=== PATIENT | male | born 1945 | race Caucasian/White ===

== ENCOUNTER 2022-04-26 09:01 | Outpatient (REF) | payer MEDICARE, SELFPAY ==
[2022-04-26 09:21] VITALS: BP 136/65; PULSE 59; RESP 16; TEMP 36.6; O2SAT 98
[2022-04-26 09:22] VITALS: BMI 25.3
[2022-04-26 09:50] VITALS: BP 117/60; PULSE 60; RESP 16; O2SAT 98
== END 2022-04-26 09:02 | disposition home or self-care (01) ==
LOC: HO.MS 09:01
PROVIDERS: PCP Physician Assistant; Visit Provider Ophthalmology
PROC: (CPT 67840; principal; 2022-04-26 13:10)
DX: D23.112 Other benign neoplasm of skin of right lower eyelid, including canthus (principal); H35.032 Hypertensive retinopathy, left eye; Z96.1 Presence of intraocular lens; I10 Essential (primary) hypertension; E11.9 Type 2 diabetes mellitus without complications; E78.00 Pure hypercholesterolemia, unspecified; Z87.891 Personal history of nicotine dependence; Z88.2 Allergy status to sulfonamides; Z79.84 Long term (current) use of oral hypoglycemic drugs; Z79.899 Other long term (current) drug therapy
CPT/HCPCS: 67840; 88305

== ENCOUNTER 2022-06-15 09:08 | Outpatient (REF) | payer MEDICARE, SELFPAY ==
--- NOTE | ~2022-06-15 | XR_ITS ---
EXAMINATION: XR KNEE, LEFT CLINICAL INFORMATION: Left knee pain COMPARISON: None TECHNIQUE: Four views of the left knee. FINDINGS: No joint space narrowing. Prominent meniscal chondrocalcinosis. Trace joint effusion. Small marginal osteophytes and degenerative cyst of the medial tibia peripherally. Prominent vascular calcifications. XR/XR knee LT 4V IMPRESSION: No acute osseous abnormality. Mild medial compartment osteoarthritis with prominent meniscal chondrocalcinosis.
== END 2022-06-15 09:09 | disposition home or self-care (01) ==
LOC: HO.XRAY 09:08
PROVIDERS: PCP Physician Assistant; Visit Provider Physician Assistant
DX: M25.562 Pain in left knee (principal)
CPT/HCPCS: 73564

== ENCOUNTER 2022-07-30 06:35 | Outpatient (REF) | payer MEDICARE, SELFPAY ==
[2022-07-30 07:39] LABS: Hematocrit 31.1 % (42.0-52.0); Hemoglobin 9.2 g/dl (14.0-18.0); Mean Corpuscular HGB Conc 29.6 g/dl (31.0-36.0); Mean Corpuscular Hemoglobin 23.2 pg (27.0-33.0); Mean Corpuscular Volume 78.3 fL (80.0-98.0); Mean Platelet Volume 9.1 fL (9.4-12.4); Platelet Count 297 X10*3/uL (160-400); Red Blood Count 3.97 X10*6/uL (4.60-5.80); Red Cell Distribution Width 17.6 % (11.0-16.0); White Blood Count 7.3 X10*3/uL (4.8-10.8)
[2022-07-30 08:22] LABS: Alanine Aminotransferase 16 U/L (0-40); Albumin Level 3.9 g/dL (3.5-5.0); Alkaline Phosphatase 88 U/L (39-117); Anion Gap 13 (12-20); Aspartate Amino Transferase 21 U/L (5-37); Bilirubin Total 0.5 mg/dL (0.0-1.0); Blood Urea Nitrogen 23 mg/dL (9-16); Calcium 9.7 mg/dL (8.4-10.2); Carbon Dioxide 25 mmol/L (22-29); Chloride 105 mmol/L (96-108); Cholesterol 123 mg/dL; Estimated Glomerular Filt Rate > 60; Glucose Fasting 99 mg/dL (60-99); HDL Cholesterol 27 mg/dL; LDL Cholesterol Calculated 76 mg/dl; Potassium 4.9 mmol/L (3.3-5.1); Prostate Specific Antigen Scr 0.78 ng/mL (<0.05-4.0); Sodium 138 mmol/L (135-145); TSH reflex Free T4 2.54 uIU/mL (0.32-4.0); Total Protein 7.7 g/dL (6.5-8.0); Triglycerides 100 mg/dL
[2022-07-30 09:47] LABS: Creatinine Urine 94.42 mg/dL; Microalbum/Creatinine Ratio Ur 25.4 ug/mg cr
== END 2022-07-30 06:36 | disposition home or self-care (01) ==
LOC: HO.LAB 06:35
PROVIDERS: PCP Physician Assistant; Visit Provider Physician Assistant
DX: Z12.5 Encounter for screening for malignant neoplasm of prostate (principal); E11.42 Type 2 diabetes mellitus with diabetic polyneuropathy
CPT/HCPCS: 36415; 80053; 80061; 82043; 84153; 84443; 85027

== ENCOUNTER 2022-08-13 06:53 | Outpatient (REF) | payer MEDICARE, SELFPAY ==
[2022-08-13 07:25] LABS: Hematocrit 32.5 % (42.0-52.0); Hemoglobin 9.5 g/dl (14.0-18.0); Mean Corpuscular HGB Conc 29.2 g/dl (31.0-36.0); Mean Corpuscular Hemoglobin 23.2 pg (27.0-33.0); Mean Corpuscular Volume 79.3 fL (80.0-98.0); Mean Platelet Volume 9.3 fL (9.4-12.4); Platelet Count 318 X10*3/uL (160-400); Red Cell Distribution Width 17.6 % (11.0-16.0); White Blood Count 7.4 X10*3/uL (4.8-10.8)
[2022-08-13 07:51] LABS: Estimated Average Glucose 140 mg/dL; Hemoglobin A1c % 6.5 %
[2022-08-13 08:17] LABS: Alanine Aminotransferase 19 U/L (0-40); Alkaline Phosphatase 101 U/L (39-117); Anion Gap 16 (12-20); Aspartate Amino Transferase 24 U/L (5-37); Bilirubin Total 0.4 mg/dL (0.0-1.0); Blood Urea Nitrogen 21 mg/dL (9-16); Calcium 9.6 mg/dL (8.4-10.2); Carbon Dioxide 20 mmol/L (22-29); Chloride 108 mmol/L (96-108); Cholesterol 124 mg/dL; Estimated Glomerular Filt Rate > 60; Ferritin 36 ng/mL (20-250); Glucose Fasting 266 mg/dL (60-99); HDL Cholesterol 25 mg/dL; Iron 42 mcg/dL (45-160); LDL Cholesterol Calculated 74 mg/dl; Percent Iron Saturation 12 % (15-50); Potassium 5.2 mmol/L (3.3-5.1); Prostate Specific Antigen Scr 0.88 ng/mL (<0.05-4.0); Sodium 139 mmol/L (135-145); TSH reflex Free T4 2.17 uIU/mL (0.32-4.0); Total Iron Binding Capacity 359 mcg/dL (228-428); Total Protein 7.9 g/dL (6.5-8.0); Triglycerides 127 mg/dL; Unsaturated Iron Binding 317 ug/dL
[2022-08-13 08:28] LABS: Creatinine Urine 91.93 mg/dL
== END 2022-08-13 06:54 | disposition home or self-care (01) ==
LOC: HO.LAB 06:53
PROVIDERS: PCP Physician Assistant; Visit Provider Physician Assistant
DX: E11.42 Type 2 diabetes mellitus with diabetic polyneuropathy (principal); C67.9 Malignant neoplasm of bladder, unspecified; D50.9 Iron deficiency anemia, unspecified; Z12.5 Encounter for screening for malignant neoplasm of prostate
CPT/HCPCS: 36415; 80053; 80061; 82043; 82728; 83036; 83540; 84153; 84443; 85027

== ENCOUNTER → 2022-09-13 12:49 | Outpatient (BNVA) | payer MEDICARE, SELFPAY | PROVIDERS: PCP Physician Assistant; Visit Provider Orthopaedic Surgery | DX: M17.12 Unilateral primary osteoarthritis, left knee (principal); E11.42 Type 2 diabetes mellitus with diabetic polyneuropathy | CPT/HCPCS: 99202 ==

== ENCOUNTER 2022-09-21 07:38 | Outpatient (REF) | payer MEDICARE, SELFPAY ==
--- NOTE | ~2022-09-21 | US_ITS ---
EXAMINATION: US RETROPERITONEAL LIMITED (AORTA) CLINICAL INFORMATION: Encounter for screening for cardiovascular disorders. COMPARISON: None TECHNIQUE: Bar-scale, color Doppler and spectral Doppler evaluation of the abdominal aorta. FINDINGS: Calcific plaque is present in the abdominal aorta with infrarenal dilatation and maximal transverse diameter of 3.2 cm. The measurements of the aorta in maximum AP and transverse dimensions respectively are as follows: Proximal: 2.5 x 3.0 cm. Mid: 2.6 x 2.3 cm. Distal: 3.1 x 3.2 cm. PSV: 94.6 cm/s. Plaque is present in the iliac vessels. There are elevated velocities seen within the internal iliac arteries bilaterally, but not the common iliac artery. The measurements of the common iliac arteries in maximum AP and TRV dimensions are as follows: Right Common Iliac Artery: 1.1 x 0.9 cm. Left Common Iliac Artery: 0.8 x 1.1 cm. US/US aorta IMPRESSION: Infrarenal abdominal aortic aneurysm with maximal transverse diameter of 3.2 cm. Followup is recommended in 3 years' time.
== END 2022-09-21 07:39 | disposition home or self-care (01) ==
LOC: HO.US 07:38
PROVIDERS: PCP Physician Assistant; Visit Provider Physician Assistant
DX: Z13.6 Encounter for screening for cardiovascular disorders (principal); I10 Essential (primary) hypertension; Z87.891 Personal history of nicotine dependence
CPT/HCPCS: 76775

== ENCOUNTER 2022-10-19 08:00 | Outpatient (RCR) | payer MEDICARE, SELFPAY ==
[2022-09-08 07:10] VITALS: BP 134/61; PULSE 62; O2SAT 97
--- NOTE | 2022-09-08 09:24 | MHC.PT.EP ---
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 OF IMPORTANCE, Pt IS RECENTLY REF FROM GOVERNMENT RELATIONS DIRECTOR TO VASCULAR SURGEON TO ASSESS CLAUDICATION IN LEs- Pt ALSO HAS AN ORTHO CONSULT FOR Lt KNEE NEXT WEEK. OBJECTIVE FINDINGS: ANURAG KNEE EXTEN DEFICITS, DECR ANURAG HIP/ HS FLEXIBILITY, NEUROPATHY SXS IN ANURAG FEET AT NIGHT (DUE TO DIABETES), STRENGTH DEFICITS IN ANURAG PROX LEs, (+) GENU VARUS ANURAG; AND (+) LEFT POPLITEAL TENDERNESS (NO SIGNIF LEFT KNEE Jt LINE OR PF PAIN). FUNCTIONALLY, Pt IS LIMITED W DEEP SQUATS, STAIR MGMT, INCR WALKING, AND PROLONGED ACTIVITY. Pt IS VERY MOTIVATED FOR PT AND HE WOULD BENEFIT FROM PT TO ADDRESS THE ABOVE FINDINGS AND DEV A HEP/ SX MGMT TECHN W CLOSE MONITORING OF Pt'S RESPONSE AND IF ANY VASCULAR SXS. 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 Manual therapy to restore motion and function. Therapeutic exercise to improve strength and flexibility. Neuromuscular re-education for posture and balance. Therapeutic activities to return to functional activities of daily living. Electronically signed by: LUISITO VASQUEZ,PT Please sign and return to therapist. Thank you for your referral.
--- NOTE | 2022-10-19 09:04 | MHC.PT.DC ---
[facility] [place] Office [place] Office [place] Office [address] Yue Sanchez [address] [phone] F: [phone] F: [phone] F: [phone] F: [phone] Physical Therapy Discharge Report Diagnosis: CHRONIC INSTABILITY OF LEFT KNEE Date of Surgery: Date of Evaluation: 09/08/22 Date of Discharge: 10/19/22 Treatments to Date: 11 Cancellations to Date: 1 No Shows to Date: 0 Discharge Status: Achieved Goals Improved Function Independent with HEP Discharge Summary: Pt MET HIS PT GOALS AT THIS TIME- HE DEMON EFFICIENT GAIT MECH, SQUAT TECHN/ STAIR MGMT- HE STATED HIS LEs FEEL STRONGER OVERALL AND HE IS COMPLIANT AND INDEP W HIS HEP- Pt FEELS READY TO CONT ON HIS OWN AT THIS TIME; HE DEMON EFFICIENT GAIT MECH ON LEVEL GROUND AND STAIRS, WFL FUNCTIONAL SQUAT, HE IS MOTIVATED AND INDEP W HEP AND HE PLAYED GOLF LAST WEEK AND FELT GREAT. HIS LEFI SCAORE TODAY AT D/C IS 75/80 AND AT EVAL 55/80. Electronically signed by: LUISITO VASQUEZ,PT Please sign and return to therapist. Thank you for your referral.
== END 2022-10-19 09:04 | disposition home or self-care (01) ==
LOC: HO.PT 08:00
PROVIDERS: PCP Physician Assistant; Visit Provider Physician Assistant
DX: M23.52 Chronic instability of knee, left knee (principal)
CPT/HCPCS: 97110; 97162; 97530

== ENCOUNTER 2023-02-16 07:05 | Outpatient (REF) | payer MEDICARE, SELFPAY ==
[2023-02-16 11:27] LABS: Hematocrit 32.7 % (42.0-52.0); Mean Corpuscular HGB Conc 30.6 g/dl (31.0-36.0); Mean Corpuscular Hemoglobin 25.6 pg (27.0-33.0); Mean Corpuscular Volume 83.8 fL (80.0-98.0); Mean Platelet Volume 9.5 fL (9.4-12.4); Platelet Count 281 X10*3/uL (160-400); Red Cell Distribution Width 16.9 % (11.0-16.0); White Blood Count 5.9 X10*3/uL (4.8-10.8)
[2023-02-16 12:00] LABS: Alanine Aminotransferase 17 U/L (0-40); Albumin Level 3.9 g/dL (3.5-5.0); Alkaline Phosphatase 93 U/L (39-117); Anion Gap 14 (12-20); Aspartate Amino Transferase 24 U/L (5-37); Bilirubin Total 0.6 mg/dL (0.0-1.0); Blood Urea Nitrogen 22 mg/dL (9-16); Calcium 9.6 mg/dL (8.4-10.2); Carbon Dioxide 24 mmol/L (22-29); Chloride 108 mmol/L (96-108); Cholesterol 120 mg/dL; Estimated Glomerular Filt Rate > 60; Glucose Fasting 120 mg/dL (60-99); HDL Cholesterol 27 mg/dL; Iron 45 mcg/dL (45-160); LDL Cholesterol Calculated 72 mg/dl; Percent Iron Saturation 13 % (15-50); Potassium 4.5 mmol/L (3.3-5.1); Sodium 141 mmol/L (135-145); Total Iron Binding Capacity 345 mcg/dL (228-428); Triglycerides 108 mg/dL; Unsaturated Iron Binding 300 ug/dL
[2023-02-16 12:20] LABS: Prostate Specific Antigen Scr 0.83 ng/mL (<0.05-4.0)
== END 2023-02-16 07:06 | disposition home or self-care (01) ==
LOC: HO.WFDLDS 07:05
PROVIDERS: Visit Provider Physician Assistant
DX: Z12.5 Encounter for screening for malignant neoplasm of prostate (principal); D50.0 Iron deficiency anemia secondary to blood loss (chronic); I10 Essential (primary) hypertension; I25.10 Atherosclerotic heart disease of native coronary artery without angina pectoris
CPT/HCPCS: 36415; 80053; 80061; 83540; 84153; 85027

== ENCOUNTER → 2023-03-02 15:08 | Outpatient (BNVA) | payer MEDICARE, SELFPAY | PROVIDERS: PCP Physician Assistant; Visit Provider Nurse Practitioner Family | DX: Z12.11 Encounter for screening for malignant neoplasm of colon (principal); R19.7 Diarrhea, unspecified | CPT/HCPCS: 99202 ==

== ENCOUNTER 2023-03-18 07:23 | Outpatient (REF) | payer MEDICARE, SELFPAY ==
[2023-03-18 14:20] LABS: Hematocrit 32.1 % (42.0-52.0); Hemoglobin 9.5 g/dl (14.0-18.0); Mean Corpuscular HGB Conc 29.6 g/dl (31.0-36.0); Mean Corpuscular Hemoglobin 25.5 pg (27.0-33.0); Mean Corpuscular Volume 86.1 fL (80.0-98.0); Mean Platelet Volume 9.9 fL (9.4-12.4); Platelet Count 272 X10*3/uL (160-400); Red Blood Count 3.73 X10*6/uL (4.60-5.80); Red Cell Distribution Width 16.7 % (11.0-16.0); White Blood Count 5.2 X10*3/uL (4.8-10.8)
[2023-03-18 14:34] LABS: C Reactive Protein 0.49 mg/dL (< or = 0.50); Iron 42 mcg/dL (45-160); Percent Iron Saturation 13 % (15-50); Total Iron Binding Capacity 323 mcg/dL (228-428); Unsaturated Iron Binding 281 ug/dL
[2023-03-18 15:59] LABS: Folate 7.2 ng/mL (> or = 4.0); Vitamin B12 280 pg/mL (200-900)
[2023-03-23 15:44] LABS: Vitamin D 25-OH, D2 <4 ng/mL; Vitamin D 25-OH, D3 28 ng/mL; Vitamin D 25-OH, Total 28 ng/mL (30-100)
== END 2023-03-18 07:24 | disposition home or self-care (01) ==
LOC: HO.WFDLDS 07:23
PROVIDERS: Nurse Practitioner Family; Visit Provider Physician Assistant
DX: D50.0 Iron deficiency anemia secondary to blood loss (chronic) (principal); K58.9 Irritable bowel syndrome, unspecified; R19.7 Diarrhea, unspecified; E55.9 Vitamin D deficiency, unspecified
CPT/HCPCS: 36415; 82306; 82607; 82746; 83540; 85027; 86140

== ENCOUNTER → 2023-04-28 13:51 | Outpatient (BNV) | payer MEDICARE, SELFPAY | PROVIDERS: PCP Physician Assistant; Visit Provider Internal Medicine | DX: D64.9 Anemia, unspecified (principal) | CPT/HCPCS: 38222; 99204; 99212; 99213; 99214; G2211 ==

== ENCOUNTER 2023-05-16 13:05 | Outpatient (REF) | payer MEDICARE, SELFPAY | END 2023-05-16 13:06 | disposition home or self-care (01) | LOC: HO.MDS 13:05 | PROVIDERS: Visit Provider Internal Medicine | DX: D50.8 Other iron deficiency anemias (principal) | CPT/HCPCS: 96365; J1756 ==

== ENCOUNTER 2023-05-23 12:54 | Outpatient (REF) | payer MEDICARE, SELFPAY | END 2023-05-23 12:55 | disposition home or self-care (01) | LOC: HO.MDS 12:54 | PROVIDERS: Visit Provider Internal Medicine | DX: D50.8 Other iron deficiency anemias (principal) | CPT/HCPCS: 96365; J1756 ==

== ENCOUNTER 2023-05-30 12:57 | Outpatient (REF) | payer MEDICARE, SELFPAY | END 2023-05-30 12:58 | disposition home or self-care (01) | LOC: HO.MDS 12:57 | PROVIDERS: Visit Provider Internal Medicine | DX: D50.8 Other iron deficiency anemias (principal) | CPT/HCPCS: 96365; J1756 ==

== ENCOUNTER 2023-06-01 06:00 | Outpatient (REF) | payer MEDICARE, SELFPAY ==
[2023-06-01] MEDS: iohexoL 350 MG/ML 100 ML INFUS..BTL IV (08:35)
[2023-06-01] MEDS: Barium Sulfate Oral (Mocha) 450 ML ORAL.SUSP 900 ML PO (08:35)
[2023-06-01 10:03] LABS: Creatinine POC 0.6 mg/dL (0.5-1.4); GFR POC > 60
== END 2023-06-01 06:01 | disposition home or self-care (01) ==
LOC: HO.CT 06:00
PROVIDERS: PCP Physician Assistant; Visit Provider Internal Medicine
DX: R10.9 Unspecified abdominal pain (principal); R63.4 Abnormal weight loss; D64.9 Anemia, unspecified
CPT/HCPCS: 74177; 82565; Q9967

== ENCOUNTER 2023-06-07 13:30 | Outpatient (REF) | payer MEDICARE, SELFPAY | END 2023-06-07 13:31 | disposition home or self-care (01) | LOC: HO.MDS 13:30 | PROVIDERS: Visit Provider Internal Medicine | DX: D50.8 Other iron deficiency anemias (principal) | CPT/HCPCS: 96365; J1756 ==

== ENCOUNTER 2023-06-13 08:03 | Outpatient (AMB) | payer MEDICARE, SELFPAY ==
--- NOTE | 2023-06-13 08:15 | MHC.OFFWIV ---
Intake Vital Signs 06/13/23 08:17 Height 6 ft Weight 191 lb 8 oz BMI 26.0 BP 122/58 L Blood Pressure Location Lt brachial Position Sitting Respiration 14 Pulse 68 Pulse Source Pulse Oximeter Temp 97.5 F Temp Source Oral Pulse Oximetry (%) 99 Oxygen Delivery Method Room Air Intake Visit Reasons: cough Intake Note: Patient reports a cold x14 days with a persistent, productive cough. Patient reports his had a similar cold and his son as well and they are both better and he is experiencing coughing to the point of sleeping in a reclined position. Patient is currently taking Mucinex and HBP approved cold medicine, corididin. Patient reports the Mucinex is working better than coricidin. Patient notes he has taken an at home covid test and it has come back negative. 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 Patient reports a cold x14 days with a persistent, productive cough. Patient reports his had a similar cold and his son as well and they are both better and he is experiencing coughing to the point of sleeping in a reclined position. Patient is currently taking Mucinex and HBP approved cold medicine, corididin. Patient reports the Mucinex is working better than coricidin. Patient notes he has taken an at home covid test and it has come back negative. He denies a fever and reports cold has been doing better. 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) Cognitive needs: No Hearing needs: No Vision needs: Yes Review of Systems Const Denies chills, Denies fatigue, Denies fever(s), Denies headache(s) and Denies weakness ENT Denies dizziness and Denies headache(s) Card Denies chest pain, Denies lightheadedness, Denies dyspnea and Denies other (Palpitations) Resp Reports cough, Denies dyspnea and Denies wheezing Musc Denies numbness and Denies tingling Neuro Denies dizziness, Denies headache(s), Denies numbness, Denies tingling, Denies paresthesias and Denies weakness Psych Denies anxiety and Denies depression Endo Denies fatigue Aller/Immun Denies wheezing Physical Exam Vital Signs: Last Vital Signs Temp 97.5 F 06/13/23 08:17 Pulse 68 06/13/23 08:17 Resp 14 06/13/23 08:17 BP 122/58 L 06/13/23 08:17 Pulse Ox 99 06/13/23 08:17 Oxygen Delivery Method Room Air 06/13/23 08:17 BMI result Body Mass Index 26.0 Const General: no acute distress and well developed Nutritional Appearance: well nourished Orientation/consciousness: patient oriented x3 HEENT Head: Yes normocephalic and Yes atraumatic Eyes General: appearance normal, both eyes and all related structures Pupils: Equal, round and reactive pupils present EOM: EOMs intact bilaterally Resp Other: Upper airway secretion sounds but lungs themselves sound clear Effort & Inspection: normal respiratory effort Auscultation: clear to auscultation bilaterally Cardio Rate: regular rate Rhythm: regular rhythm Heart sounds: S1 normal heart sound present, S2 normal heart sound present, no gallops, no murmurs and no rubs Neuro General: patient oriented x3 and gait normal Cranial nerves: Yes Equal, round and reactive pupils present Psych Affect: normal affect Assessment & Plan Assessment & Plan (1) Cough: Code(s): R05.9 - Cough, unspecified Plan: Nasal?congestion?and?rhinitis?with?clear?lungs?on?auscultation?except?for?upper?airway?secretions?sounds. Family?members?had?upper?respiratory?in?nasal?symptoms?but?minimal?cough. Likely?has?cold?which?is?developing?into?bronchitis Will?give?him?a?script?for Z-Marvel?and?short?course?of?prednisone Also?advised?plenty?of?fluids?and?rest Checking?COVID/flu/RSV?to?rule?these?out. Can?also?use?cough?drops?and?can?use?Delsym?sparingly;?blood?pressure?is?well?controlled?but?check?blood?pressure?at?home. Orders: Orders SARS-CoV2/FLU/RSV Today R05.9 - Cough, unspecified, Z20.822 - Contact with and (suspected) exposure to COVID-19 Medications: New azithromycin (Zithromax Z-Marvel) take 500 mg today (day 1), then 250 mg for 4 days (days 2-5) PO 6 tabs 0RF 5 days prednisone 40 mg (2 x 20 mg) PO DAILY 10 tabs 0RF 5 days Coding Level of Care Code Est Pt Level 3 (33314) Diagnoses Cough R05.9
[2023-06-13 08:17] VITALS: BP 122/58; PULSE 68; RESP 14; TEMP 36.4; O2SAT 99; BMI 26.0
== END 2023-06-13 09:25 | disposition home or self-care (01) ==
PROVIDERS: PCP Physician Assistant; Visit Provider Family Medicine
DX: R05.9 Cough, unspecified (principal)
CPT/HCPCS: 99213

== ENCOUNTER 2023-06-13 12:55 | Outpatient (REF) | payer MEDICARE, SELFPAY ==
[2023-06-13 12:16] LABS: Influenza A PCR NEGATIVE (Negative); Influenza B PCR NEGATIVE (Negative); Resp Syncy Virus RNA Qual PCR NEGATIVE (Negative); SARS COV2 PCR INHOUSE NEGATIVE (Negative)
== END 2023-06-13 12:56 | disposition home or self-care (01) ==
LOC: HO.MDS 12:55
PROVIDERS: Family Medicine; Visit Provider Internal Medicine
DX: D50.8 Other iron deficiency anemias (principal); Z20.822 Contact with and (suspected) exposure to COVID-19; R05.9 Cough, unspecified
CPT/HCPCS: 0241U; 96374; J1756

== ENCOUNTER 2023-06-15 07:35 | Day surgery (SDC) | payer MEDICARE, SELFPAY ==
--- NOTE | 2023-06-14 08:33 | P.CONAN_ITS ---
HPI - Anesthesia Eval Consult details Narrative: 77yo M for Colonoscopy Zpak started 06/13/23 - cough is improving, no fevers Plavix last dose Tuesday Follows Dr Daniel ([facility]) for cardiology yearly around July. No concerning symptoms. [facility] Active Problems Active Problems: All Active Problems (Updated 06/14/23 @ 07:51 by Alyssia Bocanegra, RN) Cough (Acute) PAD (peripheral artery disease) (Acute) Trigger finger, left middle finger (Acute) Diarrhea (Acute) Adv eff medicinal NOS (Acute) Abdominal aortic aneurysm (Acute) Osteoarthritis of left knee (Acute) Screening for AAA (abdominal aortic aneurysm) (Acute) Recurrent left knee instability (Acute) Anemia (Acute) Knee pain, left (Acute) Anxiety (Acute) HUI (obstructive sleep apnea) (Acute) CAD (coronary artery disease) (Acute) Bladder cancer (Acute) DMII (diabetes mellitus, type 2) (Acute) HTN, goal to be determined (Acute) Past Medical History Medical History (Updated 06/14/23 @ 07:51 by Alyssia Bocanegra RN) Sleep apnea Hyperlipemia HTN, goal to be determined Type II diabetes mellitus Family History Family History Mother Pancreatic cancer Surgical History Surgical History (Updated 06/14/23 @ 07:49 by Alyssia Bocanegra, RN) History of coronary artery stent placement History of squamous cell carcinoma excision History of surgery on arm Social History Social History Household Members: Spouse Housing: House Alcohol intake: current Alcohol intake frequency: holidays/special occasions only Patient Tobacco Use Status: Former Tobacco user Tobacco use type: Cigarette e-Cigarette/Vaping Use: Former Use Second Hand Smoke Exposure: No service: No 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) Cognitive needs: No Hearing needs: No Vision needs: Yes Meds Allergies Allergy/AdvReac Type Severity Reaction Status Date / Time Sulfa (Sulfonamide Allergy Severe SKIN Verified 06/13/23 08:30 Antibiotics) SLOUGHING, [SULFA (SULFONAMIDE genital ANTIBIOTICS)] rash Home Medications Medication Instructions Recorded Confirmed Last Taken Type atorvastatin 40 mg tablet 40 mg PO BEDTIME 04/12/22 06/14/23 Unknown History blood sugar diagnostic (OneTouch 04/12/22 06/10/23 Unknown History Ultra Test strips) blood sugar diagnostic (OneTouch #10 ea 04/12/22 06/10/23 Unknown History Ultra Test strips) isosorbide mononitrate 30 mg 30 mg PO DAILY 04/12/22 06/14/23 Unknown History tablet,extended release 24 hr gabapentin 300 mg capsule 300 mg PO BEDTIME 06/14/23 06/14/23 Unknown History Exam Exam Date and Time: June 14, 2023 0833 Pertinent Lab Results Pertinent Lab Results: Laboratory Tests 06/10/23 10:28 WBC 6.6 Hgb 10.2 L Hct 33.3 L Plt Count 239 Sodium 141 Potassium 5.0 Chloride 108 Carbon Dioxide 23 BUN 19 H Creatinine 1.00 Assessment and Plan Assessment Anesthesia Assessment: Chart Reviewed
[2023-06-15 08:01] VITALS: BP 141/78; PULSE 54; RESP 18; TEMP 36.1; O2SAT 97
[2023-06-15 08:09] VITALS: BMI 25.1
[2023-06-15] MEDS: Lactated Ringers 1,000 ML 100 ML IVCONT (08:27)
--- NOTE | 2023-06-15 08:34 | HO.ANESPROP2 ---
[facility] Active Problems Active Problems: All Active Problems (Updated 06/14/23 @ 07:51 by Alyssia Bocanegra RN) Cough (Acute) PAD (peripheral artery disease) (Acute) Trigger finger, left middle finger (Acute) Diarrhea (Acute) Adv eff medicinal NOS (Acute) Abdominal aortic aneurysm (Acute) Osteoarthritis of left knee (Acute) Screening for AAA (abdominal aortic aneurysm) (Acute) Recurrent left knee instability (Acute) Anemia (Acute) Knee pain, left (Acute) Anxiety (Acute) HUI (obstructive sleep apnea) (Acute) CAD (coronary artery disease) (Acute) Bladder cancer (Acute) DMII (diabetes mellitus, type 2) (Acute) HTN, goal to be determined (Acute) Past Medical History Medical History Sleep apnea Hyperlipemia HTN, goal to be determined Type II diabetes mellitus Family History Family History Mother Pancreatic cancer Family history of problems with anesthesia: No Surgical History Surgical History Hx of transurethral resection of prostate Hx of colonoscopy History of coronary artery stent placement History of squamous cell carcinoma excision History of surgery on arm Social History Social History Household Members: Spouse Housing: House Alcohol intake: current Alcohol intake frequency: holidays/special occasions only Patient Tobacco Use Status: Former Tobacco user Tobacco use type: Cigarette e-Cigarette/Vaping Use: Former Use Second Hand Smoke Exposure: No Are you DNR?: No Advance Directives: No Advance Directives Information Provided: Yes Nutrition Risks: No Nutritional Risk service: No 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) Cognitive needs: No Hearing needs: No Vision needs: Yes Meds Allergies Allergy/AdvReac Type Severity Reaction Status Date / Time Sulfa (Sulfonamide Allergy Severe SKIN Verified 06/13/23 08:30 Antibiotics) SLOUGHING, [SULFA (SULFONAMIDE genital ANTIBIOTICS)] rash Active Medications: Current Medications Lactated Ringer's (Lr) 1,000 mls @ 100 mls/hr IVCONT .Q10H JASON Last Admin: 06/15/23 08:27 Dose: 100 mls/hr Home Medications Medication Instructions Recorded Confirmed Last Taken Type atorvastatin 40 mg tablet 40 mg PO BEDTIME 04/12/22 06/14/23 Unknown History blood sugar diagnostic (OneTouch 04/12/22 06/10/23 Unknown History Ultra Test strips) blood sugar diagnostic (OneTouch #10 ea 04/12/22 06/10/23 Unknown History Ultra Test strips) isosorbide mononitrate 30 mg 30 mg PO DAILY 04/12/22 06/14/23 Unknown History tablet,extended release 24 hr gabapentin 300 mg capsule 300 mg PO BEDTIME 06/14/23 06/14/23 Unknown History Exam Exam Date and Time: June 15, 2023 0834 Height,Weight and Vital Signs: Height 6 ft Weight 83.915 kg Last Vital Signs Temp 97 F 06/15/23 08:01 Pulse 54 06/15/23 08:01 Resp 18 06/15/23 08:01 BP 141/78 H 06/15/23 08:01 Pulse Ox 97 06/15/23 08:01 O2 Del Method Room Air 06/15/23 08:01 Airway Mallampati Class: III TM Dist: >3cm Neck ROM: Full Heart: RRR Lungs: CTA Assessment and Plan Assessment Anesthesia Assessment: Anesthesia Plan Discussed Final Anesthetic Review Family History of Problems with Anesthesia: No ASA Class: III Final Preanesthetic Review: Meds/Allgs Chart Reviewed, Consent Obtained/Reviewed and Anes Risks/Benef Reviewed Patient Risk: Low Procedure Risk: Low Anesthetic Plan Anesthetic Plan: MAC: Disposition: Standard PACU
--- NOTE | 2023-06-15 08:45 | MHC.SHP ---
Pre-Procedural Eval Section A Date of Service: 06/15/23 Section B Chief Complaint: Anemia, unspecified, Screening Relevant Family History (Specify if Yes): No Relevant Social History: None Present Medications: see Short Stay Collaborative assessment Medical History: Significant History (HTN, goal to be determined Hyperlipemia Sleep apnea Type II diabetes mellitus, bladder ca,possible myeloma) History of Previous Operations: Relevant previous surgery/procedure and date(s) (coronary stent) Allergies: Allergies Allergy/AdvReac Type Severity Reaction Status Date / Time Sulfa (Sulfonamide Allergy Severe SKIN Verified 06/13/23 08:30 Antibiotics) SLOUGHING, [SULFA (SULFONAMIDE genital ANTIBIOTICS)] rash Review of Systems Sugical H&P ROS: Negative: Constitution, Cardiovascular, Respiratory, Neurological, Psychiatric, Hem-Onc, Allergic/Immunologic, Gastrointestinal, Genitourinary, Musculoskeletal, Integumentary, Endocrine and Eyes/Ears/Nose/Throat Exam Surgical H&P Exam: Normal: HEENT, Normal: Heart, Normal: Lungs, Normal: Extremities, Normal: Abdomen, Normal: Skin and Normal: Neurological Plan Diagnosis/Plan: Unchanged I have reviewed the history and physical and performed a pertinent physical examination on my patient. No changes have occurred unless specified. Time Spent With Patient Time: Total time managing care of this patient today ____ minutes.
--- NOTE | 2023-06-15 08:48 | P.OP_ITS ---
Operative Note Operative Note Date of Service: 06/15/23 Narrative: Operative Information Procedure Description: Colonoscopy Indication: anemia, diarrhea Anesthesia: MAC COLONOSCOPY Instrument: Olympus variable stiffness pediatric scope 190L Colonoscopy Monitoring: Vital signs and clinical assessment, continuous EKG monitoring, Pulse oximetry, Carbon Dioxide monitoring and blood pressure monitoring were done throughout the procedure. Colon withdrawal time was 9 minutes. Procedure: The patient was placed in the left lateral decubitis position and pre-procedure medications were administered. After a digital rectal examination of the ano-rectum, the video colonoscope was inserted into the rectum and advanced through the colon to the cecum/TI. The colonoscope was slowly withdrawn in a retrograde panoramic fashion and the colon mucosa was carefully examined including a retroflexed view of the rectum. Findings and interventions are described below. Procedure Difficulty: moderate due to poor prep Findings: Terminal Ileum-not intubated random bx taken to r/o microscopic colitis Cecum:normal Ascending Colon: x 3 sessile polyps 7-9 mm removed with cold snare Transverse Colon -normal Descending Colon:normal Sigmoid Colon: few tics seen Rectum: Retroflexion not done due to poor prep, forward view with internal hemorrhoids seen Anorectum - normal Colon preparation: [place] Bowel Preparation Scale Right colon; 1-2 Transverse colon: 1 Left colon; 1 (0 = Unprepared colon segment with mucosa not seen due to solid stool that cannot be cleared. 1 = Portion of mucosa of the colon segment seen, but other areas of the colon segment not well seen due to staining, residual stool and/or opaque liquid. 2 = Minor amount of residual staining, small fragments of stool and/or opaque liquid, but mucosa of colon segment seen well. 3 = Entire mucosa of colon segment seen well with no residual staining, small fragments of stool or opaque liquid) Impression and Post Procedure Diagnosis: poor prep colon polyps Plan: High fiber diet leaflet Avoid straining at stool, epsom salts and sitz bath, anusol supps or cream Repeat Colonoscopy in 3-4 months with review of prep Above findings were reviewed with the patient and relevant handouts were provided if indicated.
[2023-06-15 09:03] LABS: Glucose, Whole Blood 129 mg/dL (60-115)
[2023-06-15 09:25] VITALS: BP 88/41; PULSE 57; RESP 16; TEMP 36.4; O2SAT 95
[2023-06-15 09:40] VITALS: BP 115/52; PULSE 55; RESP 16; O2SAT 96
--- NOTE | 2023-06-15 09:51 | HO.POSTANES ---
Post Anesthesia Evaluation Post Anesthesia Evaluation Date of Service: 06/15/23 Vital Signs: Vital Signs Temp Pulse Resp BP Pulse Ox O2 Del Method 06/15/23 09:40 55 16 115/52 L 96 Room Air 06/15/23 09:25 97.6 F 57 16 88/41 L 95 Room Air 06/15/23 08:01 97 F 54 18 141/78 H 97 Room Air Anesthesia: Monitored Mental Status: Awake Pain Control: Satisfactory Nausea/Vomiting: None Hydration: Adequate Anesthesia-Related Issues: No Anes. Related Issues
[2023-06-15 09:52] VITALS: BP 129/57; PULSE 51; RESP 16; TEMP 36.3; O2SAT 97
== END 2023-06-15 10:30 | disposition home or self-care (01) ==
PROVIDERS: PCP Physician Assistant; Visit Provider Internal Medicine Gastroenterology
PROC: 0DJD8ZZ Inspection of Lower Intestinal Tract, Via Natural or Artificial Opening Endoscopic (ICD-10-PCS; CPT 45378; principal; 2023-06-15 09:20)
DX: Z12.11 Encounter for screening for malignant neoplasm of colon (principal); D64.9 Anemia, unspecified; K52.9 Noninfective gastroenteritis and colitis, unspecified; D12.2 Benign neoplasm of ascending colon; K57.30 Diverticulosis of large intestine without perforation or abscess without bleeding; K64.8 Other hemorrhoids; Z85.51 Personal history of malignant neoplasm of bladder; I10 Essential (primary) hypertension; E78.5 Hyperlipidemia, unspecified; I25.10 Atherosclerotic heart disease of native coronary artery without angina pectoris; Z95.5 Presence of coronary angioplasty implant and graft; E11.9 Type 2 diabetes mellitus without complications; E55.9 Vitamin D deficiency, unspecified; G47.30 Sleep apnea, unspecified; Z99.89 Dependence on other enabling machines and devices; Z79.01 Long term (current) use of anticoagulants; Z79.82 Long term (current) use of aspirin; Z79.84 Long term (current) use of oral hypoglycemic drugs; Z79.899 Other long term (current) drug therapy; Z88.2 Allergy status to sulfonamides; Z87.891 Personal history of nicotine dependence
CPT/HCPCS: 45385; 45380; 82947; 88305

== ENCOUNTER → 2023-06-15 07:35 | Outpatient (BNV) | payer MEDICARE, SELFPAY | PROVIDERS: PCP Physician Assistant; Visit Provider Internal Medicine Gastroenterology | DX: D64.9 Anemia, unspecified (principal); R19.7 Diarrhea, unspecified; D12.2 Benign neoplasm of ascending colon; K57.90 Diverticulosis of intestine, part unspecified, without perforation or abscess without bleeding | CPT/HCPCS: 45380; 45385 ==

== ENCOUNTER 2023-06-29 09:13 | Outpatient (AMB) | payer MEDICARE, SELFPAY ==
[2023-06-29 09:16] VITALS: BP 125/57; PULSE 63; O2SAT 99; BMI 26.2
--- NOTE | 2023-06-29 09:16 | A.OFFVIS_ITS ---
Intake Vital Signs 06/29/23 09:16 Height 6 ft Weight 193 lb 1.999 oz BMI 26.2 BP 125/57 L Blood Pressure Location Lt brachial Position Sitting Pulse 63 Pulse Source Pulse Oximeter Pulse Oximetry (%) 99 Oxygen Delivery Method Room Air Intake Visit Reasons: S/P [place] screening; Dr. Valentino Intake Note: Pt presents to the office today for s/p colo screening. Pt states he is feeling well and denies any GI concerns at this time. Allergies Sulfa (Sulfonamide Antibiotics) [SULFA (SULFONAMIDE ANTIBIOTICS)] Allergy ( Severe, Verified 06/29/23 09:19) SKIN SLOUGHING, genital rash HPI S/P [place] screening; Dr. Valentino HPI Details LAST VISIT Diarrhea Occasional diarrhea. Patient reports that he gets diarrhea no matter if he eats or not. Will check CRP to rule out inflammatory bowel disease. Will check vitamin B12, folate and vitamin-D levels. Patient denies any abdominal pain or cramping. Will start him on Citrucel daily Screen for colon cancer Patient denies any cardiac or respiratory symptoms.? Patient reports diarrhea. Uses Pepto-Bismol and that usually helps some for couple days. Denies any issues with anesthesia in the past.? History of sleep apnea using CPAP at night. No history infectious diseases in the past or present.? Patient is on low-dose aspirin and Plavix. Patient will need to stop Plavix 5 days before the procedure. Patient denies any cardiac symptoms. If patient has any cardiac symptom will need cardiology clearance otherwise can proceed with the procedure. Patient had no trouble with anesthesia. No family or personal history of colon cancer or polyps.? Patient denies melena, hematochezia, unintentional weight loss or ribbon like stools.? Discussed at length the pre-procedure,? prep, diet & medications as well as what to expect prior, during and after the procedure.?? Stressed the importance of good bowel prep. ?Recommended the use of Vaseline or Calmoseptine OTC & baby wipes with bowel movements to promote comfort.? ?Patient verbalizes understanding and agrees to plan of care.? He was given the opportunity to ask questions and all questions answered.? We will see him after the procedure.? Orders C Reactive Protein Today K58.9 - Irritable bowel syndrome without diarrhea Vitamin B12 and Folate Today R19.7 - Diarrhea, unspecified Vitamin D 25-OH (D2 and D3) Today E55.9 - Vitamin D deficiency, unspecified Medications New bisacodyl (Dulcolax (bisacodyl)) take 2 tabs at noon the day before your colonoscopy 10 mg (2 x 5 mg) PO ONCE 1 day 2 tabs 0RF Z12.11 - Encounter for screening for malignant neoplasm of colon polyethylene glycol 3350 (Miralax) As directed by gastroenterology department at [facility] 238 grams PO ONCE 238 grams 0RF Z12.11 - Encounter for screening for malignant neoplasm of colon methylcellulose (laxative) (Citrucel) take it with full glass of water 500 mg PO DAILY 90 tabs 2RF K59.00 - Constipation, unspecified COLONOSCOPY Findings: Terminal Ileum-not intubated random bx taken to r/o microscopic colitis Cecum:normal Ascending Colon: x 3 sessile polyps 7-9 mm removed with cold snare Transverse Colon -normal Descending Colon:normal Sigmoid Colon: few tics seen Rectum: Retroflexion not done due to poor prep, forward view with internal hemorrhoids seen Anorectum - normal Colon preparation: Shanks Bowel Preparation Scale Right colon; 1-2 Transverse colon: 1 Left colon; 1 (0 = Unprepared colon segment with mucos a not seen due to solid stool that cannot be cleared. 1 = Portion of mucosa of the colon segme nt seen, but other areas of the colon segment not well seen due to staining, residual stool and/or opaque liquid. 2 = Minor amount of residual staining, s mall fragments of stool and/or opaque liquid, but mucosa of colon segment seen well. 3 = Entire mucosa of colon segment seen well with no residual staining, small fragments of stool or opaque liquid) Impression and Post Procedure Diagnosis: poor prep colon polyps Plan: High fiber diet leaflet Avoid straining at stool, epsom salts and sitz bath, anusol supps or cream Repeat Colonoscopy in 3-4 months with review of prep PATHOLOGY RESULTS Diagnosis A. Colon, ascending, 3 polyps: Tubular adenomas, three; negative for high-grade dysplasia and carcinoma. B. Colon, random, biopsy: Focal minimal-mild active colitis; no granulomas, chronic regenerative changes, microscopic colitis or dysplasia (see comment). Comment: (B): These mild findings may be due to b owel prep, drugs, infection, or diverticular disease and clinical correlation is necessary TODAY'S VISIT Patient is here today for follow-up and to discuss colonoscopy results. Tubular adenoma found in ascending colon. Negative for high-grade dysplasia or carcinoma. Patient had suboptimal prep and will need to repeat colonoscopy in 3-4 months. Patient does report that he feels like he moves his bowels normally. Does not feel like he is constipated. Patient reports that he did the prep as it was prescribed. Patient denies melena, hematochezia, unintentional weight loss or ribbon like stools. Denies any ill effects from the prep, anesthesia or procedure itself. Patient denies any other GI concerning symptoms. [facility] Medical History Tubular adenoma Sleep apnea Hyperlipemia HTN, goal to be determined Type II diabetes mellitus Surgical History Hx of transurethral resection of prostate Hx of colonoscopy History of coronary artery stent placement History of squamous cell carcinoma excision History of surgery on arm Family History Mother Pancreatic cancer Social History Household Members: Spouse Housing: House Alcohol intake: current Alcohol intake frequency: holidays/special occasions only Patient Tobacco Use Status: Former Tobacco user Tobacco use type: Cigarette e-Cigarette/Vaping Use: Former Use Second Hand Smoke Exposure: No Use of substances other than those prescribed or required for medical reasons: No Have you been hit, kicked, punched, or otherwise hurt by someone within the past year? 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) Cognitive needs: No Hearing needs: No Vision needs: Yes Physical Exam Vital Signs: Last Vital Signs Pulse 63 06/29/23 09:16 BP 125/57 L 06/29/23 09:16 Pulse Ox 99 06/29/23 09:16 Oxygen Delivery Method Room Air 06/29/23 09:16 BMI result Body Mass Index 26.2 Const General: healthy appearing, no acute distress and well developed Nutritional Appearance: well nourished Orientation/consciousness: patient oriented x3 HEENT Head: Yes normal to inspection, Yes normocephalic and Yes atraumatic Face and sinus: Yes normal facial exam Mouth: Normal oral and palatal mucosa present Throat: Yes posterior oropharynx normal, Yes tonsils normal and Yes uvula midline Eyes General: appearance normal, both eyes and all related structures Neck Neck: Yes normal visual inspection, Yes full ROM and Yes trachea midline Thyroid: Thyroid normal Resp Effort & Inspection: normal respiratory effort, able to speak in complete sentences, no tracheal deviation and symmetric chest movement Auscultation: clear to auscultation bilaterally Cardio Rate: regular rate Heart sounds: S1 normal heart sound present and S2 normal heart sound present GI Inspection: Yes normal to inspection and No distended Palpation (GI): Soft to palpation, not firm, nontender and No hepatosplenomegaly present Auscultation: normal bowel sounds General: Yes no CVA tenderness Back/Spine/Pelvis Back: no CVA tenderness Skin General skin exam: elasticity normal, turgor normal and dry skin Neuro General: patient oriented x3 Psych Appearance: grossly normal Mental Status: mental status grossly normal Assessment & Plan Assessment & Plan (1) Diarrhea: Code(s): R19.7 - Diarrhea, unspecified Qualifiers: Diarrhea type: unspecified type Qualified Code(s): R19.7 - Diarrhea, unspecified (2) Tubular adenoma: Code(s): D36.9 - Benign neoplasm, unspecified site (3) Status post colonoscopy: Code(s): Z98.890 - Other specified postprocedural states Plan Due to suboptimal prep patient will return for colorectal screening in 3-4 months. We will book the appointment today. Discussed with patient that way he needs to prep. He will take Dulcolax tabs every night starting 1 week before the procedure and day before the procedure he can take 4 tablets at noon time f ollowed by split MiraLax prep. 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 Patient was encouraged to drink plenty fluids to make sure that he does not become dehydrated. I will see patient after the procedure, sooner on as needed basis. Patient is agreeable to the plan and verbalizes understanding of instructions. He was given the opportunity to ask questions and all questions answered. Thank you for allowing me to participate in his care Medications: New bisacodyl (Dulcolax (bisacodyl)) Start taking 2 tablet every night 7 days before the procedure and 1 day before procedure take 4 tablets at noon time followed by MiraLax prep 10 mg (2 x 5 mg) PO BEDTIME 16 tabs 0RF Z12.11 - Encounter for screening for malignant neoplasm of colon polyethylene glycol 3350 (Miralax) As directed by gastroenterology department at [facility] 238 grams PO ONCE 238 grams 0RF Z12.11 - Encounter for screening for malignant neoplasm of colon Coding Level of Care Code Est Pt Level 4 (03090) Diagnoses Diarrhea, unspecified type R19.7 Diarrhea type: unspecified type Tubular adenoma D36.9 Status post colonoscopy Z98.890 Time Spent (min) 35 Comment 25 minutes spent with patient and additional 15 minutes spent reviewing his records
== END 2023-06-29 10:01 | disposition home or self-care (01) ==
PROVIDERS: PCP Physician Assistant; Visit Provider Nurse Practitioner Family
DX: R19.7 Diarrhea, unspecified (principal); D36.9 Benign neoplasm, unspecified site; Z98.890 Other specified postprocedural states
CPT/HCPCS: 99214

== ENCOUNTER → 2023-06-29 09:13 | Outpatient (BNVA) | payer MEDICARE, SELFPAY | PROVIDERS: PCP Physician Assistant; Visit Provider Nurse Practitioner Family | DX: D12.2 Benign neoplasm of ascending colon (principal); Z98.890 Other specified postprocedural states | CPT/HCPCS: 99212 ==

== ENCOUNTER 2023-08-15 08:18 | Outpatient (AMB) | payer MEDICARE, SELFPAY ==
[2023-08-15 08:40] VITALS: BP 116/56; PULSE 60; O2SAT 95; BMI 25.3
--- NOTE | 2023-08-15 08:40 | MHC.PC.OV ---
Vital Signs 08/15/23 08:40 Height 6 ft Weight 186 lb 4 oz BMI 25.3 BP 116/56 L Blood Pressure Location Lt brachial Position Sitting Pulse 60 Pulse Source Pulse Oximeter Pulse Oximetry (%) 95 Oxygen Delivery Method Room Air Intake Visit Reasons: f/u CAD/ HTN Traffic Incident Management Manager Required: No Accompanied by: Self / Same As Patient Allergies Sulfa (Sulfonamide Antibiotics) [SULFA (SULFONAMIDE ANTIBIOTICS)] Allergy (Severe, Verified 08/15/23 08:47) SKIN SLOUGHING, genital rash Medication List - Last Reconciled 08/15/23 by Helio Ferguson PA-C atorvastatin 40 mg PO BEDTIME bisacodyl (Dulcolax (bisacodyl)) 10 mg (2 x 5 mg) PO BEDTIME blood sugar diagnostic (OneTouch Ultra Test strips) As directed blood sugar diagnostic (OneTouch Ultra Test strips) As directed clopidogrel 75 mg PO DAILY 90 days gabapentin 300 mg PO BEDTIME glipizide ER 10 mg PO DAILY 90 days isosorbide mononitrate ER 30 mg PO DAILY lancets ([employer] UltraSoft Lancets) As directed metformin 500 mg PO TIDWMEAL 90 days metoprolol tartrate 25 mg PO BID 30 days oxycodone 5 mg PO Q8H PRN polyethylene glycol 3350 (Miralax) 238 grams PO ONCE sertraline 50 mg PO DAILY Tobacco use date assessed: 02/10/23 Fall risk assessment: No Falls in past year Last assessed Fall Risk: 08/15/23 Dental Screening Dental Screen Date: 08/15/23 Did you have a dental visit in the last 12 months?: Yes Did you have a dental problem in the last 6 months where you did not have access to dental care?: No Was dental information given to patient?: Patient has dentist HPI f/u CAD/ HTN HPI Details Patient is a 78-year-old male here today for a follow-up visit.? Patient has a past medical history significant for type 2 diabetes with neuropathy, coronary artery disease, h/o bladder cancer, squamous cell carcinoma right thumb nail. Anemia: Was recently found have low hemoglobin though was unable to tolerate iron supplementation due to diarrhea. Has underwent colonoscopy, CT of abdomen showed splenomegaly. Did undergo a bone marrow biopsy that did show evidence of non-Hodgkin's. At this time does not need treatment though will continue to follow hematology .. Coronary artery disease:? Followed by Dr. Daniel technician anatomic pathology. Has 2 stents.? Denies any chest discomfort, palpitations, shortness of breath on exertion.? No overt signs of Congestive heart failure. ?Continues on moderate dose statin and anti-platelet therapy.? Peripheral arterial disease: Of note patient has been complaining of with seems to be claudication symptoms in his lower extremities.? Will send for ultrasounds and does in fact have arterial stenosis. . Type 2 diabetes:? Has been fairly well controlled with p.o. medication.?most recent A1c 6.8.? He continues to report intermittent burning sensation in his feet.? He reports checking his blood sugars from time to time at home reports normal readings. Will discontinue glipizide due to fears of pancreatic burnout. Will continue metformin 1500 mg daily. .. BLadder Cancer: See Urology ( Dr Lau), get Cystoscopy q 4 months. Vaccine : needs PCV-20 PFSH Medical History (Updated 08/15/23 @ 09:05 by Helio Ferguson PA-C) Tubular adenoma Sleep apnea Hyperlipemia HTN, goal to be determined Type II diabetes mellitus Surgical History Hx of transurethral resection of prostate Hx of colonoscopy History of coronary artery stent placement History of squamous cell carcinoma excision History of surgery on arm Family History Mother Pancreatic cancer Social History Household Members: Spouse Housing: House Alcohol intake: current Alcohol intake frequency: holidays/special occasions only Patient Tobacco Use Status: Former Tobacco user Tobacco use type: Cigarette e-Cigarette/Vaping Use: Former Use Second Hand Smoke Exposure: No service: No 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 Zheng Rodriguez, Quin Maynard, Mukesh Caputo and colleagues, with an educational sheela from [employer]. Review of Systems Const Denies headache(s) Eyes Denies loss of vision ENT Denies vertigo, Denies dizziness, Denies headache(s) and Denies sore throat Card Denies chest pain, Denies leg edema and Denies lightheadedness Resp Denies cough, Denies hemoptysis and Denies wheezing GI Denies abdominal pain, Denies melena, Denies constipation, Denies diarrhea and Denies vomiting Denies dysuria, Denies urinary frequency and Denies urinary urgency Musc Denies arthralgias, Denies joint swelling, Denies numbness and Denies tingling Neuro Denies Abnormal speech present, Denies behavioral changes, Denies vertigo, Denies dizziness, Denies headache(s), Denies loss of vision, Denies memory loss, Denies numbness and Denies tingling Psych Denies anxiety, Denies behavioral changes, Denies depression, Denies memory loss and Denies panic attacks Hans/Lymph Denies easy bleeding and Denies easy bruising Aller/Immun Denies wheezing Physical exam (Primary Care) Vital Signs: Last Vital Signs Pulse 60 08/15/23 08:40 BP 116/56 L 08/15/23 08:40 Pulse Ox 95 08/15/23 08:40 Oxygen Delivery Method Room Air 08/15/23 08:40 BMI result Body Mass Index 25.3 Tobacco/Smoking Status: Tobacco use Status Tobacco use date assessed 02/10/23 08/15/23 08:42 Patient Tobacco Use Status Former Tobacco user 08/15/23 08:42 Tobacco use type Cigarette 08/15/23 08:42 e-Cigarette/Vaping Use Former Use 08/15/23 08:42 Thrive Assessment: Date of Thrive Assessment Date Thrive assessed 02/10/23 08/15/23 08:42 Const General: healthy appearing, no acute distress, alert and awake Nutritional Appearance: well nourished Orientation/consciousness: oriented to person, oriented to place and oriented to time HENMT Ears: TM's normal bilaterally General nose exam: Normal nasal mucous membranes and turbinates present Eyes Conjunctivae: conjunctivae normal Sclerae: sclerae normal Pupils: Equal, round and reactive pupils present Neck Neck: Yes no lymphadenopathy and Yes no JVD Thyroid: Thyroid normal Carotids: no bruits Resp Effort & Inspection: normal respiratory effort and not tachypneic Auscultation: no crackles, no rales, no rhonchi and no wheezes Cardio Rate: regular rate Rhythm: regular rhythm Heart sounds: no murmurs and normal S1 and S2 GI Palpation (GI): Soft to palpation, nontender, no hepatomegaly and no splenomegaly Auscultation: normal bowel sounds Skin General skin exam: no rashes or lesions noted and dry skin Neuro General: oriented to person, oriented to place and oriented to time Cranial nerves: Yes Equal, round and reactive pupils present Speech: No Abnormal speech present Gait exam (Neuro): Normal gait present Motor exam (neuro): no tremor noted Extrem Right upper extremity: full ROM Left upper extremity: full ROM Right lower extremity: full ROM; no edema Left lower extremity: full ROM; no edema Psych Mental Status: mental status grossly normal Speech and movement: Normal speech and movement present Affect: normal affect Attitude: cooperative Thought process: Normal thought process present Immunizations pneumoc 20-piedad conj-dip cr(PF) 0.5 mL IM syringe Performing Provider: Helio Ferguson PA-C Performing Location: [facility] Administered by: NANCY Dunham on 08/15/23 09:08 Dose Route Admin Location Dispensed Lot Number Expiration Date NDC Rn Procedures 0.5 mL IM Right Deltoid 0.5 mL [id number] 09/29/24 [employer] VIS Given Date VIS Provided VIS Publication Date 08/15/23 Single Vaccine 21 Eligibility Eligibility Date Funding Source Not [facility] [employer] Eligible 08/15/23 Private Assessment and Plan Assessment & Plan (1) HTN, goal to be determined: Code(s): I10 - Essential (primary) hypertension Plan: Patient's blood pressure acceptable today in office, will continue his current dose of antihypertensive medication with goal blood pressure be below 140/90 (2) DMII (diabetes mellitus, type 2): Code(s): E11.9 - Type 2 diabetes mellitus without complications Qualifiers: Diabetes mellitus jail insulin use: without terminal operations manager use Diabetes mellitus complication status: with neurologic complications Diabetes mellitus complication detail: with polyneuropathy Qualified Code(s): E11.42 - Type 2 diabetes mellitus with diabetic polyneuropathy Plan: Patient's type 2 diabetes has been well controlled. He reports blood sugars at home have been fairly stable. Will check an A1c. Will discontinue glipizide due to fears of pancreatic burnout.. Goal A1c is to remain below 7.0 (3) HUI (obstructive sleep apnea): Code(s): G47.33 - Obstructive sleep apnea (adult) (pediatric) Plan: Continues with nightly use of CPAP machine. (4) CAD (coronary artery disease): Code(s): I25.10 - Atherosclerotic heart disease of [place] coronary artery without angina pectoris Qualifiers: Associated angina: without angina Coronary Disease-Associated Artery/Lesion type: [place] artery [place] vs. transplanted heart: [place] heart Qualified Code(s): I25.10 - Atherosclerotic heart disease of [place] coronary artery without angina pectoris Plan: Patient continues to follow technician anatomic pathology on annual basis. Continues to have excellent control over his fasting lipid panel. Goal LDL to remind below 70 (5) Abdominal aortic aneurysm: Comment: August 2022 Infrarenal abdominal aortic aneurysm with maximal transverse diameter of 3.2 cm. Followup is recommended in 3 years' time. Code(s): I71.40 - Abdominal aortic aneurysm, without rupture, unspecified Qualifiers: Abdominal aorta location: infrarenal aorta Presence of rupture: without rupture Qualified Code(s): I71.43 - Infrarenal abdominal aortic aneurysm, without rupture Plan: Does have 3.2 cm aortic aneurysm infrarenal- will be followed up 3 years (6) PAD (peripheral artery disease): Code(s): I73.9 - Peripheral vascular disease, unspecified Plan: Has seen vascular and got arterial ultrasounds of lower extremities showing severe stenosis. Has tried oral med for treatment though has not been able to tolerate this med. Does report having lower extremity cramping upon walking long distance. (7) Waldenstrom's macroglobulinemia: Code(s): C88.0 - [place] macroglobulinemia Plan: Patient now followed by Hematology. Had bone marrow biopsy showing positive evidence of non-Hodgkin's lymphoma. CT abdomen showing splenomegaly. Most recent hemoglobin stable at 10.5. (8) Bladder cancer: Code(s): C67.9 - Malignant neoplasm of bladder, unspecified Qualifiers: Bladder location: unspecified site Qualified Code(s): C67.9 - Malignant neoplasm of bladder, unspecified Plan: Continues to follow Urology and gets cystoscopies for surveillance per Orders: Orders Microalbumin, Random (w Creat) Today I10 - Essential (primary) hypertension Prostate Specific Antigen Scr Today I10 - Essential (primary) hypertension, Z12.5 - Encounter for screening for malignant neoplasm of prostate Hemoglobin A1c Today E11.42 - Type 2 diabetes mellitus with diabetic polyneuropathy Pneumococcal 20 Immunization Today E11.42 - Type 2 diabetes mellitus with diabetic polyneuropathy, Z23 - Encounter for immunization Lipid Panel Today I25.10 - Atherosclerotic heart disease of [place] coronary artery without angina pectoris Comprehensive [place]. Panel Fast Today E11.42 - Type 2 diabetes mellitus with diabetic polyneuropathy Complete Blood Count no Diff Today E11.42 - Type 2 diabetes mellitus with diabetic polyneuropathy Medications: Discontinued glipizide ER Discontinued Reason: Doctor's Order 10 mg PO DAILY 90 days 90 tabs 1RF E11.42 - Type 2 diabetes mellitus with diabetic polyneuropathy Coding Level of Care Code Est Pt Level 4 (71110) Diagnoses HTN, goal to be determined I10 Type 2 diabetes mellitus with diabetic polyneuropathy, without long-term current use of insulin E11.42 Diabetes mellitus terminal operations manager insulin use: without terminal operations manager use Diabetes mellitus complication status: with neurologic complications Diabetes mellitus complication detail: with polyneuropathy HUI (obstructive sleep apnea) G47.33 Coronary artery disease involving [place] coronary artery of [place] heart without angina pectoris I25.10 Associated angina: without angina Coronary Disease-Associated Artery/Lesion type: [place] artery [place] vs. transplanted heart: [place] heart Infrarenal abdominal aortic aneurysm (AAA) without rupture I71.43 Abdominal aorta location: infrarenal aorta Presence of rupture: without rupture PAD (peripheral artery disease) I73.9 Waldenstrom's macroglobulinemia C88.0 Malignant neoplasm of urinary bladder, unspecified site C67.9 Bladder location: unspecified site
== END 2023-08-15 09:10 | disposition home or self-care (01) ==
PROVIDERS: PCP Physician Assistant; Visit Provider Physician Assistant
DX: I71.43 Infrarenal abdominal aortic aneurysm, without rupture (principal); E11.42 Type 2 diabetes mellitus with diabetic polyneuropathy; I73.9 Peripheral vascular disease, unspecified; Z23 Encounter for immunization; C88.0 Waldenstrom macroglobulinemia; C67.9 Malignant neoplasm of bladder, unspecified; I10 Essential (primary) hypertension; G47.33 Obstructive sleep apnea (adult) (pediatric); I25.10 Atherosclerotic heart disease of native coronary artery without angina pectoris
CPT/HCPCS: 90471; 90677; 99214

== ENCOUNTER 2023-11-01 06:07 | Day surgery (SDC) | payer MEDICARE, SELFPAY ==
[2023-10-28 14:28] VITALS: BMI 25.2
--- NOTE | 2023-10-31 08:55 | HO.ANESPROP2 ---
Documented by User: Terra Hardwick NP 10/31/23 10:31 HPI - Anesthesia Eval Consult details Narrative: 78yo F for Colonoscopy Follows [facility]. For CAD and PAD. Last office visit 08/2023 CAD stable. PAD with claudication, on ? plavix vs cilostazol. [facility] Active Problems Active Problems: All Active Problems (Updated 10/28/23 @ 14:28 by Mikayla Sparks, [place]) Waldenstrom's macroglobulinemia (Acute) Cough (Acute) PAD (peripheral artery disease) (Acute) Trigger finger, left middle finger (Acute) Diarrhea (Acute) Adv eff medicinal NOS (Acute) Abdominal aortic aneurysm (Acute) Osteoarthritis of left knee (Acute) Screening for AAA (abdominal aortic aneurysm) (Acute) Recurrent left knee instability (Acute) Anemia (Chronic) Knee pain, left (Acute) Anxiety (Acute) HUI (obstructive sleep apnea) (Acute) CAD (coronary artery disease) (Acute) Bladder cancer (Acute) DMII (diabetes mellitus, type 2) (Acute) Tubular adenoma (Acute) HTN, goal to be determined (Acute) Past Medical History Medical History Bladder cancer Thoracic aortic aneurysm CAD (coronary artery disease) PAD (peripheral artery disease) Tubular adenoma Sleep apnea Hyperlipemia HTN, goal to be determined Type II diabetes mellitus Family History Family History Mother Pancreatic cancer Family history of problems with anesthesia: No Surgical History Surgical History Hx of transurethral resection of prostate Hx of colonoscopy History of coronary artery stent placement History of squamous cell carcinoma excision History of surgery on arm Social History Social History Household Members: Spouse Housing: House Alcohol intake: current Alcohol intake frequency: holidays/special occasions only Patient Tobacco Use Status: Former Tobacco user Tobacco use type: Cigarette e-Cigarette/Vaping Use: Former Use Second Hand Smoke Exposure: No Are you DNR?: No Advance Directives: No Advance Directives Information Provided: Yes Nutrition Risks: No Nutritional Risk service: No 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) Cognitive needs: No Hearing needs: No Vision needs: Yes Meds Allergies Allergy/AdvReac Type Severity Reaction Status Date / Time Sulfa (Sulfonamide Allergy Severe SKIN Verified 11/01/23 06:39 Antibiotics) SLOUGHING, [SULFA (SULFONAMIDE genital ANTIBIOTICS)] rash Home Medications Medication Instructions Recorded Confirmed Last Taken Type atorvastatin 40 mg tablet 40 mg PO BEDTIME 04/12/22 10/28/23 Unknown History blood sugar diagnostic (OneTouch 04/12/22 08/15/23 Unknown History Ultra Test strips) blood sugar diagnostic (OneTouch #10 ea 04/12/22 08/15/23 Unknown History Ultra Test strips) isosorbide mononitrate 30 mg 30 mg PO DAILY 04/12/22 10/28/23 Unknown History tablet,extended release 24 hr glipizide 10 mg tablet, extended 10 mg PO DAILY 10/28/23 10/28/23 Unknown History release 24 hr Exam Height,Weight and Vital Signs: Height 6 ft Weight 84.368 kg Pertinent Lab Results Pertinent Lab Results: Laboratory Tests 09/14/23 10:20 WBC 6.0 Hgb 11.1 L Hct 33.6 L Plt Count 229 Sodium 140 Potassium 5.2 H Chloride 105 Carbon Dioxide 27 BUN 20 H Creatinine 1.15 Narrative Narrative: EKG 06/2023 SB @ 56 LAD RBBB Carotid US 07/2023 No significant stenosis in bilat carotids Per 08/2023 cardiac office visit note, Nml LV function with EF 60-65% Assessment and Plan Assessment Anesthesia Assessment: Chart Reviewed Final Anesthetic Review Family History of Problems with Anesthesia: No Documented by User: Ira Aguero MD 11/01/23 07:39 [facility] Past Medical History Medical History Bladder cancer Thoracic aortic aneurysm CAD (coronary artery disease) PAD (peripheral artery disease) Tubular adenoma Sleep apnea Hyperlipemia HTN, goal to be determined Type II diabetes mellitus Family History Family History Mother Pancreatic cancer Surgical History Surgical History Hx of transurethral resection of prostate Hx of colonoscopy History of coronary artery stent placement History of squamous cell carcinoma excision History of surgery on arm History of Problems with Anesthesia: No Social History Social History Household Members: Spouse Housing: House Alcohol intake: current Alcohol intake frequency: holidays/special occasions only Patient Tobacco Use Status: Former Tobacco user Tobacco use type: Cigarette e-Cigarette/Vaping Use: Former Use Second Hand Smoke Exposure: No Are you DNR?: No Advance Directives: No Advance Directives Information Provided: Yes Nutrition Risks: No Nutritional Risk service: No 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) Cognitive needs: No Hearing needs: No Vision needs: Yes Meds Allergies Allergy/AdvReac Type Severity Reaction Status Date / Time Sulfa (Sulfonamide Allergy Severe SKIN Verified 11/01/23 06:39 Antibiotics) SLOUGHING, [SULFA (SULFONAMIDE genital ANTIBIOTICS)] rash Home Medications Medication Instructions Recorded Confirmed Last Taken Type atorvastatin 40 mg tablet 40 mg PO BEDTIME 04/12/22 10/28/23 Unknown History blood sugar diagnostic (OneTouch 04/12/22 08/15/23 Unknown History Ultra Test strips) blood sugar diagnostic (OneTouch #10 ea 04/12/22 08/15/23 Unknown History Ultra Test strips) isosorbide mononitrate 30 mg 30 mg PO DAILY 04/12/22 10/28/23 Unknown History tablet,extended release 24 hr glipizide 10 mg tablet, extended 10 mg PO DAILY 10/28/23 10/28/23 Unknown History release 24 hr Exam Airway Mallampati Class: II TM Dist: >3cm Neck ROM: Full Loose/Missing/Broken Teeth: No Heart: RRR Lungs: CTA Assessment and Plan Assessment Anesthesia Assessment: Anesthesia Plan Discussed Final Anesthetic Review History of Problems with Anesthesia: No NPO: Yes ASA Class: III Final Preanesthetic Review: Meds/Allgs Chart Reviewed, Consent Obtained/Reviewed and Anes Risks/Benef Reviewed Patient Risk: Intermediate Procedure Risk: Low Anesthetic Plan Anesthetic Plan: MAC: Disposition: Standard PACU
[2023-11-01 06:21] VITALS: BMI 24.0
[2023-11-01] MEDS: Lactated Ringers 1,000 ML 100 ML IVCONT (06:32)
--- NOTE | 2023-11-01 06:38 | P.HPSUR_ITS ---
Pre-Procedural Eval Section A - 24 Hr Update-Section A only Date of Service: 11/01/23 Section B - Complete if H&P > 30 days Chief Complaint: Benign neoplasm, unspecified site Relevant Family History (Specify if Yes): No Relevant Social History: None Present Medications: see Short Stay Collaborative assessment Medical History: Significant History ( Bladder cancer Thoracic aortic aneurysm CAD (coronary artery disease) PAD (peripheral artery disease) Tubular adenoma Sleep apnea Hyperlipemia HTN, goal to be determined Type II diabetes mellitus) History of Previous Operations: Relevant previous surgery/procedure and date(s) ( Hx of transurethral resection of prostate Hx of colonoscopy History of coronary artery stent placement History of squamous cell carcinoma excision History of surgery on arm) Allergies: Allergies Allergy/AdvReac Type Severity Reaction Status Date / Time Sulfa (Sulfonamide Allergy Severe SKIN Verified 09/14/23 10:14 Antibiotics) SLOUGHING, [SULFA (SULFONAMIDE genital ANTIBIOTICS)] rash Review of Systems Sugical H&P ROS: Negative: Constitution, Cardiovascular, Respiratory, Neurological, Psychiatric, Hem-Onc, Allergic/Immunologic, Gastrointestinal, Genitourinary, Musculoskeletal, Integumentary, Endocrine and Eyes/ Ears/Nose/Throat Exam Surgical H&P Exam: Normal: HEENT, Normal: Heart, Normal: Lungs, Normal: Extremities, Normal: Abdomen, Normal: Skin and Normal: Neurological Plan Diagnosis/Plan: Unchanged I have reviewed the history and physical and performed a pertinent physical examination on my patient. No changes have occurred unless specified. Time Spent With Patient Time: Total time managing care of this patient today ____ minutes.
[2023-11-01 06:41] VITALS: BP 133/59; PULSE 63; RESP 18; TEMP 36.8; O2SAT 100
[2023-11-01 06:41] LABS: Glucose, Whole Blood 172 mg/dL (60-115)
--- NOTE | 2023-11-01 07:40 | P.OP_ITS ---
Operative Note Operative Note Date of Service: 11/01/23 Narrative: Operative Information Procedure Description: Colonoscopy Indication: hx of polyps Anesthesia: MAC COLONOSCOPY Instrument: Olympus variable stiffness pediatric scope 190L Colonoscopy Monitoring: Vital signs and clinical assessment, continuous EKG monitoring, Pulse oximetry, Carbon Dioxide monitoring and blood pressure monitoring were done throughout the procedure. Colon withdrawal time was 15 minutes. Procedure: The patient was placed in the left lateral decubitis position and pre-procedure medications were administered. After a digital rectal examination of the ano-rectum, the video colonoscope was inserted into the rectum and advanced through the colon to the cecum/TI. The colonoscope was slowly withdrawn in a retrograde panoramic fashion and the colon mucosa was carefully examined including a retroflexed view of the rectum. Findings and interventions are described below. Procedure Difficulty: easy Findings: Terminal Ileum-normal Cecum:normal right sided retroflexion- normal Ascending Colon: 8-9 mm sessile polyp removed with cold snare Transverse Colon -normal Descending Colon: 8-9 mm sessile polyp removed with cold snare Sigmoid Colon: moderate diverticulosis Rectum: Retroflexion with small internal hemorrhoids seen, grade I Anorectum - normal Colon preparation: Jenkins Bowel Preparation Scale Right colon; 2 Transverse colon: 2 Left colon; 1-2 (0 = Unprepared colon segment with mucosa not seen due to solid stool that cannot be cleared. 1 = Portion of mucosa of the colon segment seen, but other areas of the colon segment not well seen due to staining, residual stool and/or opaque liquid. 2 = Minor amount of residual staining, small fragments of stool and/or opaque liquid, but mucosa of colon segment seen well. 3 = Entire mucosa of colon segment seen well with no residual staining, small fragments of stool or opaque liquid) Impression and Post Procedure Diagnosis: internal hemorrhoids polyps diverticulosis Plan: High fiber diet leaflet Avoid straining at stool, epsom salts and sitz bath, anusol supps or cream Repeat Colonoscopy in 2-3 years due to hx of polyps and fair left colon prep or earlier if clinically indicated Above findings were reviewed with the patient and relevant handouts were provided if indicated.
[2023-11-01 08:15] VITALS: BP 96/45; PULSE 56; RESP 18; TEMP 36.2; O2SAT 100
[2023-11-01 08:30] VITALS: BP 112/49; PULSE 56; RESP 16; TEMP 36.2; O2SAT 99
== END 2023-11-01 09:06 | disposition home or self-care (01) ==
PROVIDERS: PCP Physician Assistant; Visit Provider Internal Medicine Gastroenterology
PROC: 0DJD8ZZ Inspection of Lower Intestinal Tract, Via Natural or Artificial Opening Endoscopic (ICD-10-PCS; CPT 45378; principal; 2023-11-01 07:30)
DX: Z12.11 Encounter for screening for malignant neoplasm of colon (principal); D12.2 Benign neoplasm of ascending colon; D12.4 Benign neoplasm of descending colon; K57.30 Diverticulosis of large intestine without perforation or abscess without bleeding; K64.0 First degree hemorrhoids; Z86.010 Personal history of colon polyps; E11.9 Type 2 diabetes mellitus without complications; I10 Essential (primary) hypertension; E78.5 Hyperlipidemia, unspecified; R19.7 Diarrhea, unspecified; E55.9 Vitamin D deficiency, unspecified; K58.9 Irritable bowel syndrome, unspecified; G47.33 Obstructive sleep apnea (adult) (pediatric); Z99.89 Dependence on other enabling machines and devices; Z79.82 Long term (current) use of aspirin
CPT/HCPCS: 45385; 82947; 88305; J2704

== ENCOUNTER → 2023-11-01 06:07 | Outpatient (BNV) | payer MEDICARE, SELFPAY | PROVIDERS: PCP Physician Assistant; Visit Provider Internal Medicine Gastroenterology | DX: Z12.11 Encounter for screening for malignant neoplasm of colon (principal); K63.5 Polyp of colon; K57.90 Diverticulosis of intestine, part unspecified, without perforation or abscess without bleeding; Z86.010 Personal history of colon polyps; K64.8 Other hemorrhoids | CPT/HCPCS: 45385 ==

== ENCOUNTER 2023-11-16 13:28 | Outpatient (AMB) | payer MEDICARE, SELFPAY ==
--- NOTE | 2023-11-16 13:29 | A.OFFVIS_ITS ---
Intake Vital Signs 11/16/23 13:30 Height 6 ft Weight 185 lb 10.067 oz BMI 25.2 BP 137/63 Blood Pressure Location Rt brachial Position Sitting Pulse 66 Pulse Source Pulse Oximeter Intake Visit Reasons: s/P [place]; Dr. Valentino Intake Note: Pt presents to the office today for a s/p colo. Pt states he is feeling well and denies any GI concerns at this time. Allergies Sulfa (Sulfonamide Antibiotics) [SULFA (SULFONAMIDE ANTIBIOTICS)] Allergy (Severe, Verified 11/16/23 13:31) SKIN SLOUGHING, genital rash HPI s/P [place]; Dr. Valentino HPI Details LAST VISIT Diarrhea Tubular adenoma Status post colonoscopy Plan Due to suboptimal prep patient will return for colorectal screening in 3-4 months. We will book the appointment today. Discussed with patient that way he needs to prep. He will take Dulcolax tabs every night starting 1 week before the procedure and day before the procedure he can take 4 tablets at noon time followed by split MiraLax prep. 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 Patient was encouraged to drink plenty fluids to make sure that he does not become dehydrated. I will see patient after the procedure, sooner on as needed basis. Patient is agreeable to the plan and verbalizes understanding of instructions. He was given the opportunity to ask questions and all questions answered. ? Thank you for allowing me to participate in his care Medications New bisacodyl (Dulcolax (bisacodyl)) Start taking 2 tablet every night 7 days before the procedure and 1 day before procedure take 4 tablets at noon time followed by MiraLax prep 10 mg (2 x 5 mg) PO BEDTIME 16 tabs 0RF Z12.11 polyethylene glycol 3350 (Miralax) As directed by gastroenterology department at [facility] 238 grams PO ONCE 238 grams 0RF Z12.11 COLONOSCOPY Findings: Terminal Ileum-normal Cecum:normal right sided retroflexion- normal Ascending Colon: 8-9 mm sessile polyp removed with cold snare Transverse Colon -normal Descending Colon: 8-9 mm sessile polyp removed with cold snare Sigmoid Colon: moderate diverticulosis Rectum: Retroflexion with small internal hemorrhoids seen, grade I Anorectum - normal Colon preparation: [place] Bowel Preparation Scale Right colon; 2 Transverse colon: 2 Left colon; 1-2 (0 = Unprepared colon segment with mucos a not seen due to solid stool that cannot be cleared. 1 = Portion of mucosa of the colon segme nt seen, but other areas of the colon segment not well seen due to staining, residual stool and/or opaque liquid. 2 = Minor amount of residual staining, s mall fragments of stool and/or opaque liquid, but mucosa of colon segment seen well. 3 = Entire mucosa of colon segment seen well with no residual staining, small fragments of stool or opaque liquid) Impression and Post Procedure Diagnosis: internal hemorrhoids polyps diverticulosis Plan: High fiber diet leaflet Avoid straining at stool, epsom salts and sitz bath, anusol supps or cream Repeat Colonoscopy in 2-3 years due to hx of polyps and fair left colon prep or earlier if clinically indicated PATHOLOGY RESULTS Diagnosis Colon, ascending & descending, polypectomy x2: Tubular adenoma (2); negative for high-grade dysplasia. TODAY'S VISIT Patient is here today for follow-up and to discuss colonoscopy results. Patient denies any ill effects from the prep, anesthesia or procedure itself. Patient reports that he has been feeling well. Reports that he is moving his bowels without any issues. Ascending and descending colon 2 tubular adenomas without high-grade dysplasia or carcinoma. Patient had suboptimal prep to left side of his colon and recommendation was made for patient to return in 2-3 years. Patient reports that he is moving his bowels well denies any constipation. Feels like he empties his bowels completely. Patient denies any other GI concerning symptoms. Denies any dyspepsia, dysphagia or odynophagia. Denies melena, hematochezia, unintentional weight loss or ribbon like stools. Internal hemorrhoids found as well as moderate sigmoid colon diverticulosis. Patient denies any abdominal pain or discomfort. [facility] Medical History (Updated 11/25/23 @ 21:24 by Tran Maier, [facility]-) Hemorrhoids without complication Diverticulosis Bladder cancer Thoracic aortic aneurysm CAD (coronary artery disease) PAD (peripheral artery disease) Tubular adenoma Sleep apnea Hyperlipemia HTN, goal to be determined Type II diabetes mellitus Surgical History (Updated 11/16/23 @ 13:34 by Leatha Garcia CMA) Hx of transurethral resection of prostate Hx of colonoscopy (11/01/23) History of coronary artery stent placement History of squamous cell carcinoma excision History of surgery on arm Family History Mother Pancreatic cancer Social History Household Members: Spouse Housing: House Alcohol intake: current Alcohol intake frequency: holidays/special occasions only Patient Tobacco Use Status: Former Tobacco user Tobacco use type: Cigarette e-Cigarette/Vaping Use: Former Use Second Hand Smoke Exposure: No service: No 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) Cognitive needs: No Hearing needs: No Vision needs: Yes Review of Systems Const Denies weight gain and Denies weight loss ENT Reports no additional complaints, Denies dysphagia and Denies odynophagia Card Reports no additional complaints Resp Reports no additional complaints GI Denies abdominal pain, Denies belching, Denies melena, Denies bloating, Denies change in bowel habits, Denies dysphagia, Denies excessive flatus, Denies dyspepsia, Denies heartburn, Denies diarrhea, Denies loose stools, Denies nausea, Denies odynophagia and Denies vomiting Reports no additional complaints Musc Reports no additional complaints Neuro Reports no additional complaints Psych Reports no additional complaints Endo Reports no additional complaints Physical Exam Vital Signs: Last Vital Signs Pulse 66 11/16/23 13:30 BP 137/63 11/16/23 13:30 BMI result Body Mass Index 25.2 Const General: healthy appearing, no acute distress and well developed Nutritional Appearance: well nourished Orientation/consciousness: patient oriented x3 Resp Effort & Inspection: normal respiratory effort, able to speak in complete sentences, no tracheal deviation and symmetric chest movement Auscultation: clear to auscultation bilaterally Cardio Rate: regular rate GI Inspection: Yes normal to inspection and No distended Palpation (GI): Soft to palpation, not firm, nontender and No hepatosplenomegaly present Auscultation: normal bowel sounds General: Yes no CVA tenderness Back/Spine/Pelvis Back: no CVA tenderness Skin General skin exam: elasticity normal, turgor normal and dry skin Neuro General: patient oriented x3 Psych Appearance: grossly normal Mental Status: mental status grossly normal Thought content: Normal thought content present Assessment & Plan Assessment & Plan (1) Diarrhea: Code(s): R19.7 - Diarrhea, unspecified Qualifiers: Diarrhea type: unspecified type Qualified Code(s): R19.7 - Diarrhea, unspecified (2) Tubular adenoma: Code(s): D36.9 - Benign neoplasm, unspecified site (3) Status post colonoscopy: Code(s): Z98.890 - Other specified postprocedural states (4) Diverticulosis: Code(s): K57.90 - Diverticulosis of intestine, part unspecified, without perforation or abscess without bleeding (5) Hemorrhoids without complication: Code(s): K64.9 - Unspecified hemorrhoids Plan Tubular adenoma without high-grade dysplasia or carcinoma found. Patient will need to repeat colonoscopy due to 3 years due to suboptimal prep to the left side. Patient was found to have diverticulosis to sigmoid colon. High-fiber diet discussed with patient. Patient went increase fiber in his diet. List of food high in fiber given to patient. Patient will follow-up in our office on as needed basis. He is agreeable to this plan and verbalizes understanding of instructions. He was given the opportunity to ask questions and all questions answered. Thank you for allowing me to participate in his care Coding Level of Care Code Est Pt Level 3 (65814) Diagnoses Diarrhea, unspecified type R19.7 Diarrhea type: unspecified type Tubular adenoma D36.9 Status post colonoscopy Z98.890 Diverticulosis K57.90 Hemorrhoids without complication K64.9 Time Spent (min) 30 Comment 20 minutes spent with patient and additional 10 minutes spent reviewing his records
[2023-11-16 13:30] VITALS: BP 137/63; PULSE 66; BMI 25.2
== END 2023-11-16 14:22 | disposition home or self-care (01) ==
PROVIDERS: PCP Physician Assistant; Visit Provider Nurse Practitioner Family
DX: R19.7 Diarrhea, unspecified (principal); D36.9 Benign neoplasm, unspecified site; Z98.890 Other specified postprocedural states; K57.90 Diverticulosis of intestine, part unspecified, without perforation or abscess without bleeding; K64.9 Unspecified hemorrhoids
CPT/HCPCS: 99213

== ENCOUNTER → 2023-11-16 13:28 | Outpatient (BNVA) | payer MEDICARE, SELFPAY | PROVIDERS: PCP Physician Assistant; Visit Provider Nurse Practitioner Family | DX: K57.90 Diverticulosis of intestine, part unspecified, without perforation or abscess without bleeding (principal); K64.9 Unspecified hemorrhoids; D36.9 Benign neoplasm, unspecified site; R19.7 Diarrhea, unspecified; Z98.890 Other specified postprocedural states | CPT/HCPCS: 99212 ==

== ENCOUNTER 2024-02-08 06:46 | Outpatient (REF) | payer MEDICARE, SELFPAY ==
[2024-02-08 07:45] LABS: Hematocrit 31.5 % (42.0-52.0); Hemoglobin 10.2 g/dl (14.0-18.0); Mean Corpuscular HGB Conc 32.4 g/dl (31.0-36.0); Mean Corpuscular Hemoglobin 29.7 pg (27.0-33.0); Mean Corpuscular Volume 91.8 fL (80.0-98.0); Mean Platelet Volume 9.2 fL (9.4-12.4); Platelet Count 253 X10*3/uL (160-400); Red Blood Count 3.43 X10*6/uL (4.60-5.80); Red Cell Distribution Width 13.8 % (11.0-16.0); White Blood Count 5.3 X10*3/uL (4.8-10.8)
[2024-02-08 07:55] LABS: Estimated Average Glucose 206 mg/dL; Hemoglobin A1c % 8.8 % (<6.0)
[2024-02-08 08:20] LABS: Alanine Aminotransferase 14 U/L (0-40); Albumin Level 3.9 g/dL (3.5-5.0); Alkaline Phosphatase 113 U/L (39-117); Anion Gap 12 (12-20); Aspartate Amino Transferase 22 U/L (5-37); Bilirubin Total 0.6 mg/dL (0.0-1.0); Blood Urea Nitrogen 19 mg/dL (9-16); Carbon Dioxide 27 mmol/L (22-29); Chloride 107 mmol/L (96-108); Cholesterol 113 mg/dL (<200); Estimated Glomerular Filt Rate > 60; Glucose Fasting 202 mg/dL (60-99); HDL Cholesterol 29 mg/dL (>40); LDL Cholesterol Calculated 68 mg/dL (<100); Potassium 4.5 mmol/L (3.3-5.1); Sodium 141 mmol/L (135-145); Total Protein 8.3 g/dL (6.5-8.0); Triglycerides 83 mg/dL (<150)
[2024-02-08 08:30] LABS: Creatinine Urine 61.19 mg/dL; Microalbum/Creatinine Ratio Ur 44.1 ug/mg cr (<30)
[2024-02-08 08:41] LABS: Prostate Specific Antigen Scr 0.99 ng/mL (<0.05-4.0)
== END 2024-02-08 06:47 | disposition home or self-care (01) ==
LOC: HO.LAB 06:46
PROVIDERS: PCP Physician Assistant; Visit Provider Physician Assistant
DX: I10 Essential (primary) hypertension (principal); E11.42 Type 2 diabetes mellitus with diabetic polyneuropathy; I25.10 Atherosclerotic heart disease of native coronary artery without angina pectoris; Z12.5 Encounter for screening for malignant neoplasm of prostate
CPT/HCPCS: 36415; 80053; 80061; 82043; 82570; 83036; 84153; 85027

== ENCOUNTER 2024-02-16 08:09 | Outpatient (AMB) | payer MEDICARE, SELFPAY ==
[2024-02-16 08:46] VITALS: BP 100/60; PULSE 53; O2SAT 97; BMI 24.0
--- NOTE | 2024-02-16 08:46 | MHC.PC.OV ---
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: No Tech Ed Teacher: Not Required per policy Accompanied by: Self / Same As Patient Allergies Sulfa (Sulfonamide Antibiotics) [SULFA (SULFONAMIDE ANTIBIOTICS)] Allergy (Severe, Verified 02/16/24 09:01) SKIN SLOUGHING, genital rash Medication List - Last Reconciled 02/16/24 by Helio Ferguson PA-C atorvastatin 40 mg PO BEDTIME blood sugar diagnostic (OneTouch Ultra Test strips) As directed blood sugar diagnostic (OneTouch Ultra Test strips) As directed clopidogrel 75 mg PO DAILY 90 days gabapentin 300 mg PO BEDTIME 90 days glipizide ER 10 mg PO DAILY 90 days isosorbide mononitrate ER 30 mg PO DAILY lancets ([place] UltraSoft Lancets) As directed metformin 500 mg PO QID 90 days metoprolol tartrate 25 mg PO BID 30 days sertraline 50 mg PO DAILY Tobacco use date assessed: 02/16/24 Fall risk assessment: 1 Fall in past year Last assessed Fall Risk: 02/16/24 Dental Screening Dental Screen Date: 02/16/24 Did you have a dental visit in the last 12 months?: Yes Did you have a dental problem in the last 6 months where you did not have access to dental care?: No Was dental information given to patient?: Patient has dentist HPI f/u DMII HPI Details Patient is a 78-year-old male here today for a follow-up visit.? Patient has a past medical history significant for type 2 diabetes with neuropathy, coronary artery disease, h/o bladder cancer, former smoker, squamous cell carcinoma right thumb nail. Non-Hodgkin's lymphoma: Followed by Hematology. Most recent CBC stable. . Has underwent colonoscopy, CT of abdomen showed splenomegaly. Did undergo a bone marrow biopsy that did show evidence of non-Hodgkin's. At this time does not need treatment though will continue to follow hematology. .. Former smoker: Patient is followed by lung cancer screening program at [facility], most recent CT (11/2023) chest showing benign-appearing nodules, repeat CT in 1 year. .. Coronary artery disease:? Followed by Dr. Daniel sack keeper. Has 2 coronary artery stents.? Denies any chest discomfort, palpitations, shortness of breath on exertion.? No overt signs of Congestive heart failure. ?Continues on moderate dose statin and anti-platelet therapy.? Peripheral arterial disease: Of note patient has been complaining of with seems to be claudication symptoms in his lower extremities.? . Type 2 diabetes:? Most recent A1c at 8.8 from 6.8. We did discontinue glipizide. Blood sugars have been a bit higher as of late.? He continues to report intermittent burning sensation in his feet.? He reports checking his blood sugars from time to time at home reports normal readings. .. BLadder Cancer: See Urology ( Dr Lau), gets Cystoscopy q 4 months. Laboratory Tests 08/13/22 02/16/23 03/18/23 07:07 07:10 07:28 Hgb Creatinine POC Glucose Fasting Glucose 120 H Hemoglobin A1c % 6.5 Crub-5-Gpeiawgeklw in Cholesterol LDL Cholesterol, C alc PSA Screen 25-OH Vitamin D To nakia 28 L Urine Microalbumin IgM Free [place] LC, Tito nt 06/10/23 06/15/23 07/05/23 10:28 08:06 12:46 Hgb 10.2 L 10.2 L Creatinine POC Glucose 129 H Fasting Glucose Hemoglobin A1c % Nlbs-8-Hrojtnmmdeg in 4.29 H Cholesterol LDL Cholesterol, C alc PSA Screen 25-OH Vitamin D To nakia Urine Microalbumin IgM Free [place] LC, Tito nt 09/14/23 12/06/23 02/08/24 10:20 13:35 06:15 Hgb 9.9 L Creatinine POC Glucose Fasting Glucose Hemoglobin A1c % Qrzo-0-Aketysqgupk in Cholesterol LDL Cholesterol, C alc PSA Screen 25-OH Vitamin D To nakia Urine Microalbumin 27.0 IgM 2724 H 2630 H Free [place] LC, Tito nt 228.4 H 02/08/24 07:00 Hgb 10.2 L Creatinine 1.10 POC Glucose Fasting Glucose 202 H Hemoglobin A1c % 8.8 H Htvn-4-Nnyltapvkoz in Cholesterol 113 LDL Cholesterol, C alc 68 PSA Screen 0.99 25-OH Vitamin D To nakia Urine Microalbumin IgM Free [place] [facility], Tito nt [facility] Medical History Hemorrhoids without complication Diverticulosis Bladder cancer Thoracic aortic aneurysm CAD (coronary artery disease) PAD (peripheral artery disease) Tubular adenoma Sleep apnea Hyperlipemia HTN, goal to be determined Type II diabetes mellitus Surgical History Hx of transurethral resection of prostate Hx of colonoscopy (11/01/23) History of coronary artery stent placement History of squamous cell carcinoma excision History of surgery on arm Family History Mother Pancreatic cancer Social History Household Members: Spouse Housing: House Alcohol intake: current Alcohol intake frequency: holidays/special occasions only Patient Tobacco Use Status: Former Tobacco user Tobacco use type: Cigarette e-Cigarette/Vaping Use: Former Use Second Hand Smoke Exposure: No service: No 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 1. Little interest or pleasure in doing things: not at all 2. Feeling down, depressed, or hopeless: not at all 3. Trouble falling or staying asleep, or sleeping too much: not at all 4. Feeling tired or having little energy: not at all 5. Poor appetite or overeating: not at all 6. Feeling bad about yourself - or that you are a failure or have let yourself or your family down: not at all 7. Trouble concentrating on things, such as reading the newspaper or watching television: not at all 8. Moving or speaking so slowly that other people could have noticed. Or the opposite - being so fidgety or restless that you have been moving around a lot more than usual: not at all 9. Thoughts that you would be better off or of hurting yourself in some way: not at all Total score: 0 Depression Screening Interpretation: Negative Depression Screening Done: Yes 71491 - PHQ-9 Billing: Yes Source: Developed by Drs. Zheng Rodriguez, Quin MaynardMukesh and colleagues, with an educational sheela from [employer]. Thrive Questionnaire Date Thrive assessed: 02/16/24 I am a: Patient What is your living situation today?: I have a steady place to live Within the past 12 months, did the food you bought not last and you didn't have the money to get more?: Never true Within the past 12 months, did you worry whether your food would run out before you got money to buy more?: Never true Do you have trouble paying for medicines?: No Do you have trouble getting transportation to medical appointments?: No Do you have trouble paying your heating and electricity bill?: No Do you have trouble taking care of your child, family member or friend?: No Do you have trouble with day-to-day activities such as bathing, preparing meals, shopping, managing finances, etc.?: No Are you currently unemployed and looking for a job?: No Are you interested in more education?: No Please select the resources that you would like help with: None THRIVE Score: 0 AUDIT C Alcohol Use Questionnaire (AUDIT-C) 1. How often do you have a drink containing alcohol?: Monthly or less 2. How many drinks containing alcohol do you have on a typical day when you are drinking?: 1 or 2 Total Score: 1 ANN-7 AMB Questionnaire ANN-7 Date ANN - 7 assessed: 02/16/24 Feeling nervous, anxious, or on edge: 0 = Not at all Not being able to stop or control worryin = Not at all Worrying too much about different things: 0 = Not at all Trouble relaxin = Not at all Being so restless that it is hard to sit still: 0 = Not at all Becoming easily annoyed or irritable: 0 = Not at all Feeling afraid as if something awful might happen: 0 = Not at all Total ANN-7 score (0-4 normal; 5-9 mild; 10-14 moderate; 15-21 severe): 0 Source: Developed by Drs. Zheng Rodriguez, Quin Maynard, Mukesh Caputo and colleagues, with an educational sheela from [employer]. ANN-7 Assessment Billing ANN-7 Assessment Tool: ANN-7 Assessment 87107 Review of Systems Const Denies headache(s) Eyes Denies loss of vision ENT Denies vertigo, Denies dizziness, Denies headache(s) and Denies sore throat Card Denies chest pain, Denies leg edema and Denies lightheadedness Resp Denies cough, Denies hemoptysis and Denies wheezing GI Denies abdominal pain, Denies melena, Denies constipation, Denies diarrhea and Denies vomiting Denies dysuria, Denies urinary frequency and Denies urinary urgency Musc Denies arthralgias, Denies joint swelling, Denies numbness and Denies tingling Neuro Denies Abnormal speech present, Denies behavioral changes, Denies vertigo, Denies dizziness, Denies headache(s), Denies loss of vision, Denies memory loss, Denies numbness and Denies tingling Psych Denies anxiety, Denies behavioral changes, Denies depression, Denies memory loss and Denies panic attacks Hans/Lymph Denies easy bleeding and Denies easy bruising Aller/Immun Denies wheezing Physical exam (Primary Care) Vital Signs: Last Vital Signs Pulse 53 02/16/24 08:46 BP 100/60 02/16/24 08:46 Pulse Ox 97 02/16/24 08:46 Oxygen Delivery Method Room Air 02/16/24 08:46 BMI result Body Mass Index 24.0 Tobacco/Smoking Status: Tobacco use Status Tobacco use date assessed 02/16/24 02/16/24 08:48 Patient Tobacco Use Status Former Tobacco user 02/16/24 08:48 Tobacco use type Cigarette 02/16/24 08:48 e-Cigarette/Vaping Use Former Use 02/16/24 08:48 PHQ-9: PHQ-9 Score PHQ-9: Total score 0 02/16/24 08:51 Depression Screening Interpretation: Negative Thrive Assessment: Date of Thrive Assessment Date Thrive assessed 02/16/24 02/16/24 08:48 Const General: healthy appearing, no acute distress, alert and awake Nutritional Appearance: well nourished Orientation/consciousness: oriented to person, oriented to place and oriented to time HENMT Ears: TM's normal bilaterally General nose exam: Normal nasal mucous membranes and turbinates present Eyes Conjunctivae: conjunctivae normal Sclerae: sclerae normal Pupils: Equal, round and reactive pupils present Neck Neck: Yes no lymphadenopathy and Yes no JVD Thyroid: Thyroid normal Carotids: no bruits Resp Effort & Inspection: normal respiratory effort and not tachypneic Auscultation: no crackles, no rales, no rhonchi and no wheezes Cardio Rate: regular rate Rhythm: regular rhythm Heart sounds: no murmurs and normal S1 and S2 GI Palpation (GI): Soft to palpation, nontender, no hepatomegaly and no splenomegaly Auscultation: normal bowel sounds Skin General skin exam: no rashes or lesions noted and dry skin Neuro General: oriented to person, oriented to place and oriented to time Cranial nerves: Yes Equal, round and reactive pupils present Speech: No Abnormal speech present Gait exam (Neuro): Normal gait present Motor exam (neuro): no tremor noted Extrem Right upper extremity: full ROM Left upper extremity: full ROM Right lower extremity: full ROM; no edema Left lower extremity: full ROM; no edema Psych Mental Status: mental status grossly normal Speech and movement: Normal speech and movement present Affect: normal affect Attitude: cooperative Thought process: Normal thought process present Assessment and Plan Assessment & Plan (1) HTN, goal to be determined: Code(s): I10 - Essential (primary) hypertension Plan: Patient's blood pressure acceptable today in office, will continue his current dose of antihypertensive medication with goal blood pressure be below 140/90 (2) DMII (diabetes mellitus, type 2): Code(s): E11.9 - Type 2 diabetes mellitus without complications Qualifiers: Diabetes mellitus complication detail: with polyneuropathy Diabetes mellitus complication status: with neurologic complications Diabetes mellitus rodent exterminator insulin use: without detention use Qualified Code(s): E11.42 - Type 2 diabetes mellitus with diabetic polyneuropathy Plan: Patient's type 2 diabetes suboptimally controlled with most recent A1c at 8.8. We did discontinue glipizide last office visit. Will restart glipizide 10 mg extended release 2 better optimize his diabetes control. Will check an A1c. Goal A1c is to remain below 7.0 (3) HUI (obstructive sleep apnea): Code(s): G47.33 - Obstructive sleep apnea (adult) (pediatric) Plan: Continues with nightly use of CPAP machine. (4) CAD (coronary artery disease): Code(s): I25.10 - Atherosclerotic heart disease of [place] coronary artery without angina pectoris Qualifiers: Associated angina: without angina Coronary Disease-Associated Artery/Lesion type: [place] artery [place] vs. transplanted heart: [place] heart Qualified Code(s): I25.10 - Atherosclerotic heart disease of [place] coronary artery without angina pectoris Plan: Patient continues to follow sack keeper on annual basis. Continues to have excellent control over his fasting lipid panel. Goal LDL to remind below 70 (5) Abdominal aortic aneurysm: Comment: August 2022 Infrarenal abdominal aortic aneurysm with maximal transverse diameter of 3.2 cm. Followup is recommended in 3 years' time. Code(s): I71.40 - Abdominal aortic aneurysm, without rupture, unspecified Qualifiers: Abdominal aorta location: infrarenal aorta Presence of rupture: without rupture Qualified Code(s): I71.43 - Infrarenal abdominal aortic aneurysm, without rupture Plan: Does have 3.2 cm aortic aneurysm infrarenal- will be followed up 3 years (6) PAD (peripheral artery disease): Code(s): I73.9 - Peripheral vascular disease, unspecified Plan: Has seen vascular and got arterial ultrasounds of lower extremities showing severe stenosis. Has tried oral med for treatment though has not been able to tolerate this med. Does report having lower extremity cramping upon walking long distance. (7) Waldenstrom's macroglobulinemia: Code(s): C88.0 - Waldenstrom macroglobulinemia Plan: Patient now followed by Hematology. Had bone marrow biopsy showing positive evidence of non-Hodgkin's lymphoma. CT abdomen showing splenomegaly. Most recent hemoglobin stable at 10.5. (8) Bladder cancer: Code(s): C67.9 - Malignant neoplasm of bladder, unspecified Qualifiers: Bladder location: unspecified site Qualified Code(s): C67.9 - Malignant neoplasm of bladder, unspecified Plan: Has been in remission, continues to follow urology Orders: Orders Hemoglobin A1c 02/16/24 E11.42 - Type 2 diabetes mellitus with diabetic polyneuropathy Comprehensive [place]. Panel Fast 02/16/24 E11.42 - Type 2 diabetes mellitus with diabetic polyneuropathy Complete Blood Count no Diff 02/16/24 C88.0 - Waldenstrom macroglobulinemia Lipid Panel 02/16/24 I25.10 - Atherosclerotic heart disease of [place] coronary artery without angina pectoris Referrals Orthopedics Referral M65.332 - Trigger finger, left middle finger Cardiology Referral I25.10 - Atherosclerotic heart disease of [place] coronary artery without angina pectoris Medications: New glipizide ER 10 mg PO DAILY 90 tabs 0RF 90 days E11.42 - Type 2 diabetes mellitus with diabetic polyneuropathy Patient Instructions: Goal: A1c to be below 7.0, blood pressure to remain below 140/90 Barrier: Adherence to physical activity and healthy eating habits Coding Level of Care Code Est Pt Level 4 (99129) Complex EM visit Add On G2211 Diagnoses HTN, goal to be determined I10 Type 2 diabetes mellitus with diabetic polyneuropathy, without long-term current use of insulin E11.42 Diabetes mellitus complication detail: with polyneuropathy Diabetes mellitus complication status: with neurologic complications Diabetes mellitus rodent exterminator insulin use: without detention use HUI (obstructive sleep apnea) G47.33 Coronary artery disease involving [place] coronary artery of [place] heart without angina pectoris I25.10 Associated angina: without angina Coronary Disease-Associated Artery/Lesion type: [place] artery [place] vs. transplanted heart: [place] heart Infrarenal abdominal aortic aneurysm (AAA) without rupture I71.43 Abdominal aorta location: infrarenal aorta Presence of rupture: without rupture PAD (peripheral artery disease) I73.9 Waldenstrom's macroglobulinemia C88.0 Malignant neoplasm of urinary bladder, unspecified site C67.9 Bladder location: unspecified site Additional Codes ANN-7 Assessment Billing - ANN-7 Assessment Tool: ANN-7 Assessment 12525 ([id number])
== END 2024-02-16 09:09 | disposition home or self-care (01) ==
PROVIDERS: PCP Physician Assistant; Visit Provider Physician Assistant
DX: E11.42 Type 2 diabetes mellitus with diabetic polyneuropathy (principal); I71.43 Infrarenal abdominal aortic aneurysm, without rupture; I73.9 Peripheral vascular disease, unspecified; C88.0 Waldenstrom macroglobulinemia; C67.9 Malignant neoplasm of bladder, unspecified; I10 Essential (primary) hypertension; G47.33 Obstructive sleep apnea (adult) (pediatric); I25.10 Atherosclerotic heart disease of native coronary artery without angina pectoris
CPT/HCPCS: 99214; G2211

== ENCOUNTER 2024-05-28 08:12 | Outpatient (AMB) | payer MEDICARE, SELFPAY ==
--- NOTE | 2024-05-28 08:28 | MHC.OFFVIS ---
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 Required: No Accompanied by: Self / Same As Patient Allergies Sulfa (Sulfonamide Antibiotics) [SULFA (SULFONAMIDE ANTIBIOTICS)] Allergy (Severe, Verified 02/16/24 09:01) SKIN SLOUGHING, genital rash Medication List - Last Reconciled 05/28/24 by Ricky Sharma MD atorvastatin 40 mg PO BEDTIME blood sugar diagnostic (OneTouch Ultra Test strips) As directed blood sugar diagnostic (OneTouch Ultra Test strips) As directed clopidogrel 75 mg PO DAILY 90 days gabapentin 300 mg PO BEDTIME 90 days glipizide ER 10 mg PO DAILY 90 days isosorbide mononitrate ER 30 mg PO DAILY lancets (OneTouch UltraSoft Lancets) As directed metformin 500 mg PO QID 90 days metoprolol tartrate 25 mg PO BID 30 days sertraline 50 mg PO DAILY HPI Comments Details: Colin is here for consultation regarding coronary vascular disease. Currently seen at [facility] but would like to switch. With regard to coronary disease, history of LAD stent from 2005. From the vascular standpoint, history of severe right SFA stenosis based on ultrasound from 2021. His main issues claudication pains more so on the right lower extremity. Today, he states he got pain just walking [place]. However, no angina or cardiac specific symptoms. [facility] Medical History (Updated 05/28/24 @ 08:48 by Ricky Sharma MD) Hemorrhoids without complication Diverticulosis Bladder cancer Thoracic aortic aneurysm CAD (coronary artery disease) PAD (peripheral artery disease) Tubular adenoma Sleep apnea Hyperlipemia HTN, goal to be determined Type II diabetes mellitus Surgical History (Updated 05/28/24 @ 08:32 by Yareli Baxter CMA) Trigger finger of left hand (~03/2024) Hx of transurethral resection of prostate Hx of colonoscopy (11/01/23) History of coronary artery stent placement History of squamous cell carcinoma excision History of surgery on arm Family History Mother Pancreatic cancer Social History Household Members: Spouse Housing: House Alcohol intake: current Alcohol intake frequency: holidays/special occasions only Patient Tobacco Use Status: Former Tobacco user Tobacco use type: Cigarette e-Cigarette/Vaping Use: Former Use Second Hand Smoke Exposure: No service: No 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) Cognitive needs: No Hearing needs: No Vision needs: Yes (glasses) Review of Systems Const Denies chills, Denies fatigue, Denies fever(s), Denies weight gain and Denies weight loss Eyes Denies loss of vision ENT Denies dizziness Card Denies chest pain, Denies leg edema, Denies lightheadedness, Denies palpitations, Denies dyspnea on exertion, Denies orthopnea and Denies other Resp Denies cough, Denies dyspnea on exertion and Denies wheezing GI Denies hematochezia and Denies change in stool character Denies dysuria and Denies urinary frequency Musc Denies abnormal gait, Denies muscle weakness, Denies numbness, Denies radiating pain into limb and Denies tingling Skin/Breast Denies nail changes and Denies rash Neuro Denies Abnormal speech present, Denies abnormal gait, Denies dizziness, Denies loss of vision, Denies memory loss, Denies numbness and Denies tingling Psych Denies depression and Denies memory loss Endo Denies fatigue and Denies palpitations Hans/Lymph Denies easy bruising Aller/Immun Denies wheezing Physical Exam Vital Signs: Last Vital Signs Pulse 55 05/28/24 08:29 BP 118/50 L 05/28/24 08:29 BMI result Body Mass Index 24.6 Const General: comfortable and no acute distress Orientation/consciousness: patient oriented x3 HEENT Other: Unremarkable Head: Yes normal to inspection Neck Neck: Yes normal visual inspection Chest Chest palpation & inspection: normal inspection of the chest Resp Auscultation: clear to auscultation bilaterally Cardio Palpation: normal PMI Heart sounds: S1 normal heart sound present, S2 normal heart sound present, no gallops, no murmurs and no rubs GI Palpation (GI): Soft to palpation Back/Spine/Pelvis Other: unremarkable Skin General skin exam: no rashes or lesions noted Neuro General: patient oriented x3 Speech: No Abnormal speech present Extrem General: Yes normal to inspection Psych Mental Status: mental status grossly normal Office Procedures EKG Details: EKG with underlying sinus bradycardia at 55/Min; DE prolongation to 242 millisecond; right bundle-branch block pattern. [id number], Complete Assessment & Plan Assessment & Plan (1) Atherosclerotic cardiovascular disease: Code(s): I25.10 - Atherosclerotic heart disease of [place] coronary artery without angina pectoris Category: Medical Plan: Per records, cardiac catheterization 2005-normal left main; lad occluded after D1; circumflex no obstructive disease; RCA mild diffuse disease. Status post MARY CARMEN to LAD. Clinically, no angina. Continue aggressive risk factor modification. Remains on long-acting nitrates and statins. He is on Plavix and not on aspirin. No changes. (2) PAD (peripheral artery disease): Code(s): I73.9 - Peripheral vascular disease, unspecified Category: Medical Plan: Per documentation, arterial duplex from 2021 had shown severe stenosis of the right SFA. We will get a CTA for further clarification. Likely will need vascular referral once that is reviewed. Orders: Orders CT angio LE BI Today I73.9 - Peripheral vascular disease, unspecified CA echo transthoracic complete Today I25.10 - Atherosclerotic heart disease of [place] coronary artery without angina pectoris Basic Metabolic Panel Today I25.10 - Atherosclerotic heart disease of [place] coronary artery without angina pectoris Coding Level of Care Code New Pt Level 4 (66671) Diagnoses Atherosclerotic cardiovascular disease I25.10 PAD (peripheral artery disease) I73.9 CPT Codes EKG - CPT: 54089-[id number], Complete ([id number])
[2024-05-28 08:29] VITALS: BP 118/50; PULSE 55; BMI 24.6
== END 2024-05-28 08:58 | disposition home or self-care (01) ==
PROVIDERS: PCP Physician Assistant; Visit Provider Internal Medicine
DX: I25.10 Atherosclerotic heart disease of native coronary artery without angina pectoris (principal); I73.9 Peripheral vascular disease, unspecified
CPT/HCPCS: 93010; 99204

== ENCOUNTER → 2024-05-28 08:12 | Outpatient (BNVA) | payer MEDICARE, SELFPAY | PROVIDERS: PCP Physician Assistant; Visit Provider Internal Medicine | DX: I25.10 Atherosclerotic heart disease of native coronary artery without angina pectoris (principal); I73.9 Peripheral vascular disease, unspecified; I44.0 Atrioventricular block, first degree; I45.10 Unspecified right bundle-branch block; R94.31 Abnormal electrocardiogram [ECG] [EKG] | CPT/HCPCS: 93005; 99202 ==

== ENCOUNTER → 2024-07-03 09:52 | Outpatient (REF) | payer MEDICARE, SELFPAY ==
--- NOTE | 2024-07-03 09:55 | CA_ITS ---
Transthoracic Echocardiogram Patient (Last, First, Middle): Colin Garcia F Gender: Male Date of : 1945 Age: 78 Procedure Date: 07/03/2024 Procedure Type: Transthoracic Echocardiogram Location: OP Height: 182.88 cm Weight: 80.29 kg BSA: 2.02 m2 Heart Rate: bpm BP: 122 / 60 mmHg Roadway Technician: TO Referring MD: Ricky Sharma MD Roving Department Supervisor: Norman Vaca MD Symptoms: I25.10 - Atherosclerotic heart disease of [place] coronary artery without... Study Quality: Adequate ECG Rhythm: Sinus Conclusions: - 1. Normal LV ejection fraction 55-60% with underlying regional wall motion abnormality 2. Calcific aortic valve changes noted with mild aortic regurgitation 3. Normal RV systolic pressure with mildly elevated right atrial pressures 4. Mildly dilated ascending aorta at 3.9 cm 5. No pericardial effusion Findings Left Ventricle Normal left ventricular size, thickness, and systolic function. The visually estimated ejection fraction is between 55-60%. Spectral Doppler is indicative of an impaired relaxation filling pattern. Wall Motion Rest Echo Findings The mid inferior and mid inferoseptal segments are hypokinetic. The basal inferior and basal inferoseptal segments are akinetic. All other scored wall segments showed normal motion. Right Ventricle Moderately increased right ventricular cavity size. There is normal right ventricular systolic function. Atria The left atrium is likely dilated. There is no evidence of interatrial shunt. The right atrium is mildly dilated. Aortic Valve There is mild calcification of the aortic valve. There is mild thickening of the aortic valve. The peak aortic gradient is 12 mmHg.The mean gradient is 7 mmHg. There is mild aortic valve regurgitation. Mitral Valve There is mild anterior and posterior mitral leaflet thickening. There is trace mitral valve regurgitation. There is no mitral valve stenosis. Pulmonic Valve The pulmonic valve is likely normal. There is trace pulmonic valve regurgitation. Tricuspid Valve Normal tricuspid valve structure. There is mild tricuspid valve regurgitation. Mildly elevated right atrial pressure. There is no evidence of pulmonary hypertension. Great Vessels The pulmonary artery was not well visualized. There is mild dilatation of the ascending aorta measuring 3.90 cm. Small plaque is seen in the sino tubular ridge. Venous The inferior vena cava is moderately dilated and collapses less than 50% with inspiration. Pericardium/Pleural There is no evidence of pericardial effusion. Prior Study Comparison no previous study in the last 5 years for compar Measurements 2D Linear Measurements IVSd: 1.15 0.6-0.9/0.6-1.0 cm LVIDd: 5.68 3.9-5.3/4.2-5.9 cm LVIDd Index: 2.81 2.4-3.2/2.2-3.1 cm/m2 LVIDs: 3.84 2.0-3.6 cm LVPWd: 0.96 0.7-1.1 cm LA Diam: 4.90 2.7-3.8/3.0-4.0 cm LAIDs Index: 2.43 1.5-2.3 cm/m2 LV Mass: 300.11 67-162/88-224 g LV Mass Index: 148.57 43-95/49-115 g/m2 LVOT Diam: 2.20 3.0+(-)1.3 cm 2D Systolic Function EF 4C: 58.20 >55% EF 2C: 57.50 >55% EF BiP: 56.70 >55% Mitral Valve MV Pk E: 0.63 MV PK A: 0.50 MV Decel Time: 266.00 E/A: 1.30 E'Lateral: 9.90 E'Medial: 6.74 E/E' Med: 9.30 E/E' Lat: 6.30 PHT: 78.00 MVA PHT: 2.82 Decel [place]: 2.35 Aortic Valve AoV Pk Seth: 1.76 AoV Mn Seth: 1.31 AoV VTI: 0.41 AoV Pk Grad: 12.00 Aov Mn Grad: 7.00 SARANYA Cont.VTI: 2.35 LVOT LVOT Pk Seth: 1.21 LVOT Mn Seth: 0.75 LVOT VTI: 0.25 LVOT Pk Grad: 6.00 LVOT Mn Grad: 3.00 LVOT Diam: 2.20 LVOT Area: 3.80 Diastolic Function MV Pk E: 0.63 MV Pk A: 0.50 E/A: 1.30 E'Medial: 6.74 E/E' Med: 9.30 E' Laterial: 9.90 E/E' Lat: 6.30 Right Ventricle TAPSE (mm): 28.70 TVS' Seth: 12.80 Tricuspid Valve TR Pk Seth: 2.43 TR Pk Grad: 24.00 RA Press: 8.00 RVSP: 32.00 Great Vessels Aorta Sinus of Valsalva: 4.02 2.0-3.[address] [place]: 3.21 1.7-3.4 cm Ao Asc: 3.90 2.1-3.4 cm Updated in Other Vendor System with Status of Final Norman Vaca MD electronically signed on 07/04/2024 1:13:18 PM with status of Final
== END ==
LOC: HO.CARD 09:52
PROVIDERS: Visit Provider Internal Medicine
DX: I25.10 Atherosclerotic heart disease of native coronary artery without angina pectoris (principal)
CPT/HCPCS: 93306

== ENCOUNTER → 2024-07-03 09:55 | Outpatient (BNV) | payer MEDICARE, SELFPAY | PROVIDERS: Visit Provider Internal Medicine Cardiovascular Disease | DX: I35.1 Nonrheumatic aortic (valve) insufficiency (principal); I35.8 Other nonrheumatic aortic valve disorders; I36.1 Nonrheumatic tricuspid (valve) insufficiency | CPT/HCPCS: 93306 ==

== ENCOUNTER 2024-07-24 10:48 | Outpatient (REF) | payer MEDICARE, SELFPAY ==
--- NOTE | ~2024-07-24 | CT_ITS ---
EXAMINATION: CT ANGIOGRAM AORTA, ILIAC AND LOWER EXTREMITY RUNOFF CLINICAL INFORMATION: Peripheral vascular disease, unspecified. COMPARISON: None available. Correlated to CT abdomen and pelvis dated June 01, 2023. TECHNIQUE: Contiguous axial images from the iliac crests/distal abdominal aorta to the feet using 2.0 mm collimation following the IV contrast during the arterial phase. Total of 100 cc Omnipaque 350 strength given without reported immediate complications. Maximum intensity projections in the coronal and sagittal. Soft tissue and bone algorithm. This CT examination was performed using dose optimization techniques as appropriate, variously including the following: *Automated exposure control *Adjustment of mA and/or kV according to patient size (this includes techniques or standardized protocols for targeted exams where dose is matched to indication/reason for exam; i.e. extremities or head) *Use of iterative reconstruction technique DLP: 1278 mGy-cm FINDINGS: DISTAL ABDOMINAL AORTA: 3.4 cm maximum diameter. Irregularly-shaped mixed plaques. No intimal flap. No IV contrast extravasation. No periaortic edema pattern. RIGHT ILIAC ARTERY: Common iliac artery: 1.2 cm in maximal diameter. Calcified plaque. No intimal flap. 40% stenosis. Internal iliac artery: 0.6 cm in maximal diameter. Calcified plaque. No flow limiting stenosis. No intimal flap. External iliac artery: 0.9 cm in maximum diameter. Calcified plaque. No flow limiting stenosis. No intimal flap. LEFT ILIAC ARTERY: Common iliac artery: 1.0 cm in maximum diameter. Calcified plaque. 80-90% stenosis. Flow limiting stenosis. No intimal flap. Internal iliac artery: 0.7 cm in maximum diameter. Calcified plaque. 80% stenosis. Flow-limiting stenosis. No intimal flap. External iliac artery: 0.7 cm in maximal diameter. Calcified plaque. 50% stenosis. No flow limiting stenosis. No intimal flap. RIGHT LOWER EXTREMITY: Common femoral artery: 0.8 cm in diameter. Irregularly-shaped mixed plaque. 80-90% stenosis. Flow limiting stenosis. Profunda femoral artery: 0.7 cm in diameter. Calcified plaque. 70% stenosis. Flow limiting stenosis. Superficial femoral artery: 0.5 cm in diameter. Calcified plaque. 50% stenosis. No flow limiting stenosis. Popliteal artery: 0.6 cm in diameter. Mixed plaques. More than 90% stenosis. Flow limiting stenosis. Tibial peroneal trunk: 0.4 cm in diameter. Calcified plaque. 70 % stenosis. Flow limiting stenosis LEFT LOWER EXTREMITY: Common femoral artery: 1.6 cm in diameter. Calcified plaque. 70% stenosis. Flow limiting stenosis. Profunda femoral artery: 0.5 cm in diameter. Mixed plaque. 80% stenosis. Flow limiting stenosis. Superficial femoral artery: 0.6 cm in diameter. Calcified plaque. 70% stenosis. Flow limiting stenosis. Popliteal artery: 0.6 cm in diameter. Calcified plaque. 60-70% stenosis. Flow-limiting stenosis. Tibial peroneal trunk: 0.4 cm in diameter. Calcified plaque. 60-70% stenosis. Flow limiting stenosis. Ancillary findings: Multilevel lower lumbar spondylosis. Degenerative changes in the sacroiliac joints. Medial compartment osteoarthrosis both knees. Chondrocalcinosis both menisci. Bilateral popliteal cysts with the complexity on the left greater than the right side. Suprapatellar bursa joint effusion, mild to moderate bilaterally. Diastases abdominal rectus muscles in the periumbilical region. CT/CT angio LE BI IMPRESSION: Peripheral atherosclerosis disease, both lower extremities with the multisegmental areas of flow-limiting stenosis. Electronically signed by: Vik Trejo MD 07/31/2024 08:20 AM EST
[2024-07-24] MEDS: iohexoL 350 MG/ML 100 ML INFUS..BTL IV (11:59)
== END 2024-07-24 10:49 | disposition home or self-care (01) ==
LOC: HO.CT 10:48
PROVIDERS: PCP Physician Assistant; Visit Provider Internal Medicine
DX: I73.9 Peripheral vascular disease, unspecified (principal)
CPT/HCPCS: 73706; Q9967

== ENCOUNTER → 2024-07-24 10:50 | Outpatient (BNV) | payer MEDICARE, SELFPAY | PROVIDERS: PCP Physician Assistant; Visit Provider Radiology Diagnostic Radiology | DX: I73.9 Peripheral vascular disease, unspecified (principal) | CPT/HCPCS: 75635 ==

== ENCOUNTER → 2024-07-31 14:00 | Outpatient (BNV) | payer MEDICARE, SELFPAY | PROVIDERS: PCP Physician Assistant; Visit Provider Internal Medicine Cardiovascular Disease | DX: I25.10 Atherosclerotic heart disease of native coronary artery without angina pectoris (principal) | CPT/HCPCS: 93010 ==

== ENCOUNTER 2024-08-08 06:27 | Outpatient (REF) | payer MEDICARE, SELFPAY ==
[2024-08-08 07:39] LABS: Hematocrit 30.6 % (42.0-52.0); Hemoglobin 9.8 g/dl (14.0-18.0); Mean Corpuscular Volume 90.5 fL (80.0-98.0); Mean Platelet Volume 10.1 fL (9.4-12.4); Platelet Count 199 X10*3/uL (160-400); Red Blood Count 3.38 X10*6/uL (4.60-5.80); Red Cell Distribution Width 15.5 % (11.0-16.0); White Blood Count 7.1 X10*3/uL (4.8-10.8)
[2024-08-08 07:53] LABS: Estimated Average Glucose 128 mg/dL; Hemoglobin A1C 102.9291 umol/L; Hemoglobin A1c % 6.1 % (<6.0); Total Hemoglobin (HGBA1C) 2400.6919 umol/L
[2024-08-08 08:05] LABS: Alanine Aminotransferase 17 U/L (0-40); Albumin Level 3.9 g/dL (3.5-5.0); Alkaline Phosphatase 78 U/L (39-117); Anion Gap 14 (12-20); Aspartate Amino Transferase 24 U/L (5-37); Bilirubin Total 0.4 mg/dL (0.0-1.0); Blood Urea Nitrogen 22 mg/dL (9-16); Calcium 10.1 mg/dL (8.4-10.2); Carbon Dioxide 24 mmol/L (22-29); Chloride 110 mmol/L (96-108); Cholesterol 114 mg/dL (<200); Estimated Glomerular Filt Rate > 60; Glucose Fasting 88 mg/dL (60-99); HDL Cholesterol 33 mg/dL (>40); LDL Cholesterol Calculated 70 mg/dL (<100); Potassium 4.7 mmol/L (3.3-5.1); Sodium 143 mmol/L (135-145); Triglycerides 56 mg/dL (<150)
== END 2024-08-08 06:28 | disposition home or self-care (01) ==
LOC: HO.LAB 06:27
PROVIDERS: Absent Provider Internal Medicine; PCP Physician Assistant; Visit Provider Physician Assistant
DX: E11.42 Type 2 diabetes mellitus with diabetic polyneuropathy (principal); I25.10 Atherosclerotic heart disease of native coronary artery without angina pectoris; C88.00 Waldenstrom macroglobulinemia not having achieved remission
CPT/HCPCS: 36415; 80053; 80061; 83036; 85027

== ENCOUNTER 2024-08-20 08:20 | Outpatient (AMB) | payer MEDICARE, SELFPAY ==
[2024-08-20 08:30] VITALS: BP 130/60; BMI 24.7
--- NOTE | 2024-08-20 08:30 | A.OFFPC_ITS ---
Vital Signs 08/20/24 08:30 Height 6 ft Weight 182 lb 2 oz BMI 24.7 BP 130/60 Blood Pressure Location Lt brachial Position Sitting Intake Visit Reasons: f/u DMII/ CAD- see comments Intake Note: Patient is here to follow up on DM, CAD. Flight Technician Required: No Vision Therapist: Present Accompanied by: Spouse Allergies Sulfa (Sulfonamide Antibiotics) [SULFA (SULFONAMIDE ANTIBIOTICS)] Allergy (Severe, Verified 08/20/24 08:41) SKIN SLOUGHING, genital rash Medication List - Last Reconciled 08/20/24 by Helio Ferguson PA-C atorvastatin 40 mg PO BEDTIME blood sugar diagnostic (OneTouch Ultra Test strips) As directed blood sugar diagnostic (OneTouch Ultra Test strips) As directed clopidogrel 75 mg PO DAILY 90 days gabapentin 300 mg PO BEDTIME 90 days glipizide ER 10 mg PO DAILY 90 days isosorbide mononitrate ER 30 mg PO DAILY lancets ([employer] UltraSoft Lancets) As directed loperamide (Imodium A-D) 2 mg PO Q6H PRN metformin 500 mg PO QID 90 days metoprolol tartrate 25 mg PO BID 30 days ondansetron 4 mg PO Q6H PRN sertraline 50 mg PO DAILY zanubrutinib (Brukinsa) 160 mg (2 x 80 mg) PO BID Tobacco use date assessed: 08/20/24 Fall risk assessment: No Falls in past year Last assessed Fall Risk: 08/20/24 Dental Screening Dental Screen Date: 02/16/24 HPI f/u DMII/ CAD- see comments HPI Details Patient is a 79-year-old male here today for a follow-up visit.? Patient has a past medical history significant for type 2 diabetes with neuropathy, coronary artery disease, h/o bladder cancer, former smoker, squamous cell carcinoma right thumb nail. Concern--> family is concerned about patient's hearing. He is often having the TV on very loud. Also Colin has been noted to choke quite often while eating meals. His voice is noted to be a bit hoarse and lower as of lately. Non-Hodgkin's lymphoma: Followed by Hematology. Most recent CBC stable. . Has underwent colonoscopy, CT of abdomen showed splenomegaly. He began treatment with the medication Brukinsa approximately five weeks ago. The patient reports a slight improvement in energy levels but mentions experiencing some memory fogginess since starting the medication .. Former smoker: Patient is followed by lung cancer screening program at [facility], most recent CT (11/2023) chest showing benign-appearing nodules, repeat CT in 1 year. .. Coronary artery disease:? Now seeing a new extras casting director here in [place].. Has 2 coronary artery stents.? Denies any chest discomfort, palpitations, shortness of breath on exertion.? No overt signs of Congestive heart failure. ?Continues on moderate dose statin and anti-platelet therapy.? Most recent lipid panel showing excellent control of his total cholesterol and LDL Peripheral arterial disease: Of note patient has been complaining of with seems to be claudication symptoms in his lower extremities.? He has upcoming appointment with vascular surgeon due to his moderate to severe atherosclerosis in his lower extremities. . Type 2 diabetes:?being managed with glipizide and metformin, leading to an improvement in blood sugar control with a recent fasting blood sugar of 88 mg/dL and an HbA1c reduction from 8.8% to 6.1%. Blood sugars have been a bit higher as of late.? He continues to report intermittent burning sensation in his feet.? He reports checking his blood sugars from time to time at home reports normal readings. .. BLadder Cancer: See Urology ( Dr Lau), gets Cystoscopy q 4 months. Laboratory Tests 02/08/24 04/05/24 07/06/24 07:00 13:21 13:23 RBC Hgb Creatinine Hemoglobin A1c % 8.8 H LDL Cholesterol, C alc Free [place]/Lambda Ratio 23.99 H 24.96 H 08/08/24 06:36 RBC 3.38 L Hgb 9.8 L Creatinine 1.17 Hemoglobin A1c % 6.1 H LDL Cholesterol, C alc 70 Free [place]/Lambda Ratio [facility] Medical History (Updated 08/21/24 @ 07:33 by Helio Ferguson PA-C) Hemorrhoids without complication Diverticulosis Bladder cancer Thoracic aortic aneurysm CAD (coronary artery disease) PAD (peripheral artery disease) Tubular adenoma Sleep apnea Hyperlipemia HTN, goal to be determined Type II diabetes mellitus Surgical History Trigger finger of left hand (~03/2024) Hx of transurethral resection of prostate Hx of colonoscopy (11/01/23) History of coronary artery stent placement History of squamous cell carcinoma excision History of surgery on arm Family History Mother Pancreatic cancer Social History Household Members: Spouse Housing: House Alcohol intake: current Alcohol intake frequency: holidays/special occasions only Patient Tobacco Use Status: Former Tobacco user Tobacco use type: Cigarette e-Cigarette/Vaping Use: Former Use Second Hand Smoke Exposure: Yes service: No 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 How many drinks containing alcohol do you have on a typical day when you are drinking?: 1 or 2 3. How often do you have six or more drinks on one occasion?: Never Total Score: 0 ANN-7 AMB Questionnaire ANN-7 Date ANN - 7 assessed: 02/16/24 Source: Developed by Drs. Zheng Rodriguez, Quin Maynard, Mukesh Caputo and colleagues, with an educational sheela from [employer]. Review of Systems Const Denies headache(s) Eyes Denies loss of vision ENT Denies vertigo, Denies dizziness, Denies headache(s) and Denies sore throat Card Denies chest pain, Denies leg edema and Denies lightheadedness Resp Denies cough, Denies hemoptysis and Denies wheezing GI Denies abdominal pain, Denies melena, Denies constipation, Denies diarrhea and Denies vomiting Denies dysuria, Denies urinary frequency and Denies urinary urgency Musc Denies arthralgias, Denies joint swelling, Denies numbness and Denies tingling Neuro Denies Abnormal speech present, Denies behavioral changes, Denies vertigo, Denies dizziness, Denies headache(s), Denies loss of vision, Denies memory loss, Denies numbness and Denies tingling Psych Denies anxiety, Denies behavioral changes, Denies depression, Denies memory loss and Denies panic attacks Hans/Lymph Denies easy bleeding and Denies easy bruising Aller/Immun Denies wheezing Physical exam (Primary Care) Vital Signs: Last Vital Signs BP 130/60 08/20/24 08:30 BMI result Body Mass Index 24.7 Tobacco/Smoking Status: Tobacco use Status Tobacco use date assessed 08/20/24 08/20/24 08:31 Patient Tobacco Use Status Former Tobacco user 08/20/24 08:30 Tobacco use type Cigarette 08/20/24 08:30 e-Cigarette/Vaping Use Former Use 08/20/24 08:30 Thrive Assessment: Date of Thrive Assessment Date Thrive assessed 02/16/24 08/20/24 08:30 Const General: healthy appearing, no acute distress, alert and awake Nutritional Appearance: well nourished Orientation/consciousness: oriented to person, oriented to place and oriented to time HENMT Ears: TM's normal bilaterally General nose exam: Normal nasal mucous membranes and turbinates present Eyes Conjunctivae: conjunctivae normal Sclerae: sclerae normal Pupils: Equal, round and reactive pupils present Neck Neck: Yes no lymphadenopathy and Yes no JVD Thyroid: Thyroid normal Carotids: no bruits Resp Effort & Inspection: normal respiratory effort and not tachypneic Auscultation: no crackles, no rales, no rhonchi and no wheezes Cardio Rate: regular rate Rhythm: regular rhythm Heart sounds: no murmurs and normal S1 and S2 GI Palpation (GI): Soft to palpation, nontender, no hepatomegaly and no splenomegaly Auscultation: normal bowel sounds Skin General skin exam: no rashes or lesions noted and dry skin Neuro General: oriented to person, oriented to place and oriented to time Cranial nerves: Yes Equal, round and reactive pupils present Speech: No Abnormal speech present Gait exam (Neuro): Normal gait present Motor exam (neuro): no tremor noted Extrem Right upper extremity: full ROM Left upper extremity: full ROM Right lower extremity: full ROM; no edema Left lower extremity: full ROM; no edema Psych Mental Status: mental status grossly normal Speech and movement: Normal speech and movement present Affect: normal affect Attitude: cooperative Thought process: Normal thought process present Coding Level of Care Code Est Pt Level 4 (88845) Diagnoses Type 2 diabetes mellitus with diabetic polyneuropathy, without long-term current use of insulin E11.42 Diabetes mellitus complication detail: with polyneuropathy Diabetes mellitus complication status: with neurologic complications Diabetes mellitus termite technician insulin use: without termite technician use Oropharyngeal dysphagia R13.12 Dysphagia type: oropharyngeal phase Globus sensation R09.A2 Coronary artery disease involving [place] coronary artery of [place] heart without angina pectoris I25.10 Associated angina: without angina Coronary Disease-Associated Artery/Lesion type: [place] artery [place] vs. transplanted heart: [place] heart Sensorineural hearing loss (SNHL) of both ears H90.3 Laterality: bilateral Assessment & Plan Assessment & Plan (1) DMII (diabetes mellitus, type 2): Code(s): E11.9 - Type 2 diabetes mellitus without complications Category: Medical Qualifiers: Diabetes mellitus complication detail: with polyneuropathy Diabetes mellitus complication status: with neurologic complications Diabetes mellitus termite technician insulin use: without long-term use Qualified Code(s): E11.42 - Type 2 diabetes mellitus with diabetic polyneuropathy Plan: Patient's type 2 diabetes now well controlled with the addition of glipizide. Will continue current antihyperglycemic medication with goal A1c to remain below 7.0 (2) Dysphagia: Code(s): R13.10 - Dysphagia, unspecified Category: Medical Qualifiers: Dysphagia type: oropharyngeal phase Qualified Code(s): R13.12 - Dysphagia, oropharyngeal phase Plan: Family has been concerned about patient's difficulty with swallowing quite often. He has been noted to have a lower tone of voice and often unclear as throat. Will send for barium swallow to evaluate for any esophageal rings or strictures. (3) Globus sensation: Code(s): R09.A2 - Foreign body sensation, throat Category: Medical Plan: As above (4) CAD (coronary artery disease): Code(s): I25.10 - Atherosclerotic heart disease of [place] coronary artery without angina pectoris Category: Medical Qualifiers: Associated angina: without angina Coronary Disease-Associated Artery/Lesion type: [place] artery [place] vs. transplanted heart: [place] heart Qualified Code(s): I25.10 - Atherosclerotic heart disease of [place] coronary artery without angina pectoris Plan: Patient now followed by [facility]. Continues on moderate dose statin therapy with goal LDL to be optimally below 70. (5) SNHL (sensorineural hearing loss): Code(s): H90.5 - Unspecified sensorineural hearing loss Category: Medical Qualifiers: Laterality: bilateral Qualified Code(s): H90.3 - Sensorineural hearing loss, bilateral Plan: Patient's family concerned about patient's hearing. Often having the volume on TV very loud. No cerumen impaction on physical exam. Will send for hearing exam to evaluate for sensorineural hearing loss bilaterally. Orders: Orders Lipid Panel 08/20/24 I25.10 - Atherosclerotic heart disease of [place] coronary artery without angina pectoris Comprehensive [place]. Panel Fast 08/20/24 E11.42 - Type 2 diabetes mellitus with diabetic polyneuropathy Prostate Specific Antigen Scr 08/20/24 E11.42 - Type 2 diabetes mellitus with diabetic polyneuropathy, Z12.5 - Encounter for screening for malignant neoplasm of prostate [place] barium swallow 08/20/24 R13.10 - Dysphagia, unspecified Hemoglobin A1c 08/20/24 E11.42 - Type 2 diabetes mellitus with diabetic polyneuropathy Complete Blood Count no Diff 08/20/24 E11.42 - Type 2 diabetes mellitus with diabetic polyneuropathy Referrals Speech and Hearing Referral H90.3 - Sensorineural hearing loss, bilateral Medications: Changed From atorvastatin 40 mg PO BEDTIME I25.10 - Atherosclerotic heart disease of [place] coronary artery without angina pectoris To atorvastatin 40 mg PO BEDTIME 90 days 90 tabs 2RF I25.10 - Atherosclerotic heart disease of [place] coronary artery without angina pectoris
== END 2024-08-20 09:03 | disposition home or self-care (01) ==
PROVIDERS: PCP Physician Assistant; Visit Provider Physician Assistant
DX: E11.42 Type 2 diabetes mellitus with diabetic polyneuropathy (principal); R13.12 Dysphagia, oropharyngeal phase; R09.A2 Foreign body sensation, throat; I25.10 Atherosclerotic heart disease of native coronary artery without angina pectoris; H90.3 Sensorineural hearing loss, bilateral

== ENCOUNTER → 2024-08-20 08:20 | Outpatient (BNVA) | payer MEDICARE, SELFPAY | PROVIDERS: PCP Physician Assistant; Visit Provider Physician Assistant | DX: E11.42 Type 2 diabetes mellitus with diabetic polyneuropathy (principal); R13.12 Dysphagia, oropharyngeal phase; R09.A2 Foreign body sensation, throat; I25.10 Atherosclerotic heart disease of native coronary artery without angina pectoris; H90.3 Sensorineural hearing loss, bilateral | CPT/HCPCS: 99212 ==

== ENCOUNTER 2024-08-23 07:56 | Outpatient (AMB) | payer MEDICARE, SELFPAY ==
[2024-08-23 08:27] VITALS: BP 110/52; PULSE 59; BMI 25.3
--- NOTE | 2024-08-23 08:27 | MHC.OFFVIS ---
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 Accompanied by: Self / Same As Patient Allergies Sulfa (Sulfonamide Antibiotics) [SULFA (SULFONAMIDE ANTIBIOTICS)] Allergy (Severe, Verified 08/20/24 08:41) SKIN SLOUGHING, genital rash Medication List - Last Reconciled 08/23/24 by Ricky Sharma MD atorvastatin 40 mg PO BEDTIME 90 days blood sugar diagnostic (OneTouch Ultra Test strips) As directed blood sugar diagnostic (OneTouch Ultra Test strips) As directed clopidogrel 75 mg PO DAILY 90 days gabapentin 300 mg PO BEDTIME 90 days glipizide ER 10 mg PO DAILY 90 days isosorbide mononitrate ER 30 mg PO DAILY lancets (Continental CoalTouch UltraSoft Lancets) As directed loperamide (Imodium A-D) 2 mg PO Q6H PRN metformin 500 mg PO QID 90 days metoprolol tartrate 25 mg PO BID 30 days ondansetron 4 mg PO Q6H PRN sertraline 50 mg PO DAILY zanubrutinib (Brukinsa) 160 mg (2 x 80 mg) PO BID HPI Comments Details: Colin returns for follow-up. Recently seen in consultation regarding coronary and vascular disease. Currently seen at [facility] but would like to switch. With regard to coronary disease, history of LAD stent from 2005. From the vascular standpoint, history of severe right SFA stenosis based on ultrasound from 2021. His main issue is rather claudication pain, more so on the right lower extremity. From cardiac itself, no specific complaints. No angina. [facility] Medical History (Updated 08/23/24 @ 08:33 by Ricky Sharma MD) Hemorrhoids without complication Diverticulosis Bladder cancer Thoracic aortic aneurysm CAD (coronary artery disease) PAD (peripheral artery disease) Tubular adenoma Sleep apnea Hyperlipemia HTN, goal to be determined Type II diabetes mellitus Surgical History Trigger finger of left hand (~03/2024) Hx of transurethral resection of prostate Hx of colonoscopy (11/01/23) History of coronary artery stent placement History of squamous cell carcinoma excision History of surgery on arm Family History Mother Pancreatic cancer Social History Household Members: Spouse Housing: House Alcohol intake: current Alcohol intake frequency: holidays/special occasions only Patient Tobacco Use Status: Former Tobacco user Tobacco use type: Cigarette e-Cigarette/Vaping Use: Former Use Second Hand Smoke Exposure: Yes service: No 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) Cognitive needs: No Hearing needs: No Vision needs: Yes (glasses) Review of Systems Const Denies chills, Denies fatigue, Denies fever(s), Denies frequent falls, Denies weakness, Denies weight gain and Denies weight loss ENT Denies dizziness Card Denies chest pain, Denies leg edema, Denies lightheadedness, Denies palpitations, Denies dyspnea and Denies dyspnea on exertion Resp Denies cough, Denies dyspnea and Denies dyspnea on exertion GI Denies hematochezia Musc Denies abnormal gait, Denies muscle weakness, Denies numbness, Denies radiating pain into limb and Denies tingling Neuro Denies abnormal gait, Denies dizziness, Denies frequent falls, Denies numbness, Denies tingling and Denies weakness Endo Denies fatigue and Denies palpitations Physical Exam Vital Signs: Last Vital Signs Pulse 59 08/23/24 08:27 BP 110/52 L 08/23/24 08:27 BMI result Body Mass Index 25.3 Const General: comfortable and no acute distress Orientation/consciousness: patient oriented x3 HEENT Other: Unremarkable Head: Yes normal to inspection Neck Neck: Yes normal visual inspection Chest Chest palpation & inspection: normal inspection of the chest Resp Auscultation: clear to auscultation bilaterally Cardio Palpation: normal PMI Heart sounds: S1 normal heart sound present, S2 normal heart sound present, no gallops, no murmurs and no rubs GI Palpation (GI): Soft to palpation Back/Spine/Pelvis Other: unremarkable Skin General skin exam: no rashes or lesions noted Neuro General: patient oriented x3 Extrem General: Yes normal to inspection Psych Mental Status: mental status grossly normal Assessment & Plan Assessment & Plan (1) Atherosclerotic cardiovascular disease: Code(s): I25.10 - Atherosclerotic heart disease of [place] coronary artery without angina pectoris Category: Medical Plan: Per records, cardiac catheterization 2005-normal left main; LAD occluded after D1; circumflex no obstructive disease; RCA mild diffuse disease. Status post MARY CARMEN to LAD. In the echocardiogram, LVEF 55-60%, inferior and inferoseptal wall motion abnormality. Clinically, no angina. Continue aggressive risk factor modification. Remains on long-acting nitrates and statins. He is on Plavix and not on aspirin. No changes. Last LDL 70 mg/dL. We will obtain the last echocardiogram and stress test from [facility]. (2) PAD (peripheral artery disease): Code(s): I73.9 - Peripheral vascular disease, unspecified Category: Medical Plan: Per documentation, arterial duplex from 2021 had shown severe stenosis of the right SFA. In the CTA, peripheral vascular disease in both lower extremities with multiple areas of flow-limiting stenosis. We have referred him to vascular surgery for evaluation. We will await last stress test report from [facility]. If none recently, would need this completed before vascular surgery. (3) Type 2 diabetes mellitus with unspecified complications: Code(s): E11.8 - Type 2 diabetes mellitus with unspecified complications Category: Medical Plan: On glipizide, metformin. Hemoglobin A1c is 6.1%. Seems controlled. Coding Level of Care Code Est Pt Level 4 (74430) Diagnoses Atherosclerotic cardiovascular disease I25.10 PAD (peripheral artery disease) I73.9 Type 2 diabetes mellitus with unspecified complications E11.8
== END 2024-08-23 08:43 | disposition home or self-care (01) ==
PROVIDERS: PCP Physician Assistant; Visit Provider Internal Medicine
DX: I25.10 Atherosclerotic heart disease of native coronary artery without angina pectoris (principal); I73.9 Peripheral vascular disease, unspecified; E11.8 Type 2 diabetes mellitus with unspecified complications
CPT/HCPCS: 99214

== ENCOUNTER → 2024-08-23 07:56 | Outpatient (BNVA) | payer MEDICARE, SELFPAY | PROVIDERS: PCP Physician Assistant; Visit Provider Internal Medicine | DX: I25.10 Atherosclerotic heart disease of native coronary artery without angina pectoris (principal); I73.9 Peripheral vascular disease, unspecified; E11.8 Type 2 diabetes mellitus with unspecified complications | CPT/HCPCS: 99212 ==

== ENCOUNTER → 2024-08-24 14:16 | Outpatient (BNV) | payer MEDICARE, SELFPAY | PROVIDERS: PCP Physician Assistant; Visit Provider Internal Medicine Cardiovascular Disease | DX: R94.31 Abnormal electrocardiogram [ECG] [EKG] (principal) | CPT/HCPCS: 93010 ==

== ENCOUNTER 2024-08-30 15:00 | Outpatient (AMB) | payer MEDICARE, SELFPAY ==
--- NOTE | 2024-08-30 15:08 | A.OFFVIS_ITS ---
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 Patient has no complaints. 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 He was subsequently worked up for peripheral vascular disease and underwent a CT angiogram. Upon discussion with him he quit smoking about 15 years ago and prior to that he was smoking about a pack a day and he has been a diabetic for over 10 years. Also of note the patient has a history of Waldenstrom's macroglobulinemia. He is easily able to walk about 2 blocks without any significant difficulty. [facility] Medical History Hemorrhoids without complication Diverticulosis Bladder cancer Thoracic aortic aneurysm CAD (coronary artery disease) PAD (peripheral artery disease) Tubular adenoma Sleep apnea Hyperlipemia HTN, goal to be determined Type II diabetes mellitus Surgical History Trigger finger of left hand (~03/2024) Hx of transurethral resection of prostate Hx of colonoscopy (11/01/23) History of coronary artery stent placement History of squamous cell carcinoma excision History of surgery on arm Family History Mother Pancreatic cancer Social History Household Members: Spouse Housing: House Alcohol intake: current Alcohol intake frequency: holidays/special occasions only Patient Tobacco Use Status: Former Tobacco user Tobacco use type: Cigarette e-Cigarette/Vaping Use: Former Use Second Hand Smoke Exposure: Yes service: No 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) Cognitive needs: No Hearing needs: No Vision needs: Yes (glasses) Review of Systems Const All systems reviewed & are unremarkable except as noted in HPI and below Reports no additional complaints ENT Reports Normal hearing present Card Denies chest pain, Denies chest pain at rest, Denies chest pain with activity and Denies pedal edema Resp Denies cough GI Denies abdominal pain Musc Denies abnormal gait, Denies muscle cramps and Denies radiating pain into limb Skin/Breast Denies skin ulcer and Denies wounds Neuro Reports Normal hearing present and Denies abnormal gait Psych Reports no additional complaints Physical Exam Const General: cooperative, healthy appearing and comfortable Orientation/consciousness: oriented to person, oriented to place and oriented to time HEENT Head: Yes normal to inspection Neck Neck: Yes normal visual inspection Carotids: no bruits Chest Chest palpation & inspection: normal inspection of the chest Resp Effort & Inspection: normal respiratory effort and able to speak in complete sentences Auscultation: clear to auscultation bilaterally, no crackles, no rales, no rhonchi and no wheezes Cardio Rate: regular rate Rhythm: regular rhythm Heart sounds: S1 normal heart sound present and S2 normal heart sound present Bruits: no carotid bruits Peripheral pulses: Peripheral pulses 2+ throughout GI Inspection: Yes normal to inspection Skin Wounds: no wounds Hair: normal Neuro General: oriented to person, oriented to place and oriented to time Cranial nerves: Yes CN's II-XII intact bilaterally and Yes Normal hearing present Cognition (Neuro): normal cognition Motor exam (neuro): 5/5 motor strength present throughout Extrem Other: venous exam: No significant superficial varicosities or spider telangiectasias , minimal edema General: No clubbing, No cyanosis and No edema Psych Appearance: grossly normal Mental Status: mental status grossly normal Speech and movement: Normal speech and movement present Results Reviewed Results Reviewed: CT angiogram dated 07/24/2024 demonstrates an aortic aneurysm of 3.4 cm along with right common femoral and popliteal stenosis and left SFA disease. Written report and images were reviewed. Assessment & Plan Assessment & Plan (1) PAD (peripheral artery disease): Code(s): I73.9 - Peripheral vascular disease, unspecified Category: Medical Plan: In short patient has stable claudication. We did review the findings of the CT scan. At the current time it does not appear to be clinical significant as he is able to walk 2 blocks. I did review the pathophysiology of peripheral vascular disease with the patient. In addition we did discuss routine conservative measures including a healthy diet and the importance of exercise and ambulation. We did discuss risk factor modification. The patient will continue to to follow-up with surveillance follow-up in approximately 6 months. Thank you for allowing us to participate in this patient's care. If there are any questions or concerns please do not hesitate to contact us. Please note a longitudinal relationship has been created with the patient and we have been following and surveillance this chronic condition. (2) Abdominal aortic aneurysm: Comment: August 2022 Infrarenal abdominal aortic aneurysm with maximal transverse diameter of 3.2 cm. Followup is recommended in 3 years' time. Code(s): I71.40 - Abdominal aortic aneurysm, without rupture, unspecified Category: Medical Qualifiers: Abdominal aorta location: infrarenal aorta Presence of rupture: without rupture Qualified Code(s): I71.43 - Infrarenal abdominal aortic aneurysm, without rupture Plan: Most recent CT scan finding demonstrates a 3.4 cm aortic aneurysm. At the current time would recommend conservative management and follow-up in 3-5 years' time. This is similar findings to the 09/17/2022 ultrasound as this was 2 different modalities of assessment. Findings were discussed with patient. They demonstrated clear understanding. Orders: Orders US arterial duplex LE BI 6 Months I73.9 - Peripheral vascular disease, unspecified Coding Level of Care Code New Pt Level 4 (77160) Complex EM visit Add On G2211 Diagnoses PAD (peripheral artery disease) I73.9 Infrarenal abdominal aortic aneurysm (AAA) without rupture I71.43 Abdominal aorta location: infrarenal aorta Presence of rupture: without rupture
== END 2024-08-30 15:37 | disposition home or self-care (01) ==
PROVIDERS: PCP Physician Assistant; Visit Provider Surgery Vascular Surgery
DX: I73.9 Peripheral vascular disease, unspecified (principal); I71.43 Infrarenal abdominal aortic aneurysm, without rupture
CPT/HCPCS: 99204; G2211

== ENCOUNTER → 2024-08-30 15:00 | Outpatient (BNVA) | payer MEDICARE, SELFPAY | PROVIDERS: PCP Physician Assistant; Visit Provider Surgery Vascular Surgery | DX: I73.9 Peripheral vascular disease, unspecified (principal); I71.43 Infrarenal abdominal aortic aneurysm, without rupture | CPT/HCPCS: 99202 ==

== ENCOUNTER 2024-09-10 12:48 | Outpatient (REF) | payer MEDICARE, SELFPAY | END 2024-09-10 12:49 | disposition home or self-care (01) | LOC: HO.SH 12:48 | PROVIDERS: Visit Provider Physician Assistant | DX: Z01.118 Encounter for examination of ears and hearing with other abnormal findings (principal); H90.3 Sensorineural hearing loss, bilateral | CPT/HCPCS: 92557; 92567 ==

== ENCOUNTER → 2024-10-10 07:52 | Outpatient (REF) | payer MEDICARE, SELFPAY ==
--- NOTE | ~2024-10-10 | NM_ITS ---
Lexiscan Myocardial perfusion study Indication: Precordial chest pain Technique: The patient was brought in for a Lexiscan perfusion study on 10/10/2024 and was injected 0.4 mg of Lexiscan intravenously. Within a minute of this injection 30 mCi of sestamibi was given intravenously. Images were obtained using the SPECT gamma camera interlaced with the gating device. Images were obtained in supine position. Resting perfusion study was performed on 10/11/2024. Patient was administered 30 mCi of sestamibi intravenously at rest. Images were then obtained in supine position. Images obtained without without CT attenuation. Total DLP 97 mGy-cm. Images were processed with the software and compared side to side in short axis, horizontal long axis and vertical long axis views. Findings: The stress perfusion study showed nonattenuated as well as attenuated corrected images show mildly to moderately reduced uptake in a large area of inferoseptal, inferolateral and inferior wall of the LV myocardium. Remainder of the LV myocardium is normally perfused. The gated study shows low normal LV systolic function with calculated LVEF of 50%. LV cavity is mildly dilated in size. The gated study shows reduced wall thickening and contraction of the basal inferior segments. Resting study shows both attenuated as well as noncannulated recommendation uptake in the inferior, inferoseptal as well as the inferolateral wall of the LV myocardium. Gating at rest reveals normal systolic wall motion with ejection fraction at 6060%. The findings are consistent with large area of mild to moderate intensity reversible defect, inferoseptal, inferior and inferolateral wall suggestive of ischemia in RCA/circumflex distribution. NM/NM cardiolite stress test Impression: 1. Myocardial perfusion imaging study shows large area of ischemia in RCA/circumflex distribution 2. Gated LVEF is 50% with stress and 65% with rest 3. Transient ischemic dilatation present Nondiagnostic changes on EKG. Electronically signed by: Norman Vaca MD 10/11/2024 04:02 PM [facility] [place]
--- OUTSIDE RECORDS SUMMARY | 2024-10-10 07:54 | XMS_ITS | Encounter Summary ---
Author Organization [facility] Address [address] [place] [address] Care Team Providers Care Neck Pinner Name Role Phone Unavailable Primary Care Provider Unavailabl e Reason for Visit * Reason Onset Date Comments Appointment 10/09/2024 1st notification Encounter Details Date Type Department Care Team ([facility] st Contact Info) Description 10/09/2024 Telephone Lung Screening Program - [address] [place] [id number] Britney Maynard MA Appointment (1st notification) Social History Tobacco Use Types Packs/Day Years Used Date Smoking Tobacco: Former Cigarettes Q uit: 10/24/2012 Smokeless Tobacco: Never Alcohol Use Standard Drinks/Week Comments Yes 0 (1 standard drink = 0.6 oz pur e alcohol) Sex and Gender Information Value Date Recorded Sex Assigned at Not on file Legal Sex Male 8:05 AM EST Gender Identity Not on file Sexual Orientation Not on file documented as of this encounter Progress Notes * Britney Maynard MA - 10/09/2024 2:12 PM EST Colin Garcia was contacted by the Lung Cancer Screening Program today to confirm the appointment of their Lung Cancer Screening. The patient is currently scheduled to have their screening on September at 945 AM, at [facility]. No Answer left message. For all screenings scheduled during the week, the patient will check in at Patient Registration on the first floor of the main hospital. For screenings that take place on the weekend or after 5pm, check-in directly in Radiology. The patient was given the Lung Cancer Screening Program phone number, , to contact if they have any additional questions, concerns or need to reschedule. Patients are encouraged to call our office and reschedule if they are exhibiting any cold-like symptoms, have recently been treated for Pneumonia or Influenza (the flu) or have had another CT of their Chest since their last screening. documented in this encounter Plan of Treatment Upcoming Encounters Date Type Department Care Team (Late st Contact Info) Description 10/25/2024 9:45 AM EST Appointment [facility] CT Scan [address] [place] [phone] documented as of this encounter Visit Diagnoses Not on filedocumented in this encounter
--- NOTE | 2024-10-10 07:55 | CA_ITS ---
Acquisition Time: 2024-10-10 08:07:00 Total Exercise Time: 00:02:00 Test Indications: CP CAD Medications: SEE H&P Protocol: LEXISCAN Max HR: 93 BPM 65% of Pred: 143 BPM Max BP: 160/70 mmHG Max Work Load: 1.6 METS Pharmacologic stress test with Lexiscan while pt walks on the treadmill at 1mph, with reports of SOB and flushing, with isolated PVCs, with normotensive response to injection. Nondiagnostic EKG for ischemia. In recovery, pt feeling back to baseline. Nuclear images pending. Test reviewed with Dr. Vaca. Referred By: Ricky Sharma Electronically Signed By: Nigel Lassiter
--- OUTSIDE RECORDS SUMMARY | 2024-10-10 07:55 | XMS_ITS | Clinical Summary ---
Author Organization [address] Address [address] [place] [phone] Phone Care Team Providers Care Automobile Lights Assembler Name Role Phone Unavailable Primary Care Provider Unavailabl e Encounters Date Type Department Care Team Description 10/09/2024 Telephone Lung Screening Program - [address] [place] [address] Britney Maynard MA Appointment (1st notification) 09/24/2024 Lab Requisition [facility] - Main Lab [address] [facility] [place] [phone] Harry Lau MD Personal history of malignant neoplasm of bladder 08/23/2024 Telephone [facility] [address] [place] [address] Helio Ferguson PA Medical Records from Last 3 Months Surgical History Surgery Date Site/Laterality Comments OTHER SURGICAL HISTORY 2003 TO PRESENT PROCEDURE: ID CYSTOTOMY EXCISION BLADDER TUMOR; COMMENT: NUMEROUS OTHER SURGICAL HISTORY 08/29/1963 PROCEDURE: ID EXCISION MAL LESION TRUNK/ARM/LEG 0.6-1.0 CM OTHER SURGICAL HISTORY 08/29/2006 PROCEDURE: STENT,CORONARY, S660 ; COMMENT: x2 CATARACT EXTRACTION 08/29/2015 Bilateral PROCEDURE: HISTORICAL CATARACT REMOVAL HAND SURGERY 08/15/2019 Right PROCEDURE: HISTORICAL HAND SURGERY; COMMENT: Long Finger Trigger/A1 Ruby Release, Dr. Morrison Medical History Medical History Date Comments Bladder cancer (CMS/HCC) DX:Blad marco cancer (HCC) Carcinoma (CMS/HCC) DX:Carcinoma (HCC); COMMENT: left arm Heart disease DX:Heart disease DM (diabetes mellitus) (CMS/HCC) DX:DM (diabetes mellitus) ([facility]) Depression with anxiety DX:Depre ssion with anxiety Hyperlipidemia DX:Hyperlipidemi a Bladder cancer ([facility]) DX:Blad marco cancer ([facility]); COMMENT: Dr. Greco Chronic diastolic CHF (conge stive heart failure) ([facility]) 09/19/2015 DX:Chronic diastolic CHF (congestive heart failure) ([facility]) Type 2 diabetes, uncontrolle d, with renal manifestation 09/19/2015 DX:Type 2 diabetes, uncontro lled, with renal manifestation Squamous cell cancer of skin of thumb [id number] DX:Squamous cell cancer of skin of thumb; COMMENT: Dr Baker Microalbuminuria 12/31/2016 DX:Microalbumin uria DM (diabetes mellitus), type 2 with peripheral vascular complications ([facility]) 12/31/2016 DX:DM (diabetes mellitus), t ype 2 with peripheral vascular complications ([facility]) Type 2 diabetes mellitus wit h cataract ([facility]) 12/31/2016 DX:Type 2 diabetes mellitus with cataract ([facility]) SCC (squamous cell carcinoma) 01/20/2017 DX :SCC (squamous cell carcinoma) Family History Medical History Relation Name Comments Heart attack Father Relation Name Status Comments Father Social History Tobacco Use Types Packs/Day Years [...] on file Sexual Orientation Not on file Obstetrics History Last Filed Vital Signs Vital Sign Reading Time Taken Comments Blood Pressure 128/58 02/09/2024 2:42 PM EDT Pulse 60 02/09/2024 2:42 PM EDT Temperature - - Respiratory Rate - - Oxygen Saturation - - Inhaled Oxygen Concentration - - Weight 82.6 kg (182 lb) 05/30/2024 1:04 PM EDT Height 182.9 cm (6') 05/30/2024 1:04 PM EDT Body Mass Index 24.68 05/30/2024 1:04 PM EDT Plan of Treatment Upcoming Encounters Date Type Department Care Team (Late st Contact Info) Description 10/25/2024 9:45 AM EST Appointment [facility] CT Scan [address] [place] [address] Health Maintenance Due Date Last Done Comments Diabetes: Annual GFR (Glomerular Filtration Rate) 1945 Diabetes: Annual Foot Exam 1957 Diabetes: Annual Retina Eye Exam 1955 DTaP,Tdap,and Td Vaccines (3 - Td or Tdap) 04/21/2017 10/22/2016, 08/29/2006 Zoster Vaccines (1 of 2) 06/11/2020 04/16/2020, 03/2013 RSV Immunization Patients 60+ Years Old (1 - 1-dose 75+ series) 2022 Cholesterol Screening (Lipid Panel) 08/07/2022 Depression Screening 08/07/2022 Diabetes: Annual Urine Albumin-Creatinine Ratio (uACR) 08/07/2022 Diabetes: Blood Sugar Control Test (HGBA1C) 08/07/2022 Falls Risk Assessment 08/07/2022 Hepatitis C Screening 08/07/2022 Hypertension/CHF/CAD Annual BMP Blood Test 08/07/2022 Medicare Annual Wellness Visit 08/07/2022 Social Influencers of Health Screening 08/07/2022 COVID-19 Vaccine ( season) 2024 12/03/2021, 12/01/2020, 11/03/2020 Influenza Vaccine (#1) 2024 , 04/16/2020, 04/23/2019, Additional history exists Lung Cancer Screening (Low Dose CT) 10/24/2024 10/24/2023, 10/26/2022, 10/20/2021, Additional history exists Pneumococcal Vaccine: 50+ Years Completed 12/10/2014, 03/14/2013 HIB Vaccines Aged Out No longer eligi ble based on patient's age to complete this topic HPV Vaccines Aged Out No longer eligi ble based on patient's age to complete this topic Hepatitis A Vaccines Aged Out No long er eligible based on patient's age to complete this topic Hepatitis B Vaccines Aged Out No long er eligible based on patient's age to complete this topic IPV Vaccines Aged Out No longer eligi ble based on patient's age to complete this topic MMR Vaccines Aged Out No longer eligi ble based on patient's age to complete this topic Meningococcal ACWY Vaccine Aged Out N o longer eligible based on patient's age to complete this topic Meningococcal B Vacine Aged Out No lo nger eligible based on patient's age to complete this topic RSV Immunization Patients Under 20 months Aged Out No longer eligible based on patient's age to complete this topic Varicella Vaccines Aged Out No longer eligible based on patient's age to complete this topic Procedures Procedure Name Priority Date/Time Associated Diagnosis Comments AP OUTSIDE CONSULT Routine 09/18/2024 12 :00 AM EST Personal history of malignant neoplasm of bladder CT LUNG SCREENING LOW DOSE Routine 10/24/2023 1:15 PM EST Encounter for screening for malignant neoplasm of respiratory organs from Last 3 Months or Most Recently Relevant to Health Maintenance Results * Anatomic pathology outside consult (09/18/2024 12:00 AM EST) Final Diagnosis A. Urine, Voided, ([id number]): FEW ATYPICAL UROTHELIAL CELLS. Results of UroVysion fluorescence in situ hybridization (FISH) testing: CEP3: Normal CEP7: Normal CEP17: Normal LSI 9p21: Normal Interpretation: Normal profile Controls stained appropriately. Note: The results are intended as a screening device and should be interpreted in association with other clinical and pathological findings. 10/04/2024 6:00 PM [facility] Clinical Information History of bladder neoplasm (malignant) Z85.51 Urine Cytology/FISH (now) 10/04/2024 6:00 PM [facility] Gross Description A. Urine, Voided, ([id number]): Received one ThinPrep slide for cytology screen and one ThinPrep slide for UroVysion FISH 10/04/2024 6:00 PM [facility] Disclaimer Unless otherwise specified, all tissue is 10% NB formalin fixed and paraffin embedded. Technical pathology services provided by [facility] at [address] [place] [address] [address], [place] [address] (CLIA #[id number]/Ankita Howell MD, Condominium Property Manager) 10/04/2024 6:00 PM EST KAJALChelle DELGADOSLIME [place] ([facility] Tissue Urine specimen from urethra / Unknown 09/18/2024 09/24/2024 10:12 AM EST Harry aLu MD LAB PATHOLOGY ORDERABLES Final Result [facility] [address] [place] [address], * CT LUNG SCREENING LOW DOSE (10/24/2023 1:15 PM EST) Anatomical Region Laterality Modality Computed Tomogra phy 10/23/2023 8:51 AM EST Narrative 10/24/2023 1:15 PM EST [facility] Diagnostic Imaging Department [address] [place] [address] Patient: ??JESS GARCIA ?/Age/Sex: 1945 - 78 - M Unit#: ??[id number] ? Location/Status: ??SPDICATLS/REG CLI ? Mnemonic/Ordering Site: ??CTLUNGLD/SPCT Ordering Physician: ??RUTH HOOVER MD CT Lung Screening Low Dose - 10/23/23854 Report Status:Signed PROCEDURE: CT chest lung cancer screening low dose examination. INDICATION: CT lung screening. ??Tobacco abuse. ??Former smoker TECHNIQUE: Chest CT without intravenous contrast was performed. ??Low-dose examination was performed. ??Reformatted images were evaluated. COMPARISON: CT of the chest September 2022. FINDINGS: NODULES: A new 2 mm nodules noted in the posterior right lower lobe (series 3 image 187). ??Similar adjacent nodule in the periphery of the right lower lobe (image 180). LUNGS: Minimal emphysematous changes. ??Linear atelectasis at the right lung base. OTHER: Limited views of the upper abdomen appear normal. ??Small, nonspecific mediastinal lymph nodes. ??Coronary atherosclerotic disease. ??Mild atherosclerotic disease of the aorta. IMPRESSION: Small nodules are noted at the right lung base. ??Mild emphysematous disease. Lung-RADS 2. ??Follow up examination is advised in one year. Dictating Physician: ??GAURAV COUGHLIN MD Electronically Signed by: ??GAURAV COUGHLIN MD Dic Date/Time: ??10/24/23 1309 Sign date/Time: ??10/24/23 1315 Procedure Note Gaurav Coughlin MD - 04/16/2024 [facility] Diagnostic Imaging Department [address] [place] [address] Patient: JESS GARCIA /Age/Sex: 1945 - 78 - M Unit#: [id number] Location/Status: SPDICATLS/REG CLI Mnemonic/Ordering Site: [facility] Ordering Physician: RUTH HOOVER MD CT Lung Screening Low Dose - 10/23/23 - 0855 Report Status:Signed PROCEDURE: CT chest lung cancer screening low dose examination. INDICATION: CT lung screening. Tobacco abuse. Former smoker TECHNIQUE: Chest CT without intravenous contrast was performed.Low-dose examination was performed. Reformatted images were evaluated. COMPARISON: CT of the chest September 2022. FINDINGS: NODULES: A new 2 mm nodules noted in the posterior right lower lobe(series 3 image 187). Similar adjacent nodule in the periphery of the right lowerlobe (image 180). LUNGS: Minimal emphysematous changes. Linear atelectasis at the rightlung base. OTHER: Limited views of the upper abdomen appear normal. Small,nonspecific mediastinal lymph nodes. Coronary atherosclerotic disease. Mild atherosclerotic disease of the aorta. IMPRESSION: Small nodules are noted at the right lung base. Mild emphysematousdisease. Lung-RADS 2. Follow up examination is advised in one year. Dictating Physician: GAURAV COUGHLIN MD Electronically Signed by: GAURAV COUGHLIN MD Dic Date/Time: 10/24/23 1309 Sign date/Time: 10/24/23 1315 Ruth Hoover MD IMG CT PROCEDURES Final Result from Last 3 Months or Most Recently Relevant to Health Maintenance Insurance [facility] [employer] [facility]
--- OUTSIDE RECORDS SUMMARY | 2024-10-10 07:55 | XMS_ITS | Encounter Summary ---
Author Organization [facility] Address [address] [place] [address] Care Team Providers Care Shingler Name Role Phone Helio Ferguson Primary Care Provider Reason for Visit * Reason Onset Date Comments Medical Records 08/23/2024 Encounter Details Date Type Department Care Team ([facility] st Contact Info) Description 08/23/2024 Telephone [facility] [address] [place] [address] [address] [place] [address] Helio Ferguson PA [address] [place] [phone] Medical Records Social History Tobacco Use Types Packs/Day Years [...] as of this encounter Progress Notes * Dulce Thibodeaux - 09/28/2024 9:27 AM EST Faxed 02/09/2024 Office Note, 10/17/2022 Carotid Report and 08/12/2022 Arterial LUPE Report to Naz Att: Yareli at [phone] on 08/23/2024 documented in this encounter Plan of Treatment Upcoming Encounters Date Type Department Care Team (Late st Contact Info) Description 10/25/2024 9:45 AM EST Appointment [facility] CT Scan [address] [place] [address] documented as of this encounter Visit Diagnoses Not on filedocumented in this encounter Care Teams Shingler Relationship Specialty Start Date End Date Helio Ferguson PA PCP - General Internal Medicine 04/21/22 10/03/24 documented as of this encounter
== END ==
LOC: HO.CARD 07:52
PROVIDERS: PCP Physician Assistant; Visit Provider Internal Medicine
DX: R07.2 Precordial pain (principal); I25.119 Atherosclerotic heart disease of native coronary artery with unspecified angina pectoris
CPT/HCPCS: 78452; 93017; A9500; J0280; J2785

== ENCOUNTER → 2024-10-10 07:55 | Outpatient (BNV) | payer MEDICARE, SELFPAY | PROVIDERS: PCP Physician Assistant | DX: R06.02 Shortness of breath (principal); I49.3 Ventricular premature depolarization | CPT/HCPCS: 78452; 93016; 93018 ==

== ENCOUNTER 2024-10-19 13:49 | Outpatient (AMB) | payer MEDICARE, SELFPAY ==
--- NOTE | 2024-10-19 13:53 | MHC.OFFVIS ---
Vital Signs 10/19/24 13:54 Height 6 ft Weight 191 lb 12.835 oz BMI 26.0 BP 130/50 L Blood Pressure Location Lt brachial Position Sitting Pulse 60 Pulse Source Pulse Oximeter Intake Visit Reasons: F/U stress test Dean Of Instruction Required: No Accompanied by: Spouse Allergies Sulfa (Sulfonamide Antibiotics) [SULFA (SULFONAMIDE ANTIBIOTICS)] Allergy (Severe, Verified 08/30/24 15:09) SKIN SLOUGHING, genital rash Medication List - Last Reconciled 10/19/24 by Ricky Sharma MD atorvastatin 40 mg PO BEDTIME 90 days blood sugar diagnostic (OneTouch Ultra Test strips) As directed blood sugar diagnostic (OneTouch Ultra Test strips) As directed clopidogrel 75 mg PO DAILY 90 days gabapentin 300 mg PO BEDTIME 90 days glipizide ER 10 mg PO DAILY 90 days isosorbide mononitrate ER 30 mg PO DAILY lancets (VyconTouch UltraSoft Lancets) As directed loperamide (Imodium A-D) 2 mg PO Q6H PRN metformin 500 mg PO QID 90 days metoprolol tartrate 25 mg PO BID 30 days ondansetron 4 mg PO Q6H PRN sertraline 50 mg PO DAILY zanubrutinib (Brukinsa) 160 mg (2 x 80 mg) PO BID HPI Comments Details: Colin returns for follow-up. Recently seen in consultation regarding coronary and vascular disease. Former patient of [facility]. With regard to coronary disease, history of LAD stent from 2005. He also has lower extremity vascular disease. His main issue is rather claudication pain, more so on the right lower extremity. Within limits of his activity, he denies any clear-cut anginal-type symptoms. [facility] Medical History Hemorrhoids without complication Diverticulosis Bladder cancer Thoracic aortic aneurysm CAD (coronary artery disease) PAD (peripheral artery disease) Tubular adenoma Sleep apnea Hyperlipemia HTN, goal to be determined Type II diabetes mellitus Surgical History Trigger finger of left hand (~03/2024) Hx of transurethral resection of prostate Hx of colonoscopy (11/01/23) History of coronary artery stent placement History of squamous cell carcinoma excision History of surgery on arm Family History Mother Pancreatic cancer Social History Household Members: Spouse Housing: House Alcohol intake: current Alcohol intake frequency: holidays/special occasions only Patient Tobacco Use Status: Former Tobacco user Tobacco use type: Cigarette e-Cigarette/Vaping Use: Former Use Second Hand Smoke Exposure: Yes service: No 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) Cognitive needs: No Hearing needs: No Vision needs: Yes (glasses) Review of Systems Const Denies chills, Denies fatigue, Denies fever(s), Denies weight gain and Denies weight loss ENT Denies dizziness Card Denies chest pain, Denies leg edema, Denies lightheadedness, Denies palpitations, Denies dyspnea on exertion, Denies orthopnea and Denies other Resp Denies cough and Denies dyspnea on exertion GI Denies hematochezia and Denies change in stool character Musc Denies abnormal gait, Denies muscle weakness, Denies numbness, Denies radiating pain into limb and Denies tingling Neuro Denies abnormal gait, Denies dizziness, Denies numbness and Denies tingling Endo Denies fatigue and Denies palpitations Physical Exam Vital Signs: Last Vital Signs Pulse 60 10/19/24 13:54 BP 130/50 L 10/19/24 13:54 BMI result Body Mass Index 26.0 Const General: comfortable and no acute distress Orientation/consciousness: patient oriented x3 HEENT Other: Unremarkable Head: Yes normal to inspection Neck Neck: Yes normal visual inspection Chest Chest palpation & inspection: normal inspection of the chest Resp Auscultation: clear to auscultation bilaterally Cardio Palpation: normal PMI Heart sounds: S1 normal heart sound present, S2 normal heart sound present, no gallops, no murmurs and no rubs GI Palpation (GI): Soft to palpation Back/Spine/Pelvis Other: unremarkable Skin General skin exam: no rashes or lesions noted Neuro General: patient oriented x3 Extrem General: Yes normal to inspection Psych Mental Status: mental status grossly normal Assessment & Plan Assessment & Plan (1) Atherosclerotic cardiovascular disease: Code(s): I25.10 - Atherosclerotic heart disease of [place] coronary artery without angina pectoris Category: Medical Plan: Per records, cardiac catheterization 2005-normal left main; LAD occluded after D1; circumflex no obstructive disease; RCA mild diffuse disease. Status post MARY CARMEN to LAD. In the echocardiogram, LVEF 55-60%, inferior and inferoseptal wall motion abnormality. In the perfusion imaging, large area of ischemia in the RCA/circumflex distribution. Clinically, no angina. Continue aggressive risk factor modification. Remains on long-acting nitrates and statins. He is on Plavix and not on aspirin. No changes. Last LDL 70 mg/dL. (2) PAD (peripheral artery disease): Code(s): I73.9 - Peripheral vascular disease, unspecified Category: Medical Plan: Per documentation, arterial duplex from 2021 had shown severe stenosis of the right SFA. In the CTA, peripheral vascular disease in both lower extremities with multiple areas of flow-limiting stenosis. Follow-up with vascular surgery. Per patient, no surgery is planned at this time. (3) Type 2 diabetes mellitus with unspecified complications: Code(s): E11.8 - Type 2 diabetes mellitus with unspecified complications Category: Medical Plan: On glipizide, metformin. Hemoglobin A1c is 6.1%. Seems controlled. (4) Waldenstrom's macroglobulinemia: Code(s): C88.0 - Waldenstrom macroglobulinemia Category: Medical Plan: Followed by hematology. On Zanbrutinib. Advised by Hematology to hold this medication for about a week before catheterization. Informed patient of the same. We will do adequate hydration to avoid contrast induced nephropathy. Orders: Orders Cardiac Cath LT Diagnostic Today I25.10 - Atherosclerotic heart disease of [place] coronary artery without angina pectoris Prothrombin Time INR Today I25.10 - Atherosclerotic heart disease of [place] coronary artery without angina pectoris Coding Level of Care Code Est Pt Level 5 (04950) Complex EM visit Add On G2211 Diagnoses Atherosclerotic cardiovascular disease I25.10 PAD (peripheral artery disease) I73.9 Type 2 diabetes mellitus with unspecified complications E11.8 Waldenstrom's macroglobulinemia C88.0
[2024-10-19 13:54] VITALS: BP 130/50; PULSE 60; BMI 26.0
--- OUTSIDE RECORDS SUMMARY | 2024-10-19 14:14 | XMS_ITS | Encounter Summary ---
Author Organization [facility] Address [address] [place] [address] Care Team Providers Care Cone Former Name Role Phone Jonatan Daniel MD Unavailable [phone] Elbert Florian MD Primary Care Provider [phone] Bharati Mcgowan DNP Unavailable [phone] Helio Ferguson Primary Care Provider Unavailab Radha Davis NP Unavailable [phone] Kiara Anderson MD Unavailable [phone] Duglas Diaz PIECE DYER Unavailable [phone] Encounter Details Date Type Department Care Team Description 04/13/2021 [facility]LY [facility], [facility] Medical Records [address] [place] [address] Abstract, Provider Social History Tobacco Use Types Packs/Day Years Used Date Smoking Tobacco: Former Cigarettes 1 40 Q uit: 10/24/2012 Smokeless Tobacco: Never Alcohol Use Standard Drinks/Week Comments Yes 0 (1 standard drink = 0.6 oz pur e alcohol) occasional Physical Activity Answer Date Recorded On average, how many days pe r week do you engage in moderate to strenuous exercise (like walking fast, running, jogging, dancing, swimming, biking, or other activities that cause a light or heavy sweat)? 0 days 09/03/2020 On average, how many minutes do you engage in exercise at this level? Not asked Sex Assigned at Date Recorded Not on file Job Start Date Occupation Industry Not on file Not on file Not on file COVID-19 Exposure Response Date Recorded In the last month, have you been in contact with someone who was confirmed or suspected to have Coronavirus / COVID-19? No / Unsure 04/06/2021 8:10 AM EDT documented as of this encounter Plan of Treatment Not on file documented as of this encounter Procedures Procedure Name Priority Date/Time Associated Diagnosis Comments OUTSIDE LAB Routine 04/13/2021 documented in this encounter Results * OUTSIDE LAB (04/13/2021) Provider Abstract LAB documented in this encounter Visit Diagnoses Not on filedocumented in this encounter Care Teams Cone Former Relationship Specialty Start Date End Date Elbert Florian MD [address] [place] [address] PCP - General Internal Medicine 11/28/20 04/20/22 Helio Ferguson [address] [place] [address] 74973 PCP - General Internal Medicine 04/21/22 Jonatan Daniel MD 300 [facility] [address] [place] [address] Specialist Cardiovascular Disease 10/17/20 Bharati Mcgowan DNP [address] [place] [address] 30428 Specialist Cardiology 01/27/21 Radha Mcclellan NP [address] [place] [address] 41856 Cardiology 04/23/24 Kiara Anderson MD [address] [place] [address] 09195 Specialist Cardiology 04/23/24 Duglas Diaz NP [address] [place] [address]52 Specialist Cardiology 04/23/24 documented as of this encounter
--- OUTSIDE RECORDS SUMMARY | 2024-10-19 14:14 | XMS_ITS | Encounter Summary ---
Author Organization [facility] Address [address] [place] [address] Care Team Providers Care Machinist Brake Name Role Phone Elisabet Marin MD Primary Care Provider Unavaila Jonatan Carl MD Unavailable [phone] Elbert Florian MD Primary Care Provider [phone] Bharati Mcgowan DNP Unavailable [phone] Helio Ferguson Primary Care Provider Unavailab Radha Davis NP Unavailable [phone] Kiara Anderson MD Unavailable [phone] Duglas Diaz DIE CUTTER DIAMOND Unavailable [phone] Encounter Details Date Type Department Care Team Description 01/25/2019 Pt. Non Urgent Medical Question Medicine/Pediatrics - [address] [phone] Elisabet Marin MD Dysuria (Primary Dx) Social History Tobacco Use Types Packs/Day Years [...] file Not on file Not on file documented as of this encounter Progress Notes * Debbie Garcia RN - 01/25/2019 10:17 AM EDTFrom: Colin Garcia To: Elisabet Marin MD Sent: 01/25/2019 10:16 AM EDT Subject: UTI Hi Dr. Marin I think I'm getting another UTI. Can I come in for a urine test? Thanks Lamar Garcia documented in this encounter Plan of Treatment Not on file documented as of this encounter Results * URINE, CULTURE (01/25/2019 2:25 PM EDT) URINE CULTURE ENTEROBACTER AEROGENES 01/27/2019 10:12 AM EDT [email or web address] Comment: COLONY COUNT >100,000 Urine (Urine) 01/25/2019 2:2 5 PM EDT 01/25/2019 2:26 PM EDT Organism Antibiotic Method Susceptibility Enterobacter aerogenes TRIMETHOPRIM/SULFAMETHOXAZOLE <=20: Susceptible Enterobacter aerogenes Amoxicillin/Clavulanic Acid >=32: Resistant Enterobacter aerogenes Cefazolin >=64: Resistant Enterobacter aerogenes Ceftazidime <=1: Susceptible Enterobacter aerogenes Ceftriaxone <=1: Susceptible Enterobacter aerogenes CEFEPIME <=1: Susceptible Enterobacter aerogenes Ciprofloxacin <=0.25: Susceptible Enterobacter aerogenes ERTAPENEM <=0.5: Susceptible Enterobacter aerogenes Gentamicin <=1: Susceptible Enterobacter aerogenes LEVOFLOXACIN <=0.12: Susceptible Enterobacter aerogenes Imipenem 1: Susceptible Enterobacter aerogenes Nitrofurantoin 64: Indeterminate Enterobacter aerogenes Tobramycin <=1: Susceptible Elisabet Marin MD LAB [facility] * (ABNORMAL) URINALYSIS, ROUTINE (01/25/2019 2:25 PM EDT) GLUCOSE, URINE (UA) NEGATIVE NEGATIVE mg/dL 01/25/2019 8:12 PM EDT [facility] BILIRUBIN URINE NEGATIVE NEGATIVE 01/25/2019 8:12 PM EDT [facility] KETONE, URINE NEGATIVE NEGATIVE mg/dL 01/25/2019 8:12 PM EDT [facility] SPECIFIC GRAVITY, URINE 1.018 1.003 - 1.030 01/25/2019 8:12 PM EDT [facility] BLOOD, URINE SMALL(A) NEGATIVE 01/25/2019 8:12 PM EDT [facility] PH, URINE 5.5 5.0 - 8.0 01/25/2019 8:12 PM EDT [facility] PROTEIN, URINE TRACE <= TRACE mg/dl 01/25/2019 8:12 PM EDT [facility] UROBILINOGEN, URINE 1.0 0.2 - 1.0 E.U./dL 01/25/2019 8:12 PM EDT [facility] NITRITE,URINE NEGATIVE NEGATIVE 01/25/2019 8:12 PM EDT [facility] LEUKOCYTE ESTERASE, URINE LARGE(A) NEGATIVE 01/25/2019 8:12 PM EDT [facility] RBC-Urine 11(H) 0 - 4 /HPF 01/25/2019 8:12 PM EDT [facility] WBC-Urine 940(H) 0 - 4 /HPF 01/25/2019 8:12 PM EDT [facility] EPITH CELLS, URINE 6 0 - 60 /LPF 01/25/2019 8:12 PM EDT [facility] BACTERIA, URINE MODERATE(A) NEGATIVE 01/25/2019 8:12 PM EDT [facility] HYALINE CAST, URINE 2 0 - 3 /LPF 01/25/2019 8:12 PM EDT [facility] 01/25/2019 2:25 PM EDT 01/25/2019 2:26 PM EDT Elisabet Marin MD LAB [facility] documented in this encounter Visit Diagnoses Diagnosis Dysuria- Primary documented in this encounter Care Teams Machinist Brake Relationship Specialty Start Date End Date Elisabet Marin MD PCP - General Internal Medicine 06/27/15 11/27/20 Elbert Florian MD [address] [place] [address]23 PCP - General Internal Medicine 11/28/20 04/20/22 Helio Ferguson [address] [place] [address] 13485 PCP - General Internal Medicine 04/21/22 Jonatan Daniel MD 300 [facility] [address] [place] [address] Specialist Cardiovascular Disease 10/17/20 Bharati Mcgowan DNP [address] [place] [address] 30424 Specialist Cardiology 01/27/21 Radha Mcclellan NP [address] [place] [address] 57917 Cardiology 04/23/24 Kiara Anderson MD [address] [place] [address] 15952 Specialist Cardiology 04/23/24 Duglas Diaz NP [address] [place] [address]80 Specialist Cardiology 04/23/24 documented as of this encounter
--- OUTSIDE RECORDS SUMMARY | 2024-10-19 14:14 | XMS_ITS | Encounter Summary ---
Author Organization [facility] Address [address] [place] [address] Care Team Providers Care Supervisor Glycerin Name Role Phone Jonatan Daniel MD Unavailable Elbert Florian MD Primary Care Provider [phone] Bharati Mcgowan DNP Unavailable [phone] Helio Ferguson Primary Care Provider Unavailab Radha Davis PRIOR AUTHORIZATION TECHNICIAN Unavailable Kiara Anderson MD Unavailable [phone] Duglas Diaz PRIOR AUTHORIZATION TECHNICIAN Unavailable Encounter Details Date Type Department Care Team Description 09/22/2021 Orders Only [facility] Thoracic Surgery [place] [address] [facility] [address] [place] [address] [phone] Ivon Dudley MD 299 [facility] [place] [address] [place] [address] [phone] History of tobacco use, presenting hazards to health (Primary Dx) Social History Tobacco Use Types [...] have Coronavirus / COVID-19? No / Unsure 09/10/2021 9:12 AM EST documented as of this encounter Plan of Treatment Not on file documented as of this encounter Visit Diagnoses Diagnosis History of tobacco use, presenting hazards to health- Primary Personal history of tobacco use, presenting hazards to health documented in this encounter Care Teams Supervisor Glycerin Relationship Specialty Start Date End Date Elbert Florian MD [address] [place] [address]557 PCP - General Internal Medicine 11/28/20 04/20/22 Helio Ferguson [address] [place] [address] 30518 PCP - General Internal Medicine 04/21/22 Jonatan Daniel MD [address] [place] [address] 39875 Specialist Cardiovascular Disease 10/17/20 Bharati Mcgowan DNP [address] [place] [address] 81958 Specialist Cardiology 01/27/21 Radha Mcclellan NP [address] [place] [address] 69967 Cardiology 04/23/24 Kiara Anderson MD [address] [place] [address] 67027 Specialist Cardiology 04/23/24 Duglas Diaz NP [address] [place] [address] 95626 Specialist Cardiology 04/23/24 documented as of this encounter
--- OUTSIDE RECORDS SUMMARY | 2024-10-19 14:14 | XMS_ITS | Encounter Summary ---
Author Organization [facility] Address [address] [place] [address] Care Team Providers Care Tow Car Driver Name Role Phone Elisabet Marin MD Primary Care Provider Unavaila Jonatan Carl MD Unavailable [phone] Elbert Florian MD Primary Care Provider [phone] Bharati Mcgowan DNP Unavailable [phone] Helio Ferguson Primary Care Provider Unavailab Radha Davis JACQUARD PLATE MAKER Unavailable [phone] Kiara Anderson MD Unavailable [phone] Duglas Diaz JACQUARD PLATE MAKER Unavailable [phone] Encounter Details Date Type Department Care Team Description 07/13/2019 Russian Rubber Report Medical Records [address] [place] [address] Darrius Condon PA [address] [place] [address] [phone] Social History Tobacco Use Types Packs/Day Years [...] on file documented as of this encounter Plan of Treatment Not on file documented as of this encounter Visit Diagnoses Not on filedocumented in this encounter Care Teams Tow Car Driver Relationship Specialty Start Date End Date Elisabet Marin MD PCP - General Internal Medicine 06/27/15 11/27/20 Elbert Florian MD [address] [place] [address] 24041 PCP - General Internal Medicine 11/28/20 04/20/22 Helio Ferguson [address] [place] [address] 26726 PCP - General Internal Medicine 04/21/22 Jonatan Daniel MD 300 [facility] 154 [place] [address] Specialist Cardiovascular Disease 10/17/20 Bharati Mcgowan DNP [address] [place] [address] 97455 Specialist Cardiology 01/27/21 Radha Mcclellan NP [address] [place] [address] 28763 Cardiology 04/23/24 Kiara Anderson MD [address] [place] [address] 44768 Specialist Cardiology 04/23/24 Duglas Diaz NP [address] [place] [address] 98773 Specialist Cardiology 04/23/24 documented as of this encounter
--- OUTSIDE RECORDS SUMMARY | 2024-10-19 14:14 | XMS_ITS | Encounter Summary ---
Author Organization [facility] Address [address] [place] [address] Care Team Providers Care Food And Beverage Assistant Name Role Phone Jonatan Daniel MD Unavailable [phone] Elbert Florian MD Primary Care Provider [phone] Bharati Mcgowan DNP Unavailable [phone] Helio Ferguson Primary Care Provider Unavailab Radha Davis NP Unavailable [phone] Kiara Anderson MD Unavailable [phone] Duglas Diaz IMAGING ADMINISTRATOR Unavailable [phone] Reason for Visit * Reason Onset Date Comments Faxed Refill 11/28/2020 Encounter Details Date Type Department Care Team Description 11/28/2020 Telephone Adult [address] [address] Elbert Florian MD [address] [place] [address] [phone] Faxed Refill Social History Tobacco Use Types Packs/Day Years [...] have Coronavirus / COVID-19? No / Unsure 12/01/2020 9:50 AM EDT documented as of this encounter Miscellaneous Notes * Telephone Encounter - Michaelle Clay C.M.A - 11/28/2020 10:59 AM EDT Lab Results Component Value Date NA 137 09/15/2020 K 4.5 09/15/2020 CO2 25 09/15/2020 CL 105 09/15/2020 BUN 24 09/15/2020 CREAT 1.09 09/15/2020 GLU 113 09/15/2020 CA 9.6 09/15/2020 GFR > 60 09/15/2020 * Telephone Encounter - Ramila Whitlock - 11/28/2020 9:28 AM EDT Patient would like script to be: E-PRESCRIBED/FAXED TO PHARMACY WHEN WAS THE PATIENT'S LAST APPOINTMENT IN ADULT MEDICINE? 09/15/20 WHEN WAS THE LAST TIME THE PATIENT SAW THEIR PCP? N/A - new to PCP transfer from Dr. Puente Does patient have an upcoming appointment? Yes 12/03/20 (THE MEDICATION REQUESTED IS ON THE MED LIST ABOVE) All of the medications requested were on the CURRENT MEDS list Did you check the Pharmacy information above?: YES Patient wants: 90 -day supply Is this a mail order prescription request ? NO If the refill is from a FAXED refill request what is the RX # listed on the fax? N/A Patients current insurance carrier is: Payor: JEANNETTE SENIOR / Plan: JEANNETTE SENIOR $10/ GRACY / Product Type: OTHER documented in this encounter Plan of Treatment Not on file documented as of this encounter Visit Diagnoses Not on filedocumented in this encounter Care Teams Food And Beverage Assistant Relationship Specialty Start Date End Date Elbert Florian MD [address] [place] [address] 23052 PCP - General Internal Medicine 11/28/20 04/20/22 Helio Ferguson [address] [place] [address] 68028 PCP - General Internal Medicine 04/21/22 Jonatan Daniel MD [address] [place] [address] 15879 Specialist Cardiovascular Disease 10/17/20 Bharati Mcgowan DNP [address] [place] [address] 69645 Specialist Cardiology 01/27/21 Radha Mcclellan NP [address] [place] [address] 55256 Cardiology 04/23/24 Kiara Anderson MD [address] [place] [address] 62663 Specialist Cardiology 04/23/24 Duglas Diaz NP [address] [place] [address] 32783 Specialist Cardiology 04/23/24 documented as of this encounter
--- OUTSIDE RECORDS SUMMARY | 2024-10-19 14:14 | XMS_ITS | Encounter Summary ---
Author Organization [facility] Address [address] [place] [address] Care Team Providers Care Director Instructional Material Name Role Phone Jonatan Daniel MD Unavailable [phone] Elbert Florian MD Primary Care Provider [phone] Bharati Mcgowan DNP Unavailable [phone] Helio Ferguson Primary Care Provider Unavailab Radha Davis NP Unavailable [phone] Kiara Anderson MD Unavailable [phone] Duglas Diaz DECKER OPERATOR Unavailable [phone] Encounter Details Date Type Department Care Team Description 08/18/2021 Wheel Buffer Report Medical Records [address] [place] [address] 56749 Harry Lau MD Social History Tobacco Use Types Packs/Day Years [...] have Coronavirus / COVID-19? No / Unsure 08/19/2021 2:28 PM EST documented as of this encounter Plan of Treatment Not on file documented as of this encounter Visit Diagnoses Not on filedocumented in this encounter Care Teams Director Instructional Material Relationship Specialty Start Date End Date Elbert Florian MD [address] [place] [address] 76423 PCP - General Internal Medicine 11/28/20 04/20/22 Helio Ferguson [address] [place] [address] 08269 PCP - General Internal Medicine 04/21/22 Jonatan Daniel MD 300 [facility] 154 [place] [address] Specialist Cardiovascular Disease 10/17/20 Bharati Mcgowan DNP [address] [place] [address] 50675 Specialist Cardiology 01/27/21 Radha Mcclellan NP [address] [place] [address] 46399 Cardiology 04/23/24 Kiara Anderson MD [address] [place] [address] 70804 Specialist Cardiology 04/23/24 Duglas Diaz NP [address] [place] [address] 49415 Specialist Cardiology 04/23/24 documented as of this encounter
--- OUTSIDE RECORDS SUMMARY | 2024-10-19 14:14 | XMS_ITS | Encounter Summary ---
Author Organization [facility] Address [address] [place] [address] Care Team Providers Care Damascener Name Role Phone Jonatan Daniel MD Unavailable [phone] Elbert Florian MD Primary Care Provider [phone] Bharati Mcgowan DNP Unavailable [phone] Helio Ferguson Primary Care Provider Unavailab Radha Davis NP Unavailable [phone] Kiara Anderson MD Unavailable [phone] Duglas Diaz NP Unavailable Reason for Visit * Reason Onset Date Comments Provider Call Back 04/08/2021 Encounter Details Date Type Department Care Team Description 04/08/2021 Telephone Cardio PVC [address] 300 [facility] [address] [place] [address] Bharati Mcgowan, CLAY [address] [place] [address] [phone] Provider Call Back Social History Tobacco Use Types Packs/Day Years [...] encounter Miscellaneous Notes * Telephone Encounter - Elisabet Rose C.M.A. - 04/10/2021 10:58 AM EDT Spoke with Eboni, message given. * Telephone Encounter - Debbie Joshi - 04/09/2021 3:40 PM EDT 04/09/2021 Eboni from [facility] Called Back Her direct number is [phone] HILDA * Telephone Encounter - Elisabet Rose C.M.A. - 04/09/2021 3:02 PM EDT LVM asking office to return call. * Telephone Encounter - Bharati Mcgowan DNP, FNP - 04/08/2021 4:17 PM EDT The patient may interrupt his ASA and plavix at the discretion of the neurology team and resume post procedure when deemed safe Can you pls call the neurology office? Thank you * Telephone Encounter - Amira Ford - 04/08/2021 2:07 PM EDT Eboni Gan from [facility] is calling because the patient is scheduled to have upcoming surgery , but is currently taking Plavix and Aspirin. Eboni wants to no can he hold taking the medication one week before his surgery? Eboni can be reached at [phone]. documented in this encounter Plan of Treatment Not on file documented as of this encounter Visit Diagnoses Not on filedocumented in this encounter Care Teams Damascener Relationship Specialty Start Date End Date Elbert Florian MD [address] [place] [address] 56844 PCP - General Internal Medicine 11/28/20 04/20/22 Helio Ferguson [address] [place] [address] 45696 PCP - General Internal Medicine 04/21/22 Jonatan Daniel MD 300 [facility] 154 [place] [address] Specialist Cardiovascular Disease 10/17/20 Bharati Mcgowan DNP [address] [place] [address] 11375 Specialist Cardiology 01/27/21 Radha Mcclellan NP [address] [place] [address] 27360 Cardiology 04/23/24 Kiara Anderson MD [address] [place] [address] 30600 Specialist Cardiology 04/23/24 Duglas Diaz NP [address] [place] [address] 62261 Specialist Cardiology 04/23/24 documented as of this encounter
--- OUTSIDE RECORDS SUMMARY | 2024-10-19 14:14 | XMS_ITS | Encounter Summary ---
Author Organization [facility] Address [address] [place] [address] Care Team Providers Care Leaf Sucker Operator Name Role Phone Elisabet Marin MD Primary Care Provider Unavaila Jonatan Carl MD Unavailable [phone] Elbert Florian MD Primary Care Provider [phone] Bharati Mcgowan DNP Unavailable [phone] Helio Ferguson Primary Care Provider Unavailab Radha Davis NP Unavailable [phone] Kiara Anderson MD Unavailable [phone] Duglas Diaz VICE PRESIDENT QUALITY ASSURANCE Unavailable [phone] Encounter Details Date Type Department Care Team Description 04/24/2019 Console Manager Report Medical Records [address] [place] [address] Harry Lau MD Social History Tobacco Use [...] on filedocumented in this encounter Care Teams Leaf Sucker Operator Relationship Specialty Start Date End Date Elisabet Marin MD PCP - General Internal Medicine 06/27/15 11/27/20 Elbert Florian MD [address] [place] [address] 77903 PCP - General Internal Medicine 11/28/20 04/20/22 Helio Ferguson [address] [place] [address] 78059 PCP - General Internal Medicine 04/21/22 Jonatan Daniel MD 300 [facility] [address] [place] [address] Specialist Cardiovascular Disease 10/17/20 Bharati Mcgowan DNP [address] [place] [address] 52881 Specialist Cardiology 01/27/21 Radha Mcclellan NP [address] [place] [address] 45631 Cardiology 04/23/24 Kiara Anderson MD [address] [place] [address] 98016 Specialist Cardiology 04/23/24 Duglas Diaz NP [address] [place] [address] 58732 Specialist Cardiology 04/23/24 documented as of this encounter
--- OUTSIDE RECORDS SUMMARY | 2024-10-19 14:14 | XMS_ITS | Encounter Summary ---
Author Organization [facility] Address [address] [place] [address] Care Team Providers Care Renewable Energy Broker Name Role Phone Jonatan Daniel MD Unavailable [phone] Elbert Florian MD Primary Care Provider Bharati Mcgowan DNP Unavailable [phone] Helio Ferguson Primary Care Provider Unavailab Radha Davis SLEEVE SETTER LOCKSTITCH Unavailable [phone] Kiara Anderson MD Unavailable [phone] Duglas Diaz SLEEVE SETTER LOCKSTITCH Unavailable Reason for Visit * Reason Onset Date Comments Faxed Refill 06/08/2021 Encounter Details Date Type Department Care Team Description 06/08/2021 Refill Adult Medicine [address] [phone] Elbert Florian MD [address] [place] [address] [phone] Faxed Refill Social History Tobacco Use Types [...] on file documented as of this encounter Miscellaneous Notes * Telephone Encounter - Chiquita Nevarez M.A. - 06/08/2021 10:29 AM EDT Last office visit 04/06/21 Next office visit 07/13/21 Lab Results Component Value Date ALB 3.9 03/20/2021 SGOT 19 03/20/2021 SGPT 26 03/20/2021 TBILI 0.6 03/20/2021 ALKPHOS 76 03/20/2021 TP 7.9 03/20/2021 * Telephone Encounter - Consuelo Matias - 06/08/2021 8:33 AM EDT Patient would like script to be: E-PRESCRIBED/FAXED TO PHARMACY WHEN WAS THE PATIENT'S LAST APPOINTMENT IN ADULT MEDICINE? 04/06/21 WHEN WAS THE LAST TIME THE PATIENT SAW THEIR PCP? Same as above Does patient have an upcoming appointment? Yes 07/13/21 (THE MEDICATION REQUESTED IS ON THE MED [...] N/A Patients current insurance carrier is: Payor: eMar / Plan: eMar $10/ GRACY / Product Type: OTHER documented in this encounter Plan of Treatment Not on file documented as of this encounter Visit Diagnoses Not on filedocumented in this encounter Care Teams Renewable Energy Broker Relationship Specialty Start Date End Date Elbert Florian MD [address] [place] [address] PCP - General Internal Medicine 11/28/20 04/20/22 Helio Ferguson [address] [place] [address] 19908 PCP - General Internal Medicine 04/21/22 Jonatan aDniel MD 300 [facility] [address] [place] [address] Specialist Cardiovascular Disease 10/17/20 Bharati Mcgowan DNP [address] [place] [address] 00403 Specialist Cardiology 01/27/21 Radha Mcclellan NP [address] [place] [address] 87350 Cardiology 04/23/24 Kiara Anderson MD [address] [place] [address] 49427 Specialist Cardiology 04/23/24 Duglas Diaz NP [address] [place] [address] 76869 Specialist Cardiology 04/23/24 documented as of this encounter
--- OUTSIDE RECORDS SUMMARY | 2024-10-19 14:14 | XMS_ITS | Encounter Summary ---
Author Organization [facility] Address [address] [place] [address] Care Team Providers Care Ditch Inspector Name Role Phone Elisabet Marin MD Primary Care Provider Unavaila Jonatan Carl MD Unavailable [phone] Elbert Florian MD Primary Care Provider [phone] Bharati Mcgowan DNP Unavailable [phone] Helio Ferguson Primary Care Provider Unavailab Radha Davis NP Unavailable [phone] Kiara Anderson MD Unavailable [phone] Duglas Diaz STILL CLEANER TUBE Unavailable [phone] Encounter Details Date Type Department Care Team Description 12/12/2017 Hard Candy Spinner Report Medical Records [address] [place] [address] Harry Lau MD Social History Tobacco Use Types Packs/Day Years Used Date Smoking Tobacco: Former Cigarettes 1 Q uit: 10/24/2012 Comments:electronic cigarett e Alcohol Use Standard Drinks/Week Comments Yes 0 [...] on filedocumented in this encounter Care Teams Ditch Inspector Relationship Specialty Start Date End Date Elisabet Marin MD PCP - General Internal Medicine 06/27/15 11/27/20 Elbert Florian MD [address] [place] [address] PCP - General Internal Medicine 11/28/20 04/20/22 Helio Ferguson [address] [place] [address] PCP - General Internal Medicine 04/21/22 Jonatan Daniel MD 300 [facility] 154 [place] [address] Specialist Cardiovascular Disease 10/17/20 Bharati Mcgowan DNP [address] [place] [address] Specialist Cardiology 01/27/21 Radha Mcclellan NP [address] [place] [address]73 Cardiology 04/23/24 Kiara Anderson MD [address] [place] [address] Specialist Cardiology 04/23/24 Duglas Diaz NP [address] [place] [address] Specialist Cardiology 04/23/24 documented as of this encounter
--- OUTSIDE RECORDS SUMMARY | 2024-10-19 14:14 | XMS_ITS | Encounter Summary ---
Author Organization [facility] Address [address] [place] [address] Care Team Providers Care Shank Breaker Name Role Phone Jonatan Daniel MD Unavailable [phone] Elbert Florian MD Primary Care Provider [phone] Bharati Mcgowan DNP Unavailable [phone] Helio Ferguson Primary Care Provider Unavailab Radha Davis NP Unavailable [phone] Kiara Anderson MD Unavailable [phone] Duglas Diaz COMPREHENSIVE OPHTHALMOLOGIST Unavailable [phone] Encounter Details Date Type Department Care Team Description 10/20/2021 Reporting Coordinator Report Medical Records [address] [place] [address] [facility] [address] [place] [address] Social History Tobacco Use Types Packs/Day Years [...] on filedocumented in this encounter Care Teams Shank Breaker Relationship Specialty Start Date End Date Elbert Florian MD [address] [place] [address] PCP - General Internal Medicine 11/28/20 04/20/22 Helio Ferguson [address] [place] [address] PCP - General Internal Medicine 04/21/22 Jonatan Daniel MD [address] [address] Specialist Cardiovascular Disease 10/17/20 Bharati Mcgowan DNP [address] [place] [address] Specialist Cardiology 01/27/21 Radha Mcclellan NP [address] [place] [address] 13578 Cardiology 04/23/24 Kiara Anderson MD [address] [place] [address] Specialist Cardiology 04/23/24 Duglas Diaz NP [address] [place] [address] Specialist Cardiology 04/23/24 documented as of this encounter
--- OUTSIDE RECORDS SUMMARY | 2024-10-19 14:14 | XMS_ITS | Encounter Summary ---
Author Organization [facility] Address [address] [place] [address] Care Team Providers Care Development System Efficiency Manager Name Role Phone Jonatan Daniel MD Unavailable Bharati Mcgowan DNP Unavailable [phone] Helio Ferguson Primary Care Provider Unavailab Radha Davis NP Unavailable [phone] Kiara Anderson MD Unavailable [phone] Duglas Diaz NP Unavailable [phone] Encounter Details Date Type Department Care Team Description 11/04/2023 Pt. Non Urgent Medical Question Cardio PVC POC 154 300 [facility] 154 [place], [place] [id number] Jonatan Daniel MD 300 [facility] 154 [place], [place] [phone] Social History Tobacco Use Types Packs/Day Years [...] encounter Miscellaneous Notes * Telephone Encounter - Felicitas Ayala - 11/04/2023 8:48 AM ESTFrom: Colin Garcia To: Josias Daniel Sent: 11/04/2023 8:48 AM EST Subject: Appointment Good morning Schedule was not available at last visit, need an appointment sometime in December, mid to late afternoon would be ideal. Johnathon Newton documented in this encounter Plan of Treatment Not on file documented as of this encounter Visit Diagnoses Not on filedocumented in this encounter Care Teams Development System Efficiency Manager Relationship Specialty Start Date End Date Helio Ferguson [address] [address] PCP - General Internal Medicine 04/21/22 Jonatan Daniel MD [address] [address] Specialist Cardiovascular Disease 10/17/20 Bharati Mcgowan DNP [address] [address] Specialist Cardiology 01/27/21 Radha Mcclellan NP [address] [address] Cardiology 04/23/24 Kiara Anderson MD [address] [address] Specialist Cardiology 04/23/24 Duglas Diaz NP [address] [address] Specialist Cardiology 04/23/24 documented as of this encounter
--- OUTSIDE RECORDS SUMMARY | 2024-10-19 14:14 | XMS_ITS | Encounter Summary ---
Author Organization [facility] Address [address] [place] [address] Care Team Providers Care Project Controls Specialist Name Role Phone Elisabet Marin MD Primary Care Provider Unavaila Jonatan Carl MD Unavailable [phone] Elbert Florian MD Primary Care Provider [phone] Bharati Mcgowan DNP Unavailable [phone] Helio Ferguson Primary Care Provider Unavailab Radha Davis NP Unavailable [phone] Kiara Anderson MD Unavailable [phone] Duglas Diaz MEDICAL STAFF ASSISTANT Unavailable [phone] Encounter Details Date Type Department Care Team Description 05/18/2018 Data Warehouse Administrator Report Medical Records [address] [place] [address] Harry Lau MD Social History Tobacco Use Types Packs/Day Years Used Date Smoking Tobacco: Former Cigarettes 1 Q uit: 10/24/2012 Smokeless Tobacco: Never Comments:electronic cigarett e Alcohol Use Standard Drinks/Week [...] on filedocumented in this encounter Care Teams Project Controls Specialist Relationship Specialty Start Date End Date Elisabet Marin MD PCP - General Internal Medicine 06/27/15 11/27/20 Elbert Florian MD [address] [place] [address] PCP - General Internal Medicine 11/28/20 04/20/22 Helio Ferguson [address] [place] [address] PCP - General Internal Medicine 04/21/22 Jonatan Daniel MD 300 [facility] 154 [place] [address] Specialist Cardiovascular Disease 10/17/20 Bharati Mcgowan DNP [address] [place] [address] Specialist Cardiology 01/27/21 Radha Mcclellan NP [address] [place] [address] Cardiology 04/23/24 Kiara Anderson MD [address] [place] [address] Specialist Cardiology 04/23/24 Duglas Diaz NP [address] [place] [address] Specialist Cardiology 04/23/24 documented as of this encounter
--- OUTSIDE RECORDS SUMMARY | 2024-10-19 14:14 | XMS_ITS | Encounter Summary ---
Author Organization [facility] Address [address] [place] [address] Care Team Providers Care Family Dentist Name Role Phone Jonatan Daniel MD Unavailable [phone] Bharati Mcgowan DNP Unavailable [phone] Helio Ferguson Primary Care Provider Unavailab Radha Davis NP Unavailable [phone] Kiara Anderson MD Unavailable [phone] Duglas Diaz NP Unavailable [phone] Encounter Details Date Type Department Care Team Description 10/23/2023 Media Clerk Report Medical Records [address] [place] [address] [facility] [address] [place] [address] Social History Tobacco Use Types Packs/Day Years [...] on filedocumented in this encounter Care Teams Family Dentist Relationship Specialty Start Date End Date Katt Fergusons [address] [place] [address] PCP - General Internal Medicine 04/21/22 Jonatan Daniel MD [address] [place] [address] Specialist Cardiovascular Disease 10/17/20 Bharati Mcgowan DNP [address] [address] Specialist Cardiology 01/27/21 Radha Mcclellan NP [address] [place] [address] Cardiology 04/23/24 Kiara Anderson MD [address] [place] [address] Specialist Cardiology 04/23/24 Duglas Diaz NP [address] [address] Specialist Cardiology 04/23/24 documented as of this encounter
--- OUTSIDE RECORDS SUMMARY | 2024-10-19 14:15 | XMS_ITS | Encounter Summary ---
Author Organization [facility] Address [address] [place] [address] Care Team Providers Care Web Feeder Name Role Phone Yuan Oneill MD Primary Care Provider Unavail able Elisabet Marin MD Primary Care Provider Unavaila Jonatan Carl MD Unavailable [phone] Elbert Florian MD Primary Care Provider [phone] Bharati Mcgowan DNP Unavailable [phone] Helio Ferguson Primary Care Provider Unavailab Radha Davis NP Unavailable [phone] Kiara Anderson MD Unavailable [phone] Duglas Diaz NP Unavailable [phone] Encounter Details Date Type Department Care Team Description 01/21/2015 Fisher Eel Spear Report Medical Records [address] [place] [address] Socrates Vaughn Social History Tobacco Use Types Packs/Day Years [...] on filedocumented in this encounter Care Teams Web Feeder Relationship Specialty Start Date End Date Yuan Oneill MD PCP - General Internal Medicine 07/04/14 06/26/15 Elisabet Marin MD PCP - General Internal Medicine 06/27/15 11/27/20 Elbert Florian MD [address] [place] [address] PCP - General Internal Medicine 11/28/20 04/20/22 Helio Ferguson [address] [place] [address] PCP - General Internal Medicine 04/21/22 Jonatan Daniel MD [address] [place] [address] Specialist Cardiovascular Disease 10/17/20 Bharati Mcgowan DNP [address] [place] [address] Specialist Cardiology 01/27/21 Radha Mcclellan NP [address] [place] [address] Cardiology 04/23/24 Kiara Anderson MD [address] [place] [address] Specialist Cardiology 04/23/24 Duglas Diaz NP [address] [place] [address] Specialist Cardiology 04/23/24 documented as of this encounter
--- OUTSIDE RECORDS SUMMARY | 2024-10-19 14:15 | XMS_ITS | Encounter Summary ---
Author Organization [facility] Address [address] [place] [address] Care Team Providers Care House Superintendent Name Role Phone Elisabet Marin MD Primary Care Provider Unavaila Jonatan Carl MD Unavailable [phone] Elbert Florian MD Primary Care Provider [phone] Bharati Mcgowan DNP Unavailable [phone] Helio Ferguson Primary Care Provider Unavailab Radha Davis PERSONAL PROPERTY APPRAISER Unavailable [phone] Kiara Anderson MD Unavailable [phone] Duglas Diaz PERSONAL PROPERTY APPRAISER Unavailable [phone] Encounter Details Date Type Department Care Team Description 09/08/2016 Railroad Supervisor Of Engines Report Medical Records [address] [place] [address] Rosy Pacheco, PAAlinaC Social History Tobacco Use Types Packs/Day Years [...] on filedocumented in this encounter Care Teams House Superintendent Relationship Specialty Start Date End Date Elisabet Marin MD PCP - General Internal Medicine 06/27/15 11/27/20 Elbert Florian MD [address] [place] [address] PCP - General Internal Medicine 11/28/20 04/20/22 Helio Ferguson [address] [place] [address] PCP - General Internal Medicine 04/21/22 Jonatan Daniel MD 300 [facility] 154 [place] [address] Specialist Cardiovascular Disease 10/17/20 Bharati Mcgowan DNP [address] [place] [address] Specialist Cardiology 01/27/21 Radha Mcclellan NP [address] [place] [address] Cardiology 04/23/24 Kiara Anderson MD [address] [place] [address] Specialist Cardiology 04/23/24 Duglas Diaz NP [address] [place] [address] Specialist Cardiology 04/23/24 documented as of this encounter
--- OUTSIDE RECORDS SUMMARY | 2024-10-19 14:15 | XMS_ITS | Encounter Summary ---
Author Organization [facility] Address [address] [place] [address] Care Team Providers Care Security Program Manager Name Role Phone Physician, Pcp Unknown Primary Care Provider Kika vailable Encounter Details Date Type Department Care Team (Late Contact Info) Description 09/24/2024 Lab Requisition [facility] - Main Lab 299 [facility] [place] [address] Harry Lau MD [address] [facility] [address] [place] [address] Personal history of malignant neoplasm of bladder Social History Tobacco Use Types Packs/Day Years [...] as of this encounter Plan of Treatment Upcoming Encounters Date Type Department Care Team (Late Contact Info) Description 10/25/2024 9:45 AM EST Appointment [facility] Scan [address] [place] [address] documented as of this encounter Procedures Procedure Name Priority Date/Time Associated Diagnosis Comments AP OUTSIDE CONSULT Routine 09/18/2024 12 :00 AM EST Personal history of malignant neoplasm of bladder documented in this encounter Results * Anatomic pathology outside consult (09/18/2024 12:00 AM EST) Final Diagnosis A. Urine, Voided, ([id number]): FEW ATYPICAL UROTHELIAL CELLS. Results of UroVysion fluorescence in situ hybridization (FISH) testing: CEP3: Normal CEP7: Normal CEP17: Normal LSI 9p21: Normal Interpretation: Normal profile Controls stained appropriately. Note: The results are intended as a screening device and should be interpreted in association with other clinical and pathological findings. 10/04/2024 6:00 PM [facility] Clinical Information History of bladder neoplasm (malignant) Z85.51 Urine Cytology/FISH (now) 10/04/2024 6:00 PM [facility] Gross Description A. Urine, Voided, ([id number]): Received one ThinPrep slide for cytology screen and one ThinPrep slide for UroVysion FISH 10/04/2024 6:00 PM [facility] Disclaimer Unless otherwise specified, all tissue is 10% NB formalin fixed and paraffin embedded. Technical pathology services provided by [facility] at [address] [facility] [address], [place] [address] (CLIA #[id number]/Ankita Howell MD, Physician Practice Administrator) 10/04/2024 6:00 PM [facility] Tissue Urine specimen from urethra / Unknown 09/18/2024 09/24/2024 10:12 AM EST us Harry aLu MD LAB PATHOLOGY ORDERABLES Final Result [facility] [address] [place] [address], documented in this encounter Visit Diagnoses Diagnosis Personal history of malignant neoplasm of bladder documented in this encounter Care Teams Security Program Manager Relationship Specialty Start Date End Date Physician, Pcp Unknown PCP - General 10/04/24 10/04/24 documented as of this encounter
--- OUTSIDE RECORDS SUMMARY | 2024-10-19 14:15 | XMS_ITS | Encounter Summary ---
Author Organization [facility] Address [address] [place] [address] Care Team Providers Care Soap Tender Name Role Phone Shabbir Oneill MD Primary Care Provider Unavailab Yuan Solis MD Primary Care Provider Unavail able Elisabet Marin MD Primary Care Provider Unavaila Jonatan Carl MD Unavailable [phone] Elbert Florian MD Primary Care Provider [phone] Bharati Mcgowan DNP Unavailable [phone] Helio Ferguson Primary Care Provider Unavailab Radha Davis CONSUMER AFFAIRS MANAGER Unavailable [phone] Kiara Anderson MD Unavailable [phone] Duglas Diaz CONSUMER AFFAIRS MANAGER Unavailable [phone] Encounter Details Date Type Department Care Team Description 04/05/2013 Business Doc Medical Records [address] [place] [address] Abstract, Provider Social History Tobacco Use Types [...] on filedocumented in this encounter Care Teams Soap Tender Relationship Specialty Start Date End Date Shabbir Oneill MD PCP - General Internal Medicine 10/03/12 07/03/14 Yuan Oneill MD PCP - General Internal Medicine 07/04/14 06/26/15 Elisabet Marin MD PCP - General Internal Medicine 06/27/15 11/27/20 Elbert Florian MD [address] [place] [address] PCP - General Internal Medicine 11/28/20 04/20/22 Helio Ferguson [address] [place] [address] PCP - General Internal Medicine 04/21/22 Jonatan Daniel MD [address] [address] Specialist Cardiovascular Disease 10/17/20 Bharati Mcgowan DNP [address] [place] [address] Specialist Cardiology 01/27/21 Radha Mcclellan NP [address] [place] [address] Cardiology 04/23/24 Kiara Anderson MD [address] [place] [address] Specialist Cardiology 04/23/24 Duglas Diaz NP [address] [place] [address] Specialist Cardiology 04/23/24 documented as of this encounter
--- OUTSIDE RECORDS SUMMARY | 2024-10-19 14:15 | XMS_ITS | Encounter Summary ---
Author Organization [facility] Address [address] [place] [address] Care Team Providers Care Timber Hand Name Role Phone Elisabet Marin MD Primary Care Provider Unavaila Jonatan Carl MD Unavailable [phone] Elbert Florian MD Primary Care Provider [phone] Bharati Mcgowan DNP Unavailable [phone] Helio Ferguson Primary Care Provider Unavailab Radha Davis PHARMACY CLINICAL SPECIALIST Unavailable [phone] Kiara Anderson MD Unavailable [phone] Duglas Diaz PHARMACY CLINICAL SPECIALIST Unavailable [phone] Encounter Details Date Type Department Care Team Description 10/11/2019 Orders Only Medical Records [address] [place] [address] Willie Hannon MD [address] [place] [address] Social History Tobacco Use Types Packs/Day Years [...] Date/Time Associated Diagnosis Comments OUTSIDE LAB Routine 10/11/2019 documented in this encounter Results * OUTSIDE LAB (10/11/2019) Willie Hannon MD LAB documented in this encounter Visit Diagnoses Not on filedocumented in this encounter Care Teams Timber Hand Relationship Specialty Start Date End Date Elisabet Marin MD PCP - General Internal Medicine 06/27/15 11/27/20 Elbert Florian MD [address] [place] [address] PCP - General Internal Medicine 11/28/20 04/20/22 Helio Ferguson [address] [place] [address] PCP - General Internal Medicine 04/21/22 Jonatan Daniel MD [address] [place] [address] [address] [place] [address] Specialist Cardiovascular Disease 10/17/20 Bharati Mcgowan DNP [address] [place] [address] Specialist Cardiology 01/27/21 Radha Mcclellan NP [address] [place] [address] Cardiology 04/23/24 Kiara Anderson MD [address] [place] [address] Specialist Cardiology 04/23/24 Duglas Diaz NP [address] [place] [address] Specialist Cardiology 04/23/24 documented as of this encounter
--- OUTSIDE RECORDS SUMMARY | 2024-10-19 14:15 | XMS_ITS | Encounter Summary ---
Author Organization [facility] Address [address] [place] [address] Care Team Providers Care Ocean Export Account Manager Name Role Phone Elisabet Marin MD Primary Care Provider Unavaila Jonatan Carl MD Unavailable [phone] Elbert Florian MD Primary Care Provider [phone] Bharati Mcgowan DNP Unavailable [phone] Helio Ferguson Primary Care Provider Unavailab Radha Davis DIRECTOR CLOUD TRANSFORMATION Unavailable [phone] Kiara Anderson MD Unavailable [phone] Duglas Diaz DIRECTOR CLOUD TRANSFORMATION Unavailable [phone] Encounter Details Date Type Department Care Team Description 10/19/2019 Gold Tooler Report Medical Records [address] [place] [address] Rosy Pacheco, ALESIAC Social History Tobacco Use Types Packs/Day Years [...] on filedocumented in this encounter Care Teams Ocean Export Account Manager Relationship Specialty Start Date End Date Elisabet Marin MD PCP - General Internal Medicine 06/27/15 11/27/20 Elbert Florian MD [address] [place] [address] PCP - General Internal Medicine 11/28/20 04/20/22 Helio Ferguson [address] [place] [address] PCP - General Internal Medicine 04/21/22 Jonatan Daniel MD 300 [facility] [address] [place] [address] Specialist Cardiovascular Disease 10/17/20 Bharati Mcgowan DNP [address] [place] [address] Specialist Cardiology 01/27/21 Radha Mcclellan NP [address] [place] [address] Cardiology 04/23/24 Kiara Anderson MD [address] [place] [address] Specialist Cardiology 04/23/24 Duglas Diaz NP [address] [place] [address] Specialist Cardiology 04/23/24 documented as of this encounter
--- OUTSIDE RECORDS SUMMARY | 2024-10-19 14:15 | XMS_ITS | Encounter Summary ---
Author Organization [facility] Address [address] [place] [address] Care Team Providers Care Sped Teacher Name Role Phone Elisabet Marin MD Primary Care Provider Unavaila Jonatan Carl MD Unavailable [phone] Elbert Florian MD Primary Care Provider Bharati Mcgowan DNP Unavailable [phone] Helio Ferguson Primary Care Provider Unavailab Radha Davis NURSES SUPERINTENDENT Unavailable [phone] Kiara Anderson MD Unavailable [phone] Duglas Diaz NURSES SUPERINTENDENT Unavailable [phone] Encounter Details Date Type Department Care Team Description 10/06/2016 Physiotherapist'S Assistant Report Medical Records [address] [place] [id number] [place] [address] Social History Tobacco Use Types Packs/Day Years [...] on filedocumented in this encounter Care Teams Sped Teacher Relationship Specialty Start Date End Date Elisabet Marin MD PCP - General Internal Medicine 06/27/15 11/27/20 Elbert Florian MD [address] [place] [address] PCP - General Internal Medicine 11/28/20 04/20/22 Helio Ferguson [address] [place] [address] PCP - General Internal Medicine 04/21/22 Jonatan Daniel MD 300 [facility] 154 [place] [address] Specialist Cardiovascular Disease 10/17/20 Bharati Mcgowan DNP [address] [place] [address] Specialist Cardiology 01/27/21 Radha Mcclellan NP [address] [place] [address] Cardiology 04/23/24 Kiara Anderson MD [address] [place] [address] Specialist Cardiology 04/23/24 Duglas Diaz NP [address] [place] [address] Specialist Cardiology 04/23/24 documented as of this encounter
--- OUTSIDE RECORDS SUMMARY | 2024-10-19 14:15 | XMS_ITS | Encounter Summary ---
Author Organization [facility] Address [address] [place] [address] Care Team Providers Care Coordinate Measuring Machine Technician Name Role Phone Elisabet Marin MD Primary Care Provider Unavaila Jonatan Carl MD Unavailable [phone] Elbert Florian MD Primary Care Provider [phone] Bharati Mcgowan DNP Unavailable [phone] Helio Ferguson Primary Care Provider Unavailab Radha Davis NP Unavailable [phone] Kiara Anderson MD Unavailable [phone] Duglas Diaz NUT STEAMER Unavailable [phone] Encounter Details Date Type Department Care Team Description 01/13/2017 Cooky Packer Report Medical Records [address] [place] [address] 38834 Abstract, Provider Social History Tobacco Use Types [...] on filedocumented in this encounter Care Teams Coordinate Measuring Machine Technician Relationship Specialty Start Date End Date Elisabet Marin MD PCP - General Internal Medicine 06/27/15 11/27/20 Elbert Florian MD [address] [place] [address] 88742 PCP - General Internal Medicine 11/28/20 04/20/22 Helio Ferguson [address] [place] [address] 95331 PCP - General Internal Medicine 04/21/22 Jonatan Daniel MD 300 [facility] [address] [place] [address] Specialist Cardiovascular Disease 10/17/20 Bharati Mcgowan DNP [address] [place] [address] 95783 Specialist Cardiology 01/27/21 Radha Mcclellan NP [address] [place] [address] 46647 Cardiology 04/23/24 Kiara Anderson MD [address] [place] [address] 17200 Specialist Cardiology 04/23/24 Duglas Diaz NP [address] [place] [address] 41221 Specialist Cardiology 04/23/24 documented as of this encounter
--- OUTSIDE RECORDS SUMMARY | 2024-10-19 14:15 | XMS_ITS | Encounter Summary ---
Author Organization [facility] Address [address] [place] [address] Care Team Providers Care Planer Operator Name Role Phone Yuan Oneill MD Primary Care Provider Unavail able Elisabet Marin MD Primary Care Provider Unavaila Jonatan Carl MD Unavailable [phone] Elbert Florian MD Primary Care Provider [phone] Bharati Mcgowan DNP Unavailable [phone] Helio Ferguson Primary Care Provider Unavailab Radha Davis NP Unavailable [phone] Kiara Anderson MD Unavailable [phone] Duglas Diaz NP Unavailable [phone] Encounter Details Date Type Department Care Team Description 12/20/2014 Business Doc Medical Records [address] [place] [address] 14957 Abstract, Provider Social History Tobacco Use Types [...] on filedocumented in this encounter Care Teams Planer Operator Relationship Specialty Start Date End Date Yuan Oneill MD PCP - General Internal Medicine 07/04/14 06/26/15 Elisabet Marin MD PCP - General Internal Medicine 06/27/15 11/27/20 Elbert Florian MD [address] [place] [address] 01526 PCP - General Internal Medicine 11/28/20 04/20/22 Helio Ferguson [address] [place] [address] 11726 PCP - General Internal Medicine 04/21/22 Jonatan Daniel MD [address] [place] [address] 98001 Specialist Cardiovascular Disease 10/17/20 Bharati Mcgowan DNP [address] [place] [address] 27234 Specialist Cardiology 01/27/21 Radha Mcclellan NP [address] [place] [address] 22292 Cardiology 04/23/24 Kiara Anderson MD [address] [place] [address] 08480 Specialist Cardiology 04/23/24 Duglas Diaz NP [address] [place] [address] 87022 Specialist Cardiology 04/23/24 documented as of this encounter
--- OUTSIDE RECORDS SUMMARY | 2024-10-19 14:15 | XMS_ITS | Encounter Summary ---
Author Organization [facility] Address [address] [place] [address] Care Team Providers Care Die Maker Name Role Phone Yuan Oneill MD Primary Care Provider Unavail able Elisabet Marin MD Primary Care Provider Unavaila Jonatan Carl MD Unavailable [phone] Elbert Florian MD Primary Care Provider [phone] Bharati Mcgowan DNP Unavailable [phone] Helio Ferguson Primary Care Provider Unavailab Radha Davis NP Unavailable [phone] Kiara Anderson MD Unavailable [phone] Duglas Diaz NP Unavailable [phone] Encounter Details Date Type Department Care Team Description 12/30/2014 Electric Clock Mechanic Report Medical Records [address] [place] [address] Paco Collins Social History Tobacco Use Types Packs/Day Years [...] on filedocumented in this encounter Care Teams Die Maker Relationship Specialty Start Date End Date Yuan Oneill MD PCP - General Internal Medicine 07/04/14 06/26/15 Elisabet Marin MD PCP - General Internal Medicine 06/27/15 11/27/20 Elbert Florian MD [address] [place] [address] 21025 PCP - General Internal Medicine 11/28/20 04/20/22 Helio Ferguson [address] [place] [address] 87072 PCP - General Internal Medicine 04/21/22 Jonatan Daniel MD [address] [place] [address] 14900 Specialist Cardiovascular Disease 10/17/20 Bharati Mcgowan DNP [address] [place] [address] 51472 Specialist Cardiology 01/27/21 Radha Mcclellan NP [address] [place] [address] 73266 Cardiology 04/23/24 Kiara Anderson MD [address] [place] [address] 10622 Specialist Cardiology 04/23/24 Duglas Diaz NP [address] [place] [address] 06063 Specialist Cardiology 04/23/24 documented as of this encounter
--- OUTSIDE RECORDS SUMMARY | 2024-10-19 14:15 | XMS_ITS | Encounter Summary ---
Author Organization [facility] Address [address] [place] [address] Care Team Providers Care Surface Supervisor Name Role Phone Elisabet Marin MD Primary Care Provider Unavaila Jonatan Carl MD Unavailable [phone] Elbert Florian MD Primary Care Provider [phone] Bharati Mcgowan DNP Unavailable [phone] Helio Ferguson Primary Care Provider Unavailab Radha Davis NP Unavailable [phone] Kiara Anedrson MD Unavailable [phone] Duglas Diaz EXPERIMENTAL WELDER Unavailable [phone] Encounter Details Date Type Department Care Team Description 10/20/2020 Handle Machine Operator Report Medical Records [address] [place] [address] [facility] [address] [place] [address] Social History Tobacco Use Types Packs/Day Years [...] have Coronavirus / COVID-19? No / Unsure 10/20/2020 8:58 AM EST documented as of this encounter Plan of Treatment Not on file documented as of this encounter Visit Diagnoses Not on filedocumented in this encounter Care Teams Surface Supervisor Relationship Specialty Start Date End Date Elisabet Marin MD PCP - General Internal Medicine 06/27/15 11/27/20 Elbert Florian MD [address] [place] [address] 28052 PCP - General Internal Medicine 11/28/20 04/20/22 Helio Ferguson [address] [place] [address] 77428 PCP - General Internal Medicine 04/21/22 Jonatan Daniel MD [address] [address] Specialist Cardiovascular Disease 10/17/20 Bharati Mcgowan DNP [address] [place] [address] 58656 Specialist Cardiology 01/27/21 Radha Mcclellan NP [address] [place] [address] 48687 Cardiology 04/23/24 Kiara Anderson MD [address] [place] [address] 51740 Specialist Cardiology 04/23/24 Duglas Diaz NP [address] [place] [address] 35033 Specialist Cardiology 04/23/24 documented as of this encounter
--- OUTSIDE RECORDS SUMMARY | 2024-10-19 14:15 | XMS_ITS | Encounter Summary ---
Author Organization [facility] Address [address] [place] [address] Care Team Providers Care Director Workforce Management Name Role Phone Elisabet Marin MD Primary Care Provider Unavaila Jonatan Carl MD Unavailable [phone] Elbert Florian MD Primary Care Provider [phone] Bharati Mgcowan DNP Unavailable [phone] Helio Ferguson Primary Care Provider Unavailab Radha Davis NP Unavailable [phone] Kiara Anderson MD Unavailable [phone] Duglas Diaz SEXUAL HEALTH PHYSICIAN Unavailable [phone] Reason for Visit * Reason Onset Date Comments Pre-visit Diabetes Lab Adult Medicine 09/22/201509/29 Encounter Details Date Type Department Care Team Description 09/22/2015 Telephone Medicine/Pediatrics - [address] [phone] Elisabet Marin MD Pre-visit Diabetes Lab Adult Medicine (09/29) Social History Tobacco Use Types Packs/Day Years [...] encounter Miscellaneous Notes * Telephone Encounter - Rosey Maldnoado - 09/22/2015 8:29 AM EST Sent patient an email advising them to complete diabetic lab work at least three days prior to their upcoming appointment. documented in this encounter Plan of Treatment Not on file documented as of this encounter Visit Diagnoses Not on filedocumented in this encounter Care Teams Director Workforce Management Relationship Specialty Start Date End Date Elisabet Marin MD PCP - General Internal Medicine 06/27/15 11/27/20 Elbert Florian MD [address] [place] [address] 57091 PCP - General Internal Medicine 11/28/20 04/20/22 Heilo Ferguson [address] [place] [address] 77490 PCP - General Internal Medicine 04/21/22 Jonatan Daniel MD 300 [facility] 154 [place] [address] Specialist Cardiovascular Disease 10/17/20 Bharati Mcgowan DNP [address] [place] [address] 35663 Specialist Cardiology 01/27/21 Radha Mcclellan NP [address] [place] [address] 14163 Cardiology 04/23/24 Kiara Anderson MD [address] [place] [address] 80168 Specialist Cardiology 04/23/24 Duglas Diaz NP [address] [place] [address] 70687 Specialist Cardiology 04/23/24 documented as of this encounter
--- OUTSIDE RECORDS SUMMARY | 2024-10-19 14:15 | XMS_ITS | Encounter Summary ---
Author Organization [facility] Address [address] [place] [address] Care Team Providers Care Multicultural Internship Name Role Phone Unavailable Primary Care Provider Unavailabl e Reason for Visit * Reason Onset Date Comments Appointment 10/09/2024 1st notification Encounter Details Date Type Department Care Team ([facility] st Contact Info) Description 10/09/2024 Telephone Lung Screening Program - [address] [place] [id number] Britney Maynard [place] Appointment (1st notification) Social [...] screening on September at 945 AM, at [facility]. No Answer left message. For all screenings [...] Info) Description 10/25/2024 9:[address] [facility] CT Scan [address] [place] [address] documented as of this encounter Visit Diagnoses Not on filedocumented in this encounter
--- OUTSIDE RECORDS SUMMARY | 2024-10-19 14:15 | XMS_ITS | Encounter Summary ---
Author Organization [facility] Address [address] [place] [address] Care Team Providers Care Kiln Feeder Name Role Phone Elisabet Marin MD Primary Care Provider Unavaila Jonatan Carl MD Unavailable [phone] Elbert Florian MD Primary Care Provider [phone] Bharati Mcgowan DNP Unavailable [phone] Helio Ferguson Primary Care Provider Unavailab Radha Davis NP Unavailable [phone] Kiara Anderson MD Unavailable [phone] Duglas Diaz OPERATIONS FORESTER Unavailable [phone] Encounter Details Date Type Department Care Team Description 01/06/2017 Dye Room Helper Report Medical Records [address] [place] [address] 44568 Jessi Barahona MD Social History Tobacco Use Types Packs/Day [...] on filedocumented in this encounter Care Teams Kiln Feeder Relationship Specialty Start Date End Date Elisabet Marin MD PCP - General Internal Medicine 06/27/15 11/27/20 Elbert Florian MD [address] [place] [address] 34448 PCP - General Internal Medicine 11/28/20 04/20/22 Helio Ferguson [address] [place] [address] 45714 PCP - General Internal Medicine 04/21/22 Jonatan Daniel MD 300 [facility] [address] [place] [address] Specialist Cardiovascular Disease 10/17/20 Bharati Mcgowan DNP [address] [place] [address] 23814 Specialist Cardiology 01/27/21 Radha Mcclellan NP [address] [place] [address] 88180 Cardiology 04/23/24 Kiara Anderson MD [address] [place] [address] 68445 Specialist Cardiology 04/23/24 Duglas Diaz NP [address] [place] [address] 26035 Specialist Cardiology 04/23/24 documented as of this encounter
--- OUTSIDE RECORDS SUMMARY | 2024-10-19 14:15 | XMS_ITS | Encounter Summary ---
Author Organization [facility] Address [address] [place] [address] Care Team Providers Care Director Private Music Therapy Agency Name Role Phone Shabbir Oneill MD Primary Care Provider Unavailab Yuan Solis MD Primary Care Provider Unavail able Elisabet Marin MD Primary Care Provider Unavaila Jonatan Carl MD Unavailable [phone] Elbert Florian MD Primary Care Provider [phone] Bharati Mcgowan DNP Unavailable [phone] Helio Ferguson Primary Care Provider Unavailab Radha Davis PITCH GATHERER Unavailable [phone] Kiara Anderson MD Unavailable [phone] Duglas Diaz PITCH GATHERER Unavailable [phone] Encounter Details Date Type Department Care Team Description 06/02/2014 Travel Accommodation Inspector Report Medical Records [address] [place] [address] 66444 Carlos Chow MD Social History Tobacco Use Types Packs/Day [...] filedocumented in this encounter Care Teams Director Private Music Therapy Agency Relationship Specialty Start Date End Date Shabbir Oneill MD PCP - General Internal Medicine 10/03/12 07/03/14 Yuan Oneill MD PCP - General Internal Medicine 07/04/14 06/26/15 Elisabet Marin MD PCP - General Internal Medicine 06/27/15 11/27/20 Elbert Florian MD [address] [place] [address] 41884 PCP - General Internal Medicine 11/28/20 04/20/22 Helio Ferguson [address] [place] [address] 26345 PCP - General Internal Medicine 04/21/22 Jonatan Daniel MD [address] [place] [address] 51255 Specialist Cardiovascular Disease 10/17/20 Bharati Mcgowan DNP [address] [place] [address] 64347 Specialist Cardiology 01/27/21 Radha Mcclellan NP [address] [place] [address] 49384 Cardiology 04/23/24 Kiara Anderson MD [address] [place] [address] 53493 Specialist Cardiology 04/23/24 Duglas Diaz NP [address] [place] [address] 57462 Specialist Cardiology 04/23/24 documented as of this encounter
--- OUTSIDE RECORDS SUMMARY | 2024-10-19 14:15 | XMS_ITS | Encounter Summary ---
Author Organization [facility] Address [address] [place] [address] Care Team Providers Care Assistant Corporation Counsel Name Role Phone Elisabet Marin MD Primary Care Provider Unavaila Jonatan Carl MD Unavailable [phone] Elbert Florian MD Primary Care Provider [phone] Bharati Mcgowan DNP Unavailable [phone] Helio Ferguson Primary Care Provider Unavailab Radha Davis LOSS CONTROL TECHNICIAN Unavailable [phone] Kiara Anderson MD Unavailable [phone] Duglas Diaz LOSS CONTROL TECHNICIAN Unavailable [phone] Encounter Details Date Type Department Care Team Description 02/01/2020 Refill Medicine/Pediatrics - [address] [address] Dimas Hart PA-C Social History Tobacco Use Types Packs/Day Years [...] encounter Miscellaneous Notes * Telephone Encounter - Maria Del Carmen Sabillon R.N. - 02/01/2020 9:40 AM EDT See other refill TE from today, metoprolol refill request sent to PCP documented in this encounter Plan of Treatment Not on file documented as of this encounter Visit Diagnoses Not on filedocumented in this encounter Care Teams Assistant Corporation Counsel Relationship Specialty Start Date End Date Elisabet Marin MD PCP - General Internal Medicine 06/27/15 11/27/20 Elbert Florian MD [address] [place] [address] 38069 PCP - General Internal Medicine 11/28/20 04/20/22 Helio Ferguson [address] [place] [address] 05575 PCP - General Internal Medicine 04/21/22 Jonatan Daniel MD [address] [place] [address] 154 [place] [address] Specialist Cardiovascular Disease 10/17/20 Bharati Mcgowan DNP [address] [place] [address] 50299 Specialist Cardiology 01/27/21 Radha Mcclellan NP [address] [place] [address] 51946 Cardiology 04/23/24 Kiara Anderson MD [address] [place] [address] 54484 Specialist Cardiology 04/23/24 Duglas Diaz NP [address] [place] [address] 26842 Specialist Cardiology 04/23/24 documented as of this encounter
--- OUTSIDE RECORDS SUMMARY | 2024-10-19 14:15 | XMS_ITS | Encounter Summary ---
Author Organization [facility] Address [address] [place] [address] Care Team Providers Care Property Claims Adjuster Name Role Phone Shabbir Oneill MD Primary Care Provider Unavailab Yuan Solis MD Primary Care Provider Unavail able Elisabet Marin MD Primary Care Provider Unavaila Jonatan Carl MD Unavailable [phone] Elbert Florian MD Primary Care Provider [phone] Bharati Mcgowan DNP Unavailable [phone] Helio Ferguson Primary Care Provider Unavailab Radha Davis PHILOSOPHY LECTURER Unavailable Kiara Anderson MD Unavailable [phone] Duglas Diaz PHILOSOPHY LECTURER Unavailable [phone] Encounter Details Date Type Department Care Team Description 02/06/2014 Orders Only Medicine/Pediatrics - [address] [address] Shabbir Oneill MD Social History Tobacco Use Types Packs/Day [...] on filedocumented in this encounter Care Teams Property Claims Adjuster Relationship Specialty Start Date End Date Shabbir Oneill MD PCP - General Internal Medicine 10/03/12 07/03/14 Yuan Oneill MD PCP - General Internal Medicine 07/04/14 06/26/15 Elisabet Marin MD PCP - General Internal Medicine 06/27/15 11/27/20 Elbert Florian MD [address] [place] [address] 88469 PCP - General Internal Medicine 11/28/20 04/20/22 Helio Ferguson [address] [place] [address] 83052 PCP - General Internal Medicine 04/21/22 Jonatan Daniel MD [address] [place] [address] 15652 Specialist Cardiovascular Disease 10/17/20 Bharati Mcgowan DNP [address] [place] [address] 04719 Specialist Cardiology 01/27/21 Radha Mcclellan NP [address] [place] [address] 93575 Cardiology 04/23/24 Kiara Anderson MD [address] [place] [address] 61790 Specialist Cardiology 04/23/24 Duglas Diaz NP [address] [place] [address] 18131 Specialist Cardiology 04/23/24 documented as of this encounter
--- OUTSIDE RECORDS SUMMARY | 2024-10-19 14:15 | XMS_ITS | Encounter Summary ---
Author Organization [facility] Address [address] [place] [address] Care Team Providers Care Superintendent Overhead Distribution Name Role Phone Elisabet Marin MD Primary Care Provider Unavaila Jonatan Carl MD Unavailable Elbert Florian MD Primary Care Provider [phone] Bharati Mcgowan DNP Unavailable [phone] Helio Ferguson Primary Care Provider Unavailab Radha Davis NP Unavailable [phone] Kiara Anderson MD Unavailable [phone] Duglas Diaz GROMMET MACHINE OPERATOR Unavailable [phone] Encounter Details Date Type Department Care Team Description 10/22/2016 Business Doc Medical Records [address] [place] [address] Abstract, Provider Social History Tobacco Use Types [...] on filedocumented in this encounter Care Teams Superintendent Overhead Distribution Relationship Specialty Start Date End Date Elisabet Marin MD PCP - General Internal Medicine 06/27/15 11/27/20 Elbert Florian MD [address] [place] [address] 89357 PCP - General Internal Medicine 11/28/20 04/20/22 Helio Ferguson [address] [place] [address] 33727 PCP - General Internal Medicine 04/21/22 Jonatan Daniel MD 300 [facility] [address] [place] [address] Specialist Cardiovascular Disease 10/17/20 Bharati Mcgowan DNP [address] [place] [address] 59667 Specialist Cardiology 01/27/21 Radha Mcclellan NP [address] [place] [address] 89287 Cardiology 04/23/24 Kiara Anderson MD [address] [place] [address] 65457 Specialist Cardiology 04/23/24 Duglas Diaz NP [address] [place] [address] 69002 Specialist Cardiology 04/23/24 documented as of this encounter
--- OUTSIDE RECORDS SUMMARY | 2024-10-19 14:15 | XMS_ITS | Encounter Summary ---
Author Organization [facility] Address [address] [place] [address] Care Team Providers Care Application Development Liaison Name Role Phone Elisabet Marin MD Primary Care Provider Unavaila Jonatan Carl MD Unavailable [phone] Elbert Florian MD Primary Care Provider [phone] Bharati Mcgowan DNP Unavailable [phone] Helio Ferguson Primary Care Provider Unavailab Radha Davis NP Unavailable [phone] Kiara Anderson MD Unavailable [phone] Duglas Diaz CYCLE ANALYST Unavailable [phone] Encounter Details Date Type Department Care Team Description 03/17/2017 Cable Rigger Report Medical Records [address] [place] [address] 58575 Mikhail Baker MD Social History Tobacco Use Types Packs/Day [...] on filedocumented in this encounter Care Teams Application Development Liaison Relationship Specialty Start Date End Date Elisabet Marin MD PCP - General Internal Medicine 06/27/15 11/27/20 Elbert Florian MD [address] [place] [address] 60193 PCP - General Internal Medicine 11/28/20 04/20/22 Helio Ferguson [address] [place] [address] 53404 PCP - General Internal Medicine 04/21/22 Jonatan Daniel MD 300 [facility] [address] [place] [address] Specialist Cardiovascular Disease 10/17/20 Bharati Mcgowan DNP [address] [place] [address] 64816 Specialist Cardiology 01/27/21 Radha Mcclellan NP [address] [place] [address] 30339 Cardiology 04/23/24 Kiara Anderson MD [address] [place] [address] 17123 Specialist Cardiology 04/23/24 Duglas Diaz NP [address] [place] [address] 67151 Specialist Cardiology 04/23/24 documented as of this encounter
--- OUTSIDE RECORDS SUMMARY | 2024-10-19 14:15 | XMS_ITS | Encounter Summary ---
Author Organization [facility] Address [address] [place] [address] Care Team Providers Care Crop Duster Name Role Phone Elisabet Marin MD Primary Care Provider Unavaila Jonatan Carl MD Unavailable [phone] Elbert Florian MD Primary Care Provider [phone] Bharati Mcgowan DNP Unavailable [phone] Helio Ferguson Primary Care Provider Unavailab Radha Davis NP Unavailable [phone] Kiara Anderson MD Unavailable [phone] Duglas Diaz GOAT DRIVER Unavailable [phone] Encounter Details Date Type Department Care Team Description 07/27/2016 Language Tutor Report Medical Records [address] [place] [address] 14118 Harvinder Bey, PA-C Social History Tobacco Use Types Packs/Day [...] on filedocumented in this encounter Care Teams Crop Duster Relationship Specialty Start Date End Date Elisabet Marin MD PCP - General Internal Medicine 06/27/15 11/27/20 Elbert Florian MD [address] [place] [address] 95170 PCP - General Internal Medicine 11/28/20 04/20/22 Helio Ferguson [address] [place] [address] 96676 PCP - General Internal Medicine 04/21/22 Jonatan Daniel MD 300 [facility] [address] [place] [address] Specialist Cardiovascular Disease 10/17/20 Bharati Mcgowan DNP [address] [place] [address] 36472 Specialist Cardiology 01/27/21 Radha Mcclellan NP [address] [place] [address] 34086 Cardiology 04/23/24 Kiara Anderson MD [address] [place] [address] 84735 Specialist Cardiology 04/23/24 Duglas Diaz NP [address] [place] [address] 91307 Specialist Cardiology 04/23/24 documented as of this encounter
--- OUTSIDE RECORDS SUMMARY | 2024-10-19 14:15 | XMS_ITS | Encounter Summary ---
Author Organization [facility] Address [address] [place] [address] Care Team Providers Care Buckler And Lacer Name Role Phone Jonatan Daniel MD Unavailable [phone] Bharati Mcgowan DNP Unavailable [phone] Helio Ferguson Primary Care Provider Unavailab Radha Davis NP Unavailable [phone] Kiara Anderson MD Unavailable [phone] Duglas Diaz NP Unavailable [phone] Encounter Details Date Type Department Care Team Description 10/26/2022 Orders Only [facility] Lung Screening Program [place] 299 [facility] [address] [place] [phone] Ivon Dudley MD 299 [facility] [place] [address] [place] [address] [id number] History of tobacco abuse Social History Tobacco Use Types Packs/Day Years [...] Procedure Name Priority Date/Time Associated Diagnosis Comments CT LOW DOSE LUNG SCREEN ANNUAL Routine 10/21/2022 History of tobacco abuse documented in this encounter Results * CT LOW DOSE LUNG SCREEN ANNUAL (10/21/2022) Ivon Dudley MD CT SCANS documented in this encounter Visit Diagnoses Diagnosis History of tobacco abuse Personal history of tobacco use, presenting hazards to health documented in this encounter Care Teams Buckler And Lacer Relationship Specialty Start Date End Date Helio Ferguson [address] [place] [address] PCP - General Internal Medicine 04/21/22 Jonatan Daniel MD [address] [address] Specialist Cardiovascular Disease 10/17/20 Bharati Mcgowan DNP [address] [address] Specialist Cardiology 01/27/21 Radha Mcclellan NP [address] [address] Cardiology 04/23/24 Kiara Anderson MD [address] [facility] 154 [place] [address] Specialist Cardiology 04/23/24 Duglas Diaz NP [address] [address] Specialist Cardiology 04/23/24 documented as of this encounter
--- OUTSIDE RECORDS SUMMARY | 2024-10-19 14:15 | XMS_ITS | Encounter Summary ---
Author Organization [facility] Address [address] [place] [address] Care Team Providers Care Digital Marketing Project Manager Name Role Phone Jonatan Daniel MD Unavailable [phone] Bharati Mcgowan DNP Unavailable [phone] Helio Ferguson Primary Care Provider Unavailab Radha Davis NP Unavailable [phone] Kiara Anderson MD Unavailable [phone] Duglas Diaz NP Unavailable [phone] Encounter Details Date Type Department Care Team Description 12/20/2022 Pt. Non Urgent Medical Question Cardio PVC POC 154 300 [facility] 154 [place], [place] [id number] Jonatan Daniel MD 300 [facility] 154 [place], [place] [phone] Social History Tobacco Use Types Packs/Day Years [...] Exposure Response Date Recorded In the last 10 days, have tato u been in contact with someone who was confirmed or suspected to have Coronavirus/COVID-19? No / Unsure 12/23/2022 8:12 AM EDT documented as of this encounter Miscellaneous Notes * Telephone Encounter - Jackie Ferro C.M.A. - 12/20/2022 8:39 AM EDTFrom: Colin Garcia To: Josias Daniel Sent: 12/20/2022 7:42 AM EDT Subject: Lab Orders Received a letter about getting a blood test for cholesterol and to take the enclosed orders to anylab of my choice. There were no lab orders included in the letter. Thanks Lamar Garcia documented in this encounter Plan of Treatment Not on file documented as of this encounter Visit Diagnoses Not on filedocumented in this encounter Care Teams Digital Marketing Project Manager Relationship Specialty Start Date End Date Helio Ferguson [address] [address] PCP - General Internal Medicine 04/21/22 Jonatan Daniel MD [address] [address] Specialist Cardiovascular Disease 10/17/20 Bharati Mcgowan DNP [address] [address] Specialist Cardiology 01/27/21 Radha Mcclellan NP [address] [address] Cardiology 04/23/24 Kiara Anderson MD [address] [facility] [address] [place] [address] Specialist Cardiology 04/23/24 Duglas Diaz NP [address] [address] Specialist Cardiology 04/23/24 documented as of this encounter
--- OUTSIDE RECORDS SUMMARY | 2024-10-19 14:15 | XMS_ITS | Encounter Summary ---
Author Organization [facility] Address [address] [place] [address] Care Team Providers Care Welding Machine Operator Gas Metal Arc Name Role Phone Elisabet Marin MD Primary Care Provider Unavaila Jonatan Carl MD Unavailable [phone] Elbert Florian MD Primary Care Provider [phone] Bharati Mcgowan DNP Unavailable [phone] Helio Ferguson Primary Care Provider Unavailab Radha Davis NP Unavailable [phone] Kiara Anderson MD Unavailable [phone] Duglas Diaz LEARNING AND DEVELOPMENT MANAGER Unavailable [phone] Encounter Details Date Type Department Care Team Description 10/19/2019 Orthodontist Small Business Owner Report Medical Records [address] [place] [address] [facility] [address] [place] [address] Social History Tobacco Use Types Packs/Day Years [...] on filedocumented in this encounter Care Teams Welding Machine Operator Gas Metal Arc Relationship Specialty Start Date End Date Elisabet Marin MD PCP - General Internal Medicine 06/27/15 11/27/20 Elbert Florian MD [address] [place] [address] PCP - General Internal Medicine 11/28/20 04/20/22 Helio Ferguson [address] [place] [address] PCP - General Internal Medicine 04/21/22 Jonatan Daniel MD 300 [facility] 154 [place] [address] Specialist Cardiovascular Disease 10/17/20 Bharati Mcgowan DNP [address] [place] [address] Specialist Cardiology 01/27/21 Radha Mcclellan NP [address] [place] [address] Cardiology 04/23/24 Kiaar Anderson MD [address] [place] [address] Specialist Cardiology 04/23/24 Duglas Diaz NP [address] [place] [address] Specialist Cardiology 04/23/24 documented as of this encounter
--- OUTSIDE RECORDS SUMMARY | 2024-10-19 14:15 | XMS_ITS | Encounter Summary ---
Author Organization [facility] Address [address] [place] [address] Care Team Providers Care Stemmer Machine Name Role Phone Elisabet Marin MD Primary Care Provider Unavaila Jonatan Carl MD Unavailable [phone] Elbert Florian MD Primary Care Provider [phone] Bharati Mcgowan DNP Unavailable [phone] Helio Ferguson Primary Care Provider Unavailab Radha Davis NP Unavailable [phone] Kiara Anderson MD Unavailable [phone] Duglas Diaz AUTO PARTS HANDLER Unavailable [phone] Encounter Details Date Type Department Care Team Description 07/26/2016 Pt. Non Urgent Medical Question Medicine/Pediatrics - [address] [address] Elisabet Marin MD Social History Tobacco Use Types Packs/Day [...] as of this encounter Progress Notes * Angelica Leija RN - 07/26/2016 9:58 AM ESTFrom: Colin Garcia To: Elisabet Puente MD Sent: 07/26/2016 9:54 AM EST Subject: Blood Work Do I need blood work for my 07/29/16 appointment? documented in this encounter Plan of Treatment Not on file documented as of this encounter Visit Diagnoses Not on filedocumented in this encounter Care Teams Stemmer Machine Relationship Specialty Start Date End Date Elisabet Marin MD PCP - General Internal Medicine 06/27/15 11/27/20 Elbert Florian MD [address] [place] [address] PCP - General Internal Medicine 11/28/20 04/20/22 Helio Ferguson [address] [place] [address] PCP - General Internal Medicine 04/21/22 Jonatan Daniel MD 300 [facility] 154 [place] [address] Specialist Cardiovascular Disease 10/17/20 Bharati Mcgowan DNP [address] [place] [address] Specialist Cardiology 01/27/21 Radha Mcclellan NP [address] [place] [address] Cardiology 04/23/24 Kiara Anderson MD [address] [place] [address] Specialist Cardiology 04/23/24 Duglas Diaz NP [address] [place] [address] Specialist Cardiology 04/23/24 documented as of this encounter
--- OUTSIDE RECORDS SUMMARY | 2024-10-19 14:15 | XMS_ITS | Encounter Summary ---
Author Organization [facility] Address [address] [place] [address] Care Team Providers Care Children'S Lunchroom Supervisor Name Role Phone Shabbir Oneill MD Primary Care Provider Unavailab Yuan Solis MD Primary Care Provider Unavail able Elisabet Marin MD Primary Care Provider Unavaila Jonatan Carl MD Unavailable [phone] Elbert Florian MD Primary Care Provider [phone] Bharati Mcgowan DNP Unavailable [phone] Helio Ferguson Primary Care Provider Unavailab Radha Davis STRETCH BOX TENDER Unavailable [phone] Kiara Anderson MD Unavailable [phone] Duglas Diaz STRETCH BOX TENDER Unavailable [phone] Encounter Details Date Type Department Care Team Description 06/18/2013 Webbing Supervisor Report Medical Records [address] [place] [address] Carlos Chow MD Social History Tobacco Use [...] on filedocumented in this encounter Care Teams Children'S Lunchroom Supervisor Relationship Specialty Start Date End Date Shabbir Oneill MD PCP - General Internal Medicine 10/03/12 07/03/14 Yuan Oneill MD PCP - General Internal Medicine 07/04/14 06/26/15 Elisabet Marin MD PCP - General Internal Medicine 06/27/15 11/27/20 Elbert Florian MD [address] [place] [address] PCP - General Internal Medicine 11/28/20 04/20/22 Helio Ferguson [address] [place] [address] PCP - General Internal Medicine 04/21/22 Jonatan Daniel MD [address] [place] [address] Specialist Cardiovascular Disease 10/17/20 Bharati Mcgowan DNP [address] [place] [address] Specialist Cardiology 01/27/21 Radha Mcclellan NP [address] [place] [address] Cardiology 04/23/24 Kiara Anderson MD [address] [place] [address] Specialist Cardiology 04/23/24 Duglas Diaz NP [address] [place] [address] Specialist Cardiology 04/23/24 documented as of this encounter
--- OUTSIDE RECORDS SUMMARY | 2024-10-19 14:15 | XMS_ITS | Encounter Summary ---
Author Organization [facility] Address [address] [place] [address] Care Team Providers Care Glass Furnace Tender Name Role Phone Yuan Oneill MD Primary Care Provider Unavail able Elisabet Marin MD Primary Care Provider Unavaila Jonatan Carl MD Unavailable [phone] Elbert Florian MD Primary Care Provider [phone] Bharati Mcgowan DNP Unavailable [phone] Helio Ferguson Primary Care Provider Unavailab Radha Davis NP Unavailable [phone] Kiara Anderson MD Unavailable [phone] Duglas Diaz HEALTHCARE ADMINISTRATION INTERN Unavailable [phone] Encounter Details Date Type Department Care Team Description 03/31/2015 Mental Hygienist Report Medical Records [address] [place] [address] Carlos Chow MD Social History Tobacco Use [...] on filedocumented in this encounter Care Teams Glass Furnace Tender Relationship Specialty Start Date End Date Yuan Oneill MD PCP - General Internal Medicine 07/04/14 06/26/15 Elisabet Marin MD PCP - General Internal Medicine 06/27/15 11/27/20 Elbert Florian MD [address] [place] [address] PCP - General Internal Medicine 11/28/20 04/20/22 Helio Ferguson [address] [place] [address] PCP - General Internal Medicine 04/21/22 Jonatan Daniel MD [address] [place] [address] Specialist Cardiovascular Disease 10/17/20 Bharati Mcgowan DNP [address] [place] [address] Specialist Cardiology 01/27/21 Radha Mcclellan NP [address] [place] [address] Cardiology 04/23/24 Kiara Anderson MD [address] [place] [address] Specialist Cardiology 04/23/24 Duglas Diaz NP [address] [place] [address] Specialist Cardiology 04/23/24 documented as of this encounter
--- OUTSIDE RECORDS SUMMARY | 2024-10-19 14:15 | XMS_ITS | Encounter Summary ---
Author Organization [facility] Address [address] [place] [address] Care Team Providers Care Teacher Of The Emotionally Disturbed Name Role Phone Elisabet Marin MD Primary Care Provider Unavaila Jonatan Carl MD Unavailable [phone] Elbert Florian MD Primary Care Provider [phone] Bharati Mcgowan DNP Unavailable Helio Ferguson Primary Care Provider Unavailab Radha Davis NP Unavailable [phone] Kiara Anderson MD Unavailable [phone] Duglas Diaz ARCHEOLOGY FACULTY MEMBER Unavailable [phone] Encounter Details Date Type Department Care Team Description 03/09/2016 Parking Meter Attendant Report Medical Records [address] [place] [address] Carlos Chow MD Social History Tobacco Use [...] on filedocumented in this encounter Care Teams Teacher Of The Emotionally Disturbed Relationship Specialty Start Date End Date Elisabet Marin MD PCP - General Internal Medicine 06/27/15 11/27/20 Elbert Florian MD [address] [place] [address] PCP - General Internal Medicine 11/28/20 04/20/22 Helio Ferguson [address] [place] [address] PCP - General Internal Medicine 04/21/22 Jonatan Daniel MD [address] [facility] [address] [place] [address] Specialist Cardiovascular Disease 10/17/20 Bharati Mcgowan DNP [address] [place] [address] Specialist Cardiology 01/27/21 Radha Mcclellan NP [address] [place] [address] Cardiology 04/23/24 Kiara Anderson MD [address] [place] [address] Specialist Cardiology 04/23/24 Duglas Diaz NP [address] [place] [address] Specialist Cardiology 04/23/24 documented as of this encounter
--- OUTSIDE RECORDS SUMMARY | 2024-10-19 14:15 | XMS_ITS | Encounter Summary ---
Author Organization [place] [address] Care Team Providers Care Chief Digital Media Officer Name Role Phone Unavailable Primary Care Provider Unavailabl e Reason for Visit * Reason Onset Date Comments scheduling recall 10/19/2024 Encounter Details Date Type Department Care Team (Late Contact Info) Description 10/19/[address] [facility] [address] [facility] [address] [place] [phone] Jonatan Daniel MD 300 [facility] [address] [place] [address] scheduling recall Social History Tobacco Use Types Packs/Day Years [...] as of this encounter Progress Notes * Laura Moon - 10/19/2024 11:50 AM EST I called the patient to schedule a follow up office visit and no answer. I left a message on the machine with details and the number to call back and schedule at their earliest convenience. documented in this encounter Plan of Treatment Upcoming Encounters Date Type Department Care Team (Late Contact Info) Description 10/25/2024 9:45 AM EST Appointment [facility] CT Scan [address] [place] [phone] documented as of this encounter Visit Diagnoses Not on filedocumented in this encounter
--- OUTSIDE RECORDS SUMMARY | 2024-10-19 14:15 | XMS_ITS | Encounter Summary ---
Author Organization [facility] Address [address] [place] [address] Care Team Providers Care Animal Husbandman Name Role Phone Elisabet Marin MD Primary Care Provider Unavaila Jonatan Carl MD Unavailable [phone] Elbert Florian MD Primary Care Provider Bharati Mcgowan DNP Unavailable [phone] Helio Ferguson Primary Care Provider Unavailab Radha Davis NP Unavailable [phone] Kiara Anderson MD Unavailable [phone] Duglas Diaz INVESTIGATION LIEUTENANT Unavailable [phone] Encounter Details Date Type Department Care Team Description 11/15/2016 Senior Cisco Network Engineer Report Medical Records [address] [place] [address] Mikhail Baker MD Social History Tobacco Use [...] on filedocumented in this encounter Care Teams Animal Husbandman Relationship Specialty Start Date End Date Elisabet Marin MD PCP - General Internal Medicine 06/27/15 11/27/20 Elbert Florian MD [address] [place] [address] PCP - General Internal Medicine 11/28/20 04/20/22 Helio Ferguson [address] [place] [address] PCP - General Internal Medicine 04/21/22 Jonatan Daniel MD 300 [facility] 154 [place] [address] Specialist Cardiovascular Disease 10/17/20 Bharati Mcgowan DNP [address] [place] [address] Specialist Cardiology 01/27/21 Radha Mcclellan NP [address] [place] [address] Cardiology 04/23/24 Kiara Anderson MD [address] [place] [address] Specialist Cardiology 04/23/24 Duglas Diaz NP [address] [place] [address] Specialist Cardiology 04/23/24 documented as of this encounter
--- OUTSIDE RECORDS SUMMARY | 2024-10-19 14:15 | XMS_ITS | Encounter Summary ---
Author Organization [facility] Address [address] [place] [address] Care Team Providers Care Hand Laminator Name Role Phone Shabbir Oneill MD Primary Care Provider Unavailab Yuan Solis MD Primary Care Provider Unavail able Elisabet Marin MD Primary Care Provider Unavaila Jonatan Carl MD Unavailable [phone] Elbert Florian MD Primary Care Provider [phone] Bharati Mcgowan DNP Unavailable [phone] Helio Ferguson Primary Care Provider Unavailab Radha Davis BEVERAGE STEWARD Unavailable [phone] Kiara Anderson MD Unavailable [phone] Duglas Diaz BEVERAGE STEWARD Unavailable [phone] Encounter Details Date Type Department Care Team Description 12/07/2012 Certified Mortician Report Medical Records [address] [place] [address] Carlos Chow MD Social History Tobacco Use [...] on filedocumented in this encounter Care Teams Hand Laminator Relationship Specialty Start Date End Date Shabbir Oneill MD PCP - General Internal Medicine 10/03/12 07/03/14 Yuan Oneill MD PCP - General Internal Medicine 07/04/14 06/26/15 Elisabet Marin MD PCP - General Internal Medicine 06/27/15 11/27/20 Elbert Florian MD [address] [place] [address] PCP - General Internal Medicine 11/28/20 04/20/22 Helio Ferguson [address] [place] [address] PCP - General Internal Medicine 04/21/22 Jonatan Daniel MD [address] [place] [address] Specialist Cardiovascular Disease 10/17/20 Bharati Mcgowan DNP [address] [place] [address] Specialist Cardiology 01/27/21 Radha Mcclellan NP [address] [place] [address] Cardiology 04/23/24 Kiara Anderson MD [address] [place] [address] Specialist Cardiology 04/23/24 Duglas Diaz NP [address] [place] [address] Specialist Cardiology 04/23/24 documented as of this encounter
--- OUTSIDE RECORDS SUMMARY | 2024-10-19 14:16 | XMS_ITS | Clinical Summary ---
Author Organization [facility] Address [address] [place] [address] Phone Care Team Providers Care Manufacturing Assistant Name Role Phone Unavailable Primary Care Provider Unavailabl e Encounters Date Type Department Care Team Description 10/19/2024 Telephone [facility] Cardiology [facility] 154 300 [facility] 154 [place] [phone] Jonatan Daniel MD scheduling recall 10/09/2024 Telephone Lung Screening Program - [address] [place] [phone] Britney Maynard [place] Appointment (1st notification) 09/24/2024 Lab Requisition [facility] - Main Lab 299 [facility] [place] [phone] Harry Lau MD Personal history of malignant neoplasm of bladder 08/23/2024 Telephone [facility] [address] [place] [address] Dr [address] [place] [phone] Helio Ferguson PA Medical Records from Last 3 Months Surgical History Surgery Date Site/Laterality Comments OTHER SURGICAL HISTORY 2003 TO PRESENT PROCEDURE: UT CYSTOTOMY EXCISION BLADDER TUMOR; COMMENT: NUMEROUS OTHER SURGICAL HISTORY 08/29/1963 PROCEDURE: UT EXCISION MAL LESION TRUNK/ARM/LEG 0.6-1.0 CM OTHER SURGICAL HISTORY 08/29/2006 PROCEDURE: STENT,CORONARY, S660 ; COMMENT: x2 CATARACT EXTRACTION 08/29/2015 Bilateral PROCEDURE: HISTORICAL CATARACT REMOVAL HAND SURGERY 08/15/2019 Right PROCEDURE: HISTORICAL HAND SURGERY; COMMENT: Long Finger Trigger/A1 Ruby Release, Dr. Morrison Medical History Medical History Date Comments Bladder cancer ([facility]/HCC) DX:Blad marco cancer (HCC) Carcinoma ([facility]/HCC) DX:Carcinoma (HCC); COMMENT: left arm Heart disease DX:Heart disease DM (diabetes mellitus) ([facility]/HCC) DX:DM (diabetes mellitus) (HCC) Depression with anxiety DX:Depre ssion with anxiety Hyperlipidemia DX:Hyperlipidemi a Bladder cancer ([facility]/HCC) DX:Blad marco cancer (HCC); COMMENT: Dr. 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; COMMENT: Dr Baker Microalbuminuria 12/31/2016 DX:Microalbumin uria DM (diabetes mellitus), type 2 with peripheral vascular complications ([facility]) 12/31/2016 DX:DM (diabetes mellitus), t ype 2 with peripheral vascular complications (HCC) Type 2 diabetes mellitus wit h cataract ([facility]) 12/31/2016 DX:Type 2 diabetes mellitus with cataract ([facility]) SCC (squamous cell carcinoma) 01/20/2017 DX :SCC [...] Info) Description 10/25/2024 9:45 AM EST Appointment [facility] CT Scan [address] [place] [address] Health Maintenance Due Date Last Done Comments Diabetes: Annual GFR (Glomerular Filtration Rate) 1945 Diabetes: Annual Foot Exam 1957 Diabetes: Annual Retina Eye Exam 1955 Zoster Vaccines (1 of 2) 06/11/2020 04/16/2020, 08/03/2013 RSV Immunization Patients 60+ Years Old (1 [...] 10/24/2024 10/24/2023, 10/26/2022, 10/20/2021, Additional history exists DTaP,Tdap,and Td Vaccines (3 - Td or Tdap) 10/22/2026 10/22/2016, 08/29/2006 Pneumococcal Vaccine: 50+ Years Completed 12/10/2014, 03/14/2013 [...] AM EST) Final Diagnosis A. Urine, Voided, ([id number]): FEW ATYPICAL UROTHELIAL CELLS. Results of UroVysion fluorescence in situ hybridization (FISH) testing: CEP3: Normal CEP7: Normal CEP17: Normal LSI 9p21: Normal Interpretation: Normal profile Controls stained appropriately. Note: The results are intended as a screening device and should be interpreted in association with other clinical and pathological findings. 10/04/2024 6:00 PM EST [facility] Clinical Information History of bladder neoplasm (malignant) Z85.51 Urine Cytology/FISH (now) 10/04/2024 6:[address] [facility] Gross Description A. Urine, Voided, ([id number]): Received one ThinPrep slide for cytology screen and one ThinPrep slide for UroVysion FISH 10/04/2024 6:[address] [facility] Disclaimer Unless otherwise specified, all tissue is 10% NB formalin fixed and paraffin embedded. Technical pathology services provided by [facility] Urology at [address], [place] [address] (CLIA #[id number]/Ankita Howell MD, Corrections Counselor) 10/04/2024 6:00 PM EST [facility] Tissue Urine specimen from urethra / Unknown 09/18/2024 09/24/2024 10:12 AM EST us Harry Lau MD LAB PATHOLOGY ORDERABLES Final Result [facility] [address] [place] [address], * CT LUNG SCREENING LOW DOSE (10/24/2023 1:15 PM EST) Anatomical Region Laterality Modality Computed Tomogra phy 10/23/2023 8:51 AM EST Narrative 10/24/2023 1:15 PM EST [facility] Diagnostic Imaging Department [address] [place] [address] Patient: ??JESS GARCIA ?/Age/Sex: 1945 - 78 - M Unit#: ??[id number] ? Location/Status: ??SPDICATLS/REG CLI ? Mnemonic/Ordering Site: ??CTLUNGLD/SPCT Ordering Physician: ??IVON HOOVER MD CT Lung Screening Low Dose - 10/23/23 - 854 Report Status:Signed PROCEDURE: CT chest lung cancer [...] is advised in one year. Dictating Physician: ??JONATAN COUGHLIN MD Electronically Signed by: ??JONATAN COUGHLIN MD Dic Date/Time: ??10/24/23 1309 Sign date/Time: ??10/24/23 1315 Procedure Note Jonatan Coughlin MD - 04/16/2024 [facility] Diagnostic Imaging Department [address] [place] [address] Patient: JESS GARCIA /Age/Sex: 1945 - 78 - M Unit#: [id number] Location/Status: SPDICATLS/REG CLI Mnemonic/Ordering Site: [facility] Ordering Physician: IVON HOOVER MD CT Lung Screening Low Dose [...] is advised in one year. Dictating Physician: JONATAN COUGHLIN MD Electronically Signed by: JONATAN COUGHLIN MD Dic Date/Time: 10/24/23 1309 Sign date/Time: 10/24/23 1315 Ivon Hoover MD [facility] PROCEDURES Final Result from Last 3 Months or Most Recently Relevant to Health Maintenance Insurance [facility] [employer] [facility]
--- OUTSIDE RECORDS SUMMARY | 2024-10-19 14:16 | XMS_ITS | Encounter Summary ---
Author Organization [facility] Address [address] [place] [address] Care Team Providers Care Communication Equipment Repairer Name Role Phone Jonatan Daniel MD Unavailable [phone] Bharati Mcgowan DNP Unavailable [phone] Helio Ferguson Primary Care Provider Unavailab Radha Davis NP Unavailable [phone] Kiara [place] MD Unavailable [phone] Duglas Diaz NP Unavailable [phone] Encounter Details Date Type Department Care Team Description 08/24/2022 Pt. Non Urgent Medical Question Cardio PVC POC 154 300 [facility] 154 [place], [place] [phone] Jonatan Daniel MD 300 [facility] 154 [place], [place] [phone] Social History Tobacco Use Types Packs/Day Years [...] suspected to have Coronavirus/COVID-19? No / Unsure 08/12/2022 1:51 PM EST documented as of this encounter Miscellaneous Notes * Telephone Encounter - Jackie Ferro C.M.A. - 08/24/2022 11:10 AM ESTFrom: Colin Garcia To: Josias Daniel Sent: 08/24/2022 11:02 AM EST Subject: 08/12 Ultra Sound Good Morning I've not yet received the results of my recent ultra sound. Please advise. Lamar Garcia 1945 Thanks You documented in this encounter Plan of Treatment Not on file documented as of this encounter Visit Diagnoses Not on filedocumented in this encounter Care Teams Communication Equipment Repairer Relationship Specialty Start Date End Date Helio Ferguson [address] [address] PCP - General Internal Medicine 04/21/22 Jonatan Daniel MD [address] [address] Specialist Cardiovascular Disease 10/17/20 Bharati Mcgowan DNP [address] [address] Specialist Cardiology 01/27/21 Radha Mcclellan NP [address] [address] Cardiology 04/23/24 Kiara [place] MD [address] [facility] 154 [place] [address] Specialist Cardiology 04/23/24 Duglas Diaz NP [address] [address] Specialist Cardiology 04/23/24 documented as of this encounter
--- OUTSIDE RECORDS SUMMARY | 2024-10-19 14:16 | XMS_ITS | Encounter Summary ---
Author Organization [facility] Address [address] [place] [address] Care Team Providers Care Gristmiller Name Role Phone Jonatan Daniel MD Unavailable [phone] Elbert Florian MD Primary Care Provider [phone] Bharati Mcgowan DNP Unavailable [phone] Helio Ferguson Primary Care Provider Unavailab Radha Davis SWEATBAND CUTTING MACHINE OPERATOR Unavailable [phone] Kiara [place] MD Unavailable [phone] Duglas Diaz SWEATBAND CUTTING MACHINE OPERATOR Unavailable Reason for Visit * Reason Onset Date Comments DME Request 12/16/2021 Encounter Details Date Type Department Care Team Description 12/16/2021 Telephone Pulmonology [facility] 175 [facility] [address] [place] [address] Carmen Rodriguez FNP [address] [place], [place] [phone] DME Request Social History Tobacco Use Types Packs/Day Years [...] encounter Miscellaneous Notes * Telephone Encounter - Argenis Cao - 12/16/2021 9:09 AM EDT Done faxed order to [facility] documented in this encounter Plan of Treatment Not on file documented as of this encounter Visit Diagnoses Not on filedocumented in this encounter Care Teams Gristmiller Relationship Specialty Start Date End Date Elbert Florian MD [address] [place] [address] PCP - General Internal Medicine 11/28/20 04/20/22 Helio Ferguson [address] [place] [address] PCP - General Internal Medicine 04/21/22 Jonatan Daniel MD [address] [place] [address] 154 [place] [address] Specialist Cardiovascular Disease 10/17/20 Bharati Mcgowan DNP [address] [place] [address] Specialist Cardiology 01/27/21 Radha Mcclellan NP [address] [place] [address] Cardiology 04/23/24 Kiara [place] MD [address] [place] [address] Specialist Cardiology 04/23/24 Duglas Diaz NP [address] [place] [address] Specialist Cardiology 04/23/24 documented as of this encounter
--- OUTSIDE RECORDS SUMMARY | 2024-10-19 14:16 | XMS_ITS | Encounter Summary ---
Author Organization [facility] Address [address] [place] [address] Care Team Providers Care Communications Writer Name Role Phone Elisabet Marin MD Primary Care Provider Unavaila Jonatan Carl MD Unavailable [phone] Elbert Florian MD Primary Care Provider [phone] Bharati Mcgowan DNP Unavailable [phone] Helio Ferguson Primary Care Provider Unavailab Radha Davis NP Unavailable [phone] Kiara [place] MD Unavailable Duglas Diaz CAN INTAKE WORKER Unavailable [phone] Encounter Details Date Type Department Care Team Description 01/18/2020 Reconciliation Clerk Report Medical Records [address] [place] [address] Jonatan Daniel MD [address] [address] Social History Tobacco Use Types Packs/Day Years [...] on filedocumented in this encounter Care Teams Communications Writer Relationship Specialty Start Date End Date Elisabet Marin MD PCP - General Internal Medicine 06/27/15 11/27/20 Elbert Florian MD [address] [place] [address] PCP - General Internal Medicine 11/28/20 04/20/22 Helio Ferguson [address] [place] [address] PCP - General Internal Medicine 04/21/22 Jonatan Daniel MD [address] [place] [address] Specialist Cardiovascular Disease 10/17/20 Bharati Mcgowan DNP [address] [place] [address] Specialist Cardiology 01/27/21 Radha Mcclellan NP [address] [place] [address] Cardiology 04/23/24 Kiara [place] MD [address] [place] [address] Specialist Cardiology 04/23/24 Duglas Diaz NP [address] [place] [address] Specialist Cardiology 04/23/24 documented as of this encounter
--- OUTSIDE RECORDS SUMMARY | 2024-10-19 14:16 | XMS_ITS | Encounter Summary ---
Author Organization [facility] Address [address] [place] [address] Care Team Providers Care Supervisor Plate Pasting Name Role Phone Jonatan Daniel MD Unavailable Elbert Florian MD Primary Care Provider Bharati Mcgowan DNP Unavailable [phone] Helio Ferguson Primary Care Provider Unavailab Radha Davis NP Unavailable [phone] Kiara [place] MD Unavailable [phone] Duglas Diaz KETTLE LOADER Unavailable [phone] Reason for Visit * Reason Comments E-prescribe Rx Request Encounter Details Date Type Department Care Team Description 01/25/2022 Refill Adult Medicine [address] [phone] Elbert Florian MD [address] [place] [phone] E-prescribe Rx Request Social History Tobacco Use Types Packs/Day [...] encounter Miscellaneous Notes * Telephone Encounter - Lorri Petersen M.A. - 01/27/2022 2:45 PM EDT Lab Results Component Value Date NA 137 03/20/2021 K 4.7 03/20/2021 CO2 24 03/20/2021 CL 106 03/20/2021 BUN 21 03/20/2021 CREAT 1.00 03/20/2021 GLU 145 07/13/2021 CA 9.6 03/20/2021 GFR > 60 03/20/2021 Last appt with pcp 11/13/21 Pending appt with Mr. Roper 02/2022 * Telephone Encounter - Consuelo Florencio - 01/27/2022 2:40 PM EDT Patient would like script to be: E-PRESCRIBED/FAXED TO PHARMACY WHEN WAS THE PATIENT'S LAST APPOINTMENT IN ADULT MEDICINE? 11/13/21 WHEN WAS THE LAST TIME THE PATIENT SAW THEIR PCP? Same as above Does patient have an upcoming appointment? Yes 03/15/22 pt's will tell him to call back make future appt with Elbert Florian (THE MEDICATION REQUESTED IS ON THE MED [...] Payor: JEANNETTE SENIOR / Plan: JEANNETTE SENIOR $10/20 GRACY / Product Type: OTHER documented in this encounter Plan of Treatment Not on file documented as of this encounter Visit Diagnoses Not on filedocumented in this encounter Care Teams Supervisor Plate Pasting Relationship Specialty Start Date End Date Elbert Florian MD [address] [place] [address] PCP - General Internal Medicine 11/28/20 04/20/22 Helio Ferguson [address] [place] [address] PCP - General Internal Medicine 04/21/22 Jonatan Daniel MD [address] [place] [address] Specialist Cardiovascular Disease 10/17/20 Bharati Mcgowan DNP [address] [place] [address] Specialist Cardiology 01/27/21 Radha Mcclellan NP [address] [place] [address] Cardiology 04/23/24 Kiara [place] MD [address] [place] [address] Specialist Cardiology 04/23/24 Duglas Diaz NP [address] [place] [address] Specialist Cardiology 04/23/24 documented as of this encounter
--- OUTSIDE RECORDS SUMMARY | 2024-10-19 14:16 | XMS_ITS | Encounter Summary ---
Author Organization [facility] Address [address] [place] [address] Care Team Providers Care Storeperson Name Role Phone Helio Ferguson Primary Care Provider [phone] Reason for Visit * Reason Onset Date Comments Medical Records 08/23/2024 Encounter Details Date Type Department Care Team ([facility] st Contact Info) Description 08/23/2024 Telephone [facility] [address] [place] [address] Center [address] [place] [address] Helio Ferguson PA [address] [place] [phone] Medical Records Social History Tobacco Use Types [...] LUPE Report to Naz Att: Yareli at [phone] on 08/23/2024 documented in this encounter Plan of Treatment Upcoming Encounters Date Type Department Care Team (Late st Contact Info) Description 10/25/2024 9:45 AM EST Appointment [facility] CT Scan [address] [place] [address] documented as of this encounter Visit Diagnoses Not on filedocumented in this encounter Care Teams Storeperson Relationship Specialty Start Date End Date Helio Ferguson PA PCP - General Internal Medicine 04/21/22 10/03/24 documented as of this encounter
--- OUTSIDE RECORDS SUMMARY | 2024-10-19 14:16 | XMS_ITS | Encounter Summary ---
Author Organization [facility] Address [address] [place] [address] Care Team Providers Care Risk Developer Name Role Phone Elisabet Marin MD Primary Care Provider Unavaila Jonatan Carl MD Unavailable [phone] Elbert Florian MD Primary Care Provider Bharati Mcgowan DNP Unavailable [phone] Helio Ferguson Primary Care Provider Unavailab Radha Davis POCKET SECRETARY ASSEMBLER Unavailable Kiara [place] MD Unavailable [phone] Duglas Diaz POCKET SECRETARY ASSEMBLER Unavailable Reason for Referral * EXTERNAL (Routine) - Authorized/Booked Specialty Diagnoses / Procedures Referred By Contac t Referred To Contact Urology Procedures REFERRAL TO UROLOGY Elisabet [place] MD [address] [place] [address] Harry Lau MD 100 [facility] [address] [place] [address] Referral ID Status Reason Start Date Expiration Date V isits Requested Visits Authorized SEE NOTE Authorized/B ooked 11/06/2019 02/07/2020 1 1 Encounter Details Date Type Department Care Team Description 11/06/2019 Telephone Medicine/Pediatrics - [address] [phone] Elisabet Marin MD Social History Tobacco Use [...] encounter Miscellaneous Notes * Telephone Encounter - Marilou Chaudhary PA-C - 11/06/2019 9:26 PM EDT signed * Telephone Encounter - Misty Castañeda - 11/06/2019 3:26 PM EDT Elisabet Puente [facility] called in a referral request. I have placed an order with [place] referral onit, please review and sign Thank you Misty Referrals Dept [facility] documented in this encounter Plan of Treatment Not on file documented as of this encounter Visit Diagnoses Not on filedocumented in this encounter Care Teams Risk Developer Relationship Specialty Start Date End Date Elisabet Marin MD PCP - General Internal Medicine 06/27/15 11/27/20 Elbert Florian MD [address] [place] [address] PCP - General Internal Medicine 11/28/20 04/20/22 Helio Ferguson [address] [place] [address] PCP - General Internal Medicine 04/21/22 Jonatan Daniel MD [address] [place] [address] Specialist Cardiovascular Disease 10/17/20 Bharati Mcgowan DNP [address] [place] [address] Specialist Cardiology 01/27/21 Radha Mcclellan NP [address] [place], [place] [phone] Cardiology 04/23/24 Kiara [place] MD [address] [place], [place] [phone] Specialist Cardiology 04/23/24 Duglas Diaz NP [address] [place] [address] Specialist Cardiology 04/23/24 documented as of this encounter
== END 2024-10-19 14:38 | disposition home or self-care (01) ==
PROVIDERS: PCP Physician Assistant; Visit Provider Internal Medicine
DX: I25.10 Atherosclerotic heart disease of native coronary artery without angina pectoris (principal); I70.213 Atherosclerosis of native arteries of extremities with intermittent claudication, bilateral legs; E11.8 Type 2 diabetes mellitus with unspecified complications; C88.00 Waldenstrom macroglobulinemia not having achieved remission
CPT/HCPCS: 99215; G2211

== ENCOUNTER 2024-10-19 13:49 | Outpatient (REF) | payer MEDICARE, SELFPAY ==
--- OUTSIDE RECORDS SUMMARY | 2024-10-19 14:51 | XMS_ITS | Encounter Summary ---
Author Organization [facility] Address [address] [place] [address] Care Team Providers Care Social Group Worker Name Role Phone Jonatan Daniel MD Unavailable [phone] Elbert Florian MD Primary Care Provider [phone] Bharati Mcgowan DNP Unavailable [phone] Helio Ferguson Primary Care Provider Unavailab Radha Davis NP Unavailable [phone] Kiara [place] MD Unavailable [phone] Duglas Diaz NP Unavailable [phone] Reason for Visit * Reason Onset Date Comments Provider Call Back 04/08/2021 Encounter Details Date Type Department Care Team Description 04/08/2021 Telephone Cardio PVC [address] 300 [facility] [address] [place] [address] Bharati Mcgowan, CLAY [address] [place] [phone] Provider Call Back Social History Tobacco Use [...] 04/09/2021 3:40 PM EDT 04/09/2021 Eboni from [facility] Called Back Her direct number is [phone] HILDA * Telephone Encounter - Elisabet Rose [...] 04/08/2021 2:07 PM EDT Eboni Gan from [facility] Neurology is calling because the patient is scheduled to have upcoming surgery , but is currently taking Plavix and Aspirin. Eboni wants to no can he hold taking the medication one week before his surgery? Eboni can be reached at [phone]. documented in this encounter Plan of Treatment Not on file documented as of this encounter Visit Diagnoses Not on filedocumented in this encounter Care Teams Social Group Worker Relationship Specialty Start Date End Date Elbert Florian MD [address] [place] [address] PCP - General Internal Medicine 11/28/20 04/20/22 Helio Ferguson [address] [place] [address] PCP - General Internal Medicine 04/21/22 Jonatan Daniel MD 300 [facility] [address] [place] [address] Specialist Cardiovascular Disease 10/17/20 Bharati Mcgowan DNP [address] [place] [address] Specialist Cardiology 01/27/21 Radha Mcclellan NP [address] [place] [address] Cardiology 04/23/24 Kiara [place] MD [address] [place] [address] Specialist Cardiology 04/23/24 Duglas Diaz NP [address] [place] [address] Specialist Cardiology 04/23/24 documented as of this encounter
--- OUTSIDE RECORDS SUMMARY | 2024-10-19 14:51 | XMS_ITS | Encounter Summary ---
Author Organization [facility] Address [address] [place] [address] Care Team Providers Care Senior Process Engineer Name Role Phone Jonatan Daniel MD Unavailable Elbert Florian MD Primary Care Provider Bharati Mcgowan DNP Unavailable [phone] Helio Ferguson Primary Care Provider Unavailab Radha Davis SHOEMAKING FINISHER Unavailable Kiara [place] MD Unavailable [phone] Duglas Diaz SHOEMAKING FINISHER Unavailable Encounter Details Date Type Department Care Team Description 09/22/2021 Orders Only [facility] Thoracic Surgery [place] 299 [facility] [address] [place] [phone] Ivon Dudley MD 299 [facility] [place] [address] [place] [phone] History of tobacco use, presenting hazards to [...] health documented in this encounter Care Teams Senior Process Engineer Relationship Specialty Start Date End Date Elbert Florian MD [address] [place] [address] PCP - General Internal Medicine 11/28/20 04/20/22 Helio Ferguson [address] [place] [address] PCP - General Internal Medicine 04/21/22 Jonatan Daniel MD [address] [place] [address] Specialist Cardiovascular Disease 10/17/20 Bharati Mcgowan DNP [address] [place] [address] Specialist Cardiology 01/27/21 Radha Mcclellan NP [address] [place] [address] Cardiology 04/23/24 Kiara [place] MD [address] [place] [address] Specialist Cardiology 04/23/24 Duglas Diaz NP [address] [place] [address] Specialist Cardiology 04/23/24 documented as of this encounter
--- OUTSIDE RECORDS SUMMARY | 2024-10-19 14:51 | XMS_ITS | Encounter Summary ---
Author Organization [facility] Address [address] [place] [address] Care Team Providers Care Spinner Concrete Pipe Name Role Phone Jonatan Daniel MD Unavailable [phone] Bharati Mcgowan DNP Unavailable [phone] Helio Ferguson Primary Care Provider Unavailab Radha Davis NP Unavailable [phone] Kiara Anderson MD Unavailable [phone] Duglas Diaz NP Unavailable [phone] Encounter Details Date Type Department Care Team Description 04/20/2024 Hospital Medical Records [address] [place] [address] Shasta Morrison MD [address] [place] [address] Social History Tobacco Use Types Packs/Day Years [...] on filedocumented in this encounter Care Teams Spinner Concrete Pipe Relationship Specialty Start Date End Date Helio Ferguson [address] [facility] [address] [place] [address] PCP - General Internal Medicine 04/21/22 Jonatan Daniel MD [address] [address] Specialist Cardiovascular Disease 10/17/20 Bharati Mcgowan DNP [address] [address] Specialist Cardiology 01/27/21 Radha Mcclellan NP [address] [address] Cardiology 04/23/24 Kiara Anderson MD [address] [address] Specialist Cardiology 04/23/24 Duglas Diaz NP [address] [address] Specialist Cardiology 04/23/24 documented as of this encounter
--- OUTSIDE RECORDS SUMMARY | 2024-10-19 14:51 | XMS_ITS | Encounter Summary ---
Author Organization [facility] Address [address] [place] [address] Care Team Providers Care Gas Regulator Repairer Helper Name Role Phone Yuan Oneill MD Primary Care Provider Unavail able Elisabet Marin MD Primary Care Provider Unavaila Jonatan Carl MD Unavailable Elbert Florian MD Primary Care Provider [phone] Bharati Mcgowan DNP Unavailable [phone] Helio Ferguson Primary Care Provider Unavailab Radha Davis NP Unavailable [phone] Kiara Anderson MD Unavailable [phone] Duglas Diaz NP Unavailable [phone] Encounter Details Date Type Department Care Team Description 12/26/2014 Sports Writer Report Medical Records [address] [place] [address] Macy Moran Social History Tobacco Use Types Packs/Day Years [...] on filedocumented in this encounter Care Teams Gas Regulator Repairer Helper Relationship Specialty Start Date End Date Yuan Oneill MD PCP - General Internal Medicine 07/04/14 06/26/15 Elisabet Marin MD PCP - General Internal Medicine 06/27/15 11/27/20 Elbert Florian MD [address] [place] [address] PCP - General Internal Medicine 11/28/20 04/20/22 Helio Ferguson [address] [place] [address] PCP - General Internal Medicine 04/21/22 Jonatan Daniel MD [address] [place] [address] Specialist Cardiovascular Disease 10/17/20 Bharati Mcgowan DNP [address] [place] [address] Specialist Cardiology 01/27/21 Radha Mcclellan NP [address] [place] [address] Cardiology 04/23/24 Kiara Anderson MD [address] [place] [address] Specialist Cardiology 04/23/24 Duglas Diaz NP [address] [place] [address] Specialist Cardiology 04/23/24 documented as of this encounter
--- OUTSIDE RECORDS SUMMARY | 2024-10-19 14:51 | XMS_ITS | Encounter Summary ---
Author Organization [facility] Address [address] [place] [address] Care Team Providers Care Project Portfolio Analyst Name Role Phone Elisabet Marin MD Primary Care Provider Unavaila Jonatan Carl MD Unavailable [phone] Elbert Florian MD Primary Care Provider [phone] Bharati Mcgowan DNP Unavailable Helio Ferguson Primary Care Provider Unavailab Radha Davis NP Unavailable [phone] Kiara Anderson MD Unavailable [phone] Duglas Diaz PORK CUTLET MAKER Unavailable [phone] Encounter Details Date Type Department Care Team Description 05/09/2018 Compressor Assembler Report Medical Records [address] [place] [address] Harry Lau MD Social History Tobacco Use [...] filedocumented in this encounter Care Teams Project Portfolio Analyst Relationship Specialty Start Date End Date Elisabet Marin MD PCP - General Internal Medicine 06/27/15 11/27/20 Elbert Florian MD [address] [place] [address] PCP - General Internal Medicine 11/28/20 04/20/22 Helio Ferguson [address] [place] [address] PCP - General Internal Medicine 04/21/22 Jonatan Daniel MD 300 [facility] [address] [place] [address] Specialist Cardiovascular Disease 10/17/20 Bharati Mcgowan DNP [address] [place] [address] Specialist Cardiology 01/27/21 Radha Mcclellan NP [address] [place] [address] Cardiology 04/23/24 Kiara Anderson MD [address] [place] [address] Specialist Cardiology 04/23/24 Duglas Diaz NP [address] [place] [address] Specialist Cardiology 04/23/24 documented as of this encounter
--- OUTSIDE RECORDS SUMMARY | 2024-10-19 14:51 | XMS_ITS | Encounter Summary ---
Author Organization [facility] Address [address] [place] [address] Care Team Providers Care Information Engineer Name Role Phone Elisabet Marin MD Primary Care Provider Unavaila Jonatan Carl MD Unavailable [phone] Elbert Florian MD Primary Care Provider [phone] Bharati Mcgowan DNP Unavailable [phone] Helio Ferguson Primary Care Provider Unavailab Radha Davis NP Unavailable Kiara Anderson MD Unavailable [phone] Duglas Diaz PLANE CAPTAIN Unavailable [phone] Encounter Details Date Type Department Care Team Description 01/05/2018 Capacity Planner Report Medical Records [address] [place] [address] Harry Lau MD Social History Tobacco Use [...] on filedocumented in this encounter Care Teams Information Engineer Relationship Specialty Start Date End Date Elisabet Marin MD PCP - General Internal Medicine 06/27/15 11/27/20 Elbert Florian MD [address] [place] [address] PCP - General Internal Medicine 11/28/20 04/20/22 Helio Ferguson [address] [place] [address] PCP - General Internal Medicine 04/21/22 Jonatan Daniel MD 300 [facility] [address] [place] [address] Specialist Cardiovascular Disease 10/17/20 Bharati Mcgowan DNP [address] [place] [address] Specialist Cardiology 01/27/21 Radha Mcclellan NP [address] [place] [address] Cardiology 04/23/24 Kiara Anderson MD [address] [place] [address] Specialist Cardiology 04/23/24 Duglas Diaz NP [address] [place] [address] Specialist Cardiology 04/23/24 documented as of this encounter
--- OUTSIDE RECORDS SUMMARY | 2024-10-19 14:51 | XMS_ITS | Encounter Summary ---
Author Organization [facility] Address [address] [place] [address] Care Team Providers Care Ice Seller Name Role Phone Jonatan Daniel MD Unavailable [phone] Elbert Florian MD Primary Care Provider [phone] Bharati Mcgowan DNP Unavailable [phone] Helio Ferguson Primary Care Provider Unavailab Radha Davis NP Unavailable [phone] Kiara Anderson MD Unavailable [phone] Duglas Diaz ORDER EXPEDITER Unavailable [phone] Reason for Visit * Reason Onset Date Comments Faxed Refill 11/28/2020 Encounter Details Date Type Department Care Team Description 11/28/2020 Telephone Adult [address] [address] Elbert Florian MD [address] [place] [address] [id number] Faxed Refill Social History Tobacco Use Types [...] on filedocumented in this encounter Care Teams Ice Seller Relationship Specialty Start Date End Date Elbert Florian MD [address] [place] [address] PCP - General Internal Medicine 11/28/20 04/20/22 Helio Ferguson [address] [place] [address] PCP - General Internal Medicine 04/21/22 Jonatan Daniel MD [address] [place] [address] Specialist Cardiovascular Disease 10/17/20 Bharati Mcgowan DNP [address] [place] [address] Specialist Cardiology 01/27/21 Radha Mcclellan NP [address] [place] [address] Cardiology 04/23/24 Kiara Anderson MD [address] [place] [address] Specialist Cardiology 04/23/24 Duglas Diaz NP [address] [place] [address] Specialist Cardiology 04/23/24 documented as of this encounter
--- OUTSIDE RECORDS SUMMARY | 2024-10-19 14:51 | XMS_ITS | Encounter Summary ---
Author Organization [facility] Address [address] [place] [address] Care Team Providers Care Branch Customer Service Representative Name Role Phone Elisabet Marin MD Primary Care Provider Unavaila Jonatan Carl MD Unavailable [phone] Elbert Florian MD Primary Care Provider [phone] Bharati Mcgowan DNP Unavailable [phone] Helio Ferguson Primary Care Provider Unavailab Radha Davis NP Unavailable [phone] Kiara Anderson MD Unavailable [phone] Duglas Diaz AIRCRAFT GENERAL REPAIR MECHANIC Unavailable [phone] Encounter Details Date Type Department Care Team Description 10/20/2020 Prick Stitcher Report Medical Records [address] [place] [address] [facility] [address] [place] [address] Social History Tobacco Use Types Packs/Day Years [...] on filedocumented in this encounter Care Teams Branch Customer Service Representative Relationship Specialty Start Date End Date Elisabet Marin MD PCP - General Internal Medicine 06/27/15 11/27/20 Elbert Florian MD [address] [place] [address] PCP - General Internal Medicine 11/28/20 04/20/22 Helio Ferguson [address] [place] [address] PCP - General Internal Medicine 04/21/22 Jonatan Daniel MD [address] [address] Specialist Cardiovascular Disease 10/17/20 Bharati Mcgowan DNP [address] [place] [address] Specialist Cardiology 01/27/21 Radha Mcclellan NP [address] [place] [address] Cardiology 04/23/24 Kiara Anderson MD [address] [place] [address] Specialist Cardiology 04/23/24 Duglas Diaz NP [address] [place] [address] Specialist Cardiology 04/23/24 documented as of this encounter
--- OUTSIDE RECORDS SUMMARY | 2024-10-19 14:51 | XMS_ITS | Encounter Summary ---
Author Organization [facility] Address [address] [place] [address] Care Team Providers Care Hospice Case Manager Name Role Phone Elisabet Marin MD Primary Care Provider Unavaila Jonatan Carl MD Unavailable [phone] Elbert Florian MD Primary Care Provider [phone] Bharati Mcgowan DNP Unavailable [phone] Helio Ferguson Primary Care Provider Unavailab Radha Davis NP Unavailable [phone] Kiara Anderson MD Unavailable [phone] Duglas Diaz FISH STRINGER ASSEMBLER Unavailable [phone] Encounter Details Date Type Department Care Team Description 04/24/2019 Facility Security Officer Report Medical Records [address] [place] [address] Harry Lau MD Social History Tobacco Use [...] on filedocumented in this encounter Care Teams Hospice Case Manager Relationship Specialty Start Date End Date Elisabet Marin MD PCP - General Internal Medicine 06/27/15 11/27/20 Elbert Florian MD [address] [place] [address] PCP - General Internal Medicine 11/28/20 04/20/22 Helio Ferguson [address] [place] [address] PCP - General Internal Medicine 04/21/22 Jonatan Daniel MD 300 [facility] [address] [place] [address] Specialist Cardiovascular Disease 10/17/20 Bharati Mcgowan DNP [address] [place] [address] Specialist Cardiology 01/27/21 Radha Mcclellan NP [address] [place] [address] Cardiology 04/23/24 Kiara Anderson MD [address] [place] [address] Specialist Cardiology 04/23/24 Duglas Diaz NP [address] [place] [address] Specialist Cardiology 04/23/24 documented as of this encounter
--- OUTSIDE RECORDS SUMMARY | 2024-10-19 14:51 | XMS_ITS | Encounter Summary ---
Author Organization [facility] Address [address] [place] [address] Care Team Providers Care Surgical Dressing Maker Name Role Phone Jonatan Daniel MD Unavailable [phone] Bharati Mcgowan DNP Unavailable [phone] Helio Ferguson Primary Care Provider Unavailab Radha Davis NP Unavailable [phone] Kiara Anderson MD Unavailable [phone] Duglas Diaz NP Unavailable [phone] Encounter Details Date Type Department Care Team Description 11/04/2023 Pt. Non Urgent Medical Question Cardio PVC POC 154 300 [facility] 154 [place], [place] [id number] Jonatan Daniel MD 300 [facility] [address] [place], [place] 0[address] Social History Tobacco Use Types Packs/Day Years [...] on filedocumented in this encounter Care Teams Surgical Dressing Maker Relationship Specialty Start Date End Date Helio Ferguson [address] [address] PCP - General Internal Medicine 04/21/22 Jonatan Daniel MD [address] [address] Specialist Cardiovascular Disease 10/17/20 Bharati Mcgowan DNP [address] [address] Specialist Cardiology 01/27/21 Radha Mcclellan NP [address] [address] Cardiology 04/23/24 Kiara Anderson MD [address] [address] Specialist Cardiology 04/23/24 Duglas Diaz NP [address] [address] Specialist Cardiology 04/23/24 documented as of this encounter
--- OUTSIDE RECORDS SUMMARY | 2024-10-19 14:51 | XMS_ITS | Encounter Summary ---
Author Organization [facility] Address [address] [place] [address] Care Team Providers Care Radiographer Angiogram Name Role Phone Jonatan Daniel MD Unavailable Elbert Florian MD Primary Care Provider [phone] Bharati Mcgowan DNP Unavailable [phone] Helio Ferguson Primary Care Provider Unavailab Radha Davis NP Unavailable [phone] Kiara Anderson MD Unavailable [phone] Duglas Diaz COMPUTER FIELD TECHNICIAN Unavailable [phone] Encounter Details Date Type Department Care Team Description 08/18/2021 Checkout Supervisor Report Medical Records [address] [place] [address] Harry Lau MD Social History Tobacco Use [...] on filedocumented in this encounter Care Teams Radiographer Angiogram Relationship Specialty Start Date End Date Elbert Florian MD [address] [place] [address] PCP - General Internal Medicine 11/28/20 04/20/22 Helio Ferguson [address] [place] [address] PCP - General Internal Medicine 04/21/22 Jonatan Daniel MD 300 [facility] [address] [place] [address] Specialist Cardiovascular Disease 10/17/20 Bharati Mcgowan DNP [address] [place] [address] Specialist Cardiology 01/27/21 Radha Mcclellan NP [address] [place] [address] Cardiology 04/23/24 Kiara Anderson MD [address] [place] [address] Specialist Cardiology 04/23/24 Duglas Diaz NP [address] [place] [address] Specialist Cardiology 04/23/24 documented as of this encounter
--- OUTSIDE RECORDS SUMMARY | 2024-10-19 14:51 | XMS_ITS | Encounter Summary ---
Author Organization [facility] Address [address] [place] [address] Care Team Providers Care Surgery Tech Name Role Phone Elisabet Marin MD Primary Care Provider Unavaila Jonatan Carl MD Unavailable [phone] Elbert Florian MD Primary Care Provider [phone] Bharati Mcgowan DNP Unavailable [phone] Helio Ferguson Primary Care Provider Unavailab Radha Davis NP Unavailable [phone] Kiara Anderson MD Unavailable [phone] Duglas Diaz GRAB HOOKER Unavailable [phone] Encounter Details Date Type Department Care Team Description 09/28/2019 Hospital Medical Records [address] [place] [address] Harry Lau MD Social History Tobacco Use [...] on filedocumented in this encounter Care Teams Surgery Tech Relationship Specialty Start Date End Date Elisabet Marin MD PCP - General Internal Medicine 06/27/15 11/27/20 Elbert Florian MD [address] [place] [address] PCP - General Internal Medicine 11/28/20 04/20/22 Helio Ferguson [address] [place] [address] PCP - General Internal Medicine 04/21/22 Jonatan Daniel MD 300 [facility] 154 [place] [address] Specialist Cardiovascular Disease 10/17/20 Bharati Mcgowan DNP [address] [place] [address] Specialist Cardiology 01/27/21 Radha Mcclellan NP [address] [place] [address]93 Cardiology 04/23/24 Kiara Anderson MD [address] [place] [address] Specialist Cardiology 04/23/24 Duglas Diaz NP [address] [place] [address] Specialist Cardiology 04/23/24 documented as of this encounter
--- OUTSIDE RECORDS SUMMARY | 2024-10-19 14:51 | XMS_ITS | Encounter Summary ---
Author Organization [facility] Address [address] [place] [address] Care Team Providers Care Storage Facility Rental Clerk Name Role Phone Elisabet Marin MD Primary Care Provider Unavaila Jonatan Carl MD Unavailable [phone] Elbert Florian MD Primary Care Provider [phone] Bharati Mcgowan DNP Unavailable [phone] Helio Ferguson Primary Care Provider Unavailab Radha Davis NP Unavailable [phone] Kiara Anderson MD Unavailable [phone] Duglas Diaz TELEVISION WRITER Unavailable [phone] Encounter Details Date Type Department Care Team Description 08/15/2018 Playground Attendant Report Medical Records [address] [place] [address] Alfonso Santana Social History Tobacco Use Types Packs/Day Years [...] on filedocumented in this encounter Care Teams Storage Facility Rental Clerk Relationship Specialty Start Date End Date Elisabet Marin MD PCP - General Internal Medicine 06/27/15 11/27/20 Elbert Florian MD [address] [place] [address] PCP - General Internal Medicine 11/28/20 04/20/22 Helio Ferguson [address] [place] [address] PCP - General Internal Medicine 04/21/22 Jonatan Daniel MD 300 [facility] [address] [place] [address] Specialist Cardiovascular Disease 10/17/20 Bharati Mcgowan DNP [address] [place] [address] Specialist Cardiology 01/27/21 Radha Mcclellan NP [address] [place] [address] Cardiology 04/23/24 Kiara Anderson MD [address] [place] [address] Specialist Cardiology 04/23/24 Duglas Diaz NP [address] [place] [address] Specialist Cardiology 04/23/24 documented as of this encounter
--- OUTSIDE RECORDS SUMMARY | 2024-10-19 14:51 | XMS_ITS | Encounter Summary ---
Author Organization [facility] Address [address] [place] [address] Care Team Providers Care Ostrich Farm Worker Name Role Phone Elisabet Marin MD Primary Care Provider Unavaila Jonatan Carl MD Unavailable [phone] Elbert Florian MD Primary Care Provider [phone] Bharati Mcgowan DNP Unavailable [phone] Helio Ferguson Primary Care Provider Unavailab Radha Davis NP Unavailable [phone] Kiara Anderson MD Unavailable [phone] Duglas Diaz TEST DATA DEVELOPER Unavailable [phone] Encounter Details Date Type Department Care Team Description 05/12/2017 Warehouse Attendant Report Medical Records [address] [place] [address] Jaun Child MD Social History Tobacco Use Types Packs/Day [...] on filedocumented in this encounter Care Teams Ostrich Farm Worker Relationship Specialty Start Date End Date Elisabet Marin MD PCP - General Internal Medicine 06/27/15 11/27/20 Elbert Florian MD [address] [place] [address] PCP - General Internal Medicine 11/28/20 04/20/22 Helio Ferguson [address] [place] [address] PCP - General Internal Medicine 04/21/22 Jonatan Daniel MD 300 [facility] 154 [place] [address] Specialist Cardiovascular Disease 10/17/20 Bharati Mcgowan DNP [address] [place] [address] Specialist Cardiology 01/27/21 Radha Mcclellan NP [address] [place] [address] Cardiology 04/23/24 Kiara Anderson MD [address] [place] [address] Specialist Cardiology 04/23/24 Duglas Diaz NP [address] [place] [address] Specialist Cardiology 04/23/24 documented as of this encounter
--- OUTSIDE RECORDS SUMMARY | 2024-10-19 14:51 | XMS_ITS | Encounter Summary ---
Author Organization [facility] Address [address] [place] [address] Care Team Providers Care Sales And Merchandising Representative Name Role Phone Elisabet Marin MD Primary Care Provider Unavaila Jonatan Carl MD Unavailable [phone] Elbert Florian MD Primary Care Provider Bharati Mcgowan DNP Unavailable [phone] Helio Ferguson Primary Care Provider Unavailab Radha Davis NP Unavailable [phone] Kiara Anderson MD Unavailable [phone] Duglas Diaz OFFICE CLERK Unavailable [phone] Encounter Details Date Type Department Care Team Description 05/18/2018 Driver Engineer Report Medical Records [address] [place] [address] Harry Lau MD Social History Tobacco Use [...] on filedocumented in this encounter Care Teams Sales And Merchandising Representative Relationship Specialty Start Date End Date Elisabet Marin MD PCP - General Internal Medicine 06/27/15 11/27/20 Elbert Florian MD [address] [place] [address] PCP - General Internal Medicine 11/28/20 04/20/22 Helio Ferguson [address] [place] [address] PCP - General Internal Medicine 04/21/22 Jonatan Daniel MD 300 [facility] 154 [place] [address] Specialist Cardiovascular Disease 10/17/20 Bharati Mcgowan DNP [address] [place] [address] Specialist Cardiology 01/27/21 Radha Mcclellan NP [address] [place] [address] 29059 Cardiology 04/23/24 Kiara Anderson MD [address] [place] [address] Specialist Cardiology 04/23/24 Duglas Diaz NP [address] [place] [address] Specialist Cardiology 04/23/24 documented as of this encounter
--- OUTSIDE RECORDS SUMMARY | 2024-10-19 14:51 | XMS_ITS | Clinical Summary ---
Author Organization [facility] Address [address] [place] [address] Care Team Providers Care It Trainee Name Role Phone Jonatan Daniel MD Unavailable [phone] Bharati Mcgowan DNP Unavailable [phone] Helio Ferguson Primary Care Provider Unavailab Radha Davis NP Unavailable [phone] Kiara Anderson MD Unavailable [phone] Duglas Diaz NP Unavailable [phone] Allergies Active Allergy Reactions Severity Noted Date Comments Macrobid Nausea and Vomiting 10/17/2020 Sulfa Drugs 10/22/2016 Medications Medication Sig Dispensed Refills Start Date End Date Status Coenzyme Q10 (COQ10) 100 MG CAPS Take by mouth 2 times daily. 0 Active CPAP Historical (HISTORICAL CPAP) Inhale into the lungs. [employer] pressure 6-16 0 Active ONE TOUCH ULTRASOFT LANCETS Misc Use to test blood sugar once daily. DX E11.51 100 Each 3 05/21/2019 Active metoprolol (LOPRESSOR) 25 MG tablet Take 1 Tablet by mouth 2 Times Daily. 180 Tablet 1 01/04/2022 Active gabapentin (NEURONTIN) 300 MG capsule TAKE ONE TABLET ORALLY NIGHTLY 90 Capsule 0 01/27/2022 Active clopidogrel (PLAVIX) 75 MG tablet TAKE 1 TABLET BY MOUTH EVERY DAY 90 Tablet 0 02/02/2022 Active OneTouch Ultra strip Use to test blood sugar once daily 100 Strip 1 02/03/2022 Active sertraline (ZOLOFT) 50 MG tablet Take 1 Tablet by mouth daily. 90 Tablet 0 02/22/2022 Active metformin (GLUCOPHAGE) 500 MG tablet Take 2 Tablets by mouth 2 times daily (with meals). 0 Active oxycodone (ROXICODONE) 5 MG immediate release tabletIndications:Tr igger middle finger of left hand Take 1 Tablet by mouth every 6 hours as needed for Pain for up to 5 doses. 5 Tablet 0 04/20/2024 Active atorvastatin (LIPITOR) 40 MG tabletIndications:Co ronary artery disease of tetlin artery of tetlin heart with stable angina pectoris (HCC) TAKE 1 TABLET BY MOUTH EVERY DAY 90 Tablet 0 06/12/2024 Active isosorbide mononitrate (IMDUR) 30 MG 24 hr tablet TAKE 1 TABLET BY MOUTH EVERY DAY 90 Tablet 3 06/13/2024 Active Active Problems Patient Care Coordination No te Formatting of this note is d ifferent from the original. Checking Your Blood Sugars Please check your blood sugars every day. Please check your sugars at the following times of day: before breakfast and before dinner Your Blood Sugar Goals Pre Meal: 90-130 2 hours after meals: 110-160 Bedtime: 110-150 Use the Results ?? Bring your glucometer to every appointment ?? Write your fingerstick blood sugars down on a log sheet or record book. Bring them to your appointment ?? Look for patterns in the numbers. The results help you and your provider make decisions about your diabetes treatment plan. Your Results and your Goals Your Result / Date of Completion Your Goal / How Often to Assess Component Value Date HGBA1C 7.5 03/17/2015 Less than 7% --- 2-4 times per year BP Readings from Last 1 Encounters: 06/17/15 110/80 Less than 140/90 --- once per year Component Value Date MALBCR 73.8 12/06/2014 Less than 30 --- once per year Component Value Date LDL 74 12/06/2014 Less than 100 --- once per year Wt Readings from Last 1 Encounters: 06/17/15 220 lb (99.791 kg) Your goal weight by next visit: 217 --- reassess 2-4 times a year Health Maintenance Due Topic Date Due ? ? Diabetes: Annual Care Plan 1963 ? ? Influenza (##1 of 1) 04/29/2015 Your Action Plan Your diabetes is well controlled and no changes are required to your current plan. Check blood glucose as directed and write down all results. Contact me if you experience any barriers to care such as inability to purchase your medication, difficulty getting to your appointments or difficulty understanding your care plan When to Call your Healthcare Provider If your blood sugar falls below 70 and you do not know why or you become unconscious If you are sick and unable to take liquids because or nausea or vomiting If you have a fever over 101 If your blood sugar is 300 or higher on greater than 3 separate occasions during the same week If you are just unsure what to do Educational Resources [employer] (www.diabetes.org) Centers for Disease Control and Prevention (www.cdc.gov/diabetes) This care plan was created in collaboration with Colin Garcia on 06/17/2015 Problem Noted Date Trigger middle finger of left hand 03/05 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 Last Assessment & Plan: Continue moderate dose lipitor for now. Dietary modification. Essential hypertension 09/03/2020 Last Assessment & Plan: Blood pressure well controlled on current regimen. Continue beta-teresa and long-acting nitrates. Diabetic polyneuropathy associated with type 2 diabetes mellitus 01/20/2017 Controlled type 2 diabetes m natasha with kidney complication, without long-term current use of insulin 01/20/2017 SCC (squamous cell carcinoma) 01/20/2017 Overview: Under right thumbnail. Removed in Sep 2016. 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 Obstructive sleep apnea AHI 19 04/03/201 5 Tinea pedis 09/03/2013 Onychodystrophy 09/03/2013 CAD (coronary artery disease) - 2 stents mid LAD 11/14/2012 Overview: Dr Daniel He has known CAD with anginal symptom of indigestion/chest pressure and cath in 2005 revealing left main normal, LAD occluded after D1, circumflex no obstructive disease, RCA dominant with mild diffuse disease, a MARY CARMEN was placed to LAD. exercise stress echocardiogram in October 2020 with basal to mid inferior wall accentuated tardive kinesis, and he was started on nitrate therapy. Last Assessment & Plan: The patient has atypical brief and sporadic nonexertional chest discomfort. He otherwise did not have any concerning anginal symptoms to his current MET workload. For now, continue medical therapy with aspirin, beta-teresa, statin, long- acting nitrates and Plavix. He will notify me if he has any changes in his current condition he can adjust therapy accordingly ED (erectile dysfunction) 11/14/2012 Tobacco abuse disorder 11/14/2012 Depression with anxiety Hyperlipidemia Last Assessment & Plan: His LDL is above target of 70 or less at 92. Will increase his Lipitor to 40 mg daily with a repeat lipid and liver profile in about 6 weeks time. Patient understands the rationale for intensifying his statin therapy. Bladder cancer recurrent papillary Overview: Dr. 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 Resolved Problems Problem Noted Date Resolved Date Type 2 diabetes, uncontrolled, with renal manife station 09/19/2015 01/20/2017 Dilation of thoracic aorta 12/04/201401/20 Sleep apnea 11/12/2014 03/14/2015 Diabetes mellitus due to und erlying condition with diabetic neuropathy 01/20/2017 Immunizations Name Administration Dates Next Due COVID-19 (Moderna) 12/01/2020,11/05/2020, 021 COVID-19 (Moderna) PT Reported 12/03/2021,2020,11/05/2020 Influenza (> 6 Months) 07/29/2016,2014,07/03/2014,05/29 Influenza Flu (PT Reported) 06/07/2017, 3 Influenza vaccine high dose age 65 and over 05/06/2022,04/16/2020,04/23/2019,05/12 Pneumoccoccal(Adult) Polysac charide PPSV23 03/14/2013 Pneumococcal Conjugate PCV-13 12/10/2014 TD (STATE SUPPLIED FOR ADULT S AND CHILDREN) 08/29/2006 Tdap 10/22/2016 Zostavax 04/16/2020,04/05/2013 Family History Medical History Relation Name Comments [place] Father Relation Name Status Comments Father Social History Tobacco Use Types Packs/Day Years Used Date Smoking Tobacco: Former Cigarettes 1 40 Q uit: 10/24/2012 Smokeless Tobacco: Never Tobacco Cessation:Counseling Given: Not Answered Alcohol Use Standard Drinks/Week Comments Yes 0 [...] file Not on file Not on file Last Filed Vital Signs Vital Sign Reading Time Taken Comments Blood Pressure 128/58 02/09/2024 2:42 PM EDT Pulse 60 02/09/2024 2:42 PM EDT Temperature 35.9 ??C (96.6 ??F) 11/13/2021 2:23 PM ED T Respiratory Rate 16 11/13/2021 2:23 PM EDT Oxygen Saturation 98% 02/09/2024 2:42 PM EDT Inhaled Oxygen Concentration - - Weight 82.6 kg (182 lb) 05/30/2024 1:04 PM EDT Height 182.9 cm (6') 05/30/2024 1:04 PM EDT Body Mass Index 24.68 05/30/2024 1:04 PM EDT Plan of Treatment Health Maintenance Due Date Last Done Comments DEPRESSION SCREEN 1959 FALL RISK ASSESSMENT 2012 SHINGLES VACCINE (2 of 3) 06/11/2020 04/16/2020, 03/2013 DIABETES: ANNUAL FOOT EXAM 10/05/202010/05, 08/11/2018, 04/25/2017, Additional history exists DIABETES: BLOOD SUGAR CONTRO L TEST (HGBA1C) 02/04/2022 11/04/2021, 07/06/2021, 03/20/2021, Additional history exists DIABETES: ANNUAL EYE EXAM 03/17/20222020, 11/28/2019 (External Completion of test per patient (Patient reports normal results)), 12/02/2016, Additional history exists DIABETES: ANNUAL URINE PROTE IN TEST (MICROALBUMIN) 03/20/2022 03/20/2021, 01/28/2020, 01/04/2019, Additional history exists DIABETES/HEART DISEASE: YESENIA GRACE CHOLESTEROL (LDL) 12/24/2023 12/23/2022, 11/04/2021, 03/20/2021, Additional history exists Covid-19 Vaccine (2022-2 4 season) 2024 12/03/2021, 12/02/2020, 12/01/2020, Additional history exists INFLUENZA (#1) 2024 05/06/2022, 03/29, 04/23/2019 (External Completion of test per patient (Patient reports normal results)), Additional history exists Lung Cancer Screening (Low D ose CT) 10/23/2024 10/23/2023, 10/21/2022, 10/20/2021 (External Completion), Additional history exists DTAP/TDAP/TD (2 - Td or Tdap) 10/22/2026 10/22/2016, 08/29/2006 HEPATITIS C SCREENING Completed 01/29/2014 PNEUMOCOCCAL VACCINE Completed 12/10/2014, 03/14/20 13 Care Teams It Trainee Relationship Specialty Start Date End Date Helio Ferguson [address] [place] [address] PCP - General Internal Medicine 04/21/22 Jonatan Daniel MD [address] [address] Specialist Cardiovascular Disease 10/17/20 Bharati Mcgowan DNP [address] [address] Specialist Cardiology 01/27/21 Radha Mcclellan NP [address] [address] Cardiology 04/23/24 Kiara Anderson MD [address] [address] Specialist Cardiology 04/23/24 Duglas Diaz NP [address] [address] Specialist Cardiology 04/23/24
--- OUTSIDE RECORDS SUMMARY | 2024-10-19 14:51 | XMS_ITS | Encounter Summary ---
Author Organization [facility] Address [address] [place] [address] Care Team Providers Care County Treasurer Name Role Phone Jonatan Daniel MD Unavailable [phone] Bharati Mcgowan DNP Unavailable [phone] Helio Ferguson Primary Care Provider Unavailab Radha Davis NP Unavailable [phone] Kiara Anderson MD Unavailable [phone] Duglas Diaz NP Unavailable [phone] Encounter Details Date Type Department Care Team Description 10/24/2023 Orders Only [facility] Lung Screening Program [place] [address] [facility] [address] [place] [id number] Ivon Dudley MD [address] [facility] [place] [address] [place] [address] [id number] History of tobacco abuse Social History Tobacco [...] CT LOW DOSE LUNG SCREEN ANNUAL Routine 10/23/2023 History of tobacco abuse documented in this encounter Results * CT LOW DOSE LUNG SCREEN ANNUAL (10/23/2023) 10/23/[address] SCANS documented in this encounter Visit Diagnoses Diagnosis History of tobacco abuse Personal history of tobacco use, presenting hazards to health documented in this encounter Care Teams County Treasurer Relationship Specialty Start Date End Date Helio Ferguson [address] [address] PCP - General Internal Medicine 04/21/22 Jonatan Daniel MD [address] [address] Specialist Cardiovascular Disease 10/17/20 Bharati Mcgowan DNP [address] [address] Specialist Cardiology 01/27/21 Radha Mcclellan NP [address] [address] Cardiology 04/23/24 Kiara Anderson MD [address] [address] Specialist Cardiology 04/23/24 Duglas Diaz NP [address] [address] Specialist Cardiology 04/23/24 documented as of this encounter
--- OUTSIDE RECORDS SUMMARY | 2024-10-19 14:51 | XMS_ITS | Encounter Summary ---
Author Organization [facility] Address [address] [place] [address] Care Team Providers Care Caustic Cresylate Shift Superintendent Name Role Phone Jonatan Daniel MD Unavailable [phone] Elbert Florian MD Primary Care Provider [phone] Bharati Mcgowan DNP Unavailable [phone] Helio Ferguson Primary Care Provider Unavailab Radha Davis NP Unavailable [phone] Kiara Anderson MD Unavailable [phone] Duglas Diaz COMMANDING OFFICER TRAFFIC DIVISION Unavailable [phone] Encounter Details Date Type Department Care Team Description 10/20/2021 Build Master Report Medical Records [address] [place] [address] [facility] [address] [place] [address] Social History Tobacco Use Types Packs/Day Years [...] on filedocumented in this encounter Care Teams Caustic Cresylate Shift Superintendent Relationship Specialty Start Date End Date Elbert Florian MD [address] [place] [address] PCP - General Internal Medicine 11/28/20 04/20/22 Helio Ferguson [address] [place] [address] PCP - General Internal Medicine 04/21/22 Jonatan Daniel MD [address] [address] Specialist Cardiovascular Disease 10/17/20 Bharati Mcgowan DNP [address] [place] [address] Specialist Cardiology 01/27/21 Radha Mcclellan NP [address] [place] [address] Cardiology 04/23/24 Kiara Anderson MD [address] [place] [address] Specialist Cardiology 04/23/24 Duglas Diaz NP [address] [place] [address] Specialist Cardiology 04/23/24 documented as of this encounter
--- OUTSIDE RECORDS SUMMARY | 2024-10-19 14:51 | XMS_ITS | Encounter Summary ---
Author Organization [facility] Address [address] [place] [address] Care Team Providers Care User Experience Analyst Name Role Phone Elisabet Marin MD Primary Care Provider Unavaila Jonatan Carl MD Unavailable [phone] Elbert Florian MD Primary Care Provider [phone] Bharati Mcgowan DNP Unavailable [phone] Helio Ferguson Primary Care Provider Unavailab Radha Davis NP Unavailable Kiara Anderson MD Unavailable [phone] Duglas Diaz PROGRAM ANALYST Unavailable [phone] Encounter Details Date Type Department Care Team Description 01/25/2019 Pt. Non Urgent Medical Question Medicine/Pediatrics - [address] [address] Elisabet Marin MD Dysuria (Primary Dx) Social [...] ENTEROBACTER AEROGENES 01/27/2019 10:12 AM EDT [facility] Comment: COLONY COUNT >100,000 Urine (Urine) 01/25/2019 [...] Tobramycin <=1: Susceptible Elisabet Marin MD LAB [facility] * (ABNORMAL) URINALYSIS, ROUTINE (01/25/2019 2:25 PM EDT) GLUCOSE, URINE (UA) NEGATIVE NEGATIVE mg/dL 01/25/2019 8:12 PM EDT [facility] BILIRUBIN URINE NEGATIVE NEGATIVE 01/25/2019 8:12 PM EDT [facility] KETONE, URINE NEGATIVE NEGATIVE mg/dL 01/25/2019 8:12 [...] 2:26 PM EDT Elisabet Marin MD LAB [facility] documented in this encounter Visit Diagnoses Diagnosis Dysuria- Primary documented in this encounter Care Teams User Experience Analyst Relationship Specialty Start Date End Date Elisabet Marin MD PCP - General Internal Medicine 06/27/15 11/27/20 Elbert Florian MD [address] [place] [address] PCP - General Internal Medicine 11/28/20 04/20/22 Helio Ferguson [address] [place] [address] PCP - General Internal Medicine 04/21/22 Jonatan Daniel MD 300 [facility] [address] [place] [address] Specialist Cardiovascular Disease 10/17/20 Bharati Mcgowan DNP [address] [place] [address] Specialist Cardiology 01/27/21 Radha Mcclellan NP [address] [place] [address] Cardiology 04/23/24 Kiara Anderson MD [address] [place] [address] Specialist Cardiology 04/23/24 Duglas Diaz NP [address] [place] [address] Specialist Cardiology 04/23/24 documented as of this encounter
--- OUTSIDE RECORDS SUMMARY | 2024-10-19 14:51 | XMS_ITS | Encounter Summary ---
Author Organization [facility] Address [address] [place] [address] Care Team Providers Care Green Prize Packer Name Role Phone Yuan Oneill MD Primary Care Provider Unavail able Elisabet Marin MD Primary Care Provider Unavaila Jonatan Carl MD Unavailable [phone] Elbert Florian MD Primary Care Provider [phone] Bharati Mcgowan DNP Unavailable [phone] Helio Ferguson Primary Care Provider Unavailab Radha Davis NP Unavailable [phone] Kiara Anderson MD Unavailable [phone] Duglas Diaz NP Unavailable [phone] Encounter Details Date Type Department Care Team Description 12/20/2014 Business Doc Medical Records [address] [place] [address] Abstract, Provider Social History Tobacco Use Types [...] on filedocumented in this encounter Care Teams Green Prize Packer Relationship Specialty Start Date End Date Yuan Oneill MD PCP - General Internal Medicine 07/04/14 06/26/15 Elisabet Marin MD PCP - General Internal Medicine 06/27/15 11/27/20 Elbert Florian MD [address] [place] [address] PCP - General Internal Medicine 11/28/20 04/20/22 Helio Ferguson [address] [place] [address] PCP - General Internal Medicine 04/21/22 Jonatan Daniel MD [address] [place] [address] Specialist Cardiovascular Disease 10/17/20 Bharati Mcgowan DNP [address] [place] [address] Specialist Cardiology 01/27/21 Radha Mcclellan NP [address] [place] [address] Cardiology 04/23/24 Kiara Anderson MD [address] [place] [address] Specialist Cardiology 04/23/24 Duglas Diaz NP [address] [place] [address] Specialist Cardiology 04/23/24 documented as of this encounter
--- OUTSIDE RECORDS SUMMARY | 2024-10-19 14:51 | XMS_ITS | Encounter Summary ---
Author Organization [facility] Address [address] [place] [address] Care Team Providers Care Demonstrator Knitting Name Role Phone Jonatan Daniel MD Unavailable [phone] Bharati Mcgowan DNP Unavailable [phone] Helio Ferguson Primary Care Provider Unavailab Radha Davis NP Unavailable [phone] Kiara Anderson MD Unavailable [phone] Duglas Diaz NP Unavailable [phone] Encounter Details Date Type Department Care Team Description 10/23/2023 Bit And Shank Department Supervisor Report Medical Records [address] [place] [address] [facility] [address] [place] [address] Social History Tobacco Use Types Packs/Day Years [...] on filedocumented in this encounter Care Teams Demonstrator Knitting Relationship Specialty Start Date End Date Katt Fergusons [address] [place] [address] PCP - General Internal Medicine 04/21/22 Jonatan Daniel MD [address] [place] [address] Specialist Cardiovascular Disease 10/17/20 Bharati Mcgowan DNP [address] [address] Specialist Cardiology 01/27/21 Radha Mcclellan NP [address] [place] [address] Cardiology 04/23/24 Kiara Anderson MD [address] [place] [address] Specialist Cardiology 04/23/24 Duglas Diaz NP [address] [address] Specialist Cardiology 04/23/24 documented as of this encounter
--- OUTSIDE RECORDS SUMMARY | 2024-10-19 14:52 | XMS_ITS | Encounter Summary ---
Author Organization [facility] Address [address] [place] [address] Care Team Providers Care Slaughterer Religious Ritual Name Role Phone Elisabet Marin MD Primary Care Provider Unavaila Jonatan Carl MD Unavailable [phone] Elbert Florian MD Primary Care Provider [phone] Bharati Mcgowan DNP Unavailable [phone] Helio Ferguson Primary Care Provider Unavailab Radha Davis NP Unavailable [phone] Kiara Anderson MD Unavailable [phone] Duglas Diaz NEWSPAPER PHOTOJOURNALIST Unavailable [phone] Encounter Details Date Type Department Care Team Description 11/15/2016 Functional Tester Typewriters Report Medical Records [address] [place] [address] Mikhail Baker MD Social History Tobacco Use [...] on filedocumented in this encounter Care Teams Slaughterer Religious Ritual Relationship Specialty Start Date End Date Elisabet Marin MD PCP - General Internal Medicine 06/27/15 11/27/20 Elbert Florian MD [address] [place] [address] PCP - General Internal Medicine 11/28/20 04/20/22 Helio Ferguson [address] [place] [address] PCP - General Internal Medicine 04/21/22 Jonatan Daniel MD 300 [facility] [address] [place] [address] Specialist Cardiovascular Disease 10/17/20 Bharati Mcgowan DNP [address] [place] [address] Specialist Cardiology 01/27/21 Radha Mcclellan NP [address] [place] [address] Cardiology 04/23/24 Kiara Anderson MD [address] [place] [address] Specialist Cardiology 04/23/24 Duglas Diaz NP [address] [place] [address] Specialist Cardiology 04/23/24 documented as of this encounter
--- OUTSIDE RECORDS SUMMARY | 2024-10-19 14:52 | XMS_ITS | Encounter Summary ---
Author Organization [facility] Address [address] [place] [address] Care Team Providers Care Clinical Specialist Medical Device Name Role Phone Elisabet Marin MD Primary Care Provider Unavaila Jonatan Carl MD Unavailable [phone] Elbert Florian MD Primary Care Provider [phone] Bharati Mcgowan DNP Unavailable [phone] Helio Ferguson Primary Care Provider Unavailab Radha Davis NP Unavailable [phone] Kiara Anderson MD Unavailable [phone] Duglas Diaz MAIN LINE STATION ENGINEER Unavailable [phone] Encounter Details Date Type Department Care Team Description 04/21/2017 Language Instructor Report Medical Records [address] [place] [address] Jessi Barahona MD Social History Tobacco Use [...] on filedocumented in this encounter Care Teams Clinical Specialist Medical Device Relationship Specialty Start Date End Date Elisabet Marin MD PCP - General Internal Medicine 06/27/15 11/27/20 Elbert Florian MD [address] [place] [address] PCP - General Internal Medicine 11/28/20 04/20/22 Helio Ferguson [address] [place] [address] PCP - General Internal Medicine 04/21/22 Jonatan Daniel MD 300 [facility] [address] [place] [address] Specialist Cardiovascular Disease 10/17/20 Bharati Mcgowan DNP [address] [place] [address] Specialist Cardiology 01/27/21 Radha Mcclellan NP [address] [place] [address] Cardiology 04/23/24 Kiara Anderson MD [address] [place] [address] Specialist Cardiology 04/23/24 Duglas Diaz NP [address] [place] [address] Specialist Cardiology 04/23/24 documented as of this encounter
--- OUTSIDE RECORDS SUMMARY | 2024-10-19 14:52 | XMS_ITS | Encounter Summary ---
Author Organization [facility] Address [address] [place] [address] Care Team Providers Care Peoplesoft Financials Name Role Phone Elisabet Marin MD Primary Care Provider Unavaila Jonatan Carl MD Unavailable [phone] Elbert Florian MD Primary Care Provider [phone] Bharati Mcgowan DNP Unavailable [phone] Helio Ferguson Primary Care Provider Unavailab Radha Davis NP Unavailable [phone] Kiara Anderson MD Unavailable [phone] Duglas Diaz BEAMING INSPECTOR Unavailable [phone] Encounter Details Date Type Department Care Team Description 01/06/2017 Dish Up Person Report Medical Records [address] [place] [address] Jessi Barahona MD Social History Tobacco Use [...] on filedocumented in this encounter Care Teams Peoplesoft Financials Relationship Specialty Start Date End Date Elisabet Marin MD PCP - General Internal Medicine 06/27/15 11/27/20 Elbert Florian MD [address] [place] [address] PCP - General Internal Medicine 11/28/20 04/20/22 Helio Ferguson [address] [place] [address]19 PCP - General Internal Medicine 04/21/22 Jonatan Daniel MD 300 [facility] 154 [place] [address] Specialist Cardiovascular Disease 10/17/20 Bharati Mcgowan DNP [address] [place] [address]279 Specialist Cardiology 01/27/21 Radha Mcclellan NP [address] [place] [address] 26449 Cardiology 04/23/24 Kiara Anderson MD [address] [place] [address]397 Specialist Cardiology 04/23/24 Duglas Diaz NP [address] [place] [address] Specialist Cardiology 04/23/24 documented as of this encounter
--- OUTSIDE RECORDS SUMMARY | 2024-10-19 14:52 | XMS_ITS | Encounter Summary ---
Author Organization [facility] Address [address] [place] [address] Care Team Providers Care Digital Advisor Name Role Phone Jonatan Daniel MD Unavailable [phone] Bharati Mcgowan DNP Unavailable [phone] Helio Ferguson Primary Care Provider Unavailab Radha Davis NP Unavailable [phone] Kiara Anderson MD Unavailable [phone] Duglas Diaz NP Unavailable [phone] Encounter Details Date Type Department Care Team Description 12/20/2022 Pt. Non Urgent Medical Question Cardio PVC POC 154 300 [facility] 154 [place], [place] [phone] Jonatan Daniel MD 300 [facility] 154 [place], [place] [id number] Social History Tobacco Use Types Packs/Day Years [...] filedocumented in this encounter Care Teams Digital Advisor Relationship Specialty Start Date End Date Helio Ferguson [address] [address] PCP - General Internal Medicine 04/21/22 Jonatan Daniel MD [address] [address] Specialist Cardiovascular Disease 10/17/20 Bharati Mcgowan DNP [address] [address] Specialist Cardiology 01/27/21 Radha Mcclellan NP [address] [address] Cardiology 04/23/24 Kiara Anderson MD [address] [facility] 154 [place] [address] Specialist Cardiology 04/23/24 Duglas Diaz NP [address] [address] Specialist Cardiology 04/23/24 documented as of this encounter
--- OUTSIDE RECORDS SUMMARY | 2024-10-19 14:52 | XMS_ITS | Encounter Summary ---
Author Organization [facility] [place] [address] Care Team Providers Care Drill Runner Helper Name Role Phone Unavailable Primary Care Provider Unavailabl e Reason for Visit * Reason Onset Date Comments scheduling recall 10/19/2024 Encounter Details Date Type Department Care Team (Late Contact Info) Description 10/19/2024 Telephone [facility] 154 300 [facility] 154 [place] [phone] Jonatan Daniel MD 300 [facility] [address] [place] [address] scheduling recall Social History Tobacco Use Types [...] Description 10/25/2024 9:45 AM EST Appointment [facility] CT Scan [address] [place] [id number] documented as of this encounter Visit Diagnoses Not on filedocumented in this encounter
--- OUTSIDE RECORDS SUMMARY | 2024-10-19 14:52 | XMS_ITS | Encounter Summary ---
Author Organization [facility] Address [address] [place] [address] Care Team Providers Care Over The Horizon Targeting Supervisor Name Role Phone Unavailable Primary Care Provider Unavailabl e Reason for Visit * Reason Onset Date Comments Appointment 10/09/2024 1st notification Encounter Details Date Type Department Care Team ([facility] st Contact Info) Description 10/09/2024 Telephone Lung Screening Program - [address] [place] [phone] Britney Maynard [place] Appointment (1st notification) Social [...] screening on September at 945 AM, at [facility]. No Answer left message. For all [...] Info) Description 10/25/2024 9:45 AM EST Appointment [facility] CT Scan [address] [place] [address] documented as of this encounter Visit Diagnoses Not on filedocumented in this encounter
--- OUTSIDE RECORDS SUMMARY | 2024-10-19 14:52 | XMS_ITS | Encounter Summary ---
Author Organization [facility] Address [address] [place] [address] Care Team Providers Care Perinatal Technician Name Role Phone Elisabet Marin MD Primary Care Provider Unavaila Jonatan Carl MD Unavailable [phone] Elbert Florian MD Primary Care Provider Bharati Mcgowan DNP Unavailable [phone] Helio Ferguson Primary Care Provider Unavailab Radha Davis NP Unavailable [phone] Kiara Anderson MD Unavailable [phone] Duglas Diaz BEAUTY SHOP MANAGER Unavailable [phone] Encounter Details Date Type Department Care Team Description 10/19/2019 Automatic Engraver Report Medical Records [address] [place] [address] Center, [facility] [address] [place] [address] Social History Tobacco Use Types Packs/Day Years [...] on filedocumented in this encounter Care Teams Perinatal Technician Relationship Specialty Start Date End Date Elisabet Marin MD PCP - General Internal Medicine 06/27/15 11/27/20 Elbert Florian MD [address] [place] [address] PCP - General Internal Medicine 11/28/20 04/20/22 Helio Ferguson [address] [place] [address] PCP - General Internal Medicine 04/21/22 Jonatan Daniel MD 300 [facility] 154 [place] [address] Specialist Cardiovascular Disease 10/17/20 Bharati Mcgowan DNP [address] [place] [address] Specialist Cardiology 01/27/21 Radha Mcclellan NP [address] [place] [address] Cardiology 04/23/24 Kiara Anderson MD [address] [place] [address] Specialist Cardiology 04/23/24 Duglas Diaz NP [address] [place] [address] Specialist Cardiology 04/23/24 documented as of this encounter
--- OUTSIDE RECORDS SUMMARY | 2024-10-19 14:52 | XMS_ITS | Encounter Summary ---
Author Organization [facility] Address [address] [place] [address] Care Team Providers Care Automobile Dealer Name Role Phone Elisabet Marin MD Primary Care Provider Unavaila Jonatan Carl MD Unavailable [phone] Elbert Florian MD Primary Care Provider [phone] Bharati Mcgowan DNP Unavailable [phone] Helio Ferguson Primary Care Provider Unavailab Radha Davis NP Unavailable [phone] Kiara Anderson MD Unavailable [phone] Duglas Diaz BINDER SELECTOR Unavailable [phone] Encounter Details Date Type Department Care Team Description 03/25/2020 Geological Sample Tester Report Medical Records [address] [place] [address] Harry Lau MD Social History Tobacco Use [...] on filedocumented in this encounter Care Teams Automobile Dealer Relationship Specialty Start Date End Date Elisabet Marin MD PCP - General Internal Medicine 06/27/15 11/27/20 Elbert Florian MD [address] [place] [address] PCP - General Internal Medicine 11/28/20 04/20/22 Helio Ferguson [address] [place] [address] PCP - General Internal Medicine 04/21/22 Jonatan Daniel MD 300 [facility] 154 [place] [address] Specialist Cardiovascular Disease 10/17/20 Bharati Mcgowan DNP [address] [place] [address] Specialist Cardiology 01/27/21 Radha Mcclellan NP [address] [place] [address] Cardiology 04/23/24 Kiara Anedrson MD [address] [place] [address] Specialist Cardiology 04/23/24 Duglas Diaz NP [address] [place] [address] Specialist Cardiology 04/23/24 documented as of this encounter
--- OUTSIDE RECORDS SUMMARY | 2024-10-19 14:52 | XMS_ITS | Encounter Summary ---
Author Organization [facility] Address [address] [place] [address] Care Team Providers Care Lead Generation Specialist Name Role Phone Jonatan Daniel MD Unavailable [phone] Elbert Florian MD Primary Care Provider [phone] Bharati Mcgowan DNP Unavailable [phone] Helio Ferguson Primary Care Provider Unavailab Radha Davis NP Unavailable [phone] Kiara Anderson MD Unavailable [phone] Duglas Diaz EDUCATION FINANCE PROCESSOR Unavailable [phone] Encounter Details Date Type Department Care Team Description 01/03/2022 Refill Adult Medicine [address] [phone] Elbert Florian MD [address] [place] [address] [phone] Social History Tobacco Use Types Packs/Day Years [...] encounter Miscellaneous Notes * Telephone Encounter - Kami Leon M.A. - 01/04/2022 8:44 AM EDT Faxed to pharmacy * Telephone Encounter - Chiquita Nevarez M.A. - 01/04/2022 7:59 AM EDT Last office visit 11/13/21 Lab Results Component Value Date NA 137 03/20/2021 K 4.7 03/20/2021 CO2 24 03/20/2021 CL 106 03/20/2021 BUN 21 03/20/2021 CREAT 1.00 03/20/2021 GLU 145 07/13/2021 CA 9.6 03/20/2021 GFR > 60 03/20/2021 documented in this encounter Plan of Treatment Not on file documented as of this encounter Visit Diagnoses Not on filedocumented in this encounter Care Teams Lead Generation Specialist Relationship Specialty Start Date End Date Elbert Florian MD [address] [place] [address] PCP - General Internal Medicine 11/28/20 04/20/22 Helio Ferguson [address] [place] [address] PCP - General Internal Medicine 04/21/22 Jonatan Daniel MD [address] [place] [address] 154 [place] [address] Specialist Cardiovascular Disease 10/17/20 Bharati Mcgowan DNP [address] [place] [address] Specialist Cardiology 01/27/21 Radha Mcclellan NP [address] [place] [address] Cardiology 04/23/24 Kiara Anderson MD 444 [place] [address] Specialist Cardiology 04/23/24 Duglas Diaz NP [address] [place] [address] Specialist Cardiology 04/23/24 documented as of this encounter
--- OUTSIDE RECORDS SUMMARY | 2024-10-19 14:52 | XMS_ITS | Encounter Summary ---
Author Organization [facility] Address [address] [place] [address] Care Team Providers Care Renal Dietitian Name Role Phone Jonatan Daniel MD Unavailable [phone] Elbert Florian MD Primary Care Provider [phone] Bharati Mcgowan DNP Unavailable [phone] Helio Ferguson Primary Care Provider Unavailab Radha Davis NP Unavailable [phone] Kiara Anderson MD Unavailable [phone] Duglas Diaz KETTLE OPERATOR Unavailable [phone] Encounter Details Date Type Department Care Team Description 02/23/2022 Automobile Accessories Salesperson Report Medical Records [address] [place] [address] Harry Lau MD Social History Tobacco Use [...] on filedocumented in this encounter Care Teams Renal Dietitian Relationship Specialty Start Date End Date Elbert Florian MD [address] [place] [address] PCP - General Internal Medicine 11/28/20 04/20/22 Helio Ferguson [address] [place] [address] PCP - General Internal Medicine 04/21/22 Jonatan Daniel MD 300 [facility] 154 [place] [address] Specialist Cardiovascular Disease 10/17/20 Bharati Mcgowan DNP [address] [place] [address] Specialist Cardiology 01/27/21 Radha Mcclellan NP [address] [place] [address] Cardiology 04/23/24 Kiara Anderson MD [address] [place] [address] Specialist Cardiology 04/23/24 Duglas Diaz NP [address] [place] [address] Specialist Cardiology 04/23/24 documented as of this encounter
--- OUTSIDE RECORDS SUMMARY | 2024-10-19 14:52 | XMS_ITS | Encounter Summary ---
Author Organization [facility] Address [address] [place] [address] Care Team Providers Care Bulk Picker Name Role Phone Physician, Pcp Unknown Primary Care Provider Kika vailable Encounter Details Date Type Department Care Team (Late Contact Info) Description 09/24/2024 Lab Requisition [facility] - Main Lab 299 [facility] [place] [address] Harry Lau MD [address] [facility] 120 [place] [address] Personal history of malignant neoplasm [...] Info) Description 10/25/2024 9:45 AM EST Appointment [facility] CT Scan [address] [place] [address] documented as of this encounter Procedures Procedure Name Priority Date/Time Associated Diagnosis Comments AP OUTSIDE CONSULT Routine 09/18/2024 12 :00 AM EST Personal history of malignant neoplasm of bladder documented in this encounter Results * Anatomic pathology outside consult (09/18/2024 12:00 AM EST) Final Diagnosis A. Urine, Voided, ([id number]): FEW ATYPICAL UROTHELIAL CELLS. Results of UroVysion fluorescence in situ hybridization (FISH) testing: CEP3: Normal CEP7: Normal CEP17: Normal LSI 9p21: Normal Interpretation: Normal profile Controls stained appropriately. Note: The results are intended as a screening device and should be interpreted in association with other clinical and pathological findings. 10/04/2024 6:00 PM [facility] Clinical Information History of bladder neoplasm (malignant) Z85.51 Urine Cytology/FISH (now) 10/04/2024 6:00 PM [facility] Gross Description A. Urine, Voided, ([id number]): Received one ThinPrep slide for cytology screen and one ThinPrep slide for UroVysion FISH 10/04/2024 6:00 PM [facility] Disclaimer Unless otherwise specified, all tissue is 10% NB formalin fixed and paraffin embedded. Technical pathology services provided by [facility] at [address] [facility] [address], [place] [address] (CLIA #[id number]/Ankita Howell MD, Cardiac Rehabilitation Program Director) 10/04/2024 6:00 PM [facility] Tissue Urine specimen from urethra / Unknown 09/18/2024 09/24/2024 10:12 AM EST us Harry Lau MD LAB PATHOLOGY ORDERABLES Final Result [facility] [address] [place] [address], documented in this encounter Visit Diagnoses Diagnosis Personal history of malignant neoplasm of bladder documented in this encounter Care Teams Bulk Picker Relationship Specialty Start Date End Date Physician, Pcp Unknown PCP - General 10/04/24 10/04/24 documented as of this encounter
--- OUTSIDE RECORDS SUMMARY | 2024-10-19 14:52 | XMS_ITS | Encounter Summary ---
Author Organization [facility] Address [address] [place] [address] Care Team Providers Care Hot Top Liner Name Role Phone Helio Ferguson Primary Care Provider Reason for Visit * Reason Onset Date Comments Medical Records 08/23/2024 Encounter Details Date Type Department Care Team ([facility] st Contact Info) Description 08/23/2024 Telephone [facility] [address] [place] [address] Center [address] [place] [address] Helio Ferguson PA [address] [place] [phone] Medical Records Social History Tobacco Use Types [...] LUPE Report to Naz Att: Yareli at [phone] on 08/23/2024 documented in this encounter Plan of Treatment Upcoming Encounters Date Type Department Care Team (Late st Contact Info) Description 10/25/2024 9:45 AM EST Appointment [facility] CT Scan [address] [place] [address] documented as of this encounter Visit Diagnoses Not on filedocumented in this encounter Care Teams Hot Top Liner Relationship Specialty Start Date End Date Helio Ferguson PA PCP - General Internal Medicine 04/21/22 10/03/24 documented as of this encounter
--- OUTSIDE RECORDS SUMMARY | 2024-10-19 14:52 | XMS_ITS | Encounter Summary ---
Author Organization [facility] Address [address] [place] [address] Care Team Providers Care Shirt Finisher Name Role Phone Elisabet Marin MD Primary Care Provider Unavaila Jonatan Carl MD Unavailable [phone] Elbert Florian MD Primary Care Provider [phone] Bharati Mcgowan DNP Unavailable [phone] Helio Ferguson Primary Care Provider Unavailab Radha Davis NP Unavailable [phone] Kiara Anderson MD Unavailable [phone] Duglas Diaz CHILD AND ADOLESCENT PSYCHOLOGIST Unavailable [phone] Encounter Details Date Type Department Care Team Description 02/22/2017 Director Of Category Management Report Medical Records [address] [place] [address] Jessi Barahona MD Social History Tobacco Use [...] on filedocumented in this encounter Care Teams Shirt Finisher Relationship Specialty Start Date End Date Elisabet Marin MD PCP - General Internal Medicine 06/27/15 11/27/20 Elbert Florian MD [address] [place] [address] PCP - General Internal Medicine 11/28/20 04/20/22 Helio Ferguson [address] [place] [address] PCP - General Internal Medicine 04/21/22 Jonatan Daniel MD 300 [facility] 154 [place] [address] Specialist Cardiovascular Disease 10/17/20 Bharati Mcgowan DNP [address] [place] [address] Specialist Cardiology 01/27/21 Radah Mcclellan NP [address] [place] [address] Cardiology 04/23/24 Kiara Anderson MD [address] [place] [address] Specialist Cardiology 04/23/24 Duglas Diaz NP [address] [place] [address] Specialist Cardiology 04/23/24 documented as of this encounter
--- OUTSIDE RECORDS SUMMARY | 2024-10-19 14:52 | XMS_ITS | Encounter Summary ---
Author Organization [facility] Address [address] [place] [address] Care Team Providers Care Net Application Architect Name Role Phone Elisabet Marin MD Primary Care Provider Unavaila Jonatan Carl MD Unavailable [phone] Elbert Florian MD Primary Care Provider [phone] Bharati Mcgowan DNP Unavailable [phone] Helio Ferguson Primary Care Provider Unavailab Radha Davis NP Unavailable [phone] Kiara Anderson MD Unavailable [phone] Duglas Diaz ATTORNEY GENERAL Unavailable [phone] Encounter Details Date Type Department Care Team Description 03/17/2017 Linoleum Layer Report Medical Records [address] [place] [address] Mikhail Baker MD Social History Tobacco Use [...] on filedocumented in this encounter Care Teams Net Application Architect Relationship Specialty Start Date End Date Elisabet Marin MD PCP - General Internal Medicine 06/27/15 11/27/20 Elbert Florian MD [address] [place] [address] PCP - General Internal Medicine 11/28/20 04/20/22 Helio Ferguson [address] [place] [address] PCP - General Internal Medicine 04/21/22 Jonatan Daniel MD 300 [facility] 154 [place] [address] Specialist Cardiovascular Disease 10/17/20 Bharati Mcgowan DNP [address] [place] [address] Specialist Cardiology 01/27/21 Radha Mcclellan NP [address] [place] [address] Cardiology 04/23/24 Kiara Anderson MD [address] [place] [address] Specialist Cardiology 04/23/24 Duglas Diaz NP [address] [place] [address] Specialist Cardiology 04/23/24 documented as of this encounter
--- OUTSIDE RECORDS SUMMARY | 2024-10-19 14:52 | XMS_ITS | Encounter Summary ---
Author Organization [facility] Address [address] [place] [address] Care Team Providers Care Gang Drill Operator Name Role Phone Elisabet Marin MD Primary Care Provider Unavaila Jonatan Carl MD Unavailable [phone] Elbert Florian MD Primary Care Provider [phone] Bharati Mcgowan DNP Unavailable [phone] Helio Ferguson Primary Care Provider Unavailab Radha Davis COMMUNITY RESOURCE CONSULTANT Unavailable [phone] Kiara Anderson MD Unavailable [phone] Duglas Diaz COMMUNITY RESOURCE CONSULTANT Unavailable [phone] Encounter Details Date Type Department Care Team Description 10/11/2019 Hospital Medical Records [address] [place] [address] Willie Hannon MD [address] [place] [address] Social History Tobacco Use Types Packs/Day Years [...] on filedocumented in this encounter Care Teams Gang Drill Operator Relationship Specialty Start Date End Date Elisabet Marin MD PCP - General Internal Medicine 06/27/15 11/27/20 Elbert Florian MD [address] [place] [address] PCP - General Internal Medicine 11/28/20 04/20/22 Helio Ferguson [address] [place] [address] PCP - General Internal Medicine 04/21/22 Jonatan Daniel MD [address] [place] [address] Specialist Cardiovascular Disease 10/17/20 Bharati Mcgowan DNP [address] [place] [address] Specialist Cardiology 01/27/21 Radha Mcclellan NP [address] [place] [address] Cardiology 04/23/24 Kiara Anderson MD [address] [place] [address] Specialist Cardiology 04/23/24 Duglas Diaz NP [address] [place] [address] Specialist Cardiology 04/23/24 documented as of this encounter
--- OUTSIDE RECORDS SUMMARY | 2024-10-19 14:52 | XMS_ITS | Encounter Summary ---
Author Organization [facility] Address [address] [place] [address] Care Team Providers Care Licensing Coordinator Name Role Phone Elisabet Marin MD Primary Care Provider Unavaila Jonatan Carl MD Unavailable [phone] Elbert Florian MD Primary Care Provider [phone] Bharati Mcgowan DNP Unavailable [phone] Helio Ferguson Primary Care Provider Unavailab Radha Davis HOSPITALITY HOUSE SUPERVISOR Unavailable [phone] Kiara Anderson MD Unavailable [phone] Duglas Diaz HOSPITALITY HOUSE SUPERVISOR Unavailable [phone] Encounter Details Date Type Department Care Team Description 10/11/2019 Orders Only Medical Records [address] [place] [address] Willie Hannon MD [address] [place] [address] Social History Tobacco Use Types Packs/Day Years [...] on filedocumented in this encounter Care Teams Licensing Coordinator Relationship Specialty Start Date End Date Elisabet Marin MD PCP - General Internal Medicine 06/27/15 11/27/20 Elbert Florian MD [address] [place] [address] PCP - General Internal Medicine 11/28/20 04/20/22 Helio Ferguson [address] [place] [address] PCP - General Internal Medicine 04/21/22 Jonatan Daniel MD [address] [place] [address] [address] [place] [address] Specialist Cardiovascular Disease 10/17/20 Bharati Mcgowan DNP [address] [place] [address] Specialist Cardiology 01/27/21 Radha Mcclellan NP [address] [place] [address] Cardiology 04/23/24 Kiara Anderson MD [address] [place] [address] Specialist Cardiology 04/23/24 Duglas Diaz NP [address] [place] [address] Specialist Cardiology 04/23/24 documented as of this encounter
--- OUTSIDE RECORDS SUMMARY | 2024-10-19 14:52 | XMS_ITS | Encounter Summary ---
Author Organization [facility] Address [address] [place] [address] Care Team Providers Care Supervisor Mold Cleaning And Storage Name Role Phone Elisabet Marin MD Primary Care Provider Unavaila Jonatan Carl MD Unavailable [phone] Elbert Florian MD Primary Care Provider [phone] Bharati Mcgowan DNP Unavailable [phone] Helio Ferguson Primary Care Provider Unavailab Radha Davis NP Unavailable [phone] Kiara Anderson MD Unavailable [phone] Duglas Diaz CULINARY ASSISTANT Unavailable [phone] Encounter Details Date Type Department Care Team Description 07/02/2016 [facility] Medical Records [address] [place] [address] 35188 Carlos Chow MD Social History Tobacco Use [...] filedocumented in this encounter Care Teams Supervisor Mold Cleaning And Storage Relationship Specialty Start Date End Date Elisabet Marin MD PCP - General Internal Medicine 06/27/15 11/27/20 Elbert Florian MD [address] [place] [address] 03311 PCP - General Internal Medicine 11/28/20 04/20/22 Helio Ferguson [address] [place] [address] 02519 PCP - General Internal Medicine 04/21/22 Jonatan Daniel MD 300 [facility] 154 [place] [address] Specialist Cardiovascular Disease 10/17/20 Bharati Mcgowan DNP [address] [place] [address] 08195 Specialist Cardiology 01/27/21 Radha Mcclellan NP [address] [place] [address] 64562 Cardiology 04/23/24 Kiara Anderson MD [address] [place] [address] 10080 Specialist Cardiology 04/23/24 Duglas Diaz NP [address] [place] [address] 47961 Specialist Cardiology 04/23/24 documented as of this encounter
--- OUTSIDE RECORDS SUMMARY | 2024-10-19 14:52 | XMS_ITS | Encounter Summary ---
Author Organization [facility] Address [address] [place] [address] Care Team Providers Care Store Promoter Name Role Phone Yuan Oneill MD Primary Care Provider Unavail able Elisabet Marin MD Primary Care Provider Unavaila Jonatan Carl MD Unavailable Elbert Florian MD Primary Care Provider [phone] Bharati Mcgowan DNP Unavailable [phone] Helio Ferguson Primary Care Provider Unavailab Radha Davis NP Unavailable [phone] Kiara Anderson MD Unavailable [phone] Duglas Diaz VIDEO RECORDER MECHANIC Unavailable [phone] Encounter Details Date Type Department Care Team Description 03/31/2015 Custom Tailor Report Medical Records [address] [place] [address] 80697 Carlos Chow MD Social History Tobacco Use [...] on filedocumented in this encounter Care Teams Store Promoter Relationship Specialty Start Date End Date Yuan Oneill MD PCP - General Internal Medicine 07/04/14 06/26/15 Elisabet Marin MD PCP - General Internal Medicine 06/27/15 11/27/20 Elbert Florian MD [address] [place] [address] 88918 PCP - General Internal Medicine 11/28/20 04/20/22 Helio Ferguson [address] [place] [address] 28110 PCP - General Internal Medicine 04/21/22 Jonatan Daniel MD [address] [place] [address] 38917 Specialist Cardiovascular Disease 10/17/20 Bharati Mcgowan DNP [address] [place] [address] 19028 Specialist Cardiology 01/27/21 Radha Mcclellan NP [address] [place] [address] 56822 Cardiology 04/23/24 Kiara Anderson MD [address] [place] [address] 25705 Specialist Cardiology 04/23/24 Duglas Diaz NP [address] [place] [address] 94103 Specialist Cardiology 04/23/24 documented as of this encounter
--- OUTSIDE RECORDS SUMMARY | 2024-10-19 14:52 | XMS_ITS | Encounter Summary ---
Author Organization [facility] Address [address] [place] [address] Care Team Providers Care Assistant Professor Of Philosophy Name Role Phone Shabbir Oneill MD Primary Care Provider Unavailab Yuan Solis MD Primary Care Provider Unavail able Elisabet Marin MD Primary Care Provider Unavaila Jonatan Carl MD Unavailable [phone] Elbert Florian MD Primary Care Provider [phone] Bharati Mcgowan DNP Unavailable [phone] Helio Ferguson Primary Care Provider Unavailab Radha Davis AMMUNITION ASSEMBLY I LABORER Unavailable [phone] Kiara Anderson MD Unavailable [phone] Duglas Diaz AMMUNITION ASSEMBLY I LABORER Unavailable [phone] Encounter Details Date Type Department Care Team Description 10/10/2013 Glass Presser Report Medical Records [address] [place] [address] 92886 Carlos Chow MD Social History Tobacco Use [...] filedocumented in this encounter Care Teams Assistant Professor Of Philosophy Relationship Specialty Start Date End Date Shabbir Oneill MD PCP - General Internal Medicine 10/03/12 07/03/14 Yuan Oneill MD PCP - General Internal Medicine 07/04/14 06/26/15 Elisabet Marin MD PCP - General Internal Medicine 06/27/15 11/27/20 Elbert Florian MD [address] [place] [address] 58037 PCP - General Internal Medicine 11/28/20 04/20/22 Helio Ferguson [address] [place] [address] 92279 PCP - General Internal Medicine 04/21/22 Jonatan Daniel MD [address] [place] [address] 26622 Specialist Cardiovascular Disease 10/17/20 Bharati Mcgowan DNP [address] [place] [address] 40194 Specialist Cardiology 01/27/21 Radha Mcclellan NP [address] [place] [address] 28002 Cardiology 04/23/24 Kiara Anderson MD [address] [place] [address] 04562 Specialist Cardiology 04/23/24 Duglas Diaz NP [address] [place] [address] 99697 Specialist Cardiology 04/23/24 documented as of this encounter
--- OUTSIDE RECORDS SUMMARY | 2024-10-19 14:52 | XMS_ITS | Encounter Summary ---
Author Organization [facility] Address [address] [place] [address] Care Team Providers Care Gaggerman Name Role Phone Elisabet Marin MD Primary Care Provider Unavaila Jonatan Carl MD Unavailable Elbert Florian MD Primary Care Provider [phone] Bharati Mcgowan DNP Unavailable [phone] Helio Ferguson Primary Care Provider Unavailab Radha Davis NP Unavailable [phone] Kiara Anderson MD Unavailable Duglas Diaz MATHEMATICS TECHNICIAN Unavailable Encounter Details Date Type Department Care Team Description 02/01/2020 Pt. Non Urgent Medical Question Medicine/Pediatrics - [address] [address] Elisabet Marin MD Social History Tobacco Use [...] as of this encounter Progress Notes * Cookie MelendezP.N. - 02/01/2020 1:40 PM EDTFrom: Colin Garcia To: Elisabet Marin MD Sent: 02/01/2020 1:09 PM EDT Subject: Phone visit Blood tests were not good; was told to schedule a phone visit to talk about my meds. Tuesday thru Tuesday any time at [phone]. Thanks Lamar Garcia 47 documented in this encounter Plan of Treatment Not on file documented as of this encounter Visit Diagnoses Not on filedocumented in this encounter Care Teams Gaggerman Relationship Specialty Start Date End Date Elisabet Marin MD PCP - General Internal Medicine 06/27/15 11/27/20 Elbert Florian MD [address] [place] [address] 11814 PCP - General Internal Medicine 11/28/20 04/20/22 Helio Ferguson [address] [place] [address] 28197 PCP - General Internal Medicine 04/21/22 Jonatan Daniel MD [address] [place] [address] 63100 Specialist Cardiovascular Disease 10/17/20 Bharati Mcgowan DNP [address] [place] [address] 77007 Specialist Cardiology 01/27/21 Radha Mcclellan NP [address] [place] [address] 84349 Cardiology 04/23/24 Kiara Anderson MD [address] [place] [address] 70296 Specialist Cardiology 04/23/24 Duglas Diaz NP [address] [place] [address] 92648 Specialist Cardiology 04/23/24 documented as of this encounter
--- OUTSIDE RECORDS SUMMARY | 2024-10-19 14:52 | XMS_ITS | Encounter Summary ---
Author Organization [facility] Address [address] [place] [address] Care Team Providers Care Iron Plastic Bullet Maker Name Role Phone Elisabet Marin MD Primary Care Provider Unavaila Jonatan Carl MD Unavailable [phone] Elbert Florian MD Primary Care Provider [phone] Bharati Mcgowan DNP Unavailable [phone] Helio Ferguson Primary Care Provider Unavailab Radha Davis NP Unavailable [phone] Kiara Anderson MD Unavailable [phone] Duglas Diaz AUTOMOTIVE WELDER Unavailable [phone] Encounter Details Date Type Department Care Team Description 01/13/2017 Claim Administrator Report Medical Records [address] [place] [address] 68047 Abstract, Provider Social History Tobacco Use Types [...] on filedocumented in this encounter Care Teams Iron Plastic Bullet Maker Relationship Specialty Start Date End Date Elisabet Marin MD PCP - General Internal Medicine 06/27/15 11/27/20 Elbert Florian MD [address] [place] [address] 06369 PCP - General Internal Medicine 11/28/20 04/20/22 Helio Ferguson [address] [place] [address] 26026 PCP - General Internal Medicine 04/21/22 Jonatan Daniel MD 300 [facility] 154 [place] [address] Specialist Cardiovascular Disease 10/17/20 Bharati Mcgowan DNP [address] [place] [address] 96012 Specialist Cardiology 01/27/21 Radha Mcclellan NP [address] [place] [address] 25344 Cardiology 04/23/24 Kiara Anderson MD [address] [place] [address] 54832 Specialist Cardiology 04/23/24 Duglas Diaz NP [address] [place] [address] 72844 Specialist Cardiology 04/23/24 documented as of this encounter
--- OUTSIDE RECORDS SUMMARY | 2024-10-19 14:52 | XMS_ITS | Encounter Summary ---
Author Organization [facility] Address [address] [place] [address] Care Team Providers Care Advertising Assistant Name Role Phone Elisabet Marin MD Primary Care Provider Unavaila Jonatan Carl MD Unavailable [phone] Elbert Florian MD Primary Care Provider [phone] Bharati Mcgowan DNP Unavailable [phone] Helio Ferguson Primary Care Provider Unavailab Radha Davis NP Unavailable [phone] Kiara Anderson MD Unavailable [phone] Duglas Diaz MOLD LAMINATOR Unavailable [phone] Encounter Details Date Type Department Care Team Description 07/26/2016 Pt. Non Urgent Medical Question Medicine/Pediatrics - [address] [address] Elisabet Marin MD Social History Tobacco Use [...] on filedocumented in this encounter Care Teams Advertising Assistant Relationship Specialty Start Date End Date Elisabet Marin MD PCP - General Internal Medicine 06/27/15 11/27/20 Elbert Florian MD [address] [place] [address] 50155 PCP - General Internal Medicine 11/28/20 04/20/22 Helio Ferguson [address] [place] [address] 31508 PCP - General Internal Medicine 04/21/22 Jonatan Daniel MD 300 [facility] 154 [place] [address] Specialist Cardiovascular Disease 10/17/20 Bharati Mcgowan DNP [address] [place] [address] 06443 Specialist Cardiology 01/27/21 Radha Mcclellan NP [address] [place] [address] 00119 Cardiology 04/23/24 Kiara Anderson MD [address] [place] [address] 41981 Specialist Cardiology 04/23/24 Duglas Diaz NP [address] [place] [address] 61458 Specialist Cardiology 04/23/24 documented as of this encounter
--- OUTSIDE RECORDS SUMMARY | 2024-10-19 14:52 | XMS_ITS | Encounter Summary ---
Author Organization [facility] Address [address] [place] [address] Care Team Providers Care Navigation Officer Name Role Phone Yuan Oneill MD Primary Care Provider Unavail able Elisabet Marin MD Primary Care Provider Unavaila Jonatan Carl MD Unavailable [phone] Elbert Florian MD Primary Care Provider [phone] Bharati Mcgowan DNP Unavailable [phone] Helio Ferguson Primary Care Provider Unavailab Radha Davis NP Unavailable [phone] Kiara Anderson MD Unavailable Duglas Diaz ORDER PACKER OR PACKAGER Unavailable [phone] Encounter Details Date Type Department Care Team Description 03/19/2015 Pt. Non Urgent Medic al Question Medicine/Pediatrics - [address] [address] Yuan Oneill MD Social History Tobacco Use Types [...] as of this encounter Progress Notes * Emily Ward Rn - 03/19/2015 11:21 AM EDTFrom: Colin Garcia To: Yuan Oneill MD Sent: 03/19/2015 10:54 AM EDT Subject: request denied Why was my med request denied? documented in this encounter Plan of Treatment Not on file documented as of this encounter Visit Diagnoses Not on filedocumented in this encounter Care Teams Navigation Officer Relationship Specialty Start Date End Date Yuan Oneill MD PCP - General Internal Medicine 07/04/14 06/26/15 Elisabet Marin MD PCP - General Internal Medicine 06/27/15 11/27/20 Elbert Florina MD [address] [place] [address] 22512 PCP - General Internal Medicine 11/28/20 04/20/22 Helio Ferguson [address] [place] [address] 30001 PCP - General Internal Medicine 04/21/22 Jonatan Danile MD 300 [facility] 154 [place] [address] Specialist Cardiovascular Disease 10/17/20 Bharati Mcgowan DNP [address] [place] [address] 16098 Specialist Cardiology 01/27/21 Radha Mcclellan NP [address] [place] [address] 00172 Cardiology 04/23/24 Kiara Anderson MD [address] [place] [address] 45599 Specialist Cardiology 04/23/24 Duglas Diaz NP [address] [place] [address] 17295 Specialist Cardiology 04/23/24 documented as of this encounter
--- OUTSIDE RECORDS SUMMARY | 2024-10-19 14:52 | XMS_ITS | Encounter Summary ---
Author Organization [facility] Address [address] [place] [address] Care Team Providers Care Fabrication Lead Name Role Phone Shabbir Oneill MD Primary Care Provider Unavailab Yuan Solsi MD Primary Care Provider Unavail able Elisabet Marin MD Primary Care Provider Unavaila Jonatan Carl MD Unavailable [phone] Elbert Florian MD Primary Care Provider [phone] Bharati Mcgowan DNP Unavailable [phone] Helio Ferguson Primary Care Provider Unavailab Radha Davis FURNACE UNLOADER Unavailable [phone] Kiara Anderson MD Unavailable [phone] Duglas Diaz FURNACE UNLOADER Unavailable [phone] Encounter Details Date Type Department Care Team Description 04/05/2013 Business Doc Medical Records [address] [place] [address] 49171 Abstract, Provider Social History Tobacco Use Types [...] on filedocumented in this encounter Care Teams Fabrication Lead Relationship Specialty Start Date End Date Shabbir Oneill MD PCP - General Internal Medicine 10/03/12 07/03/14 Yuan Oneill MD PCP - General Internal Medicine 07/04/14 06/26/15 Elisabet Marin MD PCP - General Internal Medicine 06/27/15 11/27/20 Elbert Florian MD [address] [place] [address] 84099 PCP - General Internal Medicine 11/28/20 04/20/22 Helio Ferguson [address] [place] [address] 95195 PCP - General Internal Medicine 04/21/22 Jonatan Daniel MD [address] [address] Specialist Cardiovascular Disease 10/17/20 Bharati Mcgowan DNP [address] [place] [address] 90315 Specialist Cardiology 01/27/21 Radha Mcclellan NP [address] [place] [address] 78587 Cardiology 04/23/24 Kiara Anderson MD [address] [place] [address] 52059 Specialist Cardiology 04/23/24 Duglas Diaz NP [address] [place] [address] 31852 Specialist Cardiology 04/23/24 documented as of this encounter
--- OUTSIDE RECORDS SUMMARY | 2024-10-19 14:52 | XMS_ITS | Encounter Summary ---
Author Organization [facility] Address [address] [place] [address] Care Team Providers Care Linseed Oil Refiner Name Role Phone Yuan Oneill MD Primary Care Provider Unavail able Elisabet Marin MD Primary Care Provider Unavaila Jonatan Carl MD Unavailable [phone] Elbert Florian MD Primary Care Provider [phone] Bharati Mcgowan DNP Unavailable [phone] Helio Fergusno Primary Care Provider Unavailab Radha Davis NP Unavailable [phone] Kiara Anderson MD Unavailable [phone] Duglas Diaz NP Unavailable [phone] Encounter Details Date Type Department Care Team Description 01/21/2015 Retail Shift Leader Report Medical Records [address] [place] [address] 44752 Socrates Vaughn Social History Tobacco Use Types [...] on filedocumented in this encounter Care Teams Linseed Oil Refiner Relationship Specialty Start Date End Date Yuan Oneill MD PCP - General Internal Medicine 07/04/14 06/26/15 Elisabet Marin MD PCP - General Internal Medicine 06/27/15 11/27/20 Elbert Florian MD [address] [place] [address] 41276 PCP - General Internal Medicine 11/28/20 04/20/22 Helio Ferguson [address] [place] [address] 05690 PCP - General Internal Medicine 04/21/22 Jonatan Daniel MD [address] [place] [address] 89293 Specialist Cardiovascular Disease 10/17/20 Bharati Mcgowan DNP [address] [place] [address] 29896 Specialist Cardiology 01/27/21 Radha Mcclellan NP [address] [place] [address] 90041 Cardiology 04/23/24 Kiara Anderson MD [address] [place] [address] 15323 Specialist Cardiology 04/23/24 Duglas Diaz NP [address] [place] [address] 93959 Specialist Cardiology 04/23/24 documented as of this encounter
--- OUTSIDE RECORDS SUMMARY | 2024-10-19 14:52 | XMS_ITS | Encounter Summary ---
Author Organization [facility] Address [address] [place] [address] Care Team Providers Care Tunnel Heading Inspector Name Role Phone Jonatan Daniel MD Unavailable [phone] Bharati Mcgowan DNP Unavailable [phone] Helio Ferguson Primary Care Provider Unavailab Radha Davis NP Unavailable Kiara Anderson MD Unavailable [phone] Duglas Diaz NP Unavailable [phone] Encounter Details Date Type Department Care Team Description 08/24/2022 Pt. Non Urgent Medical Question Cardio PVC POC 154 300 [facility] 154 [place], [place] [id number] Jonatan Daniel MD 300 [facility] 154 [place], [place] 1666504 Social History Tobacco Use Types Packs/Day Years [...] on filedocumented in this encounter Care Teams Tunnel Heading Inspector Relationship Specialty Start Date End Date Helio Ferguson [address] [address] PCP - General Internal Medicine 04/21/22 Jonatan Daniel MD [address] [address] Specialist Cardiovascular Disease 10/17/20 Bharati Mcgowan DNP [address] [address] Specialist Cardiology 01/27/21 Radha Mcclellan NP [address] [address] Cardiology 04/23/24 Kiara Anderson MD [address] [facility] 154 [place] [address] Specialist Cardiology 04/23/24 Duglas Diaz NP [address] [address] Specialist Cardiology 04/23/24 documented as of this encounter
--- OUTSIDE RECORDS SUMMARY | 2024-10-19 14:52 | XMS_ITS | Encounter Summary ---
Author Organization [facility] Address [address] [place] [address] Care Team Providers Care Water Resource Engineer Name Role Phone Elisabet Marin MD Primary Care Provider Unavaila Jonatan Carl MD Unavailable [phone] Elbert Florian MD Primary Care Provider [phone] Bharati Mcgowan DNP Unavailable [phone] Helio Ferguson Primary Care Provider Unavailab Radha Davis FIELD ARTILLERY FIRE CONTROL MAN Unavailable [phone] Kiara Anderson MD Unavailable [phone] Duglas Diaz FIELD ARTILLERY FIRE CONTROL MAN Unavailable Encounter Details Date Type Department Care Team Description 10/19/2019 Quality Lab Technician Report Medical Records [address] [place] [address] 37925 Rosy Pacheco, ALESIAC Social History Tobacco Use [...] on filedocumented in this encounter Care Teams Water Resource Engineer Relationship Specialty Start Date End Date Elisabet Marin MD PCP - General Internal Medicine 06/27/15 11/27/20 Elbert Florian MD [address] [place] [address] 60051 PCP - General Internal Medicine 11/28/20 04/20/22 Helio Ferguson [address] [place] [address] 87513 PCP - General Internal Medicine 04/21/22 Jonatan Daniel MD 300 [facility] 154 [place] [address] Specialist Cardiovascular Disease 10/17/20 Bharati Mcgowan DNP [address] [place] [address] 67747 Specialist Cardiology 01/27/21 Radha Mcclellan NP [address] [place] [address] 42459 Cardiology 04/23/24 Kiara Anderson MD [address] [place] [address] 45619 Specialist Cardiology 04/23/24 Duglas Diaz NP [address] [place] [address] 47854 Specialist Cardiology 04/23/24 documented as of this encounter
--- OUTSIDE RECORDS SUMMARY | 2024-10-19 14:52 | XMS_ITS | Encounter Summary ---
Author Organization [facility] Address [address] [place] [address] Care Team Providers Care Petroleum Refining Firer Name Role Phone Elisabet Marin MD Primary Care Provider Unavaila Jonatan Carl MD Unavailable [phone] Elbert Florian MD Primary Care Provider [phone] Bharati Mcgowan DNP Unavailable [phone] Helio Ferguson Primary Care Provider Unavailab Radha Davis NP Unavailable [phone] Kiara Anderson MD Unavailable [phone] Duglas Diaz FOUNDRY ENGINEER Unavailable [phone] Encounter Details Date Type Department Care Team Description 05/19/2020 Facing Slitter Report Medical Records [address] [place] [address] 39513 Harvinder Bey, PA-C Social History Tobacco Use [...] on filedocumented in this encounter Care Teams Petroleum Refining Firer Relationship Specialty Start Date End Date Elisabet Marin MD PCP - General Internal Medicine 06/27/15 11/27/20 Elbert Florian MD [address] [place] [address] 96163 PCP - General Internal Medicine 11/28/20 04/20/22 Helio Ferguson [address] [place] [address] 79300 PCP - General Internal Medicine 04/21/22 Jonatan Daniel MD 300 [facility] 154 [place] [address] Specialist Cardiovascular Disease 10/17/20 Bharati Mcgowan DNP [address] [place] [address] 47408 Specialist Cardiology 01/27/21 Radha Mcclellan NP [address] [place] [address] 35817 Cardiology 04/23/24 Kiara Anderson MD [address] [place] [address] 47313 Specialist Cardiology 04/23/24 Duglas Diaz NP [address] [place] [address] 75078 Specialist Cardiology 04/23/24 documented as of this encounter
--- OUTSIDE RECORDS SUMMARY | 2024-10-19 14:52 | XMS_ITS | Encounter Summary ---
Author Organization [facility] Address [address] [place] [address] Care Team Providers Care Hoop Driving Machine Operator Name Role Phone Shabbir Oneill MD Primary Care Provider Unavailab Yuan Solis MD Primary Care Provider Unavail able Elisabet Mairn MD Primary Care Provider Unavaila Jonatan Carl MD Unavailable [phone] Elbert Florian MD Primary Care Provider [phone] Bharati Mcgowan DNP Unavailable [phone] Helio Ferguson Primary Care Provider Unavailab Radha Davis WEATHERIZATION SPECIALIST Unavailable Kiara Anderson MD Unavailable [phone] Duglas Diaz WEATHERIZATION SPECIALIST Unavailable [phone] Encounter Details Date Type Department Care Team Description 06/02/2014 Electronics Lead Report Medical Records [address] [place] [address] 12448 Carlos Chow MD Social History Tobacco Use [...] on filedocumented in this encounter Care Teams Hoop Driving Machine Operator Relationship Specialty Start Date End Date Shabbir Oneill MD PCP - General Internal Medicine 10/03/12 07/03/14 Yuan Oneill MD PCP - General Internal Medicine 07/04/14 06/26/15 Elisabet Marin MD PCP - General Internal Medicine 06/27/15 11/27/20 Elbert Florian MD [address] [place] [address] 62891 PCP - General Internal Medicine 11/28/20 04/20/22 Helio Ferguson [address] [place] [address] 53280 PCP - General Internal Medicine 04/21/22 Jonatan Daniel MD [address] [place] [address] 27671 Specialist Cardiovascular Disease 10/17/20 Bharati Mcgowan DNP [address] [place] [address] 64177 Specialist Cardiology 01/27/21 Radha Mcclellan NP [address] [place] [address] 02496 Cardiology 04/23/24 Kiara Anderson MD [address] [place] [address] 19130 Specialist Cardiology 04/23/24 Duglas Diaz NP [address] [place] [address] 41164 Specialist Cardiology 04/23/24 documented as of this encounter
--- OUTSIDE RECORDS SUMMARY | 2024-10-19 14:52 | XMS_ITS | Encounter Summary ---
Author Organization [facility] Address [address] [place] [address] Care Team Providers Care Manager Bilingual Name Role Phone Jonatan Daniel MD Unavailable [phone] Elbert Florian MD Primary Care Provider Bharati Mcgowan DNP Unavailable [phone] Helio Ferguson Primary Care Provider Unavailab Radha Davis NP Unavailable [phone] Kiara Anderson MD Unavailable [phone] Duglas Diaz MOTION PICTURE EQUIPMENT MACHINIST Unavailable [phone] Reason for Visit * Reason Comments E-prescribe Rx Request Encounter Details Date Type Department Care Team Description 01/25/2022 Refill Adult Medicine [address] [id number] Elbert Florian MD [address] [place] [address] [phone] E-prescribe Rx Request Social History Tobacco Use [...] on filedocumented in this encounter Care Teams Manager Bilingual Relationship Specialty Start Date End Date Elbert Florian MD [address] [place] [address] 58447 PCP - General Internal Medicine 11/28/20 04/20/22 Helio Ferguson [address] [place] [address] 17291 PCP - General Internal Medicine 04/21/22 Jonatan Daniel MD [address] [place] [address] 24836 Specialist Cardiovascular Disease 10/17/20 Bharati Mcgowan DNP [address] [place] [address] 84512 Specialist Cardiology 01/27/21 Radha Mcclellan NP [address] [place] [address] 72557 Cardiology 04/23/24 Kiara Anderson MD [address] [place] [address] 59779 Specialist Cardiology 04/23/24 Duglas Diaz NP [address] [place] [address] 58205 Specialist Cardiology 04/23/24 documented as of this encounter
--- OUTSIDE RECORDS SUMMARY | 2024-10-19 14:52 | XMS_ITS | Encounter Summary ---
Author Organization [facility] Address [address] [place] [address] Care Team Providers Care Glue Size Machine Operator Name Role Phone Elisabet Marin MD Primary Care Provider Unavaila Jonatan Carl MD Unavailable [phone] Elbert Florian MD Primary Care Provider [phone] Bharati Mcgowan DNP Unavailable [phone] Helio Ferguson Primary Care Provider Unavailab Radha Davis NP Unavailable [phone] Kiara Anderson MD Unavailable [phone] Duglas Diaz CHIEF CLINICAL DIETITIAN Unavailable [phone] Encounter Details Date Type Department Care Team Description 04/24/2020 Radiation Protection Technician Report Medical Records [address] [place] [address] Harry Lau MD Social History Tobacco Use [...] on filedocumented in this encounter Care Teams Glue Size Machine Operator Relationship Specialty Start Date End Date Elisabet Marin MD PCP - General Internal Medicine 06/27/15 11/27/20 Elbert Florian MD [address] [place] [address] 11004 PCP - General Internal Medicine 11/28/20 04/20/22 Helio Ferguson [address] [place] [address] 42375 PCP - General Internal Medicine 04/21/22 Jonatan Daniel MD [address] [facility] [address] [place] [address] Specialist Cardiovascular Disease 10/17/20 Bharati Mcgowan DNP [address] [place] [address] 46357 Specialist Cardiology 01/27/21 Radha Mcclellan NP [address] [place] [address] 61119 Cardiology 04/23/24 Kiara Anderson MD [address] [place] [address] 85831 Specialist Cardiology 04/23/24 Duglas Diaz NP [address] [place] [address] 26716 Specialist Cardiology 04/23/24 documented as of this encounter
--- OUTSIDE RECORDS SUMMARY | 2024-10-19 14:52 | XMS_ITS | Encounter Summary ---
Author Organization [facility] Address [address] [place] [address] Care Team Providers Care Enterprise Engineer Name Role Phone Elisabet Marin MD Primary Care Provider Unavaila Jonatan Carl MD Unavailable [phone] Elbert Florian MD Primary Care Provider [phone] Bharati Mcgowan DNP Unavailable [phone] Helio Ferguson Primary Care Provider Unavailab Radha Davis TANK TESTER Unavailable [phone] Kiara Anderson MD Unavailable [phone] Duglas Diaz TANK TESTER Unavailable [phone] Encounter Details Date Type Department Care Team Description 09/08/2016 Communications Advisor Report Medical Records [address] [place] [address] Rosy Pacheco, PAAlinaC Social History Tobacco Use [...] on filedocumented in this encounter Care Teams Enterprise Engineer Relationship Specialty Start Date End Date Elisabet Marin MD PCP - General Internal Medicine 06/27/15 11/27/20 Elbert Florian MD [address] [place] [address] 01009 PCP - General Internal Medicine 11/28/20 04/20/22 Helio Ferguson [address] [place] [address] 12212 PCP - General Internal Medicine 04/21/22 Jonatan Daniel MD 300 [facility] [address] [place] [address] Specialist Cardiovascular Disease 10/17/20 Bharati Mcgowan DNP [address] [place] [address] 62992 Specialist Cardiology 01/27/21 Radha Mcclellan NP [address] [place] [address] 52117 Cardiology 04/23/24 Kiara Anderson MD [address] [place] [address] 39489 Specialist Cardiology 04/23/24 Duglas Diaz NP [address] [place] [address] 65738 Specialist Cardiology 04/23/24 documented as of this encounter
--- OUTSIDE RECORDS SUMMARY | 2024-10-19 14:52 | XMS_ITS | Clinical Summary ---
Author Organization 299 [facility] Address [address] [place] [address] Phone Care Team Providers Care Roll Capper Name Role Phone Unavailable Primary Care Provider Unavailabl e Encounters Date Type Department Care Team Description 10/19/2024 Telephone [facility] 154 300 [facility] [address] [place] [phone] Jonatan Daniel MD scheduling recall 10/09/2024 Telephone Lung Screening Program - [address] [place] [phone] Britney Maynard [place] Appointment (1st notification) 09/24/2024 Lab Requisition [facility] - Main Lab [address] [facility] [place] [phone] Harry Lau MD Personal history of malignant neoplasm of bladder 08/23/2024 Telephone [facility] [address] [place] [address] Dr [address] [place] [phone] Helio Ferguson PA Medical Records from Last 3 Months Surgical History Surgery Date Site/Laterality Comments OTHER SURGICAL HISTORY 2003 TO PRESENT PROCEDURE: CO CYSTOTOMY EXCISION BLADDER TUMOR; COMMENT: NUMEROUS OTHER SURGICAL HISTORY 08/29/1963 PROCEDURE: CO EXCISION MAL LESION TRUNK/ARM/LEG 0.6-1.0 CM OTHER SURGICAL HISTORY 08/29/2006 PROCEDURE: STENT,CORONARY, S660 ; COMMENT: x2 CATARACT EXTRACTION 08/29/2015 Bilateral PROCEDURE: HISTORICAL CATARACT REMOVAL HAND SURGERY 08/15/2019 Right PROCEDURE: HISTORICAL HAND SURGERY; COMMENT: Long Finger Trigger/A1 Ruby Release, Dr. Morrison Medical History Medical History Date Comments Bladder cancer ([facility]/HCC) DX:Blad marco cancer (HCC) Carcinoma ([facility]/HCC) DX:Carcinoma (HCC); COMMENT: left arm Heart disease DX:Heart disease DM (diabetes mellitus) ([facility]/HCC) DX:DM (diabetes mellitus) (HCC) Depression with anxiety DX:Depre ssion with anxiety Hyperlipidemia DX:Hyperlipidemi a Bladder cancer ([facility]/HCC) DX:Blad marco cancer (HCC); COMMENT: Dr. Greco Chronic diastolic CHF (conge stive heart failure) ([facility]) 09/19/2015 DX:Chronic diastolic CHF (congestive heart failure) (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) 12/31/2016 DX:DM (diabetes mellitus), t ype 2 with peripheral vascular complications (HCC) Type 2 diabetes mellitus wit h cataract ([facility]) 12/31/2016 DX:Type 2 diabetes mellitus with cataract ([facility]) SCC (squamous cell carcinoma) 01/20/2017 [...] Info) Description 10/25/2024 9:45 AM EST Appointment [facility] CT Scan [address] [place] [address] Health Maintenance Due Date Last [...] AM EST) Final Diagnosis A. Urine, Voided, ([id number]): FEW ATYPICAL UROTHELIAL CELLS. Results of UroVysion fluorescence in situ hybridization (FISH) testing: CEP3: Normal CEP7: Normal CEP17: Normal LSI 9p21: Normal Interpretation: Normal profile Controls stained appropriately. Note: The results are intended as a screening device and should be interpreted in association with other clinical and pathological findings. 10/04/2024 6:00 PM EST [facility] Clinical Information History of bladder neoplasm (malignant) Z85.51 Urine Cytology/FISH (now) 10/04/2024 6:00 PM [facility] Gross Description A. Urine, Voided, ([id number]): Received one ThinPrep slide for cytology screen and one ThinPrep slide for UroVysion FISH 10/04/2024 6:00 PM [facility] Disclaimer Unless otherwise specified, all tissue is 10% NB formalin fixed and paraffin embedded. Technical pathology services provided by [facility] at [address], [place] [address] (CLIA #[id number]/Ankita Howell MD, Ground Support Agent) 10/04/2024 6:00 PM EST [email or web address] Tissue Urine specimen from urethra / Unknown 09/18/2024 09/24/2024 10:12 AM EST us Harry Lau MD LAB PATHOLOGY ORDERABLES Final Result [email or web address] [address] [place] [address], * CT LUNG SCREENING LOW DOSE (10/24/2023 1:15 PM EST) Anatomical Region Laterality Modality Computed Tomogra phy 10/23/2023 8:51 AM EST Narrative 10/24/2023 1:15 PM EST Diagnostic Imaging Department [address] [place] [address] Patient: ??JESS GARCIA ?/Age/Sex: 1945 - 78 - M Unit#: ??[id number] ? Location/Status: ??SPDICATLS/REG CLI ? Mnemonic/Ordering Site: [...] Procedure Note Jonatan Coughlin MD - 04/16/2024 Diagnostic Imaging Department [address] [place] [address] Patient: JESS GARCIA /Age/Sex: 1945 - 78 - M Unit#: [id number] Location/Status: SPDICATLS/REG CLI Mnemonic/Ordering Site: [facility] Ordering Physician: IVON HOOVER MD CT Lung [...] Sign date/Time: 10/24/23 1315 Ivon Hoover MD [facility] PROCEDURES Final Result from Last 3 Months or Most Recently Relevant to Health Maintenance Insurance [employer] [facility]
--- OUTSIDE RECORDS SUMMARY | 2024-10-19 14:52 | XMS_ITS | Encounter Summary ---
Author Organization [facility] Address [address] [place] [address] Care Team Providers Care Concrete Block Maker Name Role Phone Shabbir Oneill MD Primary Care Provider Unavailab Yuan Solis MD Primary Care Provider Unavail able Elisabet Marin MD Primary Care Provider Unavaila Jonatan Carl MD Unavailable [phone] Elbert Florian MD Primary Care Provider [phone] Bharati Mcgowan DNP Unavailable [phone] Helio Ferguson Primary Care Provider Unavailab Radha Davis STUDENT LIFE ADVISOR Unavailable [phone] Kiara Anderson MD Unavailable [phone] Duglas Diaz STUDENT LIFE ADVISOR Unavailable [phone] Encounter Details Date Type Department Care Team Description 02/06/2014 Orders Only Medicine/Pediatrics - [address] [phone] Shabbir Oneill MD Social History Tobacco Use [...] on filedocumented in this encounter Care Teams Concrete Block Maker Relationship Specialty Start Date End Date Shabbir Oneill MD PCP - General Internal Medicine 10/03/12 07/03/14 Yuan Oneill MD PCP - General Internal Medicine 07/04/14 06/26/15 Elisabet Marin MD PCP - General Internal Medicine 06/27/15 11/27/20 Elbert Florian MD [address] [place] [address] 24623 PCP - General Internal Medicine 11/28/20 04/20/22 Helio Ferguson [address] [place] [address] 31362 PCP - General Internal Medicine 04/21/22 Jonatan Daniel MD [address] [place] [address] 40252 Specialist Cardiovascular Disease 10/17/20 Bharati Mcgowan DNP [address] [place] [address] 10408 Specialist Cardiology 01/27/21 Radha Mcclellan NP [address] [place] [address] 49563 Cardiology 04/23/24 Kiara Anderson MD [address] [place] [address] 07918 Specialist Cardiology 04/23/24 Duglas Diaz NP [address] [place] [address] 88088 Specialist Cardiology 04/23/24 documented as of this encounter
[2024-10-19 16:15] LABS: Prothrombin Time 11.2 SEC (10.9-12.4)
== END 2024-10-19 13:50 | disposition home or self-care (01) ==
LOC: HO.LAB 13:49
PROVIDERS: PCP Physician Assistant; Visit Provider Internal Medicine
DX: I25.10 Atherosclerotic heart disease of native coronary artery without angina pectoris (principal); I73.9 Peripheral vascular disease, unspecified; E11.8 Type 2 diabetes mellitus with unspecified complications; C88.00 Waldenstrom macroglobulinemia not having achieved remission
CPT/HCPCS: 36415; 85610; 99212

== ENCOUNTER → 2024-11-08 23:59 | Outpatient (BNV) | payer MEDICARE, SELFPAY | PROVIDERS: PCP Physician Assistant; Visit Provider Internal Medicine Cardiovascular Disease | DX: R93.1 Abnormal findings on diagnostic imaging of heart and coronary circulation (principal) | CPT/HCPCS: 92928; 93458; 99152 ==

== ENCOUNTER 2024-11-26 15:01 | Outpatient (AMB) | payer MEDICARE, SELFPAY ==
[2024-11-26 15:13] VITALS: BP 130/62; PULSE 57; BMI 26.3
--- NOTE | 2024-11-26 15:13 | MHC.OFFVIS ---
Vital Signs 11/26/24 15:13 Height 6 ft Weight 194 lb 0.108 oz BMI 26.3 BP 130/62 Blood Pressure Location Rt brachial Position Sitting Pulse 57 Pulse Source Pulse Oximeter Intake Visit Reasons: follow up s/p Cath Veneer Matcher Required: No Allergies Sulfa (Sulfonamide Antibiotics) [SULFA (SULFONAMIDE ANTIBIOTICS)] Allergy (Severe, Verified 11/26/24 15:15) SKIN SLOUGHING, genital rash Medication List - Last Reconciled 11/26/24 by Ricky Sharma MD aspirin 81 mg PO DAILY atorvastatin 40 mg PO BEDTIME 90 days blood sugar diagnostic (OneTouch Ultra Test strips) As directed blood sugar diagnostic (OneTouch Ultra Test strips) As directed clopidogrel 75 mg PO DAILY 90 days gabapentin 300 mg PO BEDTIME 90 days glipizide ER 10 mg PO DAILY 90 days isosorbide mononitrate ER 30 mg PO DAILY lancets (Cashback ChintaiTouch UltraSoft Lancets) As directed loperamide (Imodium A-D) 2 mg PO Q6H PRN metformin 500 mg PO QID 90 days metoprolol tartrate 25 mg PO BID 30 days ondansetron 4 mg PO Q6H PRN sertraline 50 mg PO DAILY zanubrutinib (Brukinsa) 160 mg (2 x 80 mg) PO BID HPI Comments Details: Colin returns for follow-up. Recently seen in consultation regarding coronary and vascular disease. Former patient of [facility] Cardiology. With regard to coronary disease, history of LAD stent from 2005. He also has lower extremity vascular disease. His main issue is rather claudication pain, more so on the right lower extremity. Within limits of his activity, he denies any clear-cut anginal-type symptoms. He has noninvasive cardiac workup was abnormal leading to diagnostic catheterization. Underwent RCA stenting. From cardiac, denies any angina or other concerning symptoms. [facility] Medical History Hemorrhoids without complication Diverticulosis Bladder cancer Thoracic aortic aneurysm CAD (coronary artery disease) PAD (peripheral artery disease) Tubular adenoma Sleep apnea Hyperlipemia HTN, goal to be determined Type II diabetes mellitus Surgical History Trigger finger of left hand (~03/2024) Hx of transurethral resection of prostate Hx of colonoscopy (11/01/23) History of coronary artery stent placement History of squamous cell carcinoma excision History of surgery on arm Family History Mother Pancreatic cancer Social History Household Members: Spouse Housing: House Alcohol intake: current Alcohol intake frequency: holidays/special occasions only Patient Tobacco Use Status: Former Tobacco user Tobacco use type: Cigarette e-Cigarette/Vaping Use: Former Use Second Hand Smoke Exposure: Yes service: No 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) Cognitive needs: No Hearing needs: No Vision needs: Yes (glasses) Review of Systems ENT Reports dizziness Card Denies chest pain, Denies chest pain at rest, Denies chest pain with activity, Denies rapid heart rate, Denies pedal edema, Denies edema, Denies leg edema, Denies lightheadedness, Denies palpitations, Denies dyspnea, Denies dyspnea on exertion and Denies orthopnea Resp Denies cough, Denies dyspnea and Denies dyspnea on exertion GI Denies hematochezia and Denies change in stool character Musc Denies abnormal gait, Reports limited range of motion, Reports muscle cramps, Denies muscle weakness, Denies numbness, Denies radiating pain into limb, Denies stiffness and Denies tingling Neuro Denies abnormal gait, Reports dizziness, Denies numbness and Denies tingling Endo Denies palpitations Physical Exam Vital Signs: Last Vital Signs Pulse 57 11/26/24 15:13 BP 130/62 11/26/24 15:13 BMI result Body Mass Index 26.3 Const General: comfortable and no acute distress Orientation/consciousness: patient oriented x3 HEENT Other: Unremarkable Head: Yes normal to inspection Neck Neck: Yes normal visual inspection Chest Chest palpation & inspection: normal inspection of the chest Resp Auscultation: clear to auscultation bilaterally Cardio Palpation: normal PMI Heart sounds: S1 normal heart sound present, S2 normal heart sound present, no gallops, no murmurs and no rubs GI Palpation (GI): Soft to palpation Back/Spine/Pelvis Other: unremarkable Skin General skin exam: no rashes or lesions noted Neuro General: patient oriented x3 Extrem General: Yes normal to inspection Psych Mental Status: mental status grossly normal Assessment & Plan Assessment & Plan (1) Atherosclerotic cardiovascular disease: Code(s): I25.10 - Atherosclerotic heart disease of minto coronary artery without angina pectoris Category: Medical Plan: Cardiac studies reviewed. In the echocardiogram, LVEF 55-60%, inferior and inferoseptal wall motion abnormality. In the perfusion imaging, large area of ischemia in the RCA/circumflex distribution. In the diagnostic catheterization from 10/2024, distal RCA with severe stenosis involving bifurcation between PLV/PDA. Status post MARY CARMEN. Patent mid LAD stent with collaterals from LAD to PDA. Severe OM2 stenosis, small to moderate-sized territory. LVEDP increased at 25 mm Hg. Clinically, no angina. Continue aspirin/Plavix. Also on long-acting nitrates, statins. Last LDL 70 mg/dL. Triglycerides 56 mg/dL. (2) PAD (peripheral artery disease): Code(s): I73.9 - Peripheral vascular disease, unspecified Category: Medical Plan: Per documentation, arterial duplex from 2021 had shown severe stenosis of the right SFA. In the CTA, peripheral vascular disease in both lower extremities with multiple areas of flow-limiting stenosis. Follow-up with vascular surgery. Per patient, no surgery is planned at this time. (3) Type 2 diabetes mellitus with unspecified complications: Code(s): E11.8 - Type 2 diabetes mellitus with unspecified complications Category: Medical Plan: On glipizide, metformin. Hemoglobin A1c is 6.1%. Seems controlled. (4) Waldenstrom's macroglobulinemia: Code(s): C88.0 - Waldenstrom macroglobulinemia Category: Medical Plan: Followed by hematology. On Zanbrutinib. Coding Level of Care Code Est Pt Level 4 (74404) Complex EM visit Add On G2211 Diagnoses Atherosclerotic cardiovascular disease I25.10 PAD (peripheral artery disease) I73.9 Type 2 diabetes mellitus with unspecified complications E11.8 Waldenstrom's macroglobulinemia C88.0
--- OUTSIDE RECORDS SUMMARY | 2024-11-26 16:57 | XMS_ITS | Encounter Summary ---
Author Organization [place] [address] Care Team Providers Care Direct Marketing Intern Name Role Phone Physician, Pcp Unknown Primary Care Provider Kika vailable Encounter Details Date Type Department Care Team (Late st Contact Info) Description 09/24/[address] [facility] - Main Lab [address] [facility] [place] [address] Harry Lau MD [address] [facility] [address] [place] [phone] Personal history of malignant neoplasm of bladder Social History Tobacco Use Types Packs/Day Years Used Date Smoking Tobacco: Former Cigarettes Q uit: 10/24/2012 Smokeless Tobacco: Never Alcohol Use Standard Drinks/Week Comments Yes 0 (1 standard drink = 0.6 oz pur e alcohol) Sex and Gender Information Value Date Recorded Sex Assigned at Male 10/25/2024 9:38 AM EST Legal Sex Male 8:05 AM EST Gender Identity Male 10/25/2024 9:38 AM EST Sexual Orientation Straight 10/25/2024 9: 38 AM EST documented as of this encounter Plan of Treatment Not on file documented as of this encounter Procedures Procedure Name Priority Date/Time Associated Diagnosis Comments AP OUTSIDE CONSULT Routine 09/18/2024 12 :00 AM EST Personal history of malignant neoplasm of bladder documented in this encounter Results * Anatomic pathology outside consult (09/18/2024 12:00 AM EST) Final Diagnosis A. Urine, Voided, ([id number]): FEW ATYPICAL UROTHELIAL CELLS. Results of UroVysion fluorescence in situ hybridization (FISH) testing: CEP3: Normal CEP7: Normal CEP17: Normal LSI 9p21: Normal Interpretation: Normal profile Controls stained appropriately. Note: The results are intended as a screening device and should be interpreted in association with other clinical and pathological findings. 10/04/2024 6:00 PM [facility] Clinical Information History of bladder neoplasm (malignant) Z85.51 Urine Cytology/FISH (now) 10/04/2024 6:00 PM [facility] Gross Description A. Urine, Voided, ([id number]): Received one ThinPrep slide for cytology screen and one ThinPrep slide for UroVysion FISH 10/04/2024 6:00 PM [facility] Disclaimer Unless otherwise specified, all tissue is 10% NB formalin fixed and paraffin embedded. Technical pathology services provided by [facility] at [address] [facility] [address], [place] [address] (CLIA #[id number]/Ankita Howell MD, Preventative Maintenance Technician) 10/04/2024 6:00 PM [facility] Tissue Urine specimen from urethra / Unknown 09/18/2024 09/24/2024 10:12 AM EST us Harry Lau MD LAB PATHOLOGY ORDERABLES Final Result [facility] [address] [place] [address], documented in this encounter Visit Diagnoses Diagnosis Personal history of malignant neoplasm of bladder documented in this encounter Care Teams Direct Marketing Intern Relationship Specialty Start Date End Date Physician, Pcp Unknown PCP - General 10/04/24 10/04/24 documented as of this encounter
--- OUTSIDE RECORDS SUMMARY | 2024-11-26 16:57 | XMS_ITS | Clinical Summary ---
Author Organization [address] [facility] Address [address] [place] [address] Phone Care Team Providers Care Swimming Instructor Name Role Phone Unavailable Primary Care Provider Unavailabl e Encounters Date Type Department Care Team Description 10/30/2024 Telephone Lung Screening Program - [place] [facility] [address] [place] [phone] Mikayla Harrell MA Results (Annual Lung Screening- Incidental Finding) 10/25/2024 9:42 AM EST - 10/25/2024 11:59 PM EST Hospital Encounter [facility] CT Scan [address] [place] [phone] Encounter for screening for malignant neoplasm of respiratory organs; Personal history of nicotine dependence Discharge Disposition: Home or Self Care 10/19/2024 Telephone [facility] - [facility] [address] [facility] [address] [place] [phone] Jonatan Daniel MD scheduling recall 10/09/2024 Telephone Lung Screening Program - [place] [address] [facility] [address] [place] [phone] Britney Maynard MA Appointment (1st notification) 09/24/2024 Lab Requisition [facility] - Main Lab [address] [facility] [place] [phone] Harry Lau MD Personal history of malignant neoplasm of bladder from Last 3 Months Surgical History Surgery Date Site/Laterality Comments OTHER SURGICAL HISTORY 2003 TO PRESENT PROCEDURE: [place]Y CYSTOTOMY EXCISION BLADDER TUMOR; COMMENT: NUMEROUS OTHER SURGICAL HISTORY 08/29/1963 PROCEDURE: [place] EXCISION MAL LESION TRUNK/ARM/LEG 0.6-1.0 CM OTHER SURGICAL HISTORY 08/29/2006 PROCEDURE: STENT,CORONARY, [id number] ; COMMENT: x2 CATARACT EXTRACTION 08/29/2015 Bilateral PROCEDURE: HISTORICAL CATARACT REMOVAL HAND SURGERY 08/15/2019 Right PROCEDURE: HISTORICAL HAND SURGERY; COMMENT: Long Finger Trigger/A1 Ruby Release, Dr. Morrison Medical History Medical History Date Comments Bladder cancer ([facility]/HCC) DX:Blad marco cancer (HCC) Carcinoma DX:Carcinoma (HC C); COMMENT: left arm Heart disease DX:Heart disease DM (diabetes mellitus) ([facility]/HCC) DX:DM (diabetes mellitus) ([facility] Depression with anxiety DX:Depre ssion with anxiety Hyperlipidemia DX:Hyperlipidemi a Bladder cancer ([facility]/HCC) DX:Blad marco cancer (HCC); COMMENT: Dr. 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; COMMENT: Dr Baker Microalbuminuria 12/31/2016 DX:Microalbumin uria DM (diabetes mellitus), type 2 with peripheral vascular complications ([facility]/HCC) 12/31/2016 DX:DM (diabetes mellitus), t ype 2 with peripheral vascular complications ([facility]) Type 2 diabetes mellitus with cataract 7 DX:Type 2 diabetes mellitus with cataract ([facility]) SCC (squamous cell carcinoma) 01/20/2017 [...] Orientation Straight 10/25/2024 9: 38 AM EST Obstetrics History Last Filed Vital Signs Vital [...] 1957 Diabetes: Annual Retina Eye Exam 1955 Cholesterol Screening (Lipid Panel) 08/07/2022 Depression Screening 08/07/2022 Diabetes: Annual Urine Albumin-Creatinine Ratio (uACR) 08/07/2022 Diabetes: Blood Sugar Control Test (HGBA1C) 08/07/2022 Falls Risk Assessment 08/07/2022 Hepatitis C Screening 08/07/2022 Hypertension/CHF/CAD Annual BMP Blood Test 08/07/2022 Medicare Annual Wellness Visit 08/07/2022 Social Influencers of Health Screening 08/07/2022 Lung Cancer Screening (Low Dose CT) 10/25/2025 10/25/2024, 10/24/2023, 10/26/2022, Additional history exists DTaP,Tdap,and Td Vaccines (3 - Td or Tdap) 10/22/2026 10/22/2016, 08/29/2006 Zoster Vaccines Completed 04/16/2020, 09/29, 04/05/2013 RSV Immunization Patients 60+ Years Old Completed 05/10/2023 Pneumococcal Vaccine: 50+ Years Completed 08/15/2023, 12/10/2014, 03/14/2013, Additional history exists COVID-19 Vaccine Completed 05/25/2024, 07/2023, 01/07/2023, Additional history exists Influenza Vaccine Completed 05/25/2024, , 05/06/2022, Additional history exists HIB Vaccines Aged Out No longer eligi [...] Name Priority Date/Time Associated Diagnosis Comments CT LUNG SCREENING Routine 10/25/2024 9:5 4 AM EST Encounter for screening for malignant neoplasm of respiratory organs Personal history of nicotine dependence AP OUTSIDE CONSULT Routine 09/18/2024 12 :00 AM EST Personal history of malignant neoplasm of bladder from Last 3 Months Results * CT Lung Screening (10/25/2024 9:54 AM EST) Anatomical Region Laterality Modality Chest Computed Tomogra phy 10/29/2024 3:09 PM EST Impressions 10/29/2024 3:28 PM EST No new or suspicious pulmonary nodules. ??Recommend continued screening with low-dose chest CT in 12 months. Irregular thickening the distal esophagus and gastroesophageal junction with prominent lower paraesophageal and gastrohepatic lymph nodes. ??Findings may be related to esophagitis or neoplasm. ??Endoscopy recommended to evaluate further. Lung RADS 2S-benign. -------- FINAL REPORT -------- Dictated By: ADRIEN GARCIA Dictated Date: 10/29/2024 15:09 ET Assigned Physician: ADRIEN GARCIA Reviewed and Electronically Signed By: ADRIEN GARCIA Signed Date: 10/29/2024 15:28 ET Workstation ID: [id number] Transcribed By: Self Edit Transcribed Date: 10/29/2024 15:09 ET Narrative 10/29/2024 3:28 PM EST PROCEDURE: Chest CT INDICATION: Lung cancer screening, former smoker, 20 pack year smoking history TECHNIQUE: Chest CT without contrast. Multi planar reformats were created and interpreted. The examination was performed utilizing dose reduction techniques. ??Total DLP 196 COMPARISON: ??10/23/2023 FINDINGS: LUNGS/PLEURA: Central airways are patent. ??Mild emphysema with chronic bronchitis. ??Elevated right diaphragm with right basilar atelectasis. ??Subcutaneous millimeters nodules in the right lower lobe are similar compared to prior. ??No new or suspicious pulmonary nodules. ??No pleural effusion or pneumothorax. MEDIASTINUM: Irregular thickening of the gastroesophageal junction and distal esophagus with small adjacent lymph nodes. ??Biatrial and biventricular dilation with severe coronary artery calcifications. ??No pericardial effusion. ??No mediastinal or hilar lymphadenopathy. ??Thyroid gland is normal. CHEST WALL: No axillary lymphadenopathy or superficial hematoma. UPPER ABDOMEN:Small gastrohepatic lymph nodes are present measuring up to 10 mm short axis. BONES: Bones are normal for age. Ivon Dudley MD [facility] [place] PROCEDURES Final Result * Anatomic pathology outside consult (09/18/2024 12:00 AM EST) Final Diagnosis A. Urine, Voided, ([id number]): FEW ATYPICAL UROTHELIAL CELLS. Results of UroVysion fluorescence in situ hybridization (FISH) testing: CEP3: Normal CEP7: Normal CEP17: Normal LSI 9p21: Normal Interpretation: Normal profile Controls stained appropriately. Note: The results are intended as a screening device and should be interpreted in association with other clinical and pathological findings. 10/04/2024 6:00 PM EST [facility]) [facility] Clinical Information History of bladder neoplasm (malignant) Z85.51 Urine Cytology/FISH (now) 10/04/2024 6:00 PM EST [facility] Gross Description A. Urine, Voided, ([id number]): Received one ThinPrep slide for cytology screen and one ThinPrep slide for UroVysion FISH 10/04/2024 6:00 PM EST [facility] Disclaimer Unless otherwise specified, all tissue is 10% NB formalin fixed and paraffin embedded. Technical pathology services provided by [facility] at [address], [place] [address] (CLIA #[id number]/Ankita Howell MD, Chemical Blender) 10/04/2024 6:00 PM EST [facility]) [facility] Tissue Urine specimen from urethra / Unknown 09/18/2024 09/24/2024 10:12 AM EST us Harry Lau MD LAB PATHOLOGY ORDERABLES Final Result [facility] ([facility]) [facility] [address] [place] [address], [place] [phone] from Last 3 Months Insurance [facility] [facility]
== END 2024-11-26 15:44 | disposition home or self-care (01) ==
LOC: HO.HCS 15:02
PROVIDERS: PCP Physician Assistant; Visit Provider Internal Medicine
DX: I25.10 Atherosclerotic heart disease of native coronary artery without angina pectoris (principal); I73.9 Peripheral vascular disease, unspecified; E11.8 Type 2 diabetes mellitus with unspecified complications; C88.01 Waldenstrom macroglobulinemia, in remission
CPT/HCPCS: 99214; G2211

== ENCOUNTER → 2024-11-26 15:01 | Outpatient (BNVA) | payer MEDICARE, SELFPAY | PROVIDERS: PCP Physician Assistant; Visit Provider Internal Medicine | DX: I25.10 Atherosclerotic heart disease of native coronary artery without angina pectoris (principal); E11.51 Type 2 diabetes mellitus with diabetic peripheral angiopathy without gangrene; C88.00 Waldenstrom macroglobulinemia not having achieved remission | CPT/HCPCS: 99212 ==

== ENCOUNTER 2025-02-01 06:49 | Outpatient (REF) | payer MEDICARE, SELFPAY ==
[2025-02-01 07:18] LABS: Hemoglobin 11.4 g/dl (14.0-18.0); Mean Corpuscular HGB Conc 33.5 g/dl (31.0-36.0); Mean Corpuscular Hemoglobin 30.8 pg (27.0-33.0); Mean Corpuscular Volume 91.9 fL (80.0-98.0); Mean Platelet Volume 10.4 fL (9.4-12.4); Platelet Count 222 X10*3/uL (160-400); Red Cell Distribution Width 13.6 % (11.0-16.0); White Blood Count 5.9 X10*3/uL (4.8-10.8)
[2025-02-01 07:26] LABS: Estimated Average Glucose 126 mg/dL; Total Hemoglobin (HGBA1C) 3055.9301 umol/L
[2025-02-01 07:46] LABS: Alanine Aminotransferase 21 U/L (0-40); Albumin Level 4.3 g/dL (3.5-5.0); Alkaline Phosphatase 101 U/L (39-117); Anion Gap 13 (12-20); Aspartate Amino Transferase 28 U/L (5-37); Bilirubin Total 0.7 mg/dL (0.0-1.0); Blood Urea Nitrogen 31 mg/dL (9-16); Calcium 9.5 mg/dL (8.4-10.2); Carbon Dioxide 25 mmol/L (22-29); Chloride 109 mmol/L (96-108); Cholesterol 135 mg/dL (<200); Estimated Glomerular Filt Rate 47; Glucose Fasting 202 mg/dL (60-99); HDL Cholesterol 37 mg/dL (>40); LDL Cholesterol Calculated 84 mg/dL (<100); Potassium 4.6 mmol/L (3.3-5.1); Sodium 142 mmol/L (135-145); Total Protein 6.5 g/dL (6.5-8.0); Triglycerides 70 mg/dL (<150)
[2025-02-01 08:03] LABS: Prostate Specific Antigen Scr 1.69 ng/mL (<0.05-4.0)
== END 2025-02-01 06:50 | disposition home or self-care (01) ==
LOC: HO.LAB 06:49
PROVIDERS: PCP Physician Assistant; Visit Provider Physician Assistant
DX: E11.42 Type 2 diabetes mellitus with diabetic polyneuropathy (principal); I25.10 Atherosclerotic heart disease of native coronary artery without angina pectoris; I10 Essential (primary) hypertension; Z12.5 Encounter for screening for malignant neoplasm of prostate
CPT/HCPCS: 36415; 80053; 80061; 83036; 84153; 85027

== ENCOUNTER 2025-02-18 08:11 | Outpatient (AMB) | payer MEDICARE, SELFPAY ==
--- OUTSIDE RECORDS SUMMARY | 2025-02-18 08:17 | XMS_ITS | Encounter Summary ---
Author Organization [facility] Address [address] [place] [address] Care Team Providers Care Table Games Dealer Name Role Phone Jonatan Daniel MD Unavailable Elbert Florian MD Primary Care Provider [phone] Bharati Mcgowan DNP Unavailable [phone] Helio Ferguson Primary Care Provider Unavailab Radha Davis HOUSEKEEPING STAFF Unavailable Kiara Anderson MD Unavailable [phone] Duglas Diaz HOUSEKEEPING STAFF Unavailable Encounter Details Date Type Department Care Team Description 09/22/2021 Orders Only [facility] Thoracic Surgery [place] [address] [facility] [address] [place] [phone] Ivon Dudley MD [address] [facility] [place] [address] [place] [address] [phone] History of tobacco use, presenting hazards to [...] health documented in this encounter Care Teams Table Games Dealer Relationship Specialty Start Date End Date Elbert Florian MD [address] [place] [phone] PCP - General Internal Medicine 11/28/20 04/20/22 Helio Ferguson [address] [place] [address] [id number] PCP - General Internal Medicine 04/21/22 Jonatan Daniel MD [address] [place] [phone] Specialist Cardiovascular Disease 10/17/20 Bharati Mcgowan DNP [address] [place] [address] 66082 Specialist Cardiology 01/27/21 Radha Mcclellan NP [address] [place] [address] [phone] Cardiology 04/23/24 Kiaar Anderson MD [address] [place] [address] [phone] Specialist Cardiology 04/23/24 Duglas Diaz NP [address] [place] [address] [phone] Specialist Cardiology 04/23/24 documented as of this encounter
--- NOTE | 2025-02-18 08:26 | A.OFFPC_ITS ---
Vital Signs 02/18/25 08:28 Height 6 ft Weight 187 lb 8 oz BMI 25.4 BP 120/60 Blood Pressure Location Lt brachial Position Sitting Pulse 59 Pulse Source Pulse Oximeter Temp 97.1 F Temp Source Temporal Artery Scan Pulse Oximetry (%) 98 Oxygen Delivery Method Room Air Intake Visit Reasons: f/u CAD/ HTN Intake Note: Patient is here to follow up on CAD, HTN. Dairy Nutrition Specialist Required: No Lan Specialist: Not Required per policy Accompanied by: Self / Same As Patient Allergies Sulfa (Sulfonamide Antibiotics) (SULFA (SULFONAMIDE ANTIBIOTICS)) Allergy (Severe, Verified 02/18/25 08:38) SKIN SLOUGHING, genital rash Medication List - Last Reconciled 02/18/25 by Helio Ferguson PA-C aspirin 81 mg PO DAILY atorvastatin 40 mg PO BEDTIME 90 days blood sugar diagnostic (OneTouch Ultra Test strips) As directed blood sugar diagnostic (OneTouch Ultra Test strips) As directed clopidogrel 75 mg PO DAILY 90 days gabapentin 300 mg PO BEDTIME 90 days glipizide ER 10 mg PO DAILY 90 days isosorbide mononitrate ER 30 mg PO DAILY lancets ([employer] UltraSoft Lancets) As directed metformin 500 mg PO QID 90 days metoprolol tartrate 25 mg PO BID 30 days ondansetron 4 mg PO Q6H PRN sertraline 50 mg PO DAILY zanubrutinib (Brukinsa) 160 mg (2 x 80 mg) PO BID Tobacco use date assessed: 02/18/25 Fall risk assessment: 1 Fall in past year Last assessed Fall Risk: 02/18/25 Dental Screening Dental Screen Date: 02/18/25 Did you have a dental visit in the last 12 months?: Yes Did you have a dental problem in the last 6 months where you did not have access to dental care?: No Was dental information given to patient?: Patient has dentist HPI f/u CAD/ HTN HPI Details Patient is a 79-year-old male here today for a follow-up visit.? Patient has a past medical history significant for type 2 diabetes with neuropathy, coronary artery disease, h/o bladder cancer, former smoker, squamous cell carcinoma right thumb nail. Concern--> The patient experienced a fall approximately two to three weeks ago, resulting in injuries to the elbow and coccyx. He reports a large bruise on the coccyx that is still painful, although the bruise is fading. Non-Hodgkin's lymphoma: Followed by Hematology. Most recent CBC stable. . Has underwent colonoscopy, CT of abdomen showed splenomegaly. He continues on medication Brukinsa and RBCs and hemoglobin blood levels have been better.. The patient reports a slight improvement in energy levels but mentions experiencing some memory fogginess since starting the medication .. Former smoker: Patient is followed by lung cancer screening program at [facility], most recent CT (11/2023) chest showing benign-appearing nodules, repeat CT in 1 year. .. Coronary artery disease:? Being followed by [facility], recently did get a new coronary artery stent. Has 3 coronary artery stents.? Denies any chest discomfort, palpitations, shortness of breath on exertion.? No overt signs of Congestive heart failure. ?Continues on moderate dose statin and anti-platelet therapy.? He is on dual antiplatelet therapy and has noted a lot of bruising and high contact areas over his upper extremities, he has been holding his aspirin for now. Most recent lipid panel showing LDL at 87, optimal LDL to be below 70. Peripheral arterial disease: Of note patient has been complaining of with seems to be claudication symptoms in his lower extremities.? He has upcoming appointment with vascular surgeon due to his moderate to severe atherosclerosis in his lower extremities. . Type 2 diabetes:?being managed with glipizide and metformin, most recent A1c at 6.0. He reports blood sugars at home have been stable.? He continues to report intermittent burning sensation in his feet.? He reports checking his blood sugars from time to time at home reports normal readings. .. BLadder Cancer: See Urology ( Dr Lau), gets Cystoscopy q 4 months. [facility] Medical History Hemorrhoids without complication Diverticulosis Bladder cancer Thoracic aortic aneurysm CAD (coronary artery disease) PAD (peripheral artery disease) Tubular adenoma Sleep apnea Hyperlipemia HTN, goal to be determined Type II diabetes mellitus Surgical History Trigger finger of left hand (~03/2024) Hx of transurethral resection of prostate Hx of colonoscopy (11/01/23) History of coronary artery stent placement History of squamous cell carcinoma excision History of surgery on arm Family History Mother Pancreatic cancer Social History Household Members: Spouse Housing: House Alcohol intake: current Alcohol intake frequency: holidays/special occasions only Patient Tobacco Use Status: Former Tobacco user Tobacco use type: Cigarette e-Cigarette/Vaping Use: Former Use Second Hand Smoke Exposure: Yes service: No 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 1. Little interest or pleasure in doing things: not at all 2. Feeling down, depressed, or hopeless: not at all 3. Trouble falling or staying asleep, or sleeping too much: not at all 4. Feeling tired or having little energy: not at all 5. Poor appetite or overeating: not at all 6. Feeling bad about yourself - or that you are a failure or have let yourself or your family down: not at all 7. Trouble concentrating on things, such as reading the newspaper or watching television: not at all 8. Moving or speaking so slowly that other people could have noticed. Or the opposite - being so fidgety or restless that you have been moving around a lot more than usual: not at all 9. Thoughts that you would be better off or of hurting yourself in some way: not at all Total score: 0 Depression Screening Interpretation: Negative Depression Screening Done: Yes 06102 - PHQ-9 Billing: Yes Source: Developed by Drs. Zheng Rodriguez, Quin Maynard, Mukesh Caputo and colleagues, with an educational sheela from [employer]. Thrive Questionnaire Date Thrive assessed: 02/18/25 I am a: Patient What is your living situation today?: I have a steady place to live Within the past 12 months, did the food you bought not last and you didn't have the money to get more?: Never true Within the past 12 months, did you worry whether your food would run out before you got money to buy more?: Never true Do you have trouble paying for medicines?: No Do you have trouble getting transportation to medical appointments?: No Do you have trouble paying your heating and electricity bill?: No Do you have trouble taking care of your child, family member or friend?: No Do you have trouble with day-to-day activities such as bathing, preparing meals, shopping, managing finances, etc.?: No Are you currently unemployed and looking for a job?: No Are you interested in more education?: No Please select the resources that you would like help with: None Currently or been in a relationship where the following occur: No concerns reported THRIVE Score: 0 AUDIT C Alcohol Use Questionnaire (AUDIT-C) 1. How often do you have a drink containing alcohol?: 2-3 times a week 2. How many drinks containing alcohol do you have on a typical day when you are drinking?: 1 or 2 3. How often do you have six or more drinks on one occasion?: Never Total Score: 3 ANN-7 AMB Questionnaire ANN-7 Date ANN - 7 assessed: 02/18/25 Feeling nervous, anxious, or on edge: 0 = Not at all Not being able to stop or control worryin = Not at all Worrying too much about different things: 0 = Not at all Trouble relaxin = Not at all Being so restless that it is hard to sit still: 0 = Not at all Becoming easily annoyed or irritable: 0 = Not at all Feeling afraid as if something awful might happen: 0 = Not at all Total ANN-7 score (0-4 normal; 5-9 mild; 10-14 moderate; 15-21 severe): 0 Source: Developed by Drs. Zheng Rodriguez, Quin Maynard, Mukesh Caputo and colleagues, with an educational sheela from [employer]. ANN-7 Assessment Billing ANN-7 Assessment Tool: ANN-7 Assessment 36281 Review of Systems Const Denies headache(s) Eyes Denies loss of vision ENT Denies vertigo, Denies dizziness, Denies headache(s) and Denies sore throat Card Denies chest pain, Denies leg edema and Denies lightheadedness Resp Denies cough, Denies hemoptysis and Denies wheezing GI Denies abdominal pain, Denies melena, Denies constipation, Denies diarrhea and Denies vomiting Denies dysuria, Denies urinary frequency and Denies urinary urgency Musc Denies arthralgias, Denies joint swelling, Denies numbness and Denies tingling Neuro Denies Abnormal speech present, Denies behavioral changes, Denies vertigo, Denies dizziness, Denies headache(s), Denies loss of vision, Denies memory loss, Denies numbness and Denies tingling Psych Denies anxiety, Denies behavioral changes, Denies depression, Denies memory loss and Denies panic attacks Hans/Lymph Denies easy bleeding and Denies easy bruising Aller/Immun Denies wheezing Physical exam (Primary Care) Vital Signs: Last Vital Signs Temp 97.1 F 02/18/25 08:28 Pulse 59 02/18/25 08:28 BP 120/60 02/18/25 08:28 Pulse Ox 98 02/18/25 08:28 Oxygen Delivery Method Room Air 02/18/25 08:28 BMI result Body Mass Index 25.4 Tobacco/Smoking Status: Tobacco use Status Tobacco use date assessed 02/18/25 02/18/25 08:34 Patient Tobacco Use Status Former Tobacco user 02/18/25 08:34 Tobacco use type Cigarette 02/18/25 08:34 e-Cigarette/Vaping Use Former Use 02/18/25 08:34 PHQ-9: PHQ-9 Score PHQ-9: Total score 0 02/18/25 08:34 Depression Screening Interpretation: Negative Thrive Assessment: Date of Thrive Assessment Date Thrive assessed 02/18/25 02/18/25 08:34 Currently or been in a relationship where the following occur: No concerns reported Const General: healthy appearing, no acute distress, alert and awake Nutritional Appearance: well nourished Orientation/consciousness: oriented to person, oriented to place and oriented to time HENMT Ears: TM's normal bilaterally General nose exam: Normal nasal mucous membranes and turbinates present Eyes Conjunctivae: conjunctivae normal Sclerae: sclerae normal Pupils: Equal, round and reactive pupils present Neck Neck: Yes no lymphadenopathy and Yes no JVD Thyroid: Thyroid normal Carotids: no bruits Resp Effort & Inspection: normal respiratory effort and not tachypneic Auscultation: no crackles, no rales, no rhonchi and no wheezes Cardio Rate: regular rate Rhythm: regular rhythm Heart sounds: no murmurs and normal S1 and S2 GI Palpation (GI): Soft to palpation, nontender, no hepatomegaly and no splenomegaly Auscultation: normal bowel sounds Skin General skin exam: no rashes or lesions noted and dry skin Neuro General: oriented to person, oriented to place and oriented to time Cranial nerves: Yes Equal, round and reactive pupils present Speech: No Abnormal speech present Gait exam (Neuro): Normal gait present Motor exam (neuro): no tremor noted Extrem Right upper extremity: full ROM Left upper extremity: full ROM Right lower extremity: full ROM; no edema Left lower extremity: full ROM; no edema Psych Mental Status: mental status grossly normal Speech and movement: Normal speech and movement present Affect: normal affect Attitude: cooperative Thought process: Normal thought process present Coding Level of Care Code Est Pt Level 4 (78709) Diagnoses Type 2 diabetes mellitus with diabetic polyneuropathy, without long-term current use of insulin E11.42 Diabetes mellitus jail insulin use: without jail use Diabetes mellitus complication status: with neurologic complications Diabetes mellitus complication detail: with polyneuropathy Coronary artery disease involving [place] coronary artery of [place] heart without angina pectoris I25.10 Coronary Disease-Associated Artery/Lesion type: [place] artery [place] vs. transplanted heart: [place] heart Associated angina: without angina Malignant neoplasm of urinary bladder, unspecified site C67.9 Bladder location: unspecified site Waldenstrom's macroglobulinemia C88.0 Additional Codes PHQ-9 - 09739 - PHQ-9 Billing: Yes ([id number]) ANN-7 Assessment Billing - ANN-7 Assessment Tool: ANN-7 Assessment 36372 ([id number]) Assessment & Plan Assessment & Plan (1) DMII (diabetes mellitus, type 2): Code(s): E11.9 - Type 2 diabetes mellitus without complications Category: Medical Qualifiers: Diabetes mellitus moth exterminator insulin use: without jail use Diabetes mellitus complication status: with neurologic complications Diabetes mellitus complication detail: with polyneuropathy Qualified Code(s): E11.42 - Type 2 diabetes mellitus with diabetic polyneuropathy Plan: Patient's type 2 diabetes now well controlled with the addition of glipizide. Most recent A1c is 6.0. Will continue current antihyperglycemic medication with goal A1c to remain below 7.0 (2) CAD (coronary artery disease): Code(s): I25.10 - Atherosclerotic heart disease of [place] coronary artery without angina pectoris Category: Medical Qualifiers: Coronary Disease-Associated Artery/Lesion type: [place] artery [place] v s. transplanted heart: [place] heart Associated angina: without angina Qualified Code(s): I25.10 - Atherosclerotic heart disease of [place] coronary artery without angina pectoris Plan: Patient now followed by [facility]. He recently did get a new coronary artery stent. Most recent LDL suboptimal at 87. He was on dual antiplatelet therapy with clopidogrel and aspirin though due to increased bruising he has been holding his aspirin. He is now in cardiac therapy Continues on moderate dose statin therapy with goal LDL to be optimally below 70. (3) Bladder cancer: Code(s): C67.9 - Malignant neoplasm of bladder, unspecified Category: Medical Qualifiers: Bladder location: unspecified site Qualified Code(s): C67.9 - Malignant neoplasm of bladder, unspecified Plan: Continues to follow urology in his getting treatments for his bladder cancer (4) Waldenstrom's macroglobulinemia: Code(s): C88.0 - Waldenstrom macroglobulinemia Category: Medical Plan: Followed by hematology. On Zanbrutinib. Orders: Orders Comprehensive [place]. Panel Fast Today E11.8 - Type 2 diabetes mellitus with unspecified complications Lipid Panel Today Z95.5 - Presence of coronary angioplasty implant and graft Complete Blood Count no Diff Today E11.8 - Type 2 diabetes mellitus with unspecified complications Microalbumin, Random (w Creat) Today E11.8 - Type 2 diabetes mellitus with unspecified complications Patient Instructions: Goal: A1c to remain below 7.0, LDL to be optimally below 70 Barriers: Adherence to physical activity and healthy eating habits
[2025-02-18 08:28] VITALS: BP 120/60; PULSE 59; TEMP 36.2; O2SAT 98; BMI 25.4
== END 2025-02-18 08:56 | disposition home or self-care (01) ==
LOC: HO.HMCH 08:12
PROVIDERS: PCP Physician Assistant; Visit Provider Physician Assistant
DX: E11.42 Type 2 diabetes mellitus with diabetic polyneuropathy (principal); I25.10 Atherosclerotic heart disease of native coronary artery without angina pectoris; C67.9 Malignant neoplasm of bladder, unspecified; C88.00 Waldenstrom macroglobulinemia not having achieved remission

== ENCOUNTER → 2025-02-18 08:11 | Outpatient (BNVA) | payer MEDICARE, SELFPAY | PROVIDERS: PCP Physician Assistant; Visit Provider Physician Assistant | DX: E11.42 Type 2 diabetes mellitus with diabetic polyneuropathy (principal); E11.51 Type 2 diabetes mellitus with diabetic peripheral angiopathy without gangrene; I10 Essential (primary) hypertension; I25.10 Atherosclerotic heart disease of native coronary artery without angina pectoris; C88.00 Waldenstrom macroglobulinemia not having achieved remission; Z85.51 Personal history of malignant neoplasm of bladder; Z87.891 Personal history of nicotine dependence; Z79.899 Other long term (current) drug therapy; Z95.5 Presence of coronary angioplasty implant and graft | CPT/HCPCS: 96127; 99212 ==

== ENCOUNTER 2025-02-25 07:00 | Outpatient (RCR) | payer MEDICARE, SELFPAY ==
[2024-11-30 07:17] LABS: Glucose, Whole Blood 203 mg/dL (60-115)
[2024-11-30 08:01] LABS: Glucose, Whole Blood 152 mg/dL (60-115)
[2024-12-07 08:04] LABS: Glucose, Whole Blood 110 mg/dL (60-115)
== END 2025-02-25 12:31 | disposition home or self-care (01) ==
LOC: HO.CR 07:00
PROVIDERS: PCP Physician Assistant; Visit Provider Nurse Practitioner Family
DX: Z95.5 Presence of coronary angioplasty implant and graft (principal)
CPT/HCPCS: 82947; 93798

== ENCOUNTER 2025-03-04 08:05 | Outpatient (REF) | payer MEDICARE, SELFPAY ==
--- NOTE | ~2025-03-04 | US_ITS ---
EXAMINATION: NONINVASIVE ASSESSMENT OF THE ARTERIES OF BOTH LOWER EXTREMITIES; COLOR-FLOW DUPLEX IMAGING OF THE BILATERAL LOWER EXTREMITY ARTERIAL SYSTEM. CLINICAL INFORMATION: Peripheral vascular disease.. COMPARISON: None. Correlation made with CT angiogram of lower extremities bilaterally 07/24/2024. TECHNIQUE: Segmental ankle pulse volume recording, pressure measurement at the ankle and ankle brachial indices were obtained of the lower extremity arterial system bilaterally. This study was performed at rest only. FINDINGS: a) AT REST: 1. The ankle-brachial indices are: Right 0.47 and left 0.68. >0.97-1.25 = normal - no significant arterial disease. 0.75-0.96 = mild peripheral arterial disease. 0.5-0.74 = moderate peripheral arterial disease. <0.50 = severe peripheral arterial disease. 2. Segmental pressure at ankle: RIGHT: PT: 35 DP: 61 LEFT: PT: 89 DP: 83 3. PVR waveform at ankle: Right: Abnormal monophasic waveforms. Left: Abnormal monophasic waveforms. Atheromatous Plaque: Present bilaterally. RIGHT FEMORAL RUNOFF VELOCITIES: The right common femoral artery measures 235 cm/s and biphasic. (Suggests inflow stenosis, and moderate intrinsic stenosis). The right profunda femoral artery is 58 cm/s and is monophasic. The right proximal superficial femoral artery measures 34 cm/s and monophasic. The right mid superficial femoral artery is 24 cm/s and monophasic. The right distal right superficial femoral artery measures 33 cm/s and is monophasic. The right popliteal velocity measures 28 cm/s and is monophasic. The right posterior tibial artery velocity measures 37 cm/s and is monophasic. The right peroneal artery velocity measures 39 cm/s and is monophasic. The right anterior tibial artery velocity measures 7.7 cm/s and is monophasic. The right dorsalis pedis artery measures 4.8 cm/s and is monophasic. LEFT FEMORAL RUNOFF VELOCITIES: The left common femoral artery measures 110 cm/s and triphasic. The left profunda femoral artery is 75 cm/s and is biphasic. The left proximal superficial femoral artery measures 72 cm/s and biphasic. The left mid superficial femoral artery is 86 cm/s and biphasic. The left distal right superficial femoral artery measures 102 cm/s and is biphasic. The left popliteal velocity 130 cm/s and is monophasic. (Findings suggest mild stenosis) The left posterior tibial artery velocity measures 45 cm/s and is biphasic. The left peroneal artery velocity measures 21 cm/s and is monophasic. The left anterior tibial artery velocity measures 18.1 cm/s and is monophasic. The left dorsalis pedis artery measures 30.7 cm/s and is monophasic. US/US LUPE complete IMPRESSION: 1. Abnormal ABIs bilaterally, measuring 0.47 on the RIGHT, and 0.68 on the LEFT. Atheromatous plaque present. Abnormal PVR waveforms bilaterally. Findings suggest severe right and moderate to severe left peripheral vascular disease. 2. Elevated peak systolic velocity with biphasic waveforms within the right JAVA MOBILE [employer]ELOPER suggests inflow stenosis. Electronically signed by: Francisco Rose MD 03/04/2025 01:34 PM EDT
--- NOTE | ~2025-03-04 | US_ITS ---
EXAMINATION: NONINVASIVE ASSESSMENT OF THE ARTERIES OF BOTH LOWER EXTREMITIES; COLOR-FLOW DUPLEX IMAGING OF THE BILATERAL LOWER EXTREMITY ARTERIAL SYSTEM. CLINICAL INFORMATION: Peripheral vascular disease.. COMPARISON: None. Correlation made with CT angiogram of lower extremities bilaterally 07/24/2024. TECHNIQUE: Segmental ankle pulse volume recording, pressure measurement at the ankle and ankle brachial indices were obtained of the lower extremity arterial system bilaterally. This study was performed at rest only. FINDINGS: a) AT REST: 1. The ankle-brachial indices are: Right 0.47 and left 0.68. >0.97-1.25 = normal - no significant arterial disease. 0.75-0.96 = mild peripheral arterial disease. 0.5-0.74 = moderate peripheral arterial disease. <0.50 = severe peripheral arterial disease. 2. Segmental pressure at ankle: RIGHT: PT: 35 DP: 61 LEFT: PT: 89 DP: 83 3. PVR waveform at ankle: Right: Abnormal monophasic waveforms. Left: Abnormal monophasic waveforms. Atheromatous Plaque: Present bilaterally. RIGHT FEMORAL RUNOFF VELOCITIES: The right common femoral artery measures 235 cm/s and biphasic. (Suggests inflow stenosis, and moderate intrinsic stenosis). The right profunda femoral artery is 58 cm/s and is monophasic. The right proximal superficial femoral artery measures 34 cm/s and monophasic. The right mid superficial femoral artery is 24 cm/s and monophasic. The right distal right superficial femoral artery measures 33 cm/s and is monophasic. The right popliteal velocity measures 28 cm/s and is monophasic. The right posterior tibial artery velocity measures 37 cm/s and is monophasic. The right peroneal artery velocity measures 39 cm/s and is monophasic. The right anterior tibial artery velocity measures 7.7 cm/s and is monophasic. The right dorsalis pedis artery measures 4.8 cm/s and is monophasic. LEFT FEMORAL RUNOFF VELOCITIES: The left common femoral artery measures 110 cm/s and triphasic. The left profunda femoral artery is 75 cm/s and is biphasic. The left proximal superficial femoral artery measures 72 cm/s and biphasic. The left mid superficial femoral artery is 86 cm/s and biphasic. The left distal right superficial femoral artery measures 102 cm/s and is biphasic. The left popliteal velocity 130 cm/s and is monophasic. (Findings suggest mild stenosis) The left posterior tibial artery velocity measures 45 cm/s and is biphasic. The left peroneal artery velocity measures 21 cm/s and is monophasic. The left anterior tibial artery velocity measures 18.1 cm/s and is monophasic. The left dorsalis pedis artery measures 30.7 cm/s and is monophasic. US/US arterial duplex LE BI IMPRESSION: 1. Abnormal ABIs bilaterally, measuring 0.47 on the RIGHT, and 0.68 on the LEFT. Atheromatous plaque present. Abnormal PVR waveforms bilaterally. Findings suggest severe right and moderate to severe left peripheral vascular disease. 2. Elevated peak systolic velocity with biphasic waveforms within the right [employer] suggests inflow stenosis. Electronically signed by: Francisco Rose MD 03/04/2025 01:34 PM EDT
--- OUTSIDE RECORDS SUMMARY | 2025-03-04 08:09 | XMS_ITS | Encounter Summary ---
Author Organization [facility] [place] [address] Care Team Providers Care K9 Handler Name Role Phone Physician, Pcp Unknown Primary Care Provider Kika vailable Encounter Details Date Type Department Care Team (Late st Contact Info) Description 09/24/2024 Lab Requisition [facility] - Main Lab [address] [facility] [place] [address] Harry Lau MD [address] [place] [address] Personal history of malignant neoplasm [...] AM EST) Final Diagnosis A. Urine, Voided, ([id number]): FEW ATYPICAL UROTHELIAL CELLS. Results of UroVysion fluorescence in situ hybridization (FISH) testing: CEP3: Normal CEP7: Normal CEP17: Normal LSI 9p21: Normal Interpretation: Normal profile Controls stained appropriately. Note: The results are intended as a screening device and should be interpreted in association with other clinical and pathological findings. 10/04/2024 6:00 PM [facility] Clinical Information History of bladder neoplasm (malignant) Z85.51 Urine Cytology/FISH (now) 10/04/2024 6:00 PM [facility] Gross Description A. Urine, Voided, ([id number]): Received one ThinPrep slide for cytology screen and one ThinPrep slide for UroVysion FISH 10/04/2024 6:00 PM [facility] Disclaimer Unless otherwise specified, all tissue is 10% NB formalin fixed and paraffin embedded. Technical pathology services provided by [facility] at [address], [place] [address] (CLIA #[id number]/Ankita Howell MD, Tumor Registrar) 10/04/2024 6:00 PM [facility] Tissue Urine specimen from urethra / Unknown 09/18/2024 09/24/2024 10:12 AM EST us Harry Lau MD LAB PATHOLOGY ORDERABLES Final Result [facility] [address] [place] [address], documented in this encounter Visit Diagnoses Diagnosis Personal history of malignant neoplasm of bladder documented in this encounter Care Teams K9 Handler Relationship Specialty Start Date End Date Physician, Pcp Unknown PCP - General 10/04/24 10/04/24 documented as of this encounter
== END 2025-03-04 08:06 | disposition home or self-care (01) ==
LOC: HO.US 08:05
PROVIDERS: PCP Physician Assistant; Visit Provider Surgery Vascular Surgery
DX: I73.9 Peripheral vascular disease, unspecified (principal)
CPT/HCPCS: 93923; 93925

== ENCOUNTER → 2025-03-04 08:07 | Outpatient (BNV) | payer MEDICARE, SELFPAY | PROVIDERS: PCP Physician Assistant; Visit Provider Radiology Diagnostic Radiology | DX: I73.9 Peripheral vascular disease, unspecified (principal) | CPT/HCPCS: 93923; 93925 ==

== ENCOUNTER 2025-03-14 14:31 | Outpatient (AMB) | payer MEDICARE, SELFPAY ==
[2025-03-14 14:37] VITALS: BMI 25.4
--- NOTE | 2025-03-14 14:37 | MHC.OFFVIS ---
Vital Signs 03/14/25 14:37 Height 6 ft Weight 187 lb BMI 25.4 Intake Visit Reasons: 6m follow up s/p Arterial US 03/04/25 Intake Note: 6 mo follow up 03/04/25 s/p arterial US 03/04/25. Pt states Right LE pain and can walk 2 blocks but very painful. STates walks 6 mins before severe pain in the right calf. Also states hes starting to get some ankle swelling. Accompanied by: Self / Same As Patient Allergies Sulfa (Sulfonamide Antibiotics) (SULFA (SULFONAMIDE ANTIBIOTICS)) Allergy (Severe, Verified 03/14/25 14:44) SKIN SLOUGHING, genital rash HPI HPI 6m follow up s/p Arterial US 03/04/25: Details: Very pleasant 79-year-old gentleman presents for routine arterial surveillance follow-up. He at the current time reports that he is in cardiac rehab and goes about 20 minutes on the treadmill. At about the 6 minute yasmin he does experience some right calf discomfort. He can easily walk 2 blocks. 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 He quit smoking about 15 years ago and at that time was smoking about a pack a day. He has been a diabetic for about 10 years. Of note he has a history of Waldenstrom's macroglobulinemia. He is being maintained on Plavix. [facility] Medical History Hemorrhoids without complication Diverticulosis Bladder cancer Thoracic aortic aneurysm CAD (coronary artery disease) PAD (peripheral artery disease) Tubular adenoma Sleep apnea Hyperlipemia HTN, goal to be determined Type II diabetes mellitus Surgical History Trigger finger of left hand (~03/2024) Hx of transurethral resection of prostate Hx of colonoscopy (11/01/23) History of coronary artery stent placement History of squamous cell carcinoma excision History of surgery on arm Family History Mother Pancreatic cancer Social History Household Members: Spouse Housing: House Alcohol intake: current Alcohol intake frequency: holidays/special occasions only Patient Tobacco Use Status: Former Tobacco user Tobacco use type: Cigarette e-Cigarette/Vaping Use: Former Use Second Hand Smoke Exposure: Yes service: No 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) Cognitive needs: No Hearing needs: No Vision needs: Yes (glasses) Review of Systems Const All systems reviewed & are unremarkable except as noted in HPI and below Reports no additional complaints ENT Reports Normal hearing present Card Denies chest pain, Denies chest pain at rest, Denies chest pain with activity and Denies pedal edema Resp Denies cough GI Denies abdominal pain Musc Denies abnormal gait, Denies muscle cramps and Denies radiating pain into limb Skin/Breast Denies skin ulcer and Denies wounds Neuro Reports Normal hearing present and Denies abnormal gait Psych Reports no additional complaints Physical Exam Vital Signs: BMI result Body Mass Index 25.4 Const General: cooperative, healthy appearing and comfortable Orientation/consciousness: oriented to person, oriented to place and oriented to time HEENT Head: Yes normal to inspection Neck Neck: Yes normal visual inspection Carotids: no bruits Chest Chest palpation & inspection: normal inspection of the chest Resp Effort & Inspection: normal respiratory effort and able to speak in complete sentences Auscultation: clear to auscultation bilaterally, no crackles, no rales, no rhonchi and no wheezes Cardio Other: Palpable left dorsalis pedis pulse, right-sided signals Rate: regular rate Rhythm: regular rhythm Heart sounds: S1 normal heart sound present and S2 normal heart sound present Bruits: no carotid bruits GI Inspection: Yes normal to inspection Skin Wounds: no wounds Hair: normal Neuro General: oriented to person, oriented to place and oriented to time Cranial nerves: Yes CN's II-XII intact bilaterally and Yes Normal hearing present Cognition (Neuro): normal cognition Motor exam (neuro): 5/5 motor strength present throughout Extrem Other: venous exam: No significant superficial varicosities or spider telangiectasias, minimal edema General: No clubbing, No cyanosis and No edema Psych Appearance: grossly normal Mental Status: mental status grossly normal Speech and movement: Normal speech and movement present Results Reviewed Results Reviewed: Noninvasive arterial testing demonstrates LUPE on the right of 0.47 and on the left of 0.68. Written report and images were reviewed. Assessment & Plan Assessment & Plan (1) PAD (peripheral artery disease): Code(s): I73.9 - Peripheral vascular disease, unspecified Category: Medical Plan: In short patient has stable claudication. I did review the pathophysiology of peripheral vascular disease with the patient. In addition we did discuss routine conservative measures including a healthy diet and the importance of exercise and ambulation. We did discuss risk factor modification. The patient will continue to to follow-up with surveillance follow-up in approximately 6 months. Thank you for allowing us to participate in this patient's care. If there are any questions or concerns please do not hesitate to contact us. (2) Abdominal aortic aneurysm: Comment: August 2022 Infrarenal abdominal aortic aneurysm with maximal transverse diameter of 3.2 cm. Followup is recommended in 3 years' time. Code(s): I71.40 - Abdominal aortic aneurysm, without rupture, unspecified Category: Medical Qualifiers: Abdominal aorta location: infrarenal aorta Presence of rupture: without rupture Qualified Code(s): I71.43 - Infrarenal abdominal aortic aneurysm, without rupture Plan: See above Orders: Orders US arterial duplex LE BI 6 Months I73.9 - Peripheral vascular disease, unspecified Coding Level of Care Code Est Pt Level 4 (58825) Complex EM visit Add On G2211 Diagnoses PAD (peripheral artery disease) I73.9 Infrarenal abdominal aortic aneurysm (AAA) without rupture I71.43 Abdominal aorta location: infrarenal aorta Presence of rupture: without rupture
--- OUTSIDE RECORDS SUMMARY | 2025-03-14 15:19 | XMS_ITS | Encounter Summary ---
Author Organization [facility] [place] [address] Care Team Providers Care Dump Truck Operator Name Role Phone Physician, Pcp Unknown Primary Care Provider Kika vailable Encounter Details Date Type Department Care Team (Late st Contact Info) Description 09/24/2024 Lab Requisition [facility] - Main Lab [address] [facility] [place] [address] Harry Lau MD [address] [place] [address] Personal history of malignant neoplasm [...] AM EST) Final Diagnosis A. Urine, Voided, ([id number]): FEW ATYPICAL UROTHELIAL CELLS. Results of UroVysion [...] CENTER LAB Gross Description A. Urine, Voided, ([id number]): Received one ThinPrep slide for cytology screen and one ThinPrep slide for UroVysion FISH 10/04/2024 6:00 PM [facility] Disclaimer Unless otherwise specified, all tissue is 10% NB formalin fixed and paraffin embedded. Technical pathology services provided by [facility] at [address], [place] [address] (CLIA #[id number]/Ankita Howell MD, Retail Manager In Training) 10/04/2024 6:00 PM [facility] Tissue Urine specimen from urethra / Unknown 09/18/2024 09/24/2024 10:12 AM EST us Harry Lau MD LAB PATHOLOGY ORDERABLES Final Result [facility] [address] [place] [address], documented in this encounter Visit Diagnoses Diagnosis Personal history of malignant neoplasm of bladder documented in this encounter Care Teams Dump Truck Operator Relationship Specialty Start Date End Date Physician, Pcp Unknown PCP - General 10/04/24 10/04/24 documented as of this encounter
== END 2025-03-14 15:03 | disposition home or self-care (01) ==
LOC: HO.HVS 14:32
PROVIDERS: PCP Physician Assistant; Visit Provider Surgery Vascular Surgery
DX: I73.9 Peripheral vascular disease, unspecified (principal); I71.43 Infrarenal abdominal aortic aneurysm, without rupture
CPT/HCPCS: 99214; G2211

== ENCOUNTER → 2025-03-14 14:31 | Outpatient (BNVA) | payer MEDICARE, SELFPAY | PROVIDERS: PCP Physician Assistant; Visit Provider Surgery Vascular Surgery | DX: I71.43 Infrarenal abdominal aortic aneurysm, without rupture (principal); I73.9 Peripheral vascular disease, unspecified | CPT/HCPCS: 99212 ==

== ENCOUNTER 2025-03-19 12:47 | Outpatient (AMB) | payer MEDICARE, SELFPAY ==
--- NOTE | 2025-03-19 12:50 | A.OFFVIS_ITS ---
Vital Signs 03/19/25 12:51 Height 6 ft Weight 185 lb 3.013 oz BMI 25.1 BP 124/62 Blood Pressure Location Lt brachial Position Sitting Pulse 57 Pulse Source Monitor Intake Visit Reasons: 3.5 mth f/up Allergies Sulfa (Sulfonamide Antibiotics) (SULFA (SULFONAMIDE ANTIBIOTICS)) Allergy (Severe, Verified 03/14/25 14:44) SKIN SLOUGHING, genital rash Medication List - Last Reconciled 03/19/25 by Ricky Sharma MD atorvastatin 40 mg PO BEDTIME 90 days blood sugar diagnostic (OneTouch Ultra Test strips) As directed blood sugar diagnostic (OneTouch Ultra Test strips) As directed clopidogrel 75 mg PO DAILY 90 days gabapentin 300 mg PO BEDTIME 90 days glipizide ER 10 mg PO DAILY 90 days isosorbide mononitrate ER 30 mg PO DAILY lancets (OneTouch UltraSoft Lancets) As directed metformin 500 mg PO QID 90 days metoprolol tartrate 25 mg PO BID 30 days sertraline 50 mg PO DAILY zanubrutinib (Brukinsa) 160 mg (2 x 80 mg) PO BID HPI Comments Details: Colin returns for follow-up regarding coronary artery disease. Formerly, he was seen at [facility]. History of LAD stent from 2005. He underwent noninvasive cardiac workup followed by diagnostic catheterization and RCA stenting. For the most part, he is feeling fine. Some skin bleeding/bruising related to dual antiplatelet therapy and he has not taken aspirin for the last few days. Otherwise, he feels well. Has lower extremity claudication but that is under control. [facility] Medical History Hemorrhoids without complication Diverticulosis Bladder cancer Thoracic aortic aneurysm CAD (coronary artery disease) PAD (peripheral artery disease) Tubular adenoma Sleep apnea Hyperlipemia HTN, goal to be determined Type II diabetes mellitus Surgical History Trigger finger of left hand (~03/2024) Hx of transurethral resection of prostate Hx of colonoscopy (11/01/23) History of coronary artery stent placement History of squamous cell carcinoma excision History of surgery on arm Family History Mother Pancreatic cancer Social History Household Members: Spouse Housing: House Alcohol intake: current Alcohol intake frequency: holidays/special occasions only Patient Tobacco Use Status: Former Tobacco user Tobacco use type: Cigarette e-Cigarette/Vaping Use: Former Use Second Hand Smoke Exposure: Yes service: No 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) Cognitive needs: No Hearing needs: No Vision needs: Yes (glasses) Review of Systems Const Denies weakness ENT Denies dizziness Card Denies chest pain, Denies chest pain with activity, Denies syncope, Denies rapid heart rate, Denies pedal edema, Denies edema, Denies leg edema, Denies lightheadedness, Denies palpitations, Denies dyspnea, Denies dyspnea on exertion and Denies orthopnea Resp Denies cough, Denies dyspnea and Denies dyspnea on exertion GI Denies hematochezia and Denies change in stool character Musc Denies abnormal gait, Denies muscle cramps, Denies muscle weakness, Denies numbness, Denies radiating pain into limb and Denies tingling Neuro Denies abnormal gait, Denies dizziness, Denies syncope, Denies numbness, Denies tingling and Denies weakness Endo Denies palpitations Physical Exam Vital Signs: Last Vital Signs Pulse 57 03/19/25 12:51 BP 124/62 03/19/25 12:51 BMI result Body Mass Index 25.1 Const General: comfortable and no acute distress Orientation/consciousness: patient oriented x3 HEENT Other: Unremarkable Head: Yes normal to inspection Neck Neck: Yes normal visual inspection Chest Chest palpation & inspection: normal inspection of the chest Resp Auscultation: clear to auscultation bilaterally Cardio Palpation: normal PMI Heart sounds: S1 normal heart sound present, S2 normal heart sound present, no gallops, no murmurs and no rubs GI Palpation (GI): Soft to palpation Back/Spine/Pelvis Other: unremarkable Skin General skin exam: no rashes or lesions noted Neuro General: patient oriented x3 Extrem General: Yes normal to inspection Psych Mental Status: mental status grossly normal Office Procedures EKG Details: EKG with underlying sinus bradycardia at 57/Min; [place] prolongation to 224 milliseconds; right bundle-branch [place]; [place] [id number], Complete Assessment & Plan Assessment & Plan (1) Atherosclerotic cardiovascular disease: Code(s): I25.10 - Atherosclerotic heart disease of [place] coronary artery without angina pectoris Category: Medical Plan: Cardiac studies reviewed. In the echocardiogram, LVEF 55-60%, inferior and inferoseptal wall motion abnormality. In the perfusion imaging, large area of ischemia in the RCA/circumflex distribution. In the diagnostic catheterization from 10/2024, distal RCA with severe stenosis involving bifurcation between PLV/PDA. Status post MARY CARMEN. Patent mid LAD stent with collaterals from LAD to PDA. Severe OM2 stenosis, small to moderate-sized territory. He is taking only Plavix. Advised him to resume aspirin and take it at least for 6 months from time of stent. Is too much of bleeding in the skin, then consider alternate day aspirin. We discussed about this at length today. Continue long-acting nitrates. Statins. (2) PAD (peripheral artery disease): Code(s): I73.9 - Peripheral vascular disease, unspecified Category: Medical Plan: He has vascular disease in right lower extremity, but able to do reasonable amounts of physical activity and hence he is only on medical therapy. He sees vascular surgery but no interventions planned at this time. (3) Type 2 diabetes mellitus with unspecified complications: Code(s): E11.8 - Type 2 diabetes mellitus with unspecified complications Category: Medical Plan: On glipizide, metformin. Hemoglobin A1c is 6%. Seems controlled. (4) Waldenstrom's macroglobulinemia: Code(s): C88.0 - Waldenstrom macroglobulinemia Category: Medical Plan: Followed by hematology. On Zanbrutinib. Plan Discussion Notes I discussed with the patient the management of his bruising, emphasizing the importance of balancing blood thinner usage to prevent stent thrombosis while minimizing bleeding risk. We reviewed the use of compression stockings for peripheral edema and agreed that surgical intervention is not necessary at this time. The impact of Waldenstr?m macroglobulinemia on his condition was acknowledged, and we planned for follow-up to reassess his antiplatelet therapy regimen. Patient was informed and verbally consented to the use of an ambient scribe for clinic note documentation during this visit. Patient Instructions: - If you cannot take daily aspirin, at least take it alternate days. - Use arm sleeves to protect against bruising. - Wear compression stockings to manage leg swelling. - Follow up in 3-4 months to reassess medication regimen. Coding Level of Care Code Est Pt Level 4 (28065) Complex EM visit Add On G2211 Diagnoses Atherosclerotic cardiovascular disease I25.10 PAD (peripheral artery disease) I73.9 Type 2 diabetes mellitus with unspecified complications E11.8 Waldenstrom's macroglobulinemia C88.0 CPT Codes EKG - CPT: 48298-[id number], Complete ([id number])
[2025-03-19 12:51] VITALS: BP 124/62; PULSE 57; BMI 25.1
--- OUTSIDE RECORDS SUMMARY | 2025-03-19 13:48 | XMS_ITS | Encounter Summary ---
Author Organization [facility] [place] [address] Care Team Providers Care Production Statistical Clerk Name Role Phone Physician, Pcp Unknown Primary Care Provider Kika vailable Encounter Details Date Type Department Care Team (Late st Contact Info) Description 09/24/2024 Lab Requisition [facility] - Main Lab [address] [facility] [place] [address] Harry Lau MD [address] [place] [address] Personal history of malignant neoplasm [...] AM EST) Final Diagnosis A. Urine, Voided, ([id number]): FEW ATYPICAL UROTHELIAL CELLS. Results of UroVysion [...] HOSPITAL LAB Gross Description A. Urine, Voided, ([id number]): Received one ThinPrep slide for cytology screen and one ThinPrep slide for UroVysion FISH 10/04/2024 6:00 PM [facility] Disclaimer Unless otherwise specified, all tissue is 10% NB formalin fixed and paraffin embedded. Technical pathology services provided by [facility] at [address], [place] [address] (CLIA #[id number]/Ankita Howell MD, Cafeteria Server) 10/04/2024 6:00 PM [facility] Tissue Urine specimen from urethra / Unknown 09/18/2024 09/24/2024 10:12 AM EST us Harry Lau MD LAB PATHOLOGY ORDERABLES Final Result [facility] [address] [place] [address], documented in this encounter Visit Diagnoses Diagnosis Personal history of malignant neoplasm of bladder documented in this encounter Care Teams Production Statistical Clerk Relationship Specialty Start Date End Date Physician, Pcp Unknown PCP - General 10/04/24 10/04/24 documented as of this encounter
== END 2025-03-19 13:28 | disposition home or self-care (01) ==
LOC: HO.HCS 12:48
PROVIDERS: PCP Physician Assistant; Visit Provider Internal Medicine
DX: I25.10 Atherosclerotic heart disease of native coronary artery without angina pectoris (principal); I73.9 Peripheral vascular disease, unspecified; E11.8 Type 2 diabetes mellitus with unspecified complications; C88.00 Waldenstrom macroglobulinemia not having achieved remission
CPT/HCPCS: 93010; 99214; G2211

== ENCOUNTER → 2025-03-19 12:47 | Outpatient (BNVA) | payer MEDICARE, SELFPAY | PROVIDERS: PCP Physician Assistant; Visit Provider Internal Medicine | DX: I25.10 Atherosclerotic heart disease of native coronary artery without angina pectoris (principal); I73.9 Peripheral vascular disease, unspecified; E11.8 Type 2 diabetes mellitus with unspecified complications; C88.00 Waldenstrom macroglobulinemia not having achieved remission | CPT/HCPCS: 93005; 99212 ==

== ENCOUNTER 2025-04-17 09:04 | Outpatient (REF) | payer MEDICARE, SELFPAY ==
--- NOTE | ~2025-04-17 | FL_ITS ---
EXAMINATION: XR BARIUM SWALLOW CLINICAL INFORMATION: Dysphagia to solids COMPARISON: None available. TECHNIQUE: Routine barium swallow was performed with thick barium, barium coated saltine crackers in upright view and thin barium in prone lying position. FINDINGS: Following oral administration of thick barium there is normal propagation bolus from the oral cavity through the pharynx, esophagus into stomach without obstruction, narrowing or stricture. A prominent cricoesophageal sphincter is noted. There is mild retention of thick barium in the piriform sinuses and left cephalic liver which cleared with head flexion and rotation of the left and dry swallowing. Following oral administration of saltine crackers coated with barium paste there is normal oral mastication and propagation bolus from the oral cavity, pharynx, esophagus into stomach. On placing patient prone lying and oral administration of thin barium there is normal perfusion bolus through the esophagus into stomach with normal esophageal distention. No extrinsic compression seen. No intraluminal filling defect. There is a small sliding hiatal hernia with no visible gastroesophageal reflux at this time. FLUOROSCOPY TIME: 3 minutes 48 seconds. DOSE AREA PRODUCT: 51.05 uGy-m2 (microgray-meter squared) FL/FL barium swallow IMPRESSION: Mild retention of thick barium in the vallecula and piriform sinuses which clears with head flexion and rotation to left and right swallowing. There is no obstruction seen esophagus No laryngeal penetration or aspiration. Small sliding hiatal hernia. Electronically signed by: Rex Weaver MD 04/17/2025 09:55 AM EDT
--- OUTSIDE RECORDS SUMMARY | 2025-04-17 09:47 | XMS_ITS | Encounter Summary ---
Author Organization [facility] [place] [address] Care Team Providers Care Printed Circuit Board Reworker Name Role Phone Helio Ferguson Primary Care Provider [phone] Encounter Details Date Type Department Care Team (Late st Contact Info) Description 09/24/2024 Lab Requisition [facility] - Main Lab [address] [facility] [place] [address] Harry Lau MD [address] [facility] [address] [place] [address] Personal history of malignant neoplasm [...] AM EST) Final Diagnosis A. Urine, Voided, ([id number]): FEW ATYPICAL UROTHELIAL CELLS. Results of UroVysion [...] CENTER LAB Gross Description A. Urine, Voided, ([id number]): Received one ThinPrep slide for cytology screen and one ThinPrep slide for UroVysion FISH 10/04/2024 6:00 PM [facility] Disclaimer Unless otherwise specified, all tissue is 10% NB formalin fixed and paraffin embedded. Technical pathology services provided by [facility] [address] [facility] [address] [place] [address] (CLIA #[id number]/Ankita Howell MD, Ferryboat Operator Cable) 10/04/2024 6:00 PM [facility] Tissue Urine specimen from urethra / Unknown 09/18/2024 09/24/2024 10:12 AM EST us Harry Lau MD LAB PATHOLOGY ORDERABLES Final Result [facility] [address] [place] [address], documented in this encounter Visit Diagnoses Diagnosis Personal history of malignant neoplasm of bladder documented in this encounter Care Teams Printed Circuit Board Reworker Relationship Specialty Start Date End Date Helio Ferguson PA [address] [place] [phone] PCP - General Physician Modern And Contemporary Art Curator 04/10/25 documented as of this encounter
--- OUTSIDE RECORDS SUMMARY | 2025-04-17 09:47 | XMS_ITS | Encounter Summary ---
Author Organization [facility] Address [address] [place] [address] Care Team Providers Care Head Cook Name Role Phone Jonatan Daniel MD Unavailable Elbert Florian MD Primary Care Provider [phone] Bharati Mcgowan DNP Unavailable [phone] Helio Ferguson Primary Care Provider Unavailab Radha Davis RIVET STICKER Unavailable Kiara Anderson MD Unavailable [phone] Duglas Diaz RIVET STICKER Unavailable Encounter Details Date Type Department Care Team Description 09/22/2021 Orders Only [facility] Thoracic Surgery [place] [address] [facility] [address] [place] [phone] Ivon Dudley MD [address] [facility] [address] [place] [address] [phone] History of tobacco use, presenting hazards to [...] health documented in this encounter Care Teams Head Cook Relationship Specialty Start Date End Date Elbert Florian MD [address] [place] [address] PCP - General Internal Medicine 11/28/20 04/20/22 Helio Ferguson [address] [place] [address] PCP - General Internal Medicine 04/21/22 Jonatan Daniel MD [address] [place] [phone] Specialist Cardiovascular Disease 10/17/20 Bharati Mcgowan DNP [address] [place] [address] Specialist Cardiology 01/27/21 Radha Mcclellan NP [address] [place] [address] Cardiology 04/23/24 Kiara Anderson MD [address] [place] [address] Specialist Cardiology 04/23/24 Duglas Diaz NP [address] [place] [address] Specialist Cardiology 04/23/24 documented as of this encounter
== END 2025-04-17 09:05 | disposition home or self-care (01) ==
LOC: HO.XRAY 09:04
PROVIDERS: PCP Physician Assistant; Visit Provider Physician Assistant
DX: R13.10 Dysphagia, unspecified (principal)
CPT/HCPCS: 74220

== ENCOUNTER → 2025-04-17 09:06 | Outpatient (BNV) | payer MEDICARE, SELFPAY | PROVIDERS: PCP Physician Assistant; Visit Provider Radiology Diagnostic Radiology | DX: R13.19 Other dysphagia (principal) | CPT/HCPCS: 74221 ==

== ENCOUNTER 2025-06-25 13:18 | Outpatient (AMB) | payer MEDICARE, SELFPAY ==
--- NOTE | 2025-06-25 13:25 | A.OFFVIS_ITS ---
Vital Signs 06/25/25 13:26 Height 6 ft Weight 187 lb 6.287 oz BMI 25.4 BP 126/70 Blood Pressure Location Lt brachial Position Sitting Pulse 66 Pulse Source Pulse Oximeter Intake Visit Reasons: f/up Allergies Sulfa (Sulfonamide Antibiotics) (SULFA (SULFONAMIDE ANTIBIOTICS)) Allergy (Severe, Verified 06/04/25 13:24) SKIN SLOUGHING, genital rash Medication List - Last Reconciled 06/25/25 by Ricky Sharma MD aspirin 81 mg PO DAILY atorvastatin 40 mg PO BEDTIME 90 days blood sugar diagnostic (OneTouch Ultra Test strips) As directed blood sugar diagnostic (OneTouch Ultra Test strips) As directed clopidogrel 75 mg PO DAILY 90 days gabapentin 300 mg PO BEDTIME 90 days glipizide ER 10 mg PO DAILY 90 days isosorbide mononitrate ER 30 mg PO DAILY lancets (OneTouch UltraSoft Lancets) As directed metformin 500 mg PO QID 90 days metoprolol tartrate 25 mg PO BID 30 days sertraline 50 mg PO DAILY zanubrutinib (Brukinsa) 160 mg (2 x 80 mg) PO BID HPI Comments Details: Colin returns for follow-up regarding coronary artery disease. Formerly, he was seen at [facility]. History of LAD stent from 2005. He underwent noninvasive cardiac workup followed by diagnostic catheterization and RCA stenting. From cardiac, he has got no symptoms like angina. Previously, issues with bleeding in skin/bruising related to dual antiplatelet therapy. After that, his aspirin was switch to alternate days and he states it is somewhat better but he still has frequent skin bleeding. Otherwise, he seems to be getting along okay. [facility] Medical History Hemorrhoids without complication Diverticulosis Bladder cancer Thoracic aortic aneurysm CAD (coronary artery disease) PAD (peripheral artery disease) Tubular adenoma Sleep apnea Hyperlipemia HTN, goal to be determined Type II diabetes mellitus Surgical History Trigger finger of left hand (~03/2024) Hx of transurethral resection of prostate Hx of colonoscopy (11/01/23) History of coronary artery stent placement History of squamous cell carcinoma excision History of surgery on arm Family History Mother Pancreatic cancer Social History Household Members: Spouse Housing: House Alcohol intake: current Alcohol intake frequency: holidays/special occasions only Patient Tobacco Use Status: Former Tobacco user Tobacco use type: Cigarette e-Cigarette/Vaping Use: Former Use Second Hand Smoke Exposure: Yes service: No 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) Cognitive needs: No Hearing needs: No Vision needs: Yes (glasses) Review of Systems Const Denies weakness ENT Denies dizziness Card Denies chest pain, Denies chest pain with activity, Denies syncope, Denies rapid heart rate, Denies pedal edema, Denies edema, Denies leg edema, Denies lightheadedness, Denies palpitations, Denies dyspnea, Denies dyspnea on exertion and Denies orthopnea Resp Denies cough, Denies dyspnea and Denies dyspnea on exertion GI Denies hematochezia and Denies change in stool character Musc Denies abnormal gait, Denies muscle cramps, Denies muscle weakness, Denies numbness, Denies radiating pain into limb and Denies tingling Neuro Denies abnormal gait, Denies dizziness, Denies syncope, Denies numbness, Denies tingling and Denies weakness Endo Denies palpitations Physical Exam Vital Signs: Last Vital Signs Pulse 66 06/25/25 13:26 BP 126/70 06/25/25 13:26 BMI result Body Mass Index 25.4 Const General: comfortable and no acute distress Orientation/consciousness: patient oriented x3 HEENT Other: Unremarkable Head: Yes normal to inspection Neck Neck: Yes normal visual inspection Chest Chest palpation & inspection: normal inspection of the chest Resp Auscultation: clear to auscultation bilaterally Cardio Palpation: normal PMI Heart sounds: S1 normal heart sound present, S2 normal heart sound present, no gallops, no murmurs and no rubs GI Palpation (GI): Soft to palpation Back/Spine/Pelvis Other: unremarkable Skin General skin exam: no rashes or lesions noted Neuro General: patient oriented x3 Extrem General: Yes normal to inspection Psych Mental Status: mental status grossly normal Assessment & Plan Assessment & Plan (1) Atherosclerotic cardiovascular disease: Code(s): I25.10 - Atherosclerotic heart disease of [place] coronary artery without angina pectoris Category: Medical Plan: Cardiac studies reviewed. In the echocardiogram, LVEF 55-60%, inferior and inferoseptal wall motion abnormality. In the perfusion imaging, large area of ischemia in the RCA/circumflex distribution. In the diagnostic catheterization from 10/2024, distal RCA with severe stenosis involving bifurcation between PLV/PDA. Status post MARY CARMEN. Patent mid LAD stent with collaterals from LAD to PDA. Severe OM2 stenosis, small to moderate-sized territory. Continue Plavix. Due to frequent skin bleeding issues, he can stop the aspirin. Continue long-acting nitrates, statins. (2) PAD (peripheral artery disease): Code(s): I73.9 - Peripheral vascular disease, unspecified Category: Medical Plan: He has vascular disease in right lower extremity, but able to do reasonable amounts of physical activity and hence he is only on medical therapy. He sees vascular surgery but no interventions planned at this time. (3) Type 2 diabetes mellitus with unspecified complications: Code(s): E11.8 - Type 2 diabetes mellitus with unspecified complications Category: Medical Plan: On glipizide, metformin. Hemoglobin A1c is 6%. Seems controlled. (4) Waldenstrom's macroglobulinemia: Code(s): C88.0 - Waldenstrom macroglobulinemia Category: Medical Plan: Followed by hematology. On Zanbrutinib. Plan Discussion Notes During the visit, I discussed with the patient the need to discontinue aspirin due to persistent bruising while continuing Plavix for cardiovascular health. I clarified the purpose of isosorbide for angina management to ensure patient understanding and adherence. We also discussed the importance of maintaining regular exercise as part of his preventative care routine. Patient was informed and verbally consented to the use of an ambient scribe for clinic note documentation during this visit. Medications: New isosorbide mononitrate ER 30 mg PO DAILY 90 tabs 3RF Patient Instructions: - Stop taking aspirin as advised. - Continue taking Plavix daily. - Take isosorbide as prescribed for angina. Coding Level of Care Code Est Pt Level 4 (97872) Complex EM visit Add On G2211 Diagnoses Atherosclerotic cardiovascular disease I25.10 PAD (peripheral artery disease) I73.9 Type 2 diabetes mellitus with unspecified complications E11.8 Waldenstrom's macroglobulinemia C88.0
[2025-06-25 13:26] VITALS: BP 126/70; PULSE 66; BMI 25.4
--- OUTSIDE RECORDS SUMMARY | 2025-06-25 17:03 | XMS_ITS | Clinical Summary ---
Author Organization LL [address] [place] [address] [place] [phone] Phone Care Team Providers Care Senior Patient Account Representative Name Role Phone Helio Ferguson Primary Care Provider Allergies Active Allergy Reactions Criticality Noted Date Comments Nitrofurantoin Monohyd/M-Cryst Nausea And Vomiting 10/17/2020 Sulfa (Sulfonamide Antibiotics) 09/30 Sulfadiazine 12/27/2024 Medications aspirin 81 mg EC tablet Take 1 tablet (81 mg total) by mouth. 5 Active atorvastatin (LIPITOR) 40 mg tablet Take 1 tablet (40 mg total) by mouth at bedtime. Active cilostazoL (PLETAL) 50 mg tablet Take 1 tablet (50 mg total) by mouth 2 (two) times a day. 4 Active clopidogreL (PLAVIX) 75 mg tablet Take 1 tablet (75 mg total) by mouth 1 (one) time each day. Active erythromycin 5 mg/gram (0.5 %) ophthalmic ointment ADMINISTER 1/2 INCH INTO THE EYE 3 TIMES A DAY 4 Active gabapentin (NEURONTIN) 300 mg capsule Take 1 capsule (300 mg total) by mouth. 5 Active glipiZIDE (GLUCOTROL XL) 10 mg 24 hr tablet Take 1 tablet (10 mg total) by mouth 1 (one) time each day. 5 Active isosorbide dinitrate (ISORDIL) 30 mg tablet Take 1 tablet (30 mg total) by mouth. 5 Active isosorbide mononitrate (IMDUR) 30 mg 24 hr tablet Take 1 tablet (30 mg total) by mouth 1 (one) time each day. Active loperamide (IMODIUM) 2 mg capsule TAKE 2 MG ORALLY EVERY 6 HOURS NEEDED FOR DIARRHEA 4 Active metFORMIN (GLUCOPHAGE) 500 mg tablet Take 1 tablet (500 mg total) by mouth. Active metoprolol succinate 25 mg capsule,Joao murray 24hr Take 25 mg by mouth. 9 Active metoprolol tartrate (LOPRESSOR) 25 mg tablet Take 1 tablet (25 mg total) by mouth 2 (two) times a day. 5 Active ondansetron ODT (ZOFRAN-ODT) 4 mg disintegrating tablet Take 1 tablet (4 mg total) by mouth every 6 (six) hours if needed for nausea. 4 Active sertraline (ZOLOFT) 50 mg tablet Take 1 tablet (50 mg total) by mouth 1 (one) time each day. Active coenzyme Q-10 100 mg capsule Take by mouth. Acti ve Brukinsa 80 mg capsule 5 Active Encounters Date Type Department Care Team Description 05/23/2025 Telephone [facility] - [facility] [address] [facility] [address] [place] [address] Jonatan Daniel MD 04/30/2025 Lab Requisition [facility] - Main Lab [address] [facility] [place] [address] Harry Lau MD Personal history of malignant neoplasm of bladder 04/10/2025 1:30 PM EDT Office Visit Orthopedic Surgery - [place] [address] [facility] [address] [place] [address] Rosy Clark PA Trigger index finger of right hand (Primary Dx) from Last 3 Months Surgical History Surgery Date Site/Laterality Comments OTHER SURGICAL HISTORY 2003 TO PRESENT PROCEDURE: AR CYSTOTOMY EXCISION BLADDER TUMOR; COMMENT: NUMEROUS OTHER SURGICAL HISTORY 08/29/1963 PROCEDURE: AR EXCISION MAL LESION TRUNK/ARM/LEG 0.6-1.0 CM OTHER SURGICAL HISTORY 08/29/2006 PROCEDURE: STENT,CORONARY, S660 ; COMMENT: x2 CATARACT EXTRACTION 08/29/2015 Bilateral PROCEDURE: HISTORICAL CATARACT REMOVAL HAND SURGERY 08/15/2019 Right PROCEDURE: HISTORICAL HAND SURGERY; COMMENT: Long Finger Trigger/A1 Ruby Release, Dr. Morrison Medical History Medical History Date Comments Bladder cancer ([facility] V24, [facility] V28) DX:Bladder cancer (HCC) Carcinoma ([facility] V24, [facility] V28) DX:Carcinoma (HCC); COMMENT: left arm Heart disease DX:Heart disease DM (diabetes mellitus) ([facility] V24, [facility] V28) DX:DM (diabetes mellitus) (H CC) Depression with anxiety DX:Depre ssion with anxiety Hyperlipidemia DX:Hyperlipidemi a Bladder cancer ([facility] V24, [facility] V28) DX:Bladder cancer (HCC); COM MENT: Dr. 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 [id number] DX:Squamous cell cancer of skin of thumb; COMMENT: Dr Baker Microalbuminuria 12/31/2016 DX:Microalbumin uria DM (diabetes mellitus), type 2 with peripheral vascular complications ([facility] V24, [facility] V28) 12/31/2016 DX:DM (diabetes mellitus), type 2 with peripheral vascular complications (HCC) Type 2 diabetes mellitus wit h cataract ([facility] V24, [facility] V28) 12/31/2016 DX:Type 2 diabetes mellitus with cataract (HCC) SCC (squamous cell carcinoma) 01/20/2017 DX :SCC [...] - Inhaled Oxygen Concentration - - Weight 83.5 kg (184 lb) 04/10/2025 1:30 PM EDT Height 182.9 cm (6') 04/10/2025 1:30 PM EDT Body Mass Index 24.95 04/10/2025 1:30 PM EDT Plan of Treatment Health Maintenance Due Date Last Done Comments Diabetes: Annual GFR (Glomerular Filtration Rate) 1947 Diabetes: Annual Foot Exam 1957 Diabetes: Annual Retina Eye Exam 1957 Cholesterol Screening (Lipid Panel) 08/07/2022 Diabetes: Annual Urine Albumin-Creatinine Ratio (uACR) 08/07/2022 Diabetes: Blood Sugar Control Test (HGBA1C) 08/07/2022 Falls Risk Assessment 08/07/2022 Hepatitis C Screening 08/07/2022 Hypertension/CHF/CAD Annual BMP Blood Test 08/07/2022 Medicare Annual Wellness Visit 08/07/2022 Social Influencers of Health Screening 08/07/2022 Depression Screening 08/29/2024 COVID-19 Vaccine (9 - Moderna risk season) 2025 05/25/2024, 06/09/2023, 01/07/2023, Additional history exists Influenza Vaccine (#1) 2025 , 05/10/2023, 05/06/2022, Additional history exists Lung Cancer Screening (Low Dose CT) 10/25/2025 10/25/2024, 10/24/2023, 10/26/2022, Additional history exists DTaP,Tdap,and Td Vaccines (3 - Td or Tdap) 10/22/2026 10/22/2016, 08/29/2006 Zoster Vaccines Completed 04/16/2020, 09/29, 04/05/2013 RSV Immunization Adult Patients Completed 05/10/2023 Pneumococcal Vaccine: 50+ Years Completed 08/15/2023, 12/10/2014, 03/14/2013, Additional history exists HIB Vaccines Aged Out [...] age to complete this topic Meningococcal B Vaccine Aged Out No l onger eligible based on patient's age to complete this topic RSV Immunization Patients Under 20 months Aged Out No longer eligible based on patient's age to complete this topic Varicella Vaccines Aged Out No longer eligible based on patient's age to complete this topic Procedures Procedure Name Priority Date/Time Associated Diagnosis Comments NON-GYNECOLOGIC CYTOLOGY Routine 04/16/2025 12:00 AM EDT Personal history of malignant neoplasm of bladder AR INJECTION SINGLE TENDON SHEATH OR LIGAMENT APONEUROSIS Routine 04/10/2025 1:30 PM EDT Trigger index finger of right hand CT LUNG SCREENING Routine 10/25/2024 9:5 4 AM EST Encounter for screening for malignant neoplasm of respiratory organs Personal history of nicotine dependence from Last 3 Months or Most Recently Relevant to Health Maintenance Results * Non-gynecologic cytology (04/16/2025 12:00 AM EDT) Final Diagnosis A. Cystoscopic, : Negative for high grade urothelial carcinoma. Results of UroVysion fluorescence in situ hybridization (FISH) testing: CEP3: Normal CEP7: Normal CEP17: Normal LSI 9p21: Abnormal Interpretation: Abnormal profile Controls stained appropriately. Note: Abnormal results are considered suspicious for urothelial carcinoma. 05/14/2025 4:47 PM EDT [facility] Specimen A Adequacy Satisfactory for evaluation 05/14/2025 4:47 PM EDT [facility] Clinical Information History of bladder neoplasm (malignant) Z85.51 Urine Cytology/FISH (now) 05/14/2025 4:47 PM EDT [facility] Gross Description A. Cystoscopic, [id number]: Received one ThinPrep slide for cytology and one ThinPrep slide for UroVysion FISH 05/14/2025 4:47 PM EDT [facility] Disclaimer Unless otherwise specified, all tissue is 10% NB formalin fixed and paraffin embedded. Technical pathology services provided by [facility] at [address] [place] [address] [address], [place] [address] (CLIA #[id number]/Ankita Howell MD, Case Reviewer) 05/14/2025 4:47 PM EDT [facility] Urine Cystoscope / Unknown 04/16/2025 04/30/2025 11:04 AM EDT us Harry Lau MD LAB CYTOLOGY ORDERABLES Final Result [facility] [address] [place] [address], * AR INJECTION SINGLE TENDON SHEATH OR LIGAMENT APONEUROSIS (04/10/2025 1:30 PM EDT) Narrative Rosy Clark PA - 04/10/2025 1:30 PM EDT MARILOU Brown 04/10/2025 2:10 PM Hand / UE Inj/Asp: R index A1 for trigger finger Indications: pain Details: 25 G needle, volar approach Medications: 40 mg triamcinolone acetonide 40 mg/mL; 0.5 mL lidocaine 1 % Informed Consent: Relevant images/test results available and reviewed: yes Health status cleared: Yes Procedure/treatment, purpose, treatment alternatives, risks/potential complications and benefits explained: yes Risk/complications/benefits details: Risks of infection, thinning of the skin and temporary skin discoloration discussed. Discussed risks of temporary increased pain after injection and swelling and mild redness at injection site for couple days. Explained occasionally cortisone injection can cause facial flushing temporarily. Benefits pain management. For postop injection pain ice, Tylenol and/or NSAIDs if patient can take Patient questions answered: yes Patient agrees, verbalizes understanding, and wants to proceed: yes Consent given by: Patient Informed consent discussion completed by Physician/TRIP with patient: Verbal Pre-procedure timeout performed: yes us Rosy ZAMARRIPA IN CLINIC/BEDSIDE ORDERABLES Final Result * CT Lung Screening (10/25/2024 9:54 AM EST) Anatomical Region Laterality Modality Chest Computed Tomogra phy 10/29/2024 3:09 PM EST Impressions 10/29/2024 3:28 PM EST No new or suspicious pulmonary nodules. Recommend continued screening with low-dose chest CT in 12 months. Irregular thickening the distal esophagus and gastroesophageal junction with prominent lower paraesophageal and gastrohepatic lymph nodes. Findings may be related to esophagitis or neoplasm. Endoscopy recommended to evaluate further. Lung RADS 2S-benign. -------- FINAL REPORT -------- Dictated By: ADRIEN GARCIA Dictated Date: 10/29/2024 15:09 ET Assigned Physician: ADRIEN GARCIA Reviewed and Electronically Signed By: ADRIEN GARCIA Signed Date: 10/29/2024 15:28 ET Workstation ID: [id number] Transcribed By: Self Edit Transcribed Date: 10/29/2024 15:09 ET Narrative 10/29/2024 3:28 PM EST PROCEDURE: Chest CT INDICATION: Lung cancer screening, former smoker, 20 pack year smoking history TECHNIQUE: Chest CT without contrast. Multi planar reformats were created and interpreted. The examination was performed utilizing dose reduction techniques. Total DLP 196 COMPARISON: 10/23/2023 FINDINGS: LUNGS/PLEURA: Central airways are patent. Mild emphysema with chronic bronchitis. Elevated right diaphragm with right basilar atelectasis. Subcutaneous millimeters nodules in the right lower lobe are similar compared to prior. No new or suspicious pulmonary nodules. No pleural effusion or pneumothorax. MEDIASTINUM: Irregular thickening of the gastroesophageal junction and distal esophagus with small adjacent lymph nodes. Biatrial and biventricular dilation with severe coronary artery calcifications. No pericardial effusion. No mediastinal or hilar lymphadenopathy. Thyroid gland is normal. CHEST WALL: No axillary lymphadenopathy or superficial hematoma. UPPER ABDOMEN:Small gastrohepatic lymph nodes are present measuring up to 10 mm short axis. BONES: Bones are normal for age. Ivon Dudley MD IMG CT PROCEDURES Final Result from Last 3 Months or Most Recently Relevant to Health Maintenance Insurance [employer] [facility] Care Teams Senior Patient Account Representative Relationship Specialty Start Date End Date Helio Ferguson PA [address] [place] [address] [place] [phone] PCP - General Physician I&C Tech 04/10/25
--- OUTSIDE RECORDS SUMMARY | 2025-06-25 17:03 | XMS_ITS | Encounter Summary ---
Author Organization [facility] [place] [address] Care Team Providers Care Viner Operator Name Role Phone Helio Ferguson Primary Care Provider [phone] Encounter Details Date Type Department Care Team (Late st Contact Info) Description 01/04/2025 Lab Requisition [facility] - Main Lab [address] [facility] [place] [address] Harry [facility] MD [facility] [address] [place] [address] Malignant neoplasm of bladder neck ([facility] V24, [facility] V28) Social History Tobacco Use Types Packs/Day Years [...] Associated Diagnosis Comments AP OUTSIDE CONSULT Routine 12/31/2024 12 :00 AM EDT Malignant neoplasm of bladder neck ([facility] V24, [facility] V28) documented in this encounter Results * Anatomic pathology outside consult (12/31/2024 12:00 AM EDT) Final Diagnosis A. Urine, Voided, ([id number]): Negative for high grade urothelial carcinoma. Results of UroVysion fluorescence in situ hybridization (FISH) testing: CEP3: Normal CEP7: Normal CEP17: Normal LSI 9p21: Normal Interpretation: Normal profile Controls stained appropriately. Note: The results are intended as a screening device and should be interpreted in association with other clinical and pathological findings. 01/17/2025 5:16 PM EDT [facility] Clinical Information Malignant neoplasm of bladder neck C67.5 Urine Cytology/FISH (now) 01/17/2025 5:16 PM EDT [facility] Gross Description A. Urine, Voided, ([id number]): Received one ThinPrep slide for cytology and one ThinPrep slide for UroVysion FISH 01/17/2025 5:16 PM EDT [facility] Disclaimer Unless otherwise specified, all tissue is 10% NB formalin fixed and paraffin embedded. Technical pathology services provided by [facility] at [address] [place] [address] [address], [place] [address] (CLIA #[id number]/Ankita Howell MD, Veterans Service Representative) 01/17/2025 5:16 PM EDT [facility] Tissue Urine specimen from urethra / Unknown 12/31/2024 01/04/2025 10:45 AM EDT Harry Lau MD LAB PATHOLOGY ORDERABLES Final Result [facility] [address] [place] [address], documented in this encounter Visit Diagnoses Diagnosis Malignant neoplasm of bladder neck (CMS/HCC V24, CMS/HCC V28) Malignant neoplasm of bladder neck documented in this encounter Care Teams Viner Operator Relationship Specialty Start Date End Date Helio Ferguson PA [address] [place] [phone] PCP - General Physician Metal Stamping Machine Operator 04/10/25 documented as of this encounter
--- OUTSIDE RECORDS SUMMARY | 2025-06-25 17:03 | XMS_ITS | Encounter Summary ---
Author Organization [facility] [place] [address] Care Team Providers Care Ornamental Metal Erector Name Role Phone Helio Ferguson Primary Care Provider [phone] [phone] Encounter Details Date Type Department Care Team (Late st Contact Info) Description 04/30/2025 Lab Requisition [facility] - Main Lab [address] [facility] [place] [address] Harry Lau MD [facility] [address] [place] [address] Personal history of malignant neoplasm [...] bladder documented in this encounter Results * Non-gynecologic cytology (04/16/2025 12:00 AM EDT) Final Diagnosis A. Cystoscopic, : Negative for high grade urothelial carcinoma. Results of UroVysion fluorescence in situ hybridization (FISH) testing: CEP3: Normal CEP7: Normal CEP17: Normal LSI 9p21: Abnormal Interpretation: Abnormal profile Controls stained appropriately. Note: Abnormal results are considered suspicious for urothelial carcinoma. 05/14/2025 4:47 PM EDT [facility] Specimen A Adequacy Satisfactory for evaluation 05/14/2025 4:47 PM EDT [facility] Clinical Information History of bladder neoplasm (malignant) Z85.51 Urine Cytology/FISH (now) 05/14/2025 4:47 PM EDT [facility] Gross Description A. Cystoscopic, : Received one ThinPrep slide for cytology and one ThinPrep slide for UroVysion FISH 05/14/2025 4:47 PM EDT [facility] Disclaimer Unless otherwise specified, all tissue is 10% NB formalin fixed and paraffin embedded. Technical pathology services provided by [facility] at [address] [place] [address] [address], [place] [address] (CLIA #[id number]/Ankita Howell MD, Salesperson Wigs) 05/14/2025 4:47 PM EDT [facility] Urine Cystoscope / Unknown 04/16/2025 04/30/2025 11:04 AM EDT us Harry Lau MD LAB CYTOLOGY ORDERABLES Final Result [facility] [address] [place] [address], documented in this encounter Visit Diagnoses Diagnosis Personal history of malignant neoplasm of bladder documented in this encounter Care Teams Ornamental Metal Erector Relationship Specialty Start Date End Date Helio Ferguson PA [address] [place] [address] PCP - General Physician Community Health Educator 04/10/25 documented as of this encounter
--- OUTSIDE RECORDS SUMMARY | 2025-06-25 17:03 | XMS_ITS | Encounter Summary ---
Author Organization [facility] [place] [address] Care Team Providers Care Game Tester Name Role Phone Helio Ferguson Primary Care Provider [phone] Encounter Details Date Type Department Care Team (Late st Contact Info) Description 01/03/2025 Lab Requisition [facility] - Main Lab [address] [facility] [place] [address] Harry Lau MD [address] [place] [address] [place] [address] Calculus of kidney; Urinary tract infection, site not specified Social History Tobacco Use Types Packs/Day Years [...] Procedure Name Priority Date/Time Associated Diagnosis Comments URINALYSIS WITH REFLEX MICROSCOPIC Routine 01/03/2025 7:58 AM EDT Calculus of kidney Urinary tract infection, site not specified URINALYSIS WITH REFLEX MICROSCOPIC Routine 01/03/2025 7:58 AM EDT Calculus of kidney Urinary tract infection, site not specified COMPLETE BLOOD COUNT Routine 01/03/2025 7:58 AM EDT Calculus of kidney Urinary tract infection, site not specified CULTURE URINE Routine 01/03/2025 7:58 AM EDT Calculus of kidney Urinary tract infection, site not specified documented in this encounter Results * (ABNORMAL) Urinalysis with reflex microscopic (01/03/2025 7:58 AM EDT) Specific [place] Urine 1.018 1.003 - 1.030 LAB URINALYSIS - AUTOMATED METHOD 01/03/2025 2:06 PM [facility] pH, Urine 6.0 5.0 - 8.0 pH LAB URINALYSIS - AUTOMATED METHOD 01/03/2025 2:06 PM [facility] Leukocytes, Urine Negative Negative LAB URINALYSIS - AUTOMATED METHOD 01/03/2025 2:06 PM [facility] Nitrite, Urine Negative Negative LAB URINALYSIS - AUTOMATED METHOD 01/03/2025 2:06 PM [facility] Protein, Urine Negative <=Trace mg/dL LAB URINALYSIS - AUTOMATED METHOD 01/03/2025 2:06 PM [facility] Glucose, Urine 100(A) Negative mg/dL LAB URINALYSIS - AUTOMATED METHOD 01/03/2025 2:06 PM [facility] Ketones, Urine Negative Negative mg/dL LAB URINALYSIS - AUTOMATED METHOD 01/03/2025 2:06 PM [facility] Urobilinogen, Urine 1.0 0.2 - 1.0 mg/dL LAB URINALYSIS - AUTOMATED METHOD 01/03/2025 2:06 PM [facility] Bilirubin, Urine Negative Negative LAB URINALYSIS - AUTOMATED METHOD 01/03/2025 2:06 PM EDT [facility] Blood, Urine Negative Negative LAB URINALYSIS - AUTOMATED METHOD 01/03/2025 2:06 PM EDT [facility] Urine Urine specimen obtained by clean catch procedure / Unknown 01/03/2025 7:58 AM EDT 01/03/2025 1:30 PM EDT us Harry Lau MD LAB URINE ORDERABLES Final Res ult Performing Organization Address [facility]/ZIP Co de Phone Number [facility] [address] [place] [address], [place] [phone] * Culture urine (01/03/2025 7:58 AM EDT) Culture, Urine No growth 01/04/2025 9:30 AM EDT [facility] Urine Urine specimen obtained by clean catch procedure / Unknown 01/03/2025 7:58 AM EDT 01/03/2025 1:30 PM EDT us Harry Lau MD LAB MICROBIOLOGY - GENERAL ORD ERABLES Final Result Performing Organization Address [facility]/ZIP Co de Phone Number [facility] [address] [place] [address], [place] [phone] * (ABNORMAL) Complete blood count (01/03/2025 7:58 AM EDT) WBC 5.6 4.8 - 10.8 K/[facility] HEMETOLOGY METHOD 01/03/2025 1:43 PM EDT [facility] RBC 3.80(L) 4.50 - 5.50 M/[facility] LAB HEMETOLOGY METHOD 01/03/2025 1:43 PM EDT [facility] Hemoglobin 11.6(L) 13.5 - 17.5 g/dL LAB HEMETOLOGY METHOD 01/03/2025 1:43 PM EDT [facility] Hematocrit 35.7(L) 42.0 - 54.0 % LAB HEMETOLOGY METHOD 01/03/2025 1:43 PM EDT [facility] MCV 93.5 79.0 - 98.0 FL LAB HEMETOLOGY METHOD 01/03/2025 1:43 PM EDT [facility] MCH 30.4 27.0 - 32.0 pcg LAB HEMETOLOGY METHOD 01/03/2025 1:43 PM EDT [facility] MCHC 32.5 32.0 - 37.0 g/dL LAB HEMETOLOGY METHOD 01/03/2025 1:43 PM EDT [facility] RDW 13.4 11.0 - 15.0 % LAB HEMETOLOGY METHOD 01/03/2025 1:43 PM EDT [facility] Platelets 216 130 - 400 K/mcL LAB HEMETOLOGY METHOD 01/03/2025 1:43 PM EDT [facility] MPV 10.5 7.0 - 11.0 FL LAB HEMETOLOGY METHOD 01/03/2025 1:43 PM EDT [facility] NRBC 0.0 <1.0 % LAB HEMETOLOGY METHOD 01/03/2025 1:43 PM EDT [facility] NRBC Absolute 0.00 <0.10 K/mcL LAB HEMETOLOGY METHOD 01/03/2025 1:43 PM EDT [facility] Blood Venous blood specimen / Unknown 01/03/2025 7:58 AM EDT 01/03/2025 1:30 PM EDT us Harry Lau MD LAB BLOOD ORDERABLES Final Res ult [facility] [address] [place] [address], documented in this encounter Visit Diagnoses Diagnosis Calculus of kidney Urinary tract infection, site not specified documented in this encounter Care Teams Game Tester Relationship Specialty Start Date End Date Helio Ferguson PA [address] [place] [address] PCP - General Physician Master Control Operator 04/10/25 documented as of this encounter
--- OUTSIDE RECORDS SUMMARY | 2025-06-25 17:03 | XMS_ITS | Encounter Summary ---
Author Organization [facility] [place] [address] Care Team Providers Care Sailing Officer Name Role Phone Helio Ferguson Primary Care Provider [phone] Encounter Details Date Type Department Care Team (Late st Contact Info) Description 01/22/2025 Lab Requisition [facility] - Main Lab [address] [facility] [place] [address] Harry Lau MD [address] [place] [address] Malignant neoplasm of bladder neck ([facility] V24, [facility] V28) Social History Tobacco Use Types Packs/Day [...] Associated Diagnosis Comments AP OUTSIDE CONSULT Routine 01/17/2025 Malignant neoplasm of bladder neck ([facility] V24, [facility] V28) documented in this encounter Results * Anatomic pathology outside consult (01/17/2025) Final Diagnosis Urinary bladder-trans urethral resection: -PAPILLARY UROTHELIAL CARCINOMA, LOW GRADE -Invasion: Not identified -No muscularis propria, (Detrusor muscle) present for evaluation -Lymphovascul ar invasion: Not identified -Urothelial carcinoma in situ: Not identified 01/23/2025 11:21 AM EDT [facility] Clinical Information C67.5 [id number] 01/23/2025 11:21 AM EDT [facility] Gross Description A. Urinary Bladder, TUR: Labeled bladder tumor . Received in formalin are 3 soft, ortiz-red tissue fragments, measuring 0.2 x 0.1 x 0.1 cm in greatest diameters, which are wrapped in paper and submitted in toto in one cassette, 3 pieces, multiple levels. /rc 01/23/2025 11:21 AM EDT [facility] Disclaimer Unless otherwise specified, all tissue is 10% NB formalin fixed and paraffin embedded. Technical pathology services provided by [facility] [address] [facility] [address] [place] [address] (CLIA #[id number]/S ricco Howell MD, Nursing Department Chairperson) 01/23/2025 11:21 AM EDT [facility] Tissue Urinary bladder structure / Unknown 01/17/2025 01/22/2025 10:20 AM EDT us Harry Lau MD LAB PATHOLOGY ORDERABLES Final Result [facility] [address] [place] [address], documented in this encounter Visit Diagnoses Diagnosis Malignant neoplasm of bladder neck (CMS/HCC V24, CMS/HCC V28) Malignant neoplasm of bladder neck documented in this encounter Care Teams Sailing Officer Relationship Specialty Start Date End Date Helio Ferguson PA [address] [place] [address] PCP - General Physician Section Crews Activities Clerk 04/10/25 documented as of this encounter
--- OUTSIDE RECORDS SUMMARY | 2025-06-25 17:03 | XMS_ITS | Encounter Summary ---
Author Organization [facility] [place] [address] Care Team Providers Care Mobile Web Application Developer Name Role Phone Helio Ferguson Primary Care Provider [phone] Encounter Details Date Type Department Care Team (Late st Contact Info) Description 09/24/2024 Lab Requisition [facility] - Main Lab [address] [facility] [place] [address] Harry [facility] MD [address] [facility] [address] [place] [address] Personal history of malignant neoplasm [...] AM EST) Final Diagnosis A. Urine, Voided, ([id number]): FEW ATYPICAL UROTHELIAL CELLS. Results of UroVysion fluorescence in situ hybridization (FISH) testing: CEP3: Normal CEP7: Normal CEP17: Normal LSI 9p21: Normal Interpretation: Normal profile Controls stained appropriately. Note: The results are intended as a screening device and should be interpreted in association with other clinical and pathological findings. 10/04/2024 6:00 PM [facility] Clinical Information History of bladder neoplasm (malignant) Z85.51 Urine Cytology/FISH (now) 10/04/2024 6:00 PM [facility] Gross Description A. Urine, Voided, ([id number]): Received one ThinPrep slide for cytology screen and one ThinPrep slide for UroVysion FISH 10/04/2024 6:00 PM [facility] Disclaimer Unless otherwise specified, all tissue is 10% NB formalin fixed and paraffin embedded. Technical pathology services provided by [facility] [address] [place] [address] (CLIA #[id number]/Ankita Howell MD, Heel Sprayer) 10/04/2024 6:00 PM [facility] Tissue Urine specimen from urethra / Unknown 09/18/2024 09/24/2024 10:12 AM EST us Harry Lau MD LAB PATHOLOGY ORDERABLES Final Result [facility] [address] [place] [address], documented in this encounter Visit Diagnoses Diagnosis Personal history of malignant neoplasm of bladder documented in this encounter Care Teams Mobile Web Application Developer Relationship Specialty Start Date End Date Helio Ferguson PA [address] [place] [phone] PCP - General Physician Client Support Consultant 04/10/25 documented as of this encounter
== END 2025-06-25 13:44 | disposition home or self-care (01) ==
LOC: HO.HCS 13:19
PROVIDERS: PCP Physician Assistant; Visit Provider Internal Medicine
DX: I25.10 Atherosclerotic heart disease of native coronary artery without angina pectoris (principal); I73.9 Peripheral vascular disease, unspecified; E11.8 Type 2 diabetes mellitus with unspecified complications; C88.00 Waldenstrom macroglobulinemia not having achieved remission
CPT/HCPCS: 99214; G2211

== ENCOUNTER → 2025-06-25 13:18 | Outpatient (BNVA) | payer MEDICARE, SELFPAY | PROVIDERS: PCP Physician Assistant; Visit Provider Internal Medicine | DX: I25.10 Atherosclerotic heart disease of native coronary artery without angina pectoris (principal); I10 Essential (primary) hypertension; I71.20 Thoracic aortic aneurysm, without rupture, unspecified; I73.9 Peripheral vascular disease, unspecified; E11.8 Type 2 diabetes mellitus with unspecified complications; C88.00 Waldenstrom macroglobulinemia not having achieved remission; Z95.5 Presence of coronary angioplasty implant and graft | CPT/HCPCS: 99212 ==